=== PATIENT | female | born 1980 | race Caucasian/White ===

== ENCOUNTER 2018-08-07 14:18 | Inpatient (IN) ==
[2018-08-07] MEDS ORDERED: Naloxone 0.4 MG/ML INJ IVP PRN (17:17)
[2018-08-07] MEDS ORDERED: *HR* OxyCODONE Immed Rel 5 MG TABLET PO PRN (17:17)
[2018-08-07] MEDS ORDERED: *HR* HYDROcodone/Acet 5/325 mg TABLET PO PRN (17:17)
[2018-08-07] MEDS ORDERED: Vancomycin (wt based) 1,000 MG VIAL IVPB SCH (18:00)
[2018-08-07 18:34] LABS: Bilirubin,Direct 0.8 mg/dL (0.0-0.2); Bilirubin,Indirect 3.3 mg/dL (0.0-1.2); Bilirubin,Total 4.1 mg/dL (0.3-1.0)
[2018-08-07] MEDS: Piperacillin/Tazobactam 3.375 GM in 0.9 % Sodium Chloride Mini Bag 100 ML IVPB SCH (18:49)
[2018-08-07] MEDS: 0.9 % Sodium Chloride 1,000 ML IVC SCH ×4 (18:49→21:41)
--- NOTE | 2018-08-07 19:10 | Internal Med History&Physical ---
Date of Encounter: 08/07/18 Time of Encounter: 17:00 Internal Medicine - H&P: HPI Chief complaint: Leg pain Admitted From: Hospital to Hospital Transfer Plans for Post Hospital Care: Home History of present illness: Ms. Del Castillo is a 38 year old female with no past medical history presented with R leg pain and fever. She was evaluated in [place] ED and transferred here. She was given IV fluids and IV Clindamycin. At the present time she is complaining of R leg pain. Ms Del Castillo has hx of chronic swelling of her legs. She says over the last couple of days she has noticed increased swelling especially in her R leg. She has felt warm and chilled. Some nausea as well. Tylenol has helped but pain in R leg has increased. No diarrhea. No CP or SOB. No cough. No groin pain. No urinary symptoms. Past Med Surg Social Fam HX - Past Medical History Medical history: no medical history Additional medical history: cellulitis, polycystic ovary syndrome Psychiatric history: no psych history - Past Surgical History Surgical History: no surgical history - Social History Smoking Status: Never smoker Smokeless Tobacco Status: No Alcohol use: none Drug use: none - Family History Father Living Status: Still Living Hx Family Cardiac Disorders: Yes (a-fib) Internal Medicine - H&P: Meds No Known Home Drugs 08/07/18 [History] Allergy/AdvReac Type Severity Reaction Status Date / Time No Known Allergies Allergy Verified 08/07/18 12:21 All Systems PM: A 10-system review of systems was performed and is negative for pertinent findings except as documented above in the HPI. - Constitutional Constitutional: chills, fever(s), malaise - EENT Eyes: no diplopia, no pain Ears: no decreased hearing Nose, mouth and throat: dry mouth, no mouth pain, no sinus pain - Cardiovascular Cardiovascular ROS IM: edema, no chest pain, no dyspnea, no dyspnea on exertion, no orthopnea, no paroxysmal nocturnal dyspnea - Respiratory Respiratory: no cough, no hemoptysis, no dyspnea on exertion, no wheezing, no snoring, no chest congestion - Gastrointestinal Gastrointestinal: nausea, no abdominal pain, no diarrhea, no vomiting - Genitourinary Genitourinary: no dysuria, no nocturia - Musculoskeletal Musculoskeletal ROS IM: no arthralgias, no muscle weakness, no stiffness - Integumentary Integumentary IM: erythema, other (warmth bilaterally - R greater than L) - Neurological Neurological ROS: no numbness, no tingling - Endocrine Endocrine IM: no cold intolerance, no excessive sweating - Hematologic/Lymphatic Hematologic/Lymphatic: no easy bleeding - Allergic/Immunologic Allergic/Immunologic: no throat swelling - Constitutional Vitals: Temp Pulse BP Pulse Ox 98.5 F 112 124/46 92 08/07/18 15:53 08/07/18 15:53 08/07/18 15:53 08/07/18 15:53 General appearance: Present: A&O X 3, answers questions appropriately Exam: See below - Head Head exam: Present: normocephalic - Eye Eye exam: Present: EOMI, conjuntiva pink - ENT ENT exam: Present: mucous membranes dry, normal exam - Neck Neck exam general surgery: Present: normal inspection. Absent: thyromegaly - Respiratory Respiratory exam: Present: CTAB. Absent: rales, rhonchi, wheezes - Cardiovascular Cardiovascular exam: Present: tachycardia. Absent: systolic murmur - GI/Abdominal GI/Abdominal exam: Present: normal bowel sounds, soft. Absent: tenderness - Extremities Exam Extremities exam: Present: pedal edema, tenderness, warm Additional comments: Bilateral lower extremity edema R greater than L. R leg very warm and red to knee. No groin adenopathy. No groin erythema noted. No abdominal erythema. - Neurological Exam Neurological exam: Present: alert, oriented X3, no focal deficits - Skin Skin exam: Present: erythema, warm Internal Med - H&P Results - Labs Labs: Liver Function 08/07/18 Range/Units 18:01 Total Bilirubin 4.1 H (0.3-1.0) mg/dL Direct Bilirubin 0.8 H (0.0-0.2) mg/dL - Impressions ITS Impressions Lower Extremity CT 08/07/18 17:11 IMPRESSION: 1. Diffuse subcutaneous edema with associated skin thickening which is slightly more pronounced when compared with the partially imaged contralateral left lower extremity. Correlate clinically to exclude cellulitis. Underlying venous stasis/lymph edema is suspected. No organized fluid collection or subcutaneous gas identified. 2. No acute osseous abnormality and no CT evidence for osteomyelitis. D/ / Jim Mendoza MD / Jim Mendoza MD Interpreting Provider: Jim Mendoza MD - Assessment and plan (1) Severe sepsis with acute organ dysfunction due to group A Streptococcus Current Visit: Yes Status: Suspected Assessment and plan: Pt with significant cellulitis of RLE. Blood cultures done in [place]. She was given Clindamycin in [place] Admit. IV Zosyn and Vanc ordered CT scan of RLE to r/o gas or fascitis Check duplex to r/o DVT (dimer elevated) Pt severely ill - WBC 37K. Lactate over 4. BP OK at this time. Heart rate elevated. ASO titer ordered. (2) Cellulitis of right lower extremity Current Visit: No Status: Acute Assessment and plan: Most likely due to strep. Abx ordered. Blood cx pending. See above. (3) Anemia Current Visit: No Status: Suspected Assessment and plan: Pt has microcytic anemia. Bilirubin elevated. Further labs ordered. Recheck tomorrow. 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 Recheck tomorrow. (5) Morbid obesity with BMI of 60.0-69.9, adult Current Visit: Yes Status: Chronic - Time Spent With Patient Total time spent is greater than 50% in coordination of care (as documented) at patient's floor/unit and/or counseling patient:
--- NOTE | 2018-08-07 19:34 | Sepsis Event Note ---
Sepsis Event Note - Evaluation Sepsis Screen: No Definite Risk Current Stage of Suspected Sepsis: severe sepsis Possible Source of Sepsis: skin/soft tissue - Focused Exam Date of Encounter: 08/07/18 Time of Encounter: 17:00 Vital Signs: Vital Signs Temp Pulse BP Pulse Ox 08/07/18 15:53 98.5 F 112 124/46 92 08/07/18 15:46 93 Respiratory Exam: Present: CTA bilaterally Cardiovascular Exam: Present: tachycardia Capillary Refill: < 2 seconds Peripheral Pulse Strength: 3+ normal Peripheral Pulse Location: Radial Skin Exam: normal turgor - Bedside Monitoring Bedside Ultrasound Performed: No Passive Leg raise/fluid bolus: not performed
--- NOTE | 2018-08-07 22:44 | Sepsis Event Note ---
Sepsis Reassessment Note - Evaluation Sepsis Screen: Severe Sepsis Risk Current Stage of Sepsis: sepsis Possible Source of Sepsis: skin/soft tissue - Focused Exam Date of Encounter: 08/07/18 Time of Encounter: 23:11 Vital Signs: Vital Signs Temp Pulse Resp BP Pulse Ox 08/07/18 21:46 98.7 F 115 18 122/67 93 08/07/18 15:53 98.5 F 112 124/46 92 08/07/18 15:46 93 Respiratory Exam: Present: CTA bilaterally, diminished air movement Cardiovascular Exam: Present: tachycardia, S1, S2. Absent: murmur Capillary Refill: < 2 seconds Peripheral Pulse Strength: 3+ normal Peripheral Pulse Location: Radial Skin Exam: normal turgor - Reassessment Comments Comments: Repeat lactic acid improved at 1.9. Patient remains tachycardic, but is afebrile.
[2018-08-07] MEDS: Ringers Solution, Lactated 1,000 ML IVC SCH (23:30)
[2018-08-08] MEDS ORDERED: Piperacillin/Tazobactam 3.375 GM in 0.9 % Sodium Chloride Mini Bag 100 ML IVPB SCH
[2018-08-08] MEDS: Piperacillin/Tazobactam 3.375 GM in 0.9 % Sodium Chloride Mini Bag 100 ML IVPB SCH ×3 (01:18→14:49)
[2018-08-08 03:32] LABS: Hematocrit 29.5 % (35.3-44.9); Hemoglobin 7.5 g/dL (11.5-15.4); Mean Corpuscular HGB Conc 25.4 g/dL (31.6-35.5); Mean Corpuscular Hemoglobin 17.2 pg (28.0-33.3); Mean Corpuscular Volume 67.5 fL (83.0-100.0); Platelet Count 282 K/mcL (140-400); Red Blood Count 4.37 M/mcL (3.82-4.97); Red Cell Distribution Width 22.1 % (11.5-14.5)
[2018-08-08 04:17] LABS: Lymphocytes # 2.1 K/mcL (0.6-4.6); Monocytes # 0.9 K/mcL (0.0-1.3); Neutrophils # 39.5 K/mcL (1.6-8.9)
[2018-08-08 04:18] LABS: Ovalocytes 1+ (Not Present); Platelet Estimate Normal (Normal); Stomatocytes 1+ (Not Present)
[2018-08-08 05:25] LABS: Alanine Aminotransferase 25 Units/L (7-52); Albumin 3.8 g/dL (3.5-5.7); Albumin/Globulin Ratio 1.2 (1.1-2.2); Alkaline Phosphatase 55 Units/L (34-104); Aspartate Amino Transferase 31 Units/L (13-39); BUN/Creatinine Ratio 14 (6-26); Bilirubin,Total 3.9 mg/dL (0.3-1.0); Blood Urea Nitrogen 26 mg/dL (6-20); Calcium 7.9 mg/dL (8.6-10.3); Carbon Dioxide 24 mEq/L (23-29); Chloride 102 mEq/L (98-107); Globulin 3.3 g/dL (2.4-3.5); Glucose 113 mg/dL (70-105); Iron < 10 mcg/dL (50-170); Magnesium 1.6 mg/dL (1.6-2.6); Osmolality,Calculated 280 (280-300); Phosphorous 5.1 mg/dL (2.7-4.5); Potassium 6.1 mEq/L (3.5-5.1); Sodium 132 mEq/L (136-145); Total Protein 7.1 g/dL (6.4-8.9); Transferrin 258 mg/dL (203-362); eGFR For Non-African Americans 32 (> 60)
[2018-08-08] MEDS: Ringers Solution, Lactated 1,000 ML IVC SCH (07:00)
[2018-08-08 08:01] LABS: Calcium 7.9 mg/dL (8.6-10.3); Potassium 5.2 mEq/L (3.5-5.1)
--- NOTE | 2018-08-08 08:39 | Internal Med Progress Note ---
<Darin Santos - Last Filed: 08/08/18 17:27> Hospitalist Progress Note - Encounter Date of Encounter: 08/08/18 - Exam Vitals: Temp Pulse Resp BP Pulse Ox 97.7 F 87 20 134/75 96 08/08/18 17:15 08/08/18 17:15 08/08/18 17:15 08/08/18 17:15 08/08/18 17:15 - Assessment and Plan (1) Severe sepsis with acute organ dysfunction due to group A Streptococcus Current Visit: Yes Status: Suspected (2) Cellulitis of right lower extremity Current Visit: No Status: Acute (3) Acute kidney injury (nontraumatic) Current Visit: No Status: Suspected (4) Anemia Current Visit: No Status: Suspected (5) Leukocytosis Current Visit: No Status: Acute (6) Morbid obesity with BMI of 60.0-69.9, adult Current Visit: Yes Status: Chronic (7) Hyperfibrinogenemia Current Visit: Yes Status: Acute (8) Iron deficiency anemia Current Visit: Yes Status: Suspected (9) Acute respiratory failure with hypoxemia Current Visit: Yes Status: Acute (10) CKD (chronic kidney disease) Current Visit: Yes Status: Acute (11) B12 deficiency Current Visit: Yes Status: Acute (12) Elevated brain natriuretic peptide (BNP) level Current Visit: Yes Status: Acute (13) Respiratory failure with hypercapnia Current Visit: Yes Status: Acute - Time Spent with Patient Total time spent is greater than 50% in coordination of care (as documented) at patient's floor/unit and/or counseling patient: Internal Medicine: Result - Labs CBC & Chem 7: 08/08/18 03:08 08/08/18 06:53 Labs: Short CBC 08/08/18 Range/Units 03:08 WBC 42.5 H* (4.3-11.1) K/mcL Hgb 7.5 L (11.5-15.4) g/dL Hct 29.5 L (35.3-44.9) % Plt Count 282 (140-400) K/mcL Neutrophils # 39.5 H (1.6-8.9) K/mcL BMP 08/08/18 08/08/18 03:08 06:53 Sodium 132 L 132 L Potassium 6.1 H D 5.2 H Chloride 102 100 Carbon Dioxide 24 25 BUN 26 H 29 H Creatinine 1.80 H 1.96 H Glucose 113 H 114 H Calcium 7.9 L 7.9 L Liver Function 08/07/18 08/08/18 Range/Units 18:01 03:08 Total Bilirubin 4.1 H 3.9 H (0.3-1.0) mg/dL Direct Bilirubin 0.8 H (0.0-0.2) mg/dL AST 31 (13-39) Units/L ALT 25 (7-52) Units/L Alkaline Phosphatase 55 (34-104) Units/L Albumin 3.8 (3.5-5.7) g/dL Urine 08/08/18 Range/Units 12:45 Urine Color [place] A (Yellow) Urine Clarity Turbid A (Clear) Urine pH 5.0 (5.0-8.0) pH Units Ur Specific [place] 1.024 (1.010-1.025) Urine Protein 100 H (Neg-Trace) mg/dL Urine Glucose (UA) Normal (Normal) mg/dL - ABG Interpretation ABG results: ABG ABG pH 7.27 pH Units (7.32-7.45) L 08/08/18 09:57 ABG pCO2 53 mmHg (35-45) H 08/08/18 09:57 ABG pO2 70 mmHg (85-104) L 08/08/18 09:57 ABG O2 Saturation 91 % (95-98) L 08/08/18 09:57 PT/INR, D-dimer PT 22.0 Seconds (9.4-12.1) H 08/08/18 03:08 - Impressions Impressions Lower Extremity CT 08/07/18 17:11 IMPRESSION: 1. Diffuse subcutaneous edema with associated skin thickening which is slightly more pronounced when compared with the partially imaged contralateral left lower extremity. Correlate clinically to exclude cellulitis. Underlying venous stasis/lymph edema is suspected. No organized fluid collection or subcutaneous gas identified. 2. No acute osseous abnormality and no CT evidence for osteomyelitis. D/ / Jim Mendoza MD / Jim Mendoza MD Interpreting Provider: Jim Mendoza MD Chest X-Ray 08/08/18 09:40 IMPRESSION: Cardiomegaly with pulmonary vascular congestion D/ / Shree Griffith MD / Shree Griffith MD Interpreting Provider: Shree Griffith MD Head CT 08/08/18 10:03 IMPRESSION: No acute intracranial abnormality. D/ / Shree Griffith MD / Shree Griffith MD Interpreting Provider: Shree Griffith MD Consult Discharge Plan - Plan Referrals: NONE,PCP [Primary Care Provider] - - Attending Attestation I examined this patient and my medical decision-making was reviewed with the Resident Physician on 08/08/18. I agree with the documented findings, disposition and treatment plan as described except to the extent set forth below. Ms Del Castillo is currently admitted for sepsis related to RLE cellulitis. She remains moderate to high risk due to potential for worsening clinical status. Ms Del Castillo is still very somnolent today. She has evidence of respiratory acidosis. Febrile again today. No CP or SOB. Renal function worse today. No abd pain. No diarrhea. Exam alert Somnolent but arousable and answers questions appropriately Mucus membranes dry Heart reg and slightly tachy but better today Lungs diminished but clear Abd soft and nontender RLE still very warm and swollen. Less tender today. WBC 42K I/P 1. Severe sepsis due to cellulitis - blood cx neg thus far. Still febrile. On Zosyn and Vanc. WBC markedly elevated. ? if early DIC though platelets normal. Appreciate heme input. Will ask ID to see tomorrow. Monitoring leg for any changes that could speak of abscess or other problem (CT negative yesterday). 2. Morbid obesity. Further diagnoses and plan as above <Deon Garces - Last Filed: 08/08/18 19:41> Hospitalist Progress Note - Encounter Date of Encounter: 08/08/18 Time of Encounter: 10:20 - Subjective Interval History: Seen patient at the bedside. Patient is a transfer from a [place] because of flow right leg pain secondary to cellulitis, on to be in sepsis. She is currently on day 1 vancomycin and Zosyn. She seems to be in moderate distress gasping for air currently on 2L oxygen. Has shortness of breath, and rapid breathing seemed to be confused not hypotensive at this moment. Stat chest x- ray has been ordered. Owing to her confused state stat head CT has also been ordered. Her ABGs showed respiratory acidosis with mild hypoxemia. With evidence of mild hypoxemia should be transitioned from a 2 L oxygen to BiPAP. - Exam Vitals: Temp Pulse Resp BP Pulse Ox 98.7 F 116 19 144/77 86 08/07/18 21:46 08/08/18 07:59 08/08/18 05:08 08/08/18 07:59 08/08/18 07:59 Exam: Gen: Somnolent , acute distress, on BiPAP Chest: Diminished breath sounds B/L, no rales, wheezing or ronchi Heart: S1S2+ RRR No murmurs Abd: Soft, NT, BS +, No organomegaly Ext: +1 edema, pulses are palpable, erythema on RLE due to cellulitis Neuro : Benign findings Skin: erythem aon RLE , swollen. - Assessment and Plan (1) Acute respiratory failure with hypoxemia Current Visit: Yes Status: Acute Assessment and Plan: -Likely multifactorial- patient was severly septic on admision with leukocy tosis of 37K, Lactic acid 4.0, HR : 112. Patient also had anemia (Hb < 7.5), with elevated BNP : 184 - X-ray was positive for pulmonary vascular congestion , patient's ABG showed evidence of acute respiratory acidosis (pH 7.27, pCO2: 53), mild hypoxemia (pO2: 70) - Patient currently on BiPAP, On Vancomycin and Zosyn for her cellulitis. . - Blood and sputum cultures pending. Echo pending , ASO titre pending. Continue to monitor (2) Severe sepsis with acute organ dysfunction due to group A Streptococcus Current Visit: Yes Status: Suspected Assessment and Plan: - likely due to her significant cellulitis and right lower extremity. She was given clindamycin and [place] ED. -Lactic acid 4 on admission currently trending down to 1.9. Paitent is status post 4 L of sodium chloride, a liter of lactated Ringer's. WBC at 37K currently 42.5 K. D-dimer elevated at [place] - Blood and sputum cultures are pending. UA pending. UA positive for nitrates - Currently on day 1 of vancomycin and Zosyn - ASO titre pending (3) Cellulitis of right lower extremity Current Visit: No Status: Acute Assessment and Plan: - Patient came with right lower extremity cellulitis- was given IV clindamycin and [facility] at [facility]. - Currently on IV vancomycin and Zosyn. Oxycodone for pain control. - Blood cultures pending . (4) Acute kidney injury (nontraumatic) Current Visit: No Status: Suspected Assessment and Plan: -Patient has no past medical history of any renal disease. However she came in with a GFR of 29 suggesting stage IV CKD. Patient also edematous but no evidence of periorbital edema. No evidence of hematuria dysuria. Not hypertensive on admission. UA showed proteinuria of 100. -Patient's urine specific gravity was 1.024 suggesting pre-renal cause , Cr 1.86 on admission currently 1.96, s/p 4L 0.9%NCL, 1L LR - FENa pending, renally dose medications. Nephrology on board, Renal Us pending to rule out hydropnephrosis (5) Anemia Current Visit: No Status: Suspected Assessment and Plan: - Likely a mixture of normocytic and microcytic anemia. Patient was admitted with the iron deficiency, MCV 667.5, RDW : 22.1, 1+ ovalocytes, 1+ stomatocytes, LDH : 209. She also had elevated indirect bilirubin of 3.3, K 6.1 on admission, repeat labs showed potassium - 5.2 likely due to sort of hemolysis (Intra/Vascular) - Haptoglobulin , reticulocyte labs pending, Peripheral smear , Direct Erny test pending - Ordered Venofer 300 mg IV, started on Vit B12 1000 mc IM injections daily for 5 days, Folate 1mg PO. - Transfuse 1 unit of PRBCs for Hgb < 7.0 (6) Hyperfibrinogenemia Current Visit: Yes Status: Acute Assessment and Plan: -She had no elevated circulating the fibrinogen > 450 mg/d. - Likely due to setting of acute inflammation secondary to cellulitis. (7) Iron deficiency anemia Current Visit: Yes Status: Suspected Assessment and Plan: - Patient was admitted with iron less than 10. Transferring 258. - No history of any aspirin or NSAID use. - currently on Venofer 300 mg IV, FOBT pending - Transfuse if hemoglobin less than 7. (8) CKD (chronic kidney disease) Current Visit: Yes Status: Acute Assessment and Plan: - Patient came as GFR of 29. -No known history of any diabetes or hypertension. -Renally dose medications.. Nephrology on board. Monitor kidney Fn (9) B12 deficiency Current Visit: Yes Status: Acute Assessment and Plan: - patient had a B12 283. - As per recommendations of hematology , starting on 1000 mc IM injections daily for 5 days. (Then transition to weekly for 4 doses, and then monthly) - (10) Leukocytosis Current Visit: No Status: Acute Assessment and Plan: - She can leukocytosis of 37K, currently 42.5 K, also has left shift - likely due to her right leg cellulitis. -Currently on broad spectrum antibiotics. Will deescalate once blood cultures results are out (11) Morbid obesity with BMI of 60.0-69.9, adult Current Visit: Yes Status: Chronic Assessment and Plan: - Patient has a BMI of 62.5. - Counselled on better dietary choices. (12) Elevated brain natriuretic peptide (BNP) level Current Visit: Yes Status: Acute Assessment and Plan: -[place] was admitted with the elevated BNP of 184. Suspected CHF -CXR was positive for a cardiomegaly along with pulmonary vascular congestion. - Echo pending to rule out valvular/ structural abnormality. - Time Spent with Patient Total time spent is greater than 50% in coordination of care (as documented) at patient's floor/unit and/or counseling patient: Internal Medicine: Result - Labs CBC & Chem 7: 08/08/18 17:57 08/08/18 06:53 Labs: Short CBC 08/08/18 Range/Units 03:08 WBC 42.5 H* (4.3-11.1) K/mcL Hgb 7.5 L (11.5-15.4) g/dL Hct 29.5 L (35.3-44.9) % Plt Count 282 (140-400) K/mcL Neutrophils # 39.5 H (1.6-8.9) K/mcL BMP 08/08/18 08/08/18 03:08 06:53 Sodium 132 L 132 L Potassium 6.1 H D 5.2 H Chloride 102 100 Carbon Dioxide 24 25 BUN 26 H 29 H Creatinine 1.80 H 1.96 H Glucose 113 H 114 H Calcium 7.9 L 7.9 L Liver Function 08/07/18 08/08/18 Range/Units 18:01 03:08 Total Bilirubin 4.1 H 3.9 H (0.3-1.0) mg/dL Direct Bilirubin 0.8 H (0.0-0.2) mg/dL AST 31 (13-39) Units/L ALT 25 (7-52) Units/L Alkaline Phosphatase 55 (34-104) Units/L Albumin 3.8 (3.5-5.7) g/dL - ABG Interpretation ABG results: PT/INR, D-dimer PT 22.0 Seconds (9.4-12.1) H 08/08/18 03:08 - Impressions Impressions Lower Extremity CT 08/07/18 17:11 IMPRESSION: 1. Diffuse subcutaneous edema with associated skin thickening which is slightly more pronounced when compared with the partially imaged contralateral left lower extremity. Correlate clinically to exclude cellulitis. Underlying venous stasis/lymph edema is suspected. No organized fluid collection or subcutaneous gas identified. 2. No acute osseous abnormality and no CT evidence for osteomyelitis. D/ / iJm Mendoza MD / Jim Mendoza MD Interpreting Provider: Jim Mendoza MD <Darin Santos - Last Filed: 08/08/18 17:27> (4) Anemia Qualifiers: Anemia type: iron deficiency Iron deficiency anemia type: chronic blood loss Qualified Code(s): D50.0 - Iron deficiency anemia secondary to blood loss (chronic) (5) Leukocytosis Qualifiers: Leukocytosis type: bandemia Qualified Code(s): D72.825 - Bandemia (8) Iron deficiency anemia Qualifiers: Iron deficiency anemia type: chronic blood loss Qualified Code(s): D50.0 - Iron deficiency anemia secondary to blood loss (chronic) (13) Respiratory failure with hypercapnia Qualifiers: Chronicity: acute Qualified Code(s): J96.02 - Acute respiratory failure with hypercapnia <Deon Garces - Last Filed: 08/08/18 19:41> (5) Anemia Qualifiers: Anemia type: iron deficiency Iron deficiency anemia type: chronic blood loss Qualified Code(s): D50.0 - Iron deficiency anemia secondary to blood loss (chronic) (7) Iron deficiency anemia Qualifiers: Iron deficiency anemia type: chronic blood loss Qualified Code(s): D50.0 - Iron deficiency anemia secondary to blood loss (chronic) (10) Leukocytosis Qualifiers: Leukocytosis type: bandemia Qualified Code(s): D72.825 - Bandemia
[2018-08-08 09:17] LABS: Immature Reticulocyte % 25.4 % (11.0-38.0); Retculocyte # 0.06 M/mcL (0.05-0.10); Reticulocyte % 1.5 % (1.6-2.8)
[2018-08-08 10:01] LABS: ABG Base Excess -3 mEq/L (-2 to 3); ABG HCO3 25 mEq/L (21-27); ABG Oxygen Saturation 91 % (95-98); ABG PCO2 53 mmHg (35-45); ABG PH 7.27 pH Units (7.32-7.45); ABG PO2 70 mmHg (85-104); ABG TCO2 26 mEq/L (20-26)
[2018-08-08 10:27] LABS: Thyroid Stimulating Hormone 1.034 mcIU/mL (0.340-5.600)
[2018-08-08] MEDS: Acetaminophen 325 MG TABLET PO PRN (11:01)
--- NOTE | 2018-08-08 12:53 | Oncology Inp Consult Note ---
Date of Encounter: 08/08/18 Time of Encounter: 13:00 - Data of Consult Requesting Physician: Darin Santos DO Primary Care Provider: PCP NONE - Consult Narrative Reason for consult: Leukocytosis, Anemia History of present illness: A: 1. Anemia w/ MCV of 67.5, RDW 22.1, 1+ ovalocytes, 1+ stomatocytes 2. Iron deficiency anemia, Vit B12 deficiency, and folic acid deficiency 3. Leukocytosis 4. Right lower extremity cellulitis 5. elevated PT/INR (22.0/2.0) 6. Renal Failure (BUN 29/Cr 1.96) 7. Respiratory acidosis P: -Iron < 10, transferrin 258. Will check ferritin. Patient will require IV Fe (Venofer 300 mg IV) -B12 283, start on Vit B12 1000 mc IM injections daily for 5 days. (Then transition to weekly for 4 doses, and then monthly) -Folate 4.3. Please started on folic acid 1 mg PO daily. -Hgb 7.5 w/ MCV 67.5, will check Hgb electrophoresis. -Patient appears to be iron deficient, check FOBT and consider GI consult. -LDH 209, haptoglobin pending. Fibrinogen 663. PT/INR 22.0/2.0. Please check RONN, aPTT, and peripheral blood smear. -BUN 29, Cr 1.96, eGFR 29. Consider checking FENa, Renal US, and nephrology c/s. -ABG shows respiratory acidosis, now on BIPAP -Transfuse 1 unit of PRBCs for Hgb < 7.0 HPI: The patient is a 38 yo WF with no significant past medical history p/w RLE cellulitis. She is currently on IVFs and Clindamycin. Per notes, she endorsed fevers, chills, and right lower leg pain on admission. The patient this am is very tired, groggy, and states her right lower leg is hurting. She was given pain medication the night before. Otherwise, she denies any chills, chest pain, N/V/D, or urinary issues at this time. We have been consulted for leukocytosis and anemia. ROS: 12 point ROS performed. Pertinent positives in HPI. PE: Gen: Morbidly obese female. Very groggy and tired HEENT: NC/AT, PERRLA, EOMI, MMM. CV: Tachycardic. Regular rhythm. No MRGs appreciated. Lungs: Decreased BS b/l, but no w/r/r. ABD: Soft, obese, NT, ND. +BS EXT: Right lower extremity appears red, tender, and swollen Neuro: Very groggy and tired this am. No focal deficits apparent. SKIN: RLE red, hot, tender, and warm. Patient endorses tenderness on palpation. Otherwise, no unusual lesions, rashes, or petechiae appreciated. Past Med Surg Social Fam HX - Past Medical History Medical history: no medical history Additional medical history: cellulitis, polycystic ovary syndrome Psychiatric history: no psych history - Past Surgical History Surgical History: no surgical history - Social History Smoking Status: Never smoker Smokeless Tobacco Status: No Alcohol use: none Drug use: none - Family History Father Living Status: Still Living Hx Family Cardiac Disorders: Yes (a-fib) Medications and Allergies No Known Home Drugs 08/07/18 [History] Allergy/AdvReac Type Severity Reaction Status Date / Time No Known Allergies Allergy Verified 08/07/18 12:21 Oncology - Exam - Constitutional Vitals: Temp Pulse Resp BP Pulse Ox 98.7 F 116 28 143/77 94 08/07/18 21:46 08/08/18 07:59 08/08/18 10:05 08/08/18 10:05 08/08/18 10:05 Oncology - Results Labs: 08/08/18 08/08/18 08/08/18 09:57 08:55 08:55 WBC RBC Hgb Hct MCV MCH MCHC RDW Plt Count MPV Reticulocyte # 0.06 Seg Neutrophils % Band Neutrophils % Lymphocytes % Monocytes % Neutrophils # Lymphocytes # Monocytes # Platelet Estimate Ovalocytes Stomatocytes Percent Retic 1.5 L Immature Retic Fraction 25.4 Retic Hgb Equivalent 16.4 L PT INR Fibrinogen Sample Site L Radial ABG pH 7.27 L ABG pCO2 53 H ABG pO2 70 L ABG HCO3 25 ABG Total CO2 26 ABG O2 Saturation 91 L ABG Base Excess -3 L Juan Test Positive O2 Delivery Device Cannula Inspired O2 2.0 Sodium Potassium Chloride Carbon Dioxide BUN Creatinine Est GFR ( Amer) Est GFR (Non-Af Amer) BUN/Creatinine Ratio Glucose Calculated Osmolality Lactic Acid Calcium Phosphorus Magnesium Iron % Saturation Transferrin Total Bilirubin Direct Bilirubin Indirect Bilirubin AST ALT Alkaline Phosphatase Lactate Dehydrogenase 209 Creatine Kinase B-Natriuretic Peptide Serum Total Protein Albumin Globulin Albumin/Globulin Ratio Vitamin B12 Folate TSH Free T4 Blood Type Antibody Screen Direct Antiglob Test RONN, Poly Interpret 08/08/18 08/08/18 08/08/18 08:54 08:54 06:53 WBC RBC Hgb Hct MCV MCH MCHC RDW Plt Count MPV Reticulocyte # Seg Neutrophils % Band Neutrophils % Lymphocytes % Monocytes % Neutrophils # Lymphocytes # Monocytes # Platelet Estimate Ovalocytes Stomatocytes Percent Retic Immature Retic Fraction Retic Hgb Equivalent PT INR Fibrinogen Sample Site ABG pH ABG pCO2 ABG pO2 ABG HCO3 ABG Total CO2 ABG O2 Saturation ABG Base Excess Juan Test O2 Delivery Device Inspired O2 Sodium 132 L Potassium 5.2 H Chloride 100 Carbon Dioxide 25 BUN 29 H Creatinine 1.96 H Est GFR ( Amer) 35 L Est GFR (Non-Af Amer) 29 L BUN/Creatinine Ratio 15 Glucose 114 H Calculated Osmolality 281 Lactic Acid Calcium 7.9 L Phosphorus Magnesium Iron % Saturation Transferrin Total Bilirubin Direct Bilirubin Indirect Bilirubin AST ALT Alkaline Phosphatase Lactate Dehydrogenase Creatine Kinase 197 B-Natriuretic Peptide Serum Total Protein Albumin Globulin Albumin/Globulin Ratio Vitamin B12 283 Folate 4.3 TSH 1.034 Free T4 0.88 Blood Type Antibody Screen Direct Antiglob Test RONN, Poly Interpret 08/08/18 08/08/18 08/08/18 03:08 03:08 03:08 WBC RBC Hgb Hct MCV MCH MCHC RDW Plt Count MPV Reticulocyte # Seg Neutrophils % Band Neutrophils % Lymphocytes % Monocytes % Neutrophils # Lymphocytes # Monocytes # Platelet Estimate Ovalocytes Stomatocytes Percent Retic Immature Retic Fraction Retic Hgb Equivalent PT INR Fibrinogen 663 H Sample Site ABG pH ABG pCO2 ABG pO2 ABG HCO3 ABG Total CO2 ABG O2 Saturation ABG Base Excess Juan Test O2 Delivery Device Inspired O2 Sodium 132 L Potassium 6.1 H D Chloride 102 Carbon Dioxide 24 BUN 26 H Creatinine 1.80 H Est GFR ( Amer) 39 L Est GFR (Non-Af Amer) 32 L BUN/Creatinine Ratio 14 Glucose 113 H Calculated Osmolality 280 Lactic Acid Calcium 7.9 L Phosphorus 5.1 H Magnesium 1.6 Iron < 10 L % Saturation TNP Transferrin 258 Total Bilirubin 3.9 H Direct Bilirubin Indirect Bilirubin AST 31 ALT 25 Alkaline Phosphatase 55 Lactate Dehydrogenase Creatine Kinase B-Natriuretic Peptide 184 H Serum Total Protein 7.1 Albumin 3.8 Globulin 3.3 Albumin/Globulin Ratio 1.2 Vitamin B12 Folate TSH Free T4 Blood Type Antibody Screen Direct Antiglob Test RONN, Poly Interpret 08/08/18 08/08/18 08/07/18 03:08 03:08 22:00 WBC 42.5 H* RBC 4.37 Hgb 7.5 L Hct 29.5 L MCV 67.5 L MCH 17.2 L MCHC 25.4 L RDW 22.1 H Plt Count 282 MPV TNP Reticulocyte # Seg Neutrophils % 88.0 Band Neutrophils % 5.0 H Lymphocytes % 5.0 Monocytes % 2.0 Neutrophils # 39.5 H Lymphocytes # 2.1 Monocytes # 0.9 Platelet Estimate Normal Ovalocytes 1+ A Stomatocytes 1+ A Percent Retic Immature Retic Fraction Retic Hgb Equivalent PT 22.0 H INR 2.0 Fibrinogen Sample Site ABG pH ABG pCO2 ABG pO2 ABG HCO3 ABG Total CO2 ABG O2 Saturation ABG Base Excess Juan Test O2 Delivery Device Inspired O2 Sodium Potassium Chloride Carbon Dioxide BUN Creatinine Est GFR ( Amer) Est GFR (Non-Af Amer) BUN/Creatinine Ratio Glucose Calculated Osmolality Lactic Acid 1.9 Calcium Phosphorus Magnesium Iron % Saturation Transferrin Total Bilirubin Direct Bilirubin Indirect Bilirubin AST ALT Alkaline Phosphatase Lactate Dehydrogenase Creatine Kinase B-Natriuretic Peptide Serum Total Protein Albumin Globulin Albumin/Globulin Ratio Vitamin B12 Folate TSH Free T4 Blood Type Antibody Screen Direct Antiglob Test RONN, Poly Interpret 08/07/18 08/07/18 08/07/18 18:01 18:01 18:01 WBC RBC Hgb Hct MCV MCH MCHC RDW Plt Count MPV Reticulocyte # Seg Neutrophils % Band Neutrophils % Lymphocytes % Monocytes % Neutrophils # Lymphocytes # Monocytes # Platelet Estimate Ovalocytes Stomatocytes Percent Retic Immature Retic Fraction Retic Hgb Equivalent PT INR Fibrinogen Sample Site ABG pH ABG pCO2 ABG pO2 ABG HCO3 ABG Total CO2 ABG O2 Saturation ABG Base Excess Juan Test O2 Delivery Device Inspired O2 Sodium Potassium Chloride Carbon Dioxide BUN Creatinine Est GFR ( Amer) Est GFR (Non-Af Amer) BUN/Creatinine Ratio Glucose Calculated Osmolality Lactic Acid 2.7 H Calcium Phosphorus Magnesium Iron % Saturation Transferrin Total Bilirubin 4.1 H Direct Bilirubin 0.8 H Indirect Bilirubin 3.3 H AST ALT Alkaline Phosphatase Lactate Dehydrogenase Creatine Kinase B-Natriuretic Peptide Serum Total Protein Albumin Globulin Albumin/Globulin Ratio Vitamin B12 Folate TSH Free T4 Blood Type A NEGATIVE Antibody Screen NEGATIVE Direct Antiglob Test 1+ A RONN, Poly Interpret 1+ Lower Extremity CT 08/07/18 17:11 IMPRESSION: 1. Diffuse subcutaneous edema with associated skin thickening which is slightly more pronounced when compared with the partially imaged contralateral left lower extremity. Correlate clinically to exclude cellulitis. Underlying venous stasis/lymph edema is suspected. No organized fluid collection or subcutaneous gas identified. 2. No acute osseous abnormality and no CT evidence for osteomyelitis. Consult Discharge Plan - Plan Referrals: NONE,PCP [Primary Care Provider] - Inpatient Charges Provider: Dr. James Terry Consult - Inpatient: [id number]
[2018-08-08 13:01] LABS: Bilirubin,Urine Small (Negative); Blood,Urine Negative (Negative); Clarity,Urine Turbid (Clear); Color,Urine Orange (Yellow); Glucose,Urine (UA) Normal (Normal); Ketones,Urine Trace mg/dL (Negative); Leukocyte Esterase,Urine Trace (Negative); Nitrite,Urine Positive (Negative); Protein,Urine 100 mg/dL (Neg-Trace); Specific Gravity,Urine 1.024 (1.010-1.025); Urobilinogen,Urine Normal (Normal)
[2018-08-08 13:04] LABS: Bacteria,Urine None Seen per hpf (None-Few); Squamous Epithelial Cell,Urine Many per lpf (None-Few); WBC,Urine 15-30 per hpf (0-3)
[2018-08-08 13:14] LABS: RBC,Urine 0-3 per hpf (0-3)
[2018-08-08] MEDS ORDERED: Cyanocobalamin (B-12) 1,000 MCG/ML VIAL IM ONE (13:49)
--- NOTE | 2018-08-08 13:58 | Nephrology Consult Note ---
Date of Encounter: 08/08/18 Time of Encounter: 12:00 Assessment and Plan (1) Acute kidney injury (nontraumatic) Current Visit: No Status: Suspected Elevated SCr in the setting of likely sepsis and on vanco/zosyn Agree with holding IVF given resp. distress, continue po fluids Will dose with one time iv lasix 40mg to improve UOP after 6liters in Avoid nephrotoxins if possible No acute indication for [employer] at this time but discussed the possibility if renal fxn worsens and /or worsening volume overload refractory to diuretics Await US of kindey, bladder sacn done with laureano also in place. Doubt obxn Will check urine studies, uric acid, ck resul'ts noted, CHERIE and complements. ASO titer already ordered by primary team (2) Acute respiratory failure with hypoxemia Current Visit: Yes Status: Acute See above (3) Morbid obesity with BMI of 60.0-69.9, adult Current Visit: Yes Status: Chronic (4) Iron deficiency anemia Current Visit: Yes Status: Suspected Per hematology, s/p iv iron infusion already Qualifiers: Iron deficiency anemia type: chronic blood loss Qualified Code(s): D50.0 - Iron deficiency anemia secondary to blood loss (chronic) (5) Severe sepsis with acute organ dysfunction due to group A Streptococcus Current Visit: Yes Status: Suspected per primary team (6) Cellulitis of right lower extremity Current Visit: No Status: Acute per primaty team History of Present Illness - Reason for Consult Consult date: 08/08/18 Acute Kidney Injury Requesting physician: Darin Santos - History of Present Illness 38 y o female with no known PMH except morbid obesity and chronic LE edema admitted from [place] with RLE pain and fever. She was noted with very elevated WBC at 37 now 42 along with elevated SCr at 1.85 worsening to 1.96, GFR 29 with baseline unknown. Renal consulted for help with HAZEL management. No NS AIDs use noted, just tylenol. No urinary sxs. Ptbseen and examined with and brother present at bedside, Pt was on biPAP and appeared lethargic but easily awakes up and answers questions appropriately. Past Med Surg Social Fam HX - Past Medical History Medical history: no medical history Additional medical history: cellulitis, polycystic ovary syndrome Psychiatric history: no psych history - Past Surgical History Surgical History: no surgical history - Social History Smoking Status: Never smoker Smokeless Tobacco Status: No Alcohol use: none Drug use: none - Family History Father Living Status: Still Living Hx Family Cardiac Disorders: Yes (a-fib) Medications and Allergies No Known Home Drugs 08/07/18 [History] Allergy/AdvReac Type Severity Reaction Status Date / Time No Known Allergies Allergy Verified 08/07/18 12:21 Review of Systems All Systems review (narrative): The rest of the systems are negative Constitutional: fatigue (admits) Cardiovascular: chest pain (denies), edema (admits) Respiratory: dyspnea (denies) Exam - Vital Signs Vital signs: Initial Vital Signs Pulse Ox 93 08/07/18 15:46 Vital Signs - Last 8 Hours Temp Pulse Resp BP Pulse Ox 08/08/18 13:23 100.8 F H 104 135/62 95 08/08/18 11:00 102.3 F H 08/08/18 10:05 28 143/77 94 08/08/18 09:11 93 08/08/18 07:59 116 144/77 86 Intake and Output 08/07/18 08/08/18 08/08/18 23:59 07:59 15:59 Intake Total 4600 / 4600 1100 / 1100 Output Total 0 / 0 550 / 550 Balance 4600 / 4600 550 / 550 Intake: IV Fluids 4600 / 4600 1100 / 1100 0.9 % Sodium Chloride 1,000 ML 4000 / 4000 @ 999 mls/hr IVC .Q1H1M [facility] Rx# :[id number] Lactated Ringers 1,000 ML @ 150 1000 / 1000 mls/hr IVC .Q6H40M ROHINI Rx#: [id number] Zosyn 3.375 GM In 0.9 % Sodium 100 / 100 100 / 100 Chloride (Mini-Bag +) 100 ML @ 25 mls/hr IVPB Q8HR [facility] Rx#: [id number] Vancocin 2,000 MG In 0.9 % 500 / 500 Sodium Chloride 500 ML @ 250 mls/hr IVPB Q12H [facility] Rx#: [id number] Output: Urine 0 / 0 550 / 550 Other: # Voids 1 Weight 191.95 kg - General Appearance General appearance: well-developed, well-nourished, obese, fatigue Exam: on biPAP EENT: ATNC, mucous membranes moist Neck: no JVD, supple Additional Comments: Decreased BS bases bilat Cardiology: edema (LE bilat), normal S2 Gastrointestinal: no tenderness, no guarding, obese Integumentary: warm and dry, chronic venous stasis ( RLE with erythema and warmth) Neurologic: no focal deficit Musculoskeletal: no deformities Psychiatric: mood/affect appropriate Results - Lab Results 08/08/18 17:57 08/08/18 06:53 Most recent lab results ABG pH 7.27 pH Units (7.32-7.45) L 08/08/18 09:57 ABG pCO2 53 mmHg (35-45) H 08/08/18 09:57 ABG pO2 70 mmHg (85-104) L 08/08/18 09:57 ABG HCO3 25 mEq/L (21-27) 08/08/18 09:57 ABG O2 Saturation 91 % (95-98) L 08/08/18 09:57 Calcium 7.9 mg/dL (8.6-10.3) L 08/08/18 06:53 Phosphorus 5.1 mg/dL (2.7-4.5) H 08/08/18 03:08 Magnesium 1.6 mg/dL (1.6-2.6) 08/08/18 03:08 Urine Sodium 23.4 mEq/L 08/08/18 12:45 Consult Discharge Plan - Plan Referrals: NONE,PCP [Primary Care Provider] -
[2018-08-08] MEDS: Folic Acid 1 MG TABLET PO SCH (14:49)
[2018-08-08] MEDS ORDERED: Furosemide 40 MG/4 ML VIAL IVP ONE (16:29)
[2018-08-08 18:10] LABS: Hematocrit 25.3 % (35.3-44.9); Hemoglobin 6.5 g/dL (11.5-15.4); Mean Corpuscular HGB Conc 25.7 g/dL (31.6-35.5); Mean Corpuscular Hemoglobin 17.2 pg (28.0-33.3); Mean Corpuscular Volume 66.8 fL (83.0-100.0); Mean Platelet Volume 10.7 fL (9.4-12.4); Platelet Count 230 K/mcL (140-400); Red Blood Count 3.79 M/mcL (3.82-4.97); Red Cell Distribution Width 22.1 % (11.5-14.5)
[2018-08-09 01:17] LABS: Basophils % 0.1 %; Lymphocytes % 2.3 %
[2018-08-09 01:19] LABS: Hematocrit 26.9 % (35.3-44.9); Hemoglobin 6.8 g/dL (11.5-15.4); Immature Granulocytes % 4.1 % (0-4); Lymphocytes # 0.6 K/mcL (0.6-4.6); Mean Corpuscular HGB Conc 25.3 g/dL (31.6-35.5); Mean Corpuscular Hemoglobin 16.8 pg (28.0-33.3); Mean Corpuscular Volume 66.4 fL (83.0-100.0); Monocytes # 1.2 K/mcL (0.0-1.3); Monocytes % 4.9 %; Neutrophils # 21.9 K/mcL (1.6-8.9); Platelet Count 224 K/mcL (140-400); Red Blood Count 4.05 M/mcL (3.82-4.97); Red Cell Distribution Width 21.8 % (11.5-14.5); Segmented Neutrophils % 88.6 %
[2018-08-09] MEDS: Acetaminophen 325 MG TABLET PO PRN ×2 (01:25→20:44)
[2018-08-09] MEDS: Piperacillin/Tazobactam 3.375 GM in 0.9 % Sodium Chloride Mini Bag 100 ML IVPB SCH ×2 (01:25→09:07)
[2018-08-09 01:35] LABS: Anisocytosis 2+ (Not Present); Hypochromasia Present (Not Present); Microcytosis Present (Not Present); Platelet Estimate Normal (Normal)
[2018-08-09] MEDS ORDERED: 0.9 % Sodium Chloride 250 ML ONE (03:43)
[2018-08-09 04:25] LABS: ABG Base Excess -2 mEq/L (-2 to 3); ABG HCO3 26 mEq/L (21-27); ABG Oxygen Saturation 69 % (95-98); ABG PCO2 64 mmHg (35-45); ABG PH 7.22 pH Units (7.32-7.45); ABG PO2 44 mmHg (85-104); ABG TCO2 28 mEq/L (20-26)
[2018-08-09 05:02] LABS: Basophils % 0.1 %
[2018-08-09 05:03] LABS: Hematocrit 26.3 % (35.3-44.9); Hemoglobin 6.7 g/dL (11.5-15.4); Immature Granulocytes % 4.4 % (0-4); Lymphocytes # 0.6 K/mcL (0.6-4.6); Lymphocytes % 2.4 %; Mean Corpuscular HGB Conc 25.5 g/dL (31.6-35.5); Mean Corpuscular Hemoglobin 17.1 pg (28.0-33.3); Mean Corpuscular Volume 67.1 fL (83.0-100.0); Monocytes # 0.9 K/mcL (0.0-1.3); Neutrophils # 20.3 K/mcL (1.6-8.9); Nucleated Red Blood Cells 0.1 /100 WBC (0); Platelet Count 192 K/mcL (140-400); Red Blood Count 3.92 M/mcL (3.82-4.97); Red Cell Distribution Width 22.5 % (11.5-14.5); Segmented Neutrophils % 89.1 %
[2018-08-09 05:04] LABS: INR 1.4; Prothrombin Time 15.8 Seconds (9.4-12.1)
[2018-08-09 05:17] LABS: Calcium 8.1 mg/dL (8.6-10.3); Potassium 5.1 mEq/L (3.5-5.1)
[2018-08-09 05:34] LABS: ABG Base Excess -2 mEq/L (-2 to 3); ABG HCO3 27 mEq/L (21-27); ABG Oxygen Saturation 100 % (95-98); ABG PCO2 72 mmHg (35-45); ABG PH 7.18 pH Units (7.32-7.45); ABG PO2 220 mmHg (85-104); ABG TCO2 29 mEq/L (20-26); Blood Gas PEEP 8 cm H2O
[2018-08-09] MEDS ORDERED: Furosemide 40 MG/4 ML VIAL IVP ONE ×2 (05:39→08:06)
[2018-08-09 05:50] LABS: Platelet Estimate Normal (Normal)
[2018-08-09 05:51] LABS: Anisocytosis 2+ (Not Present); Hypochromasia Present (Not Present); Microcytosis Present (Not Present)
[2018-08-09] MEDS ORDERED: *HR* Belladonna Alkaloids/Opium 30 MG RECTAL SUPPOSITORY RC PRN (08:41)
[2018-08-09] MEDS ORDERED: Acetaminophen IV 1,000 MG/100 ML INFUS..BTL IVPB ONE (08:46)
--- NOTE | 2018-08-09 08:50 | Internal Med Progress Note ---
<Maritza Garcesbh - Last Filed: 08/09/18 16:25> Hospitalist Progress Note - Encounter Date of Encounter: 08/09/18 Time of Encounter: 08:00 - Subjective Interval History: 08/09 Patient had a drop in her hemoglobinto 6.7, and is s/p 1 unit of packed red blood cell. Her repeat hemoglobin as of 9 AM is 7.4. Stool guaiac has been ordered. She continues is to be on broad-spectrum antibiotics for her right leg cellulitis and her white blood count has been improving (42.5 -> 22.8K) , added Cefepime by ID. Endorses mild abdominal pain which could be secondary to constipation and ordered some stool softeners. Patient endorses no numbness or tingling in extremities, the erythema around the cellulitis looks about the same. Continues to have a nonoliguric HAZEL and is s/p 9L of fluids in total. 08/08 Seen patient at the bedside. Patient is a transfer from [facility] because of flow right leg pain secondary to cellulitis, on to be in sepsis. She is currently on day 1 vancomycin and Zosyn. She seems to be in moderate distress gasping for air currently on 2L oxygen. Has shortness of breath, and rapid breathing seemed to be confused not hypotensive at this moment. Stat chest x- ray has been ordered. Owing to her confused state stat head CT has also been ordered. Her ABGs showed respiratory acidosis with mild hypoxemia. With evidence of mild hypoxemia should be transitioned from a 2 L oxygen to BiPAP. - Exam Vitals: Temp Pulse Resp BP Pulse Ox 97.4 F L 86 15 145/83 97 08/09/18 06:43 08/09/18 06:43 08/09/18 06:43 08/09/18 06:43 08/09/18 06:43 Exam: Gen: Somnolent , acute distress, on BiPAP Chest: Diminished breath sounds B/L, no rales, wheezing or ronchi Heart: S1S2+ RRR No murmurs Abd: Distended , NT, BS +, No organomegaly Ext: +1 edema, pulses are palpable, erythema on RLE due to cellulitis Neuro : Benign findings Skin: erythem aon RLE , swollen. - Assessment and Plan (1) Acute respiratory failure with hypoxemia Current Visit: Yes Status: Acute Assessment and Plan: -Likely multifactorial- patient was severly septic on admision with leukocytosis of 37K, Lactic acid 4.0, HR : 112. Patient also had anemia (Hb < 7.5), with elevated BNP : 184 - X-ray was positive for pulmonary vascular congestion , patient's most recent ABG showed evidence of acute respiratory acidosis with hypoxemia , worsened as of this morning at 5:29 AM with PCO2 of 72 , repeat ABG looks better and most recent PCO2 is 68, with pH 7.24 . - Patient currently on BiPAP, On Vancomycin, 2 grams IV Q12h cefepime, and Zosyn for her cellulitis. - Blood and sputum cultures have not grown anything thus far. Echo pending , ASO titre pending. Continue to monitor (2) Severe sepsis with acute organ dysfunction due to group A Streptococcus Current Visit: Yes Status: Suspected Assessment and Plan: - likely due to her significant cellulitis and right lower extremity. She was given IV clindamycin and [facility]. -Lactic acid 4 on admission currently trending down to 0.6 . Paitent is s tatus post 4 L of sodium chloride, a liter of lactated Ringer's. WBC at 37K currently 42.5 K. D-dimer elevated at [facility] - Insulin white blood count is trending down. Tachycardia has resolved. Afebrile - Blood and sputum cultures are pending. UA pending. UA positive for nitrates - Currently on day 1 of vancomycin , Zosynand IV Cefepime q12h. - ASO titre pending (3) Cellulitis of right lower extremity Current Visit: No Status: Acute Assessment and Plan: - Patient came with right lower extremity cellulitis- was given IV clindamycin and fluids at [facility]. - Currently on IV vancomycin ,Cefepime q12h, Zosyn. Oxycodone for pain control. DVT study was negative. - Blood cultures pending . (4) Acute kidney injury (nontraumatic) Current Visit: No Status: Acute Assessment and Plan: -Patient has no past medical history of any renal disease. However she came in with a GFR of 29 suggesting stage IV CKD. Patient also edematous but no evidence of periorbital edema. No evidence of hematuria dysuria. Not hypertensive on admission. UA showed proteinuria of 100. -Patient's urine specific gravity was 1.024 suggesting pre-renal cause , Cr 1.86 on admission currently 1.89, s/p 4L 0.9%NCL, 1L LR, OD catheter in place - complement, CHERIE, eosinophils, FENa pending, renally dose medications. Nephrology on board, Renal Diet (5) Anemia Current Visit: No Status: Acute Assessment and Plan: - Likely a mixture of normocytic and microcytic anemia, with evidence of hypochromasia, and low percent reticulocyte count. Patient was admitted with the iron deficiency, MCV 667.5, RDW : 22.1, 1+ ovalocytes, 1+ stomatocytes, LDH : 209, Ferritin 61. She also had elevated indirect bilirubin of 3.3, K 6.1 on admission, repeat labs showed potassium - 5.2 likely due to sort of hemolysis (Intra/Vascular) - had a drop in her hemoglobin to 6.7 requiringi unit pRBC ,repeat Hb 7.4 - Haptoglobulin , Peripheral smear , LAP score, celiac cascade, parietal cell IgG and Intrinsic factor AB pending. stool guiac test ordered - Ordered Venofer 300 mg IV, started on Vit B12 1000 mc IM injections daily for 5 days, Folate 1mg PO. - Transfuse 1 unit of PRBCs for Hgb < 7.0 (6) Hyperfibrinogenemia Current Visit: Yes Status: Acute Assessment and Plan: -She had elevated circulating the fibrinogen > 450 mg/d. - Likely due to setting of acute inflammation secondary to cellulitis. (7) Iron deficiency anemia Current Visit: Yes Status: Suspected Assessment and Plan: - Patient was admitted with iron less than 10. Transferring 258, Normal Ferritin - No history of any aspirin or NSAID use. - currently on Venofer 300 mg IV, FOBT pending - Transfuse if hemoglobin less than 7. (8) CKD (chronic kidney disease) Current Visit: Yes Status: Acute Assessment and Plan: - Patient came as GFR of 29. -No known history of any diabetes or hypertension. -Renally dose medications.. Nephrology on board. Monitor kidney Fn (9) B12 deficiency Current Visit: Yes Status: Acute Assessment and Plan: - patient had a B12 283. - As per recommendations of hematology , starting on 1000 mc IM injections daily for 5 days. (Then transition to weekly for 4 doses, and then monthly) - (10) Leukocytosis Current Visit: No Status: Acute Assessment and Plan: - She was admitted with leukocytosis of 37K, currently improving at 22.8 K, also has left shift - likely due to her right leg cellulitis. -Currently on Vanc/Zosyn and Cefepime. Will deescalate once blood cultures results are out, LAP (leukocyte alkaline phosphate test) pending (11) Morbid obesity with BMI of 60.0-69.9, adult Current Visit: Yes Status: Chronic Assessment and Plan: - Patient has a BMI of 62.5. - Counselled on better dietary choices. (12) Elevated brain natriuretic peptide (BNP) level Current Visit: Yes Status: Acute Assessment and Plan: -She was admitted with the elevated BNP of 184. Suspected CHF -CXR was positive for a cardiomegaly along with pulmonary vascular congestion. - Echo pending to rule out valvular/ structural abnormality. - Time Spent with Patient Total time spent is greater than 50% in coordination of care (as documented) at patient's floor/unit and/or counseling patient: Internal Medicine: Result - Labs CBC & Chem 7: 08/09/18 09:10 08/09/18 04:35 Labs: Short CBC 08/08/18 08/08/18 08/09/18 Range/Units 03:08 17:57 01:06 WBC 42.5 H* 31.1 H* 24.7 H (4.3-11.1) K/mcL Hgb 7.5 L 6.5 L 6.8 L (11.5-15.4) g/dL Hct 29.5 L 25.3 L 26.9 L (35.3-44.9) % Plt Count 282 230 224 (140-400) K/mcL Neutrophils # 39.5 H 21.9 H (1.6-8.9) K/mcL 08/09/18 Range/Units 04:35 WBC 22.8 H (4.3-11.1) K/mcL Hgb 6.7 L (11.5-15.4) g/dL Hct 26.3 L (35.3-44.9) % Plt Count 192 (140-400) K/mcL Neutrophils # 20.3 H (1.6-8.9) K/mcL BMP 08/08/18 08/09/18 06:53 04:35 Sodium 132 L 130 L Potassium 5.2 H 5.1 Chloride 100 100 Carbon Dioxide 25 24 BUN 29 H 40 H Creatinine 1.96 H 1.89 H Glucose 114 H 130 H Calcium 7.9 L 8.1 L Urine 08/08/18 Range/Units 12:45 Urine Color [place] A (Yellow) Urine Clarity [place] A (Clear) Urine pH 5.0 (5.0-8.0) pH Units Ur Specific [place] 1.024 (1.010-1.025) Urine Protein 100 H (Neg-Trace) mg/dL Urine Glucose (UA) Normal (Normal) mg/dL - ABG Interpretation ABG results: ABG ABG pH 7.18 pH Units (7.32-7.45) L* 08/09/18 05:29 ABG pCO2 72 mmHg (35-45) H* 08/09/18 05:29 ABG pO2 220 mmHg (85-104) H D 08/09/18 05:29 ABG O2 Saturation 100 % (95-98) H 08/09/18 05:29 PT/INR, D-dimer PT 15.8 Seconds (9.4-12.1) H 08/09/18 04:35 - Impressions Impressions Chest X-Ray 08/08/18 09:40 IMPRESSION: Cardiomegaly with pulmonary vascular congestion D/ / Shree Griffith MD / Shree Griffith MD Interpreting Provider: Shree Griffith MD Head CT 08/08/18 10:03 IMPRESSION: No acute intracranial abnormality. D/ / Shree Griffith MD / Shree Griffith MD Interpreting Provider: Shree Griffith MD Chest X-Ray 08/09/18 08:20 IMPRESSION: Stable chest. Probable early CHF with mild perihilar edema. D/ / Javi Simpson MD / Javi Simpson MD Interpreting Provider: Javi Simpson MD Consult Discharge Plan - Plan Referrals: NONE,PCP [Primary Care Provider] - <Darin Santos - Last Filed: 08/09/18 17:00> Hospitalist Progress Note - Encounter Date of Encounter: 08/09/18 - Exam Vitals: Temp Pulse Resp BP Pulse Ox 98.2 F 81 16 133/79 98 08/09/18 16:00 08/09/18 16:00 08/09/18 16:00 08/09/18 16:00 08/09/18 16:00 - Assessment and Plan (1) Cellulitis of right lower extremity Current Visit: No Status: Acute (2) Acute kidney injury (nontraumatic) Current Visit: No Status: Acute (3) Anemia Current Visit: No Status: Acute (4) Leukocytosis Current Visit: No Status: Acute (5) Severe sepsis with acute organ dysfunction due to group A Streptococcus Current Visit: Yes Status: Suspected (6) Morbid obesity with BMI of 60.0-69.9, adult Current Visit: Yes Status: Chronic (7) Hyperfibrinogenemia Current Visit: Yes Status: Acute (8) Iron deficiency anemia Current Visit: Yes Status: Suspected (9) Acute respiratory failure with hypoxemia Current Visit: Yes Status: Acute (10) CKD (chronic kidney disease) Current Visit: Yes Status: Acute (11) B12 deficiency Current Visit: Yes Status: Chronic (12) Elevated brain natriuretic peptide (BNP) level Current Visit: Yes Status: Acute (13) Respiratory failure with hypercapnia Current Visit: Yes Status: Acute (14) Folate deficiency Current Visit: Yes Status: Chronic - Time Spent with Patient Total time spent is greater than 50% in coordination of care (as documented) at patient's floor/unit and/or counseling patient: Internal Medicine: Result - Labs CBC & Chem 7: 08/09/18 09:10 08/09/18 04:35 Labs: Short CBC 08/08/18 08/09/18 08/09/18 Range/Units 17:57 01:06 04:35 WBC 31.1 H* 24.7 H 22.8 H (4.3-11.1) K/mcL Hgb 6.5 L 6.8 L 6.7 L (11.5-15.4) g/dL Hct 25.3 L 26.9 L 26.3 L (35.3-44.9) % Plt Count 230 224 192 (140-400) K/mcL Neutrophils # 21.9 H 20.3 H (1.6-8.9) K/mcL 08/09/18 Range/Units 09:10 WBC (4.3-11.1) K/mcL Hgb 7.4 L (11.5-15.4) g/dL Hct 28.3 L (35.3-44.9) % Plt Count (140-400) K/mcL Neutrophils # (1.6-8.9) K/mcL BMP 08/09/18 04:35 Sodium 130 L Potassium 5.1 Chloride 100 Carbon Dioxide 24 BUN 40 H Creatinine 1.89 H Glucose 130 H Calcium 8.1 L - ABG Interpretation ABG results: ABG ABG pH 7.24 pH Units (7.32-7.45) L 08/09/18 08:48 ABG pCO2 68 mmHg (35-45) H 08/09/18 08:48 ABG pO2 58 mmHg (85-104) L D 08/09/18 08:48 ABG O2 Saturation 84 % (95-98) L 08/09/18 08:48 PT/INR, D-dimer PT 15.8 Seconds (9.4-12.1) H 08/09/18 04:35 - Impressions Impressions Chest X-Ray 08/09/18 08:20 IMPRESSION: Stable chest. Probable early CHF with mild perihilar edema. D/ / Javi Simpson MD / Javi Simpson MD Interpreting Provider: Javi Simpson MD - Attending Attestation I examined this patient and my medical decision-making was reviewed with the Resident Physician on 08/09/18. I agree with the documented findings, disposition and treatment plan as described except to the extent set forth below. Ms Del Castillo is currently admitted for severe sepsis due to RLE cellulitis. She has developed acute hypercarbic resp failure from pulmonary edema. She remains moderate to high risk due to potential for worsening clinical status. Ms Del Castillo was more somnolent this AM and had worsening respiratory acidosis. BIPAP settings changed. She was better a few hours later. She is now off bipap. Her WBC has decreased. Cultures neg thus far. No further fever or chills. Appears to be more interactive at this time. Pain in her leg (pain meds held due to somnolence). Exam alert Answers my questions Mucus membranes dry Heart reg and not tachy Decreased breath sounds Abd soft and nontender RLE still swollen and red. Area of increased erythema on anterior surface. Edema present. I/P 1. Severe sepsis due to cellulitis - abx adjusted per ID. WBC decreasing. Appears to be very slowly improving. 2. Acute hypercarbic resp failure - due to pulmonary edema. Slow diuresis due to renal function 3. HAZEL - per renal service 4. Anemia - received blood this AM. Patient has been on menses as well. Further diagnoses and plan as above. <Deon Garces - Last Filed: 08/09/18 16:25> (5) Anemia Qualifiers: Anemia type: iron deficiency Iron deficiency anemia type: chronic blood loss Qualified Code(s): D50.0 - Iron deficiency anemia secondary to blood loss (chronic) (7) Iron deficiency anemia Qualifiers: Iron deficiency anemia type: chronic blood loss Qualified Code(s): D50.0 - Iron deficiency anemia secondary to blood loss (chronic) (10) Leukocytosis Qualifiers: Leukocytosis type: bandemia Qualified Code(s): D72.825 - Bandemia <Darin Santos - Last Filed: 08/09/18 17:00> (3) Anemia Qualifiers: Anemia type: iron deficiency Iron deficiency anemia type: chronic blood loss Qualified Code(s): D50.0 - Iron deficiency anemia secondary to blood loss (c hronic) (4) Leukocytosis Qualifiers: Leukocytosis type: bandemia Qualified Code(s): D72.825 - Bandemia (8) Iron deficiency anemia Qualifiers: Iron deficiency anemia type: chronic blood loss Qualified Code(s): D50.0 - Iron deficiency anemia secondary to blood loss (chronic) (13) Respiratory failure with hypercapnia Qualifiers: Chronicity: acute Qualified Code(s): J96.02 - Acute respiratory failure with hypercapnia
[2018-08-09 08:56] LABS: ABG Base Excess 0 mEq/L (-2 to 3); ABG HCO3 29 mEq/L (21-27); ABG Oxygen Saturation 84 % (95-98); ABG PCO2 68 mmHg (35-45); ABG PH 7.24 pH Units (7.32-7.45); ABG PO2 58 mmHg (85-104); ABG TCO2 31 mEq/L (20-26); Blood Gas Modality BiLevel; Blood Gas VT 500 cc
[2018-08-09] MEDS: Folic Acid 1 MG TABLET PO SCH (09:01)
[2018-08-09 09:28] LABS: Hematocrit 28.3 % (35.3-44.9); Hemoglobin 7.4 g/dL (11.5-15.4)
[2018-08-09 09:36] LABS: Protein/Creatinine Ratio,Urine 0.91 mg/mg (0.00-0.20)
--- NOTE | 2018-08-09 10:26 | Oncology Inp Progress Note ---
<Ksenia Doe - Last Filed: 08/09/18 15:54> Date of Encounter: 08/09/18 Time of Encounter: 10:26 (1) Anemia Current Visit: No Status: Acute Assessment and plan: Anemia w/ MCV of 67.5, RDW 22.1, 1+ ovalocytes, 1+ stomatocytes Pt does have iron, B12 and folate deficiencies. Ferritin 61, Vit B12 283, folate 4.3 Pt also has acute hgb drop to 6.7 requiring 1 unit PRBCs early this AM (repeat was 7.4) LDH 209, haptoglobin pending. Fibrinogen 663. PT/INR 22.0/2.0, aPTT 32.3, RONN 1+ A Respiratory acidosis improving Concern for malabsortion in the presence if iron, B12 and folate deficiencies. Will work up with celiac cascade, parietal cell IgG and Intrinsic factor AB Plan: -Continue Venofer -Continue Vit B12 1000 mc IM injections daily for 5 days. (Then transition to weekly for 4 doses, and then monthly) -Continue folic acid 1 mg PO daily. 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 Likely secondary to underlying infectious/inflammatory process. Plan: -Continue with treatment of cellulitis -LAP (leukocyte alkaline phosphate test) pending Qualifiers: Leukocytosis type: bandemia Qualified Code(s): D72.825 - Bandemia (3) B12 deficiency Current Visit: Yes Status: Acute Assessment and plan: per above (4) Folate deficiency Current Visit: Yes Status: Acute Assessment and plan: per above (5) Iron deficiency anemia Current Visit: Yes Status: Suspected Assessment and plan: per above Qualifiers: Iron deficiency anemia type: chronic blood loss Qualified Code(s): D50.0 - Iron deficiency anemia secondary to blood loss (chronic) (6) Cellulitis of right lower extremity Current Visit: No Status: Acute Assessment and plan: Afebrile, VSS Pt is on IV abx and appears to be improving continue per primary team (7) Acute kidney injury (nontraumatic) Current Visit: No Status: Acute Assessment and plan: Improving, SCr 1.89/GFR [address] with yellow urine Nephrology consulted (8) Morbid obesity with BMI of 60.0-69.9, adult Current Visit: Yes Status: Chronic Oncology: Subj Interval history: Ms. Del Castillo is a 38 y/o WF with no significant past medical history p/w RLE cellulitis. She reports this morning that her legs, hands and abdomen feel swollen. She states that her abdomen is tight and feels full. She reports that she is on her menses, not sure if it is heavier than normal but always has heavy menses. She has not had a BM since arrival on 08/07. The urine in her laureano is yellow, no blood. She denies BARROW, visual changes, dizziness, cp, sob. She does report a PMH of PCOS, notes she has not been to a doctor for years since her OB left. - Constitutional Vitals: Vital Signs Temp Pulse Resp BP Pulse Ox 08/09/18 06:43 97.4 F L 86 15 145/83 97 08/09/18 06:27 98.5 F 90 17 133/66 08/09/18 05:40 15 146/70 97 08/09/18 04:42 97.7 F 80 18 146/70 95 08/09/18 04:06 97.7 F 83 18 146/70 08/09/18 03:51 97.8 F 92 18 152/65 96 08/08/18 23:41 26 96 08/08/18 21:32 96 08/08/18 20:06 97 23 133/72 91 08/08/18 18:00 98.8 F 96 17 136/67 93 08/08/18 17:15 97.7 F 87 20 134/75 96 08/08/18 16:17 20 96 08/08/18 13:23 100.8 F H 104 135/62 95 08/08/18 11:00 102.3 F H Intake and Output 08/08/18 08/09/18 08/09/18 23:59 07:59 15:59 Intake Total 1100 / 1100 380 / 380 Output Total 650 / 650 0 / 0 1520 / 1520 Balance 450 / 450 380 / 380 -1520 / -1520 Intake: IV Fluids 300 / 300 100 / 100 Venofer 300 MG In 0.9 % Sodium 200 / 200 Chloride 100 ML @ 76.667 mls/hr IVPB DAILY [facility] Rx#:[id number] Zosyn 3.375 GM In 0.9 % Sodium 100 / 100 100 / 100 Chloride (Mini-Bag +) 100 ML @ 25 mls/hr IVPB Q8HR [facility] Rx#: [id number] Oral 800 / 800 0 / 0 Blood Product 280 / 280 Rbcs Leuko Poor As-3 2nd Unit 280 / 280 [id number] Output: Urine 0 / 0 Catheter 650 / 650 1520 / 1520 General appearance: cooperative, morbidly obese, no acute distress - Head Head exam: Present: atraumatic, normal inspection, normocephalic - Eye Eye exam: Present: EOMI, normal appearance, PERRL, conjuntiva pink, sclera anicteric - ENT ENT exam: Present: mucous membranes moist Additional comments: pale mucous membranes - Neck Neck exam: Present: normal inspection. Absent: lymphadenopathy, tenderness, thyromegaly - Respiratory Respiratory exam: Present: decreased breath sounds, CTAB. Absent: accessory muscle use, rales, respiratory distress, rhonchi, stridor, wheezes - Cardiovascular Cardiovascular exam: Present: RRR, +S1, +S2. Absent: clicks, diastolic murmur, gallop, rubs, systolic murmur - GI/Abdominal GI/Abdominal exam: Present: firm, guarding, hypoactive bowel sounds, tenderness (diffuse) - Extremities Exam Extremities exam: Present: pedal edema, tenderness - Neurological Exam Neurological exam: Present: alert, no focal deficits - Psychiatric Psychiatric exam: Present: normal affect, normal mood - Skin Skin exam: Present: dry, intact, normal color, warm. Absent: pallor, rash Oncology: Obj Data - Labs CBC & Chem 7: 08/09/18 09:10 08/09/18 04:35 Labs: Laboratory Results - last 24 hr 08/07/18 08/08/18 08/08/18 18:01 03:08 03:08 WBC 42.5 H* RBC 4.37 Hgb 7.5 L Hct 29.5 L MCV 67.5 L MCH 17.2 L MCHC 25.4 L RDW 22.1 H Plt Count 282 MPV TNP Immature Gran % Seg Neutrophils % 88.0 Band Neutrophils % 5.0 H Lymphocytes % 5.0 Monocytes % 2.0 Eosinophils % Basophils % Neutrophils # 39.5 H Lymphocytes # 2.1 Monocytes # 0.9 Eosinophils # Basophils # Nucleated RBCs/100 WBC Platelet Estimate Normal Hypochromasia Anisocytosis Microcytosis Ovalocytes 1+ A Stomatocytes 1+ A Smear Path Review See Below PT INR APTT Fibrinogen 663 H Sample Site ABG pH ABG pCO2 ABG pO2 ABG HCO3 ABG Total CO2 ABG O2 Saturation ABG Base Excess Juan Test O2 Delivery Device Blood Gas Modality Inspired O2 Tidal Volume PEEP Sodium Potassium Chloride Carbon Dioxide BUN Creatinine Est GFR ( Amer) Est GFR (Non-Af Amer) BUN/Creatinine Ratio Glucose Calculated Osmolality Lactic Acid Uric Acid Calcium Ferritin Creatine Kinase B-Natriuretic Peptide TSH Free T4 Urine Color Urine Clarity Urine pH Ur Specific [place] Urine Protein Urine Glucose (UA) Urine Ketones Urine Blood Urine Nitrite Urine Bilirubin Urine Urobilinogen Ur Leukocyte Esterase Urine Microscopic RBC Urine Microscopic WBC Ur Squamous Epith Cells Urine Bacteria Urine Creatinine Protein/Creatinin Ratio Urine Sodium Urine Total Protein Vancomycin Trough Blood Type A NEGATIVE Antibody Screen NEGATIVE Direct Antiglob Test 1+ A RONN, Poly Interpret 1+ Crossmatch See Detail 08/08/18 08/08/18 08/08/18 03:08 06:53 12:45 WBC RBC Hgb Hct MCV MCH MCHC RDW Plt Count MPV Immature Gran % Seg Neutrophils % Band Neutrophils % Lymphocytes % Monocytes % Eosinophils % Basophils % Neutrophils # Lymphocytes # Monocytes # Eosinophils # Basophils # Nucleated RBCs/100 WBC Platelet Estimate Hypochromasia Anisocytosis Microcytosis Ovalocytes Stomatocytes Smear Path Review PT INR APTT Fibrinogen Sample Site ABG pH ABG pCO2 ABG pO2 ABG HCO3 ABG Total CO2 ABG O2 Saturation ABG Base Excess Juan Test O2 Delivery Device Blood Gas Modality Inspired O2 Tidal Volume PEEP Sodium 132 L Potassium 5.2 H Chloride 100 Carbon Dioxide 25 BUN 29 H Creatinine 1.96 H Est GFR ( Amer) 35 L Est GFR (Non-Af Amer) 29 L BUN/Creatinine Ratio 15 Glucose 114 H Calculated Osmolality 281 Lactic Acid Uric Acid Calcium 7.9 L Ferritin 61 Creatine Kinase 197 B-Natriuretic Peptide 184 H TSH 1.034 Free T4 0.88 Urine Color Urine Clarity Urine pH Ur Specific [place] Urine Protein Urine Glucose (UA) Urine Ketones Urine Blood Urine Nitrite Urine Bilirubin Urine Urobilinogen Ur Leukocyte Esterase Urine Microscopic RBC Urine Microscopic WBC Ur Squamous Epith Cells Urine Bacteria Urine Creatinine Protein/Creatinin Ratio Urine Sodium 23.4 Urine Total Protein Vancomycin Trough Blood Type Antibody Screen Direct Antiglob Test RONN, Poly Interpret Crossmatch 08/08/18 08/08/18 08/08/18 12:45 13:07 17:57 WBC 31.1 H* RBC 3.79 L Hgb 6.5 L Hct 25.3 L MCV 66.8 L MCH 17.2 L MCHC 25.7 L RDW 22.1 H Plt Count 230 MPV 10.7 Immature Gran % Seg Neutrophils % Band Neutrophils % Lymphocytes % Monocytes % Eosinophils % Basophils % Neutrophils # Lymphocytes # Monocytes # Eosinophils # Basophils # Nucleated RBCs/100 WBC Platelet Estimate Hypochromasia Anisocytosis Microcytosis Ovalocytes Stomatocytes Smear Path Review PT INR APTT 32.3 Fibrinogen Sample Site ABG pH ABG pCO2 ABG pO2 ABG HCO3 ABG Total CO2 ABG O2 Saturation ABG Base Excess Juan Test O2 Delivery Device Blood Gas Modality Inspired O2 Tidal Volume PEEP Sodium Potassium Chloride Carbon Dioxide BUN Creatinine Est GFR ( Amer) Est GFR (Non-Af Amer) BUN/Creatinine Ratio Glucose Calculated Osmolality Lactic Acid Uric Acid Calcium Ferritin Creatine Kinase B-Natriuretic Peptide TSH Free T4 Urine Color [place] A Urine Clarity Turbid A Urine pH 5.0 Ur Specific [place] 1.024 Urine Protein 100 H Urine Glucose (UA) Normal Urine Ketones Trace H Urine Blood Negative Urine Nitrite Positive A Urine Bilirubin Small H Urine Urobilinogen Normal Ur Leukocyte Esterase Trace H Urine Microscopic RBC 0-3 Urine Microscopic WBC 15-30 H Ur Squamous Epith Cells Many H Urine Bacteria None Seen Urine Creatinine Protein/Creatinin Ratio Urine Sodium Urine Total Protein Vancomycin Trough Blood Type Antibody Screen Direct Antiglob Test RONN, Poly Interpret Crossmatch 08/09/18 08/09/18 08/09/18 01:06 04:13 04:35 WBC 24.7 H RBC 4.05 Hgb 6.8 L Hct 26.9 L MCV 66.4 L MCH 16.8 L MCHC 25.3 L RDW 21.8 H Plt Count 224 MPV TNP Immature Gran % 4.1 H Seg Neutrophils % 88.6 Band Neutrophils % Lymphocytes % 2.3 Monocytes % 4.9 Eosinophils % 0.0 Basophils % 0.1 Neutrophils # 21.9 H Lymphocytes # 0.6 Monocytes # 1.2 Eosinophils # 0.0 Basophils # 0.0 Nucleated RBCs/100 WBC Platelet Estimate Normal Hypochromasia Present A Anisocytosis 2+ A Microcytosis Present A Ovalocytes Stomatocytes Smear Path Review PT INR APTT Fibrinogen Sample Site L Radial ABG pH 7.22 L ABG pCO2 64 H ABG pO2 44 L* ABG HCO3 26 ABG Total CO2 28 H ABG O2 Saturation 69 L ABG Base Excess -2 Juan Test Positive O2 Delivery Device Cannula Blood Gas Modality Inspired O2 3.0 Tidal Volume PEEP Sodium Potassium Chloride Carbon Dioxide BUN Creatinine Est GFR ( Amer) Est GFR (Non-Af Amer) BUN/Creatinine Ratio Glucose Calculated Osmolality Lactic Acid Uric Acid Calcium Ferritin Creatine Kinase B-Natriuretic Peptide TSH Free T4 Urine Color Urine Clarity Urine pH Ur Specific [place] Urine Protein Urine Glucose (UA) Urine Ketones Urine Blood Urine Nitrite Urine Bilirubin Urine Urobilinogen Ur Leukocyte Esterase Urine Microscopic RBC Urine Microscopic WBC Ur Squamous Epith Cells Urine Bacteria Urine Creatinine Protein/Creatinin Ratio Urine Sodium Urine Total Protein Vancomycin Trough 34 H Blood Type Antibody Screen Direct Antiglob Test RONN, Poly Interpret Crossmatch 08/09/18 08/09/18 08/09/18 04:35 04:35 04:35 WBC RBC Hgb Hct MCV MCH MCHC RDW Plt Count MPV Immature Gran % Seg Neutrophils % Band Neutrophils % Lymphocytes % Monocytes % Eosinophils % Basophils % Neutrophils # Lymphocytes # Monocytes # Eosinophils # Basophils # Nucleated RBCs/100 WBC Platelet Estimate Hypochromasia Anisocytosis Microcytosis Ovalocytes Stomatocytes Smear Path Review PT 15.8 H INR 1.4 APTT Fibrinogen Sample Site ABG pH ABG pCO2 ABG pO2 ABG HCO3 ABG Total CO2 ABG O2 Saturation ABG Base Excess Juan Test O2 Delivery Device Blood Gas Modality Inspired O2 Tidal Volume PEEP Sodium 130 L Potassium 5.1 Chloride 100 Carbon Dioxide 24 BUN 40 H Creatinine 1.89 H Est GFR ( Amer) 36 L Est GFR (Non-Af Amer) 30 L BUN/Creatinine Ratio 21 Glucose 130 H Calculated Osmolality 282 Lactic Acid Uric Acid 7.2 Calcium 8.1 L Ferritin Creatine Kinase B-Natriuretic Peptide TSH Free T4 Urine Color Urine Clarity Urine pH Ur Specific [place] Urine Protein Urine Glucose (UA) Urine Ketones Urine Blood Urine Nitrite Urine Bilirubin Urine Urobilinogen Ur Leukocyte Esterase Urine Microscopic RBC Urine Microscopic WBC Ur Squamous Epith Cells Urine Bacteria Urine Creatinine Protein/Creatinin Ratio Urine Sodium Urine Total Protein Vancomycin Trough Blood Type Antibody Screen Direct Antiglob Test RONN, Poly Interpret Crossmatch 08/09/18 08/09/18 08/09/18 04:35 05:29 08:48 WBC 22.8 H RBC 3.92 Hgb 6.7 L Hct 26.3 L MCV 67.1 L MCH 17.1 L MCHC 25.5 L RDW 22.5 H Plt Count 192 MPV TNP Immature Gran % 4.4 H Seg Neutrophils % 89.1 Band Neutrophils % Lymphocytes % 2.4 Monocytes % 4.0 Eosinophils % 0.0 Basophils % 0.1 Neutrophils # 20.3 H Lymphocytes # 0.6 Monocytes # 0.9 Eosinophils # 0.0 Basophils # 0.0 Nucleated RBCs/100 WBC 0.1 H Platelet Estimate Normal Hypochromasia Present A Anisocytosis 2+ A Microcytosis Present A Ovalocytes Stomatocytes Smear Path Review PT INR APTT Fibrinogen Sample Site R Radial R Radial ABG pH 7.18 L* 7.24 L ABG pCO2 72 H* 68 H ABG pO2 220 H D 58 L D ABG HCO3 27 29 H ABG Total CO2 29 H 31 H ABG O2 Saturation 100 H 84 L ABG Base Excess -2 0 Juan Test N/A O2 Delivery Device BiPAP BiPAP Blood Gas Modality BiLevel Inspired O2 50.0 40.0 Tidal Volume 500 PEEP 8 Sodium Potassium Chloride Carbon Dioxide BUN Creatinine Est GFR ( Amer) Est GFR (Non-Af Amer) BUN/Creatinine Ratio Glucose Calculated Osmolality Lactic Acid Uric Acid Calcium Ferritin Creatine Kinase B-Natriuretic Peptide TSH Free T4 Urine Color Urine Clarity Urine pH Ur Specific [place] Urine Protein Urine Glucose (UA) Urine Ketones Urine Blood Urine Nitrite Urine Bilirubin Urine Urobilinogen Ur Leukocyte Esterase Urine Microscopic RBC Urine Microscopic WBC Ur Squamous Epith Cells Urine Bacteria Urine Creatinine Protein/Creatinin Ratio Urine Sodium Urine Total Protein Vancomycin Trough Blood Type Antibody Screen Direct Antiglob Test RONN, Poly Interpret Crossmatch 08/09/18 08/09/18 08/09/18 09:10 09:10 09:21 WBC RBC Hgb 7.4 L Hct 28.3 L MCV MCH MCHC RDW Plt Count MPV Immature Gran % Seg Neutrophils % Band Neutrophils % Lymphocytes % Monocytes % Eosinophils % Basophils % Neutrophils # Lymphocytes # Monocytes # Eosinophils # Basophils # Nucleated RBCs/100 WBC Platelet Estimate Hypochromasia Anisocytosis Microcytosis Ovalocytes Stomatocytes Smear Path Review PT INR APTT Fibrinogen Sample Site ABG pH ABG pCO2 ABG pO2 ABG HCO3 ABG Total CO2 ABG O2 Saturation ABG Base Excess Juan Test O2 Delivery Device Blood Gas Modality Inspired O2 Tidal Volume PEEP Sodium Potassium Chloride Carbon Dioxide BUN Creatinine Est GFR ( Amer) Est GFR (Non-Af Amer) BUN/Creatinine Ratio Glucose Calculated Osmolality Lactic Acid 0.6 Uric Acid Calcium Ferritin Creatine Kinase B-Natriuretic Peptide TSH Free T4 Urine Color Urine Clarity Urine pH Ur Specific [place] Urine Protein Urine Glucose (UA) Urine Ketones Urine Blood Urine Nitrite Urine Bilirubin Urine Urobilinogen Ur Leukocyte Esterase Urine Microscopic RBC Urine Microscopic WBC Ur Squamous Epith Cells Urine Bacteria Urine Creatinine 33 Protein/Creatinin Ratio 0.91 H Urine Sodium Urine Total Protein 30 H Vancomycin Trough Blood Type Antibody Screen Direct Antiglob Test RONN, Poly Interpret Crossmatch - Impressions Impressions Chest X-Ray 08/08/18 09:40 IMPRESSION: Cardiomegaly with pulmonary vascular congestion D/ / Shree Griffith MD / Shree Griffith MD Interpreting Provider: Shree Griffith MD Head CT 08/08/18 10:03 IMPRESSION: No acute intracranial abnormality. D/ / Shree Griffith MD / Shree Griffith MD Interpreting Provider: Shree Grfifith MD Chest X-Ray 08/09/18 08:20 IMPRESSION: Stable chest. Probable early CHF with mild perihilar edema. D/ / Javi Simpson MD / Javi Simpson MD Interpreting Provider: Javi Simpson MD - ABG Interpretation ABG results: ABG ABG pH 7.24 pH Units (7.32-7.45) L 08/09/18 08:48 ABG pCO2 68 mmHg (35-45) H 08/09/18 08:48 ABG pO2 58 mmHg (85-104) L D 08/09/18 08:48 ABG O2 Saturation 84 % (95-98) L 08/09/18 08:48 PT/INR, D-dimer PT 15.8 Seconds (9.4-12.1) H 08/09/18 04:35 Consult Discharge Plan - Plan Referrals: NONE,PCP [Primary Care Provider] - <Arron Terry - Last Filed: 08/09/18 17:25> Date of Encounter: 08/09/18 - Constitutional Vitals: Vital Signs Temp Pulse Resp BP Pulse Ox 08/09/18 16:00 98.2 F 81 16 133/79 98 08/09/18 11:16 97.9 F 92 16 117/76 94 08/09/18 06:43 97.4 F L 86 15 145/83 97 08/09/18 06:27 98.5 F 90 17 133/66 08/09/18 05:40 15 146/70 97 08/09/18 04:42 97.7 F 80 18 146/70 95 08/09/18 04:06 97.7 F 83 18 146/70 08/09/18 03:51 97.8 F 92 18 152/65 96 08/08/18 23:41 26 96 08/08/18 21:32 96 08/08/18 20:06 97 23 133/72 91 08/08/18 18:00 98.8 F 96 17 136/67 93 Intake and Output 08/09/18 08/09/18 08/10/18 08:59 16:59 00:59 Intake Total 380 / 380 300 / 300 Output Total 0 / 0 3620 / 3620 Balance 380 / 380 -3320 / -3320 Intake: IV Fluids 100 / 100 300 / 300 Ofirmev 1,000 mg/100 ml 1,000 100 / 100 mg In 100 ml @ 400 mls/hr IVPB ONCE ONE Rx#:[id number] Venofer 300 MG In 0.9 % Sodium 100 / 100 Chloride 100 ML @ 76.667 mls/hr IVPB DAILY [facility]END[facility] Rx#:[id number] Zosyn 3.375 GM In 0.9 % Sodium 100 / 100 100 / 100 Chloride (Mini-Bag +) 100 ML @ 25 mls/hr IVPB Q8HR PENDING SALE TO [facility] Rx#: [id number] Oral 0 / 0 0 / 0 Blood Product 280 / 280 Rbcs Leuko Poor As-3 2nd Unit 280 / 280 [id number] Output: Urine 0 / 0 Catheter 3620 / 3620 Oncology: Obj Data - Labs CBC & Chem 7: 08/09/18 09:10 08/09/18 04:35 Labs: Laboratory Results - last 24 hr 08/07/18 08/08/18 08/09/18 18:01 17:57 01:06 WBC 31.1 H* 24.7 H RBC 3.79 L 4.05 Hgb 6.5 L 6.8 L Hct 25.3 L 26.9 L MCV 66.8 L 66.4 L MCH 17.2 L 16.8 L MCHC 25.7 L 25.3 L RDW 22.1 H 21.8 H Plt Count 230 224 MPV 10.7 TNP Immature Gran % 4.1 H Seg Neutrophils % 88.6 Lymphocytes % 2.3 Monocytes % 4.9 Eosinophils % 0.0 Basophils % 0.1 Neutrophils # 21.9 H Lymphocytes # 0.6 Monocytes # 1.2 Eosinophils # 0.0 Basophils # 0.0 Nucleated RBCs/100 WBC Platelet Estimate Normal Hypochromasia Present A Anisocytosis 2+ A Microcytosis Present A PT INR Sample Site ABG pH ABG pCO2 ABG pO2 ABG HCO3 ABG Total CO2 ABG O2 Saturation ABG Base Excess Juan Test O2 Delivery Device Blood Gas Modality Inspired O2 Tidal Volume PEEP Sodium Potassium Chloride Carbon Dioxide BUN Creatinine Est GFR ( Amer) Est GFR (Non-Af Amer) BUN/Creatinine Ratio Glucose Calculated Osmolality Lactic Acid Uric Acid Calcium Ur Eosinophil Smear Urine Osmolality Urine Creatinine Protein/Creatinin Ratio Urine Total Protein Vancomycin Trough Blood Type A NEGATIVE Antibody Screen NEGATIVE Direct Antiglob Test 1+ A RONN, Poly Interpret 1+ Crossmatch See Detail 08/09/18 08/09/18 08/09/18 04:13 04:35 04:35 WBC RBC Hgb Hct MCV MCH MCHC RDW Plt Count MPV Immature Gran % Seg Neutrophils % Lymphocytes % Monocytes % Eosinophils % Basophils % Neutrophils # Lymphocytes # Monocytes # Eosinophils # Basophils # Nucleated RBCs/100 WBC Platelet Estimate Hypochromasia Anisocytosis Microcytosis PT 15.8 H INR 1.4 Sample Site L Radial ABG pH 7.22 L ABG pCO2 64 H ABG pO2 44 L* ABG HCO3 26 ABG Total CO2 28 H ABG O2 Saturation 69 L ABG Base Excess -2 Juan Test Positive O2 Delivery Device Cannula Blood Gas Modality Inspired O2 3.0 Tidal Volume PEEP Sodium Potassium Chloride Carbon Dioxide BUN Creatinine Est GFR ( Amer) Est GFR (Non-Af Amer) BUN/Creatinine Ratio Glucose Calculated Osmolality Lactic Acid Uric Acid Calcium Ur Eosinophil Smear Urine Osmolality Urine Creatinine Protein/Creatinin Ratio Urine Total Protein Vancomycin Trough 34 H Blood Type Antibody Screen Direct Antiglob Test RONN, Poly Interpret Crossmatch 08/09/18 08/09/18 08/09/18 04:35 04:35 04:35 WBC 22.8 H RBC 3.92 Hgb 6.7 L Hct 26.3 L MCV 67.1 L MCH 17.1 L MCHC 25.5 L RDW 22.5 H Plt Count 192 MPV TNP Immature Gran % 4.4 H Seg Neutrophils % 89.1 Lymphocytes % 2.4 Monocytes % 4.0 Eosinophils % 0.0 Basophils % 0.1 Neutrophils # 20.3 H Lymphocytes # 0.6 Monocytes # 0.9 Eosinophils # 0.0 Basophils # 0.0 Nucleated RBCs/100 WBC 0.1 H Platelet Estimate Normal Hypochromasia Present A Anisocytosis 2+ A Microcytosis Present A PT INR Sample Site ABG pH ABG pCO2 ABG pO2 ABG HCO3 ABG Total CO2 ABG O2 Saturation ABG Base Excess Juan Test O2 Delivery Device Blood Gas Modality Inspired O2 Tidal Volume PEEP Sodium 130 L Potassium 5.1 Chloride 100 Carbon Dioxide 24 BUN 40 H Creatinine 1.89 H Est GFR ( Amer) 36 L Est GFR (Non-Af Amer) 30 L BUN/Creatinine Ratio 21 Glucose 130 H Calculated Osmolality 282 Lactic Acid Uric Acid 7.2 Calcium 8.1 L Ur Eosinophil Smear Urine Osmolality Urine Creatinine Protein/Creatinin Ratio Urine Total Protein Vancomycin Trough Blood Type Antibody Screen Direct Antiglob Test RONN, Poly Interpret Crossmatch 08/09/18 08/09/18 08/09/18 05:29 08:48 09:10 WBC RBC Hgb Hct MCV MCH MCHC RDW Plt Count MPV Immature Gran % Seg Neutrophils % Lymphocytes % Monocytes % Eosinophils % Basophils % Neutrophils # Lymphocytes # Monocytes # Eosinophils # Basophils # Nucleated RBCs/100 WBC Platelet Estimate Hypochromasia Anisocytosis Microcytosis PT INR Sample Site R Radial R Radial ABG pH 7.18 L* 7.24 L ABG pCO2 72 H* 68 H ABG pO2 220 H D 58 L D ABG HCO3 27 29 H ABG Total CO2 29 H 31 H ABG O2 Saturation 100 H 84 L ABG Base Excess -2 0 Juan Test N/A O2 Delivery Device BiPAP BiPAP Blood Gas Modality BiLevel Inspired O2 50.0 40.0 Tidal Volume 500 PEEP 8 Sodium Potassium Chloride Carbon Dioxide BUN Creatinine Est GFR ( Amer) Est GFR (Non-Af Amer) BUN/Creatinine Ratio Glucose Calculated Osmolality Lactic Acid 0.6 Uric Acid Calcium Ur Eosinophil Smear Urine Osmolality Urine Creatinine Protein/Creatinin Ratio Urine Total Protein Vancomycin Trough Blood Type Antibody Screen Direct Antiglob Test RONN, Poly Interpret Crossmatch 08/09/18 08/09/18 08/09/18 09:10 09:21 09:21 WBC RBC Hgb 7.4 L Hct 28.3 L MCV MCH MCHC RDW Plt Count MPV Immature Gran % Seg Neutrophils % Lymphocytes % Monocytes % Eosinophils % Basophils % Neutrophils # Lymphocytes # Monocytes # Eosinophils # Basophils # Nucleated RBCs/100 WBC Platelet Estimate Hypochromasia Anisocytosis Microcytosis PT INR Sample Site ABG pH ABG pCO2 ABG pO2 ABG HCO3 ABG Total CO2 ABG O2 Saturation ABG Base Excess Juan Test O2 Delivery Device Blood Gas Modality Inspired O2 Tidal Volume PEEP Sodium Potassium Chloride Carbon Dioxide BUN Creatinine Est GFR ( Amer) Est GFR (Non-Af Amer) BUN/Creatinine Ratio Glucose Calculated Osmolality Lactic Acid Uric Acid Calcium Ur Eosinophil Smear Urine Osmolality 303 Urine Creatinine 33 Protein/Creatinin Ratio 0.91 H Urine Total Protein 30 H Vancomycin Trough Blood Type Antibody Screen Direct Antiglob Test RONN, Poly Interpret Crossmatch 08/09/18 09:35 WBC RBC Hgb Hct MCV MCH MCHC RDW Plt Count MPV Immature Gran % Seg Neutrophils % Lymphocytes % Monocytes % Eosinophils % Basophils % Neutrophils # Lymphocytes # Monocytes # Eosinophils # Basophils # Nucleated RBCs/100 WBC Platelet Estimate Hypochromasia Anisocytosis Microcytosis PT INR Sample Site ABG pH ABG pCO2 ABG pO2 ABG HCO3 ABG Total CO2 ABG O2 Saturation ABG Base Excess Juan Test O2 Delivery Device Blood Gas Modality Inspired O2 Tidal Volume PEEP Sodium Potassium Chloride Carbon Dioxide BUN Creatinine Est GFR ( Amer) Est GFR (Non-Af Amer) BUN/Creatinine Ratio Glucose Calculated Osmolality Lactic Acid Uric Acid Calcium Ur Eosinophil Smear 0 Urine Osmolality Urine Creatinine Protein/Creatinin Ratio Urine Total Protein Vancomycin Trough Blood Type Antibody Screen Direct Antiglob Test RONN, Poly Interpret Crossmatch - Impressions Impressions Chest X-Ray 08/09/18 08:20 IMPRESSION: Stable chest. Probable early CHF with mild perihilar edema. D/ / Javi Simpson MD / Javi Simpson MD Interpreting Provider: Javi Simpson MD - ABG Interpretation ABG results: ABG ABG pH 7.24 pH Units (7.32-7.45) L 08/09/18 08:48 ABG pCO2 68 mmHg (35-45) H 08/09/18 08:48 ABG pO2 58 mmHg (85-104) L D 08/09/18 08:48 ABG O2 Saturation 84 % (95-98) L 08/09/18 08:48 PT/INR, D-dimer PT 15.8 Seconds (9.4-12.1) H 08/09/18 04:35 Inpatient Charges Provider: Dr. James Terry Follow up - Inpatient: [id number] - Attending Attestation I examined this patient and my medical decision-making was reviewed with the Advanced Practice Nurse. I agree with the documented findings, disposition and treatment plan as described except to the extent set forth below. On Vit B12, folic acid, and iron supplementation Will f/u on labs RLE cellulitis improving and WBC trending down. Will check parietal cell and IF antibodies Transfuse 1 unit of PRBCs for Hgb < 7.0
--- NOTE | 2018-08-09 10:42 | Infectious Disease Consult ---
Date of Encounter: 08/09/18 Time of Encounter: 10:37 Assessment and Plan (1) Severe sepsis Status: Acute Assessment and plan: The patient had 3 sepsis criteria with lactic acidosis, acute kidney injury, and altered mental status. Likely secondary to cellulitis of the right lower extremity. White blood cell count is trending down. Fever curve is improved. Tachycardia has resolved. Blood cultures drawn 08/07/18 are no growth to date 2 sets. Repeat blood cultures drawn 08/08/18 are pending 2 sets. Recommendations: - Await repeat blood cultures. - Continue to trend WBC. - Continue Vancomycin IV for now. If renal function worsens, may consider s witching to Daptomycin. - Discontinue Zosyn. - Start cefepime 2 grams IV Q12H. - Start Lamisil topical to the bilateral feet BID x 1 week. - Duration of treatment depends on the clinical picture. - Monitor renal function and for drug toxicity and dose-adjust antibiotics. (2) Cellulitis of right lower extremity Status: Acute Assessment and plan: Location: Right lower extremity. Causative organisms: Unclear. Etiology: Unclear. Tinea pedis vs. other. CT of the right lower extreme he shows diffuse subcutaneous edema consistent w ith cellulitis versus lymphedema, but no gas, abscess, or osteomyelitis was noted. DVT study was negative. No previous treatment prior to admission to the hospital. (3) Acute respiratory failure with hypoxemia Status: Acute Assessment and plan: Etiology: Unclear. Chest x-ray shows probable early CHF with mild perihilar edema. ABG indicative of respiratory acidosis. Currently requiring BiPAP and unable to be weaned off. D-dimer is elevated. Consider PE in the differential. Management per the primary team. (4) Lactic acidosis Status: Resolved Assessment and plan: Likely secondary to right lower extremity cellulitis and sepsis. Resolved. (5) Acute kidney injury (nontraumatic) Status: Acute Assessment and plan: Etiology: Unclear. Likely secondary to sepsis plus vancomycin toxicity plus possible underlying CAD. Nephrology consult to assist with management. Continue to trend. Dose adjust antibiotics and avoid nephrotoxins as able. (6) Anemia Status: Acute Assessment and plan: Etiology: Unclear. No acute bleeding noted on exam. Heme/Onc consult to assist with management and workup. Qualifiers: Anemia type: iron deficiency Iron deficiency anemia type: chronic blood loss Qualified Code(s): D50.0 - Iron deficiency anemia secondary to blood loss (chronic) (7) Hyperbilirubinemia Status: Acute Assessment and plan: Etiology: Unclear. AST, ALP, and alkaline phosphatase all are normal. B secondary to sepsis. Continue to trend. (8) Tinea pedis Status: Acute Assessment and plan: Start lamisil as above. Qualifiers: Laterality: bilateral Qualified Code(s): B35.3 - Tinea pedis (9) Morbid obesity with BMI of 60.0-69.9, adult Status: Chronic Infectious Disease HPI - Data of Consult Patient: new to practice Consult date: 08/09/18 Requesting Physician: Darin Santos DO Primary Care Provider: PCP NONE - Consult Narrative Reason for consult: Sepsis, cellulitis History of present illness: Ms. Del Castillo is a 38 year old female with a past medical history of lower extremity cellulitis, PCO S and obesity. The patient was a mention the hospital 08/07/18 for a right lower extreme cellulitis, acute kidney injury, and lactic acidosis. We are consulted 08/09/18 treated buttock recommendations for sepsis and cellulitis. Briefly, the patient is a 38-year-old female with past medical history as stated above. The patient presented to ED to [facility] ER with complaints of redness, pain, and swelling to the right lower extremity with associated fever. Upon arrival, she had a low-grade temp of 100.1. She was tachycardic and had leukocytosis with bandemia. She was also noted to have lactic acidosis and acute kidney injury. Total bili was elevated at 4.1, but AST, AST, and alkaline phosphatase were all normal. Blood cultures were obtained 2 sets. She had a d-dimer that was elevated at 977. She had a CT of the lotion may show diffuse subcutaneous edema consistent with cellulitis versus lymphedema, but no gas, abscess, or osteomyelitis. She was given a dose of IV clindamycin and transferred here for further evaluation. Since admission, the patient has had a fever with a MAXIMUM TEMPERATURE of 102.8. Yesterday, she developed some respiratory distress and became somewhat lethargic. ABG showed findings consistent with respiratory acidosis and she was placed on BiPAP. She had a venous Doppler study that was limited due to patient motion, but was essentially negative. She has continued to have tachycardia. MAXIMUM TEMPERATURE 100.8 last 24 hours. Her white blood cell count has been trending down as 22,000 with neutrophilic predominance today. Nephrology is consulted to assist with her acute kidney injury. She is noted to be markedly anemic with hemoglobin of 6.7. Humalog has been consulted to assist with management of that. She did undergo CT of the head that was negative. Chest x- ray this morning showed probable early CHF with mild perihilar edema. Her Vanco trough was elevated at 34 this morning. Currently, she is on Vanco and Zosyn. We have been asked to evaluate and make further recommendations. During my exam today, the patient endorses a history as stated above. She reports onset of symptoms the day that she presented for treatment. She reports that her right lower extremity is red and painful and swollen and hot to touch. She reported fever at home. She reports associated headache and neck pain and generally feeling ill. She denies any chest pain or cough, but does report chronic shortness of breath is at baseline. She denies any vomiting or diarrhea, but does report some nausea and poor appetite. She denies abdominal pain or urinary complaints. She denies any oral thrush or new skin lesions. She denies any traumatic injuries or open sores to the right lower extremity. She does report some itching to the feet and it does appear that she does have some tinea pedis. The patient lives at home with her and daughter. She works at a local [employer]. She denies any tobacco, alcohol, or illicit drug use. She denies any recent travel outside the [facility]. She does have a dog at home, but denies any bites or scratches. She denies any chronic infectious diseases. CC: Darin Santos, DO Past Med Surg Social Fam HX - Past Medical History Attestation: Yes The following information was validated with the patient. Additional medical history: cellulitis, polycystic ovary syndrome Psychiatric history: no psych history - Past Surgical History Surgical History: no surgical history - Social History Smoking Status: Never smoker Smokeless Tobacco Status: No Alcohol use: none Drug use: none Occupational status: employed Current living situation: Home, With Family Activity Level: Independent ambulation Recent Out of Country Travel Within the Last 8 Weeks: No Exposure or Possible Exposure to Illness During Travel: No - Family History Father Living Status: Still Living Hx Family Cardiac Disorders: Yes (a-fib) Infectious Disease-CN:Meds RX: No Known Home Drugs 08/07/18 [History] Allergy/AdvReac Type Severity Reaction Status Date / Time No Known Allergies Allergy Verified 08/07/18 12:21 All systems: reviewed and no additional remarkable complaints except as stated Exam - Constitutional Vitals: Temp Pulse Resp BP Pulse Ox 97.4 F L 86 15 145/83 97 08/09/18 06:43 08/09/18 06:43 08/09/18 06:43 08/09/18 06:43 08/09/18 06:43 General appearance: cooperative, morbidly obese, no acute distress - Head Head exam: Present: atraumatic, normal inspection, normocephalic - Eye Eye exam: Present: EOMI, normal appearance, PERRL Pupils: Present: normal accommodation - ENT ENT exam: Present: mucous membranes moist - Neck Neck exam: Present: normal inspection - Respiratory Respiratory exam: Present: CTAB. Absent: rales, respiratory distress, rhonchi, wheezes - Cardiovascular Cardiovascular exam: Present: RRR, +S1, +S2 - GI/Abdominal GI/Abdominal exam: Present: distended (obese), soft. Absent: tenderness Additional comments: Willard catheter noted to be draining clear yellow urine. - Extremities Exam Additional comments: Mild erythema and tenderness noted to the right lower extremity. Extremities no longer warm to touch. Varicose vein appreciated to the lateral aspect of the extremity. No open sores noted. Tinea pedis noted between the toes to the bilateral feet. - Back Exam Back exam: Present: normal inspection. Absent: paraspinal tenderness, vertebral tenderness - Neurological Exam Neurological exam: Present: alert, oriented X3, no focal deficits - Psychiatric Psychiatric exam: Present: normal affect, normal mood - Skin Skin exam: Present: dry, intact, normal color, warm Infectious Disease CN: Results - Labs CBC & Chem 7: 08/10/18 05:01 08/10/18 05:01 Cultures: Cultures 08/08/18 13:07 Blood Culture - Preliminary Peripheral Venipuncture Culture is incubating and being continuously monitored for growth. Final report to follow. 08/08/18 13:07 Blood Culture - Preliminary Peripheral Venipuncture Culture is incubating and being continuously monitored for growth. Final report to follow. Serology: Serology 11/12/18 11/11/18 11/11/18 Range/Units 09:21 12:45 12:45 Urine Color [place] A (Yellow) Urine Clarity Turbid A (Clear) Urine pH 5.0 (5.0-8.0) pH Units Ur Specific [place] 1.024 (1.010-1.025) Urine Protein 100 H (Neg-Trace) mg/dL Urine Glucose (UA) Normal (Normal) mg/dL Urine Ketones Trace H (Negative) mg/dL Urine Blood Negative (Negative) Urine Nitrite Positive A (Negative) Urine Bilirubin Small H (Negative) Urine Urobilinogen Normal (Normal) mg/dL Ur Leukocyte Esterase Trace H (Negative) Urine Microscopic RBC 0-3 (0-3) per hpf Urine Microscopic WBC 15-30 H (0-3) per hpf Ur Squamous Epith Cells Many H (None-Few) per lpf Urine Bacteria None Seen (None-Few) per hpf Urine Creatinine 33 mg/dL Protein/Creatinin Ratio 0.91 H (0.00-0.20) mg/mg Urine Sodium 23.4 mEq/L Urine Total Protein 30 H (1-14) mg/dL Consult Discharge Plan - Plan Referrals: NONE,PCP [Primary Care Provider] - - Attending Attestation I examined this patient and my medical decision-making was reviewed with the Resident Physician. I agree with the documented findings, disposition and treatment plan as described except to the extent set forth below. This is an addendum to original report dictated by Oneyda De Leon CNP. Please refer to Idalia christy for full detail. Patient is a 38-year-old woman with past medical history mentioned below presented to [facility] with altered mental status, acute kidney injury lactic acidosis severe sepsis like picture and likely source cellulitis of the right lower extremity. Patient has been on vancomycin and Zosyn and we were asked to evaluate the patient and make further recommendation. Currently patient is sitting beside the bed. Appears to not be as mobile. I asked her to move so I can listen to her and she required the help of both of her parents. She is morbidly obese with a BMI of 63 but she tells me that she has a full-time job. Patient also complaining about her Wilalrd catheter and she wants it out. I asked her if she is able to get up and use of but he bathroom on her own and she initially said yes but then I feel that she was hesitant. CT of the right lower extremity showed diffuse extensive edema consistent with cellulitis versus lymphedema but no signs of necrotizing fasciitis, osteomyelitis or abscess. Because of the acute kidney injury and all the other issues going on and probably the patient has infection with anaerobic bacteria we will switch the antibiotics to vancomycin and cefepime and dose adjust based on her creatinine clearance. Also patient appears to be swollen everywhere and I wonder if myxedema is an issue or if there is a thyroid condition specially with her BMI. I will defer that to the primary team. Duration of treatment depends on the clinical picture but hopefully we can switch her to some oral antibiotics once she is clinically stable. Patient continues to require CPAP at night but she does have sleep apnea.
--- NOTE | 2018-08-09 11:41 | Nephrology Progress Note ---
Addendum entered and electronically signed by Brigida Marshall DO 08/09/18 13:28: Acute kidney injury -prerenal etiology likely secondary to sepsis. -Creatinine 1.89 (1.85 yesterday) -GFR 30 -I&O: 3700/1200 -Willard catheter in place Plan: -will continue to give the patient Lasix 40 PO b.i.d. as she is volume overloaded with lower extremity edema -Patient is taking vancomycin and Zosyn. Vancomycin trough 34. Recommending hold a dose of vancomycin. -Renal ultrasound pending -pending complement, CHERIE, eosinophils -Continue renal protective strategy such as renal dose medications and avoid nephrotoxic agents -continue to monitor I&O -continue to monitor serum creatinine -renal diet ordered Anemia -etiology is most likely iron deficiency anemia and also concerning for GIB -hemoglobin 6.7, MCV microcytic -iron <10, transferrin to 58, ferritin 61 -vitamin B12 283, folate 4.3 Plan: -stool guiac test ordered -patient transfused one unit packed red blood cells -hem/onc consulted Hyponatremia -most likely hyperkalemic hyponatremia in setting of volume overload with birgit ateral lower extremity edema -same osmolality to 82 Plan: -pending urine protein/creatinine, sodium, osmolality Original Note: Date of Encounter: 08/09/18 Time of Encounter: 08:45 - Assessment and Plan (1) Acute kidney injury (nontraumatic) Current Visit: No Status: Acute -Continue Lasix 40 mg b.i.d. -continue renal diet (2) Severe sepsis with acute organ dysfunction due to group A Streptococcus Current Visit: Yes Status: Suspected (3) Iron deficiency anemia Current Visit: Yes Status: Suspected Qualifiers: Iron deficiency anemia type: chronic blood loss Qualified Code(s): D50.0 - Iron deficiency anemia secondary to blood loss (chronic) (4) Cellulitis of right lower extremity Current Visit: No Status: Acute (5) Acute respiratory failure with hypoxemia Current Visit: Yes Status: Acute (6) Morbid obesity with BMI of 60.0-69.9, adult Current Visit: Yes Status: Chronic Subjective Principal diagnosis: Acute respiratory failure with hypoxemia Interval history: Patient seen and examined at bedside. Her was present. She is alert and oriented times 3. She reports that the urinary catheter is uncomfortable. She denies fever, chills, chest pain, shortness of breath. She does report that she feels more swollen and edematous in her stomach and legs bilaterally. Objective - Vital Signs Vital signs: Vital Signs Temp Pulse Resp BP Pulse Ox 08/09/18 11:16 97.9 F 92 16 117/76 94 08/09/18 06:43 97.4 F L 86 15 145/83 97 08/09/18 06:27 98.5 F 90 17 133/66 08/09/18 05:40 15 146/70 97 08/09/18 04:42 97.7 F 80 18 146/70 95 08/09/18 04:06 97.7 F 83 18 146/70 08/09/18 03:51 97.8 F 92 18 152/65 96 08/08/18 23:41 26 96 08/08/18 21:32 96 08/08/18 20:06 97 23 133/72 91 08/08/18 18:00 98.8 F 96 17 136/67 93 08/08/18 17:15 97.7 F 87 20 134/75 96 08/08/18 16:17 20 96 08/08/18 13:23 100.8 F H 104 135/62 95 Intake and Output 08/08/18 08/09/18 08/09/18 23:59 07:59 15:59 Intake Total 1100 / 1100 380 / 380 100 / 100 Output Total 650 / 650 0 / 0 2620 / 2620 Balance 450 / 450 380 / 380 -2520 / -2520 Intake: IV Fluids 300 / 300 100 / 100 100 / 100 Ofirmev 1,000 mg/100 ml 1,000 100 / 100 mg In 100 ml @ 400 mls/hr IVPB ONCE ONE Rx#:[id number] Venofer 300 MG In 0.9 % Sodium 200 / 200 Chloride 100 ML @ 76.667 mls/hr IVPB DAILY [facility]I Rx#:[id number] Zosyn 3.375 GM In 0.9 % Sodium 100 / 100 100 / 100 Chloride (Mini-Bag +) 100 ML @ 25 mls/hr IVPB Q8HR [facility] Rx#: [id number] Oral 800 / 800 0 / 0 0 / 0 Blood Product 280 / 280 Rbcs Leuko Poor As-3 2nd Unit 280 / 280 [id number] Output: Urine 0 / 0 Catheter 650 / 650 2620 / 2620 - General Appearance Exam: Gen.: Vitals noted. No acute distress. AAOx3 HEENT: oropharynx clear, Normocephalic, atraumatic Neck: Supple. No adenopathy. Cardiac: RRR, no murmur, +S1/S2, +2 edema lower extremities bilaterally Pulmonary: CTA bilaterally, no wheezes, rales or rhonchi, equal chest expansion Abdomen: soft, nontender, Bowel sounds noted, no guarding MSK: ROM intact, no joint swelling noted Neuro: A&Ox3, moves all extremities, no focal deficits Psych: Appropriate mood and behavior - Lab 08/09/18 09:10 08/09/18 04:35 Most recent lab results ABG pH 7.24 pH Units (7.32-7.45) L 08/09/18 08:48 ABG pCO2 68 mmHg (35-45) H 08/09/18 08:48 ABG pO2 58 mmHg (85-104) L D 08/09/18 08:48 ABG HCO3 29 mEq/L (21-27) H 08/09/18 08:48 ABG O2 Saturation 84 % (95-98) L 08/09/18 08:48 Calcium 8.1 mg/dL (8.6-10.3) L 08/09/18 04:35 Phosphorus 5.1 mg/dL (2.7-4.5) H 08/08/18 03:08 Magnesium 1.6 mg/dL (1.6-2.6) 08/08/18 03:08 Urine Creatinine 33 mg/dL 08/09/18 09:21 Urine Sodium 23.4 mEq/L 08/08/18 12:45 Urine Total Protein 30 mg/dL (1-14) H 08/09/18 09:21 Consult Discharge Plan - Plan Referrals: NONE,PCP [Primary Care Provider] -
[2018-08-09] MEDS: Furosemide 40 MG TABLET PO SCH ×2 (13:21→16:50)
[2018-08-09] MEDS: Clotrimazole 1% CRM 15 GM TUBE TP SCH ×2 (13:24→20:46)
[2018-08-09] MEDS: Cefepime HCl 2,000 MG in 0.9 % Sodium Chloride Mini Bag 100 ML IVPB SCH (16:49)
[2018-08-09 21:05] LABS: Hematocrit 27.3 % (35.3-44.9)
[2018-08-09 21:07] LABS: Hemoglobin 7.3 g/dL (11.5-15.4)
[2018-08-10 05:15] LABS: Basophils % 0.1 %; Eosinophils % 0.1 %; Mean Corpuscular Hemoglobin 17.6 pg (28.0-33.3); Nucleated Red Blood Cells 0.2 /100 WBC (0)
[2018-08-10 05:17] LABS: Hematocrit 28.2 % (35.3-44.9); Hemoglobin 7.5 g/dL (11.5-15.4); Immature Granulocytes % 0.7 % (0-4); Mean Corpuscular HGB Conc 26.6 g/dL (31.6-35.5); Mean Corpuscular Volume 66.4 fL (83.0-100.0); Monocytes # 0.6 K/mcL (0.0-1.3); Monocytes % 3.5 %; Neutrophils # 15.1 K/mcL (1.6-8.9); Platelet Count 209 K/mcL (140-400); Red Blood Count 4.25 M/mcL (3.82-4.97); Red Cell Distribution Width 23.2 % (11.5-14.5); Segmented Neutrophils % 89.6 %
[2018-08-10 05:32] LABS: Anisocytosis 3+ (Not Present); Macrocytosis Present (Not Present); Microcytosis Present (Not Present)
[2018-08-10 05:33] LABS: Hypochromasia Present (Not Present); Large Platelets Present (Not Present); Platelet Estimate Normal (Normal)
[2018-08-10 05:34] LABS: BUN/Creatinine Ratio 30 (6-26); Blood Urea Nitrogen 32 mg/dL (6-20); Calcium 8.8 mg/dL (8.6-10.3); Carbon Dioxide 27 mEq/L (23-29); Chloride 101 mEq/L (98-107); Glucose 134 mg/dL (70-105); Osmolality,Calculated 287 (280-300); Potassium 4.1 mEq/L (3.5-5.1); Sodium 134 mEq/L (136-145); eGFR For Non-African Americans 57 (> 60)
[2018-08-10] MEDS: Cefepime HCl 2,000 MG in 0.9 % Sodium Chloride Mini Bag 100 ML IVPB SCH ×2 (05:49→17:27)
--- NOTE | 2018-08-10 07:27 | Internal Med Progress Note ---
<Anika Tong - Last Filed: 08/10/18 13:54> Hospitalist Progress Note - Encounter Date of Encounter: 08/10/18 - Exam Vitals: Temp Pulse Resp BP Pulse Ox 97.5 F L 93 16 155/96 90 08/10/18 04:43 08/10/18 12:36 08/10/18 04:43 08/10/18 12:36 08/10/18 12:36 - Assessment and Plan (1) Cellulitis of right lower extremity Current Visit: No Status: Acute (2) Acute kidney injury (nontraumatic) Current Visit: No Status: Acute (3) Anemia Current Visit: No Status: Acute (4) Leukocytosis Current Visit: No Status: Acute (5) Severe sepsis with acute organ dysfunction due to group A Streptococcus Current Visit: Yes Status: Suspected (6) Morbid obesity with BMI of 60.0-69.9, adult Current Visit: Yes Status: Chronic (7) Hyperfibrinogenemia Current Visit: Yes Status: Acute (8) Iron deficiency anemia Current Visit: Yes Status: Suspected (9) Acute respiratory failure with hypoxemia Current Visit: Yes Status: Acute (10) CKD (chronic kidney disease) Current Visit: Yes Status: Acute (11) B12 deficiency Current Visit: Yes Status: Chronic (12) Folate deficiency Current Visit: Yes Status: Chronic (13) Elevated brain natriuretic peptide (BNP) level Current Visit: Yes Status: Acute (14) Respiratory failure with hypercapnia Current Visit: Yes Status: Acute - Time Spent with Patient Total time spent is greater than 50% in coordination of care (as documented) at patient's floor/unit and/or counseling patient: Internal Medicine: Result - Labs CBC & Chem 7: 08/10/18 05:01 08/10/18 05:01 Labs: Short CBC 08/09/18 08/10/18 Range/Units 20:55 05:01 WBC 16.9 H (4.3-11.1) K/mcL Hgb 7.3 L 7.5 L (11.5-15.4) g/dL Hct 27.3 L 28.2 L (35.3-44.9) % Plt Count 209 (140-400) K/mcL Neutrophils # 15.1 H (1.6-8.9) K/mcL BMP 08/10/18 05:01 Sodium 134 L Potassium 4.1 Chloride 101 Carbon Dioxide 27 BUN 32 H Creatinine 1.08 Glucose 134 H Calcium 8.8 - ABG Interpretation ABG results: ABG ABG pH 7.24 pH Units (7.32-7.45) L 08/09/18 08:48 ABG pCO2 68 mmHg (35-45) H 08/09/18 08:48 ABG pO2 58 mmHg (85-104) L D 08/09/18 08:48 ABG O2 Saturation 84 % (95-98) L 08/09/18 08:48 PT/INR, D-dimer PT 15.8 Seconds (9.4-12.1) H 08/09/18 04:35 Consult Discharge Plan - Plan Referrals: NONE,PCP [Primary Care Provider] - - Attending Attestation I examined this patient and my medical decision-making was reviewed with the Resident Physician Dr Garces. I agree with the documented findings, disposition and treatment plan as described except to the extent set forth below/addldetails below Ms Del Castillo is currently admitted for severe sepsis due to RLE cellulitis. She has developed acute hypercarbic resp failure from pulmonary edema. She was found to have anemia. awake,alert in chair. rle pain improved and warmth improved but edema and erythema persists. denies fevers, chills, nausea, emesis. making urine and wanting laureano cath out. no dysuria, hematuria, supra pubic pain or fullness prior to laureano insertion or now. sob stable. gen- alert, awake,appears stated age, morbidly obese eyes- pupils equal round , no conjunctival pallor cv- reg rate and rhythm, normal s1,s2, no murmurs appreciated, dependent le e grace, non pitting lungs- ctabl, no wheezing, rhonchi or crackles, normal resp effort on o2 nc abd- soft, non tender, non distended, + bs skin- rle erythmea encompassing [place], + warmth, no wound neuro- AAOx3 Severe sepsis due to cellulitis RLE - Appears to be very slowly improving. no dvts on le us blcxs ngtd, ucx no growth, CXR without consolidation -cont iv abx, id following Acute hypercarbic and hypoxic resp failure most likely due to pulmonary edema - CXR with pulm vasc congestion, no identifiable infectious cause at this time, no dvts in bl le, bipap and wean o2 as able, diuresis as per nephro given kidney function -bipap study prior to dc, needs outpt pfts and sleep study as well, suspect rashaun -echo pending HAZEL suspected to be prerenal 2/2 sepsis- nephro following, diuresis as per nephro -renal us pending Mixed acute anemia with iron, folate and B12 deficiency and work up to rule out hemolytic anemia -heme/onc following, IV venofer, IM B12,folate, cont to monito r hgb, many labs remain pending at this time, concern for malabsorption Further diagnoses and plan as documented by resident dispo- will be to home with spouse on dc <Deon Garces - Last Filed: 08/10/18 16:31> Hospitalist Progress Note - Encounter Date of Encounter: 08/10/18 Time of Encounter: 09:30 - Subjective Interval History: 08/10 Gen: Day 3 of hospital say. No acute events overnight. Patient continues to be on BiPAP satting at 94%, her physical exam shows no evidence of any decreased breath sounds or wheezing. : Patient is nonoliguric with urine output in the last 10 hours is 1400mL, no indications for a Laureano at this time because patient is making urine. I suspect if the Laureano remains for a longer time it might be a nidus for infection. Her kidney function seems to be improving. She was admitted with a creatinine of 1.89, s/p 9 L of IV fluids, most recent creatinine is 1.08. Patient continues to be on 40 IV Lasix twice a day. Hypervolemic hyponatremia seems to be resolving (Na 134). Heme/Ocn: WBC trending down from 42.5 K on admission to 16.9 today, Hb 6.5-> 7.5 (s/p 1 unit p RBC) , evidence of microcytosis and macrocytosis, GI: She was complaining of constipation yesterday, likely due to Venfoer 250 ml/hr, no oxycodone given yesterday, one bowel movement this morning. She is complaining of acute belly distention but endorses no pain, no postprandial discomfort no nausea or vomiting. Tells me that she has a history of acid reflux and takes ranitidine when necessary. However, we are holding off on her ranitidine because of newly diagnosed anemia Infectious: RLE cellulitis looks less erythematous than yesterday. Is on day 2 of cefepime, day 2 off vancomycin (Vanc trough 12), 3 of Zosyn 08/09 Patient had a drop in her hemoglobinto 6.7, and is s/p 1 unit of packed red blood cell. Her repeat hemoglobin as of 9 AM is 7.4. Stool guaiac has been ordered. She continues is to be on broad-spectrum antibiotics for her right leg cellulitis and her white blood count has been improving (42.5 -> 22.8K) , added Cefepime by ID. Endorses mild abdominal pain which could be secondary to constipation and ordered some stool softeners. Patient endorses no numbness or tingling in extremities, the erythema around the cellulitis looks about the same. Continues to have a nonoliguric HAZEL and is s/p 9L of fluids in total. 08/08 Seen patient at the bedside. Patient is a transfer from [facility] because of flow right leg pain secondary to cellulitis, on to be in sepsis. She is currently on day 1 vancomycin and Zosyn. She seems to be in moderate distress gasping for air currently on 2L oxygen. Has shortness of breath, and rapid breathing seemed to be confused not hypotensive at this moment. Stat chest x- ray has been ordered. Owing to her confused state stat head CT has also been ordered. Her ABGs showed respiratory acidosis with mild hypoxemia. With evidence of mild hypoxemia should be transitioned from a 2 L oxygen to BiPAP. - Exam Vitals: Temp Pulse Resp BP Pulse Ox 97.5 F L 94 16 155/83 91 08/10/18 04:43 08/10/18 04:43 08/10/18 04:43 08/10/18 04:43 08/10/18 04:43 Exam: Gen: A&O *3, no acute distress Chest: , no rales, wheezing or ronchi Heart: S1S2+ RRR No murmurs Abd: Distended , NT, BS +, No organomegaly Ext: +1 edema, pulses are palpable, erythema on RLE due to cellulitis Neuro : Benign findings Skin: RLE erythema less than yesterday , swollen. - Assessment and Plan (1) Severe sepsis with acute organ dysfunction due to group A Streptococcus Current Visit: Yes Status: Suspected Assessment and Plan: - Still meeting the SIRS criteira due to elevated WBC (16.9), and tachcardia (93) . Patient was admitted with sepsis likely due to her significant cellulitis and right lower extremity. She was given IV clindamycin and [place] ED. -Lactic acid 4 on admission currently trending down to 0.6 . Paitent is status post 9L IVF. WBC at 37K currently 16.9K. D-dimer elevated at [place] - Currently white blood count is trending down (16.9) . Afebrile. ASO Ab : 412 - Blood and sputum cultures are pending. UA pending. UA positive for nitrates - Currently on day 4 of vancomycin , and IV Cefepime q12h. (2) Acute respiratory failure with hypoxemia Current Visit: Yes Status: Acute Assessment and Plan: -Likely multifactorial- patient was severly septic on admision with leukocytosis of 37K, Lactic acid 4.0, HR : 112. Patient also had anemia (Hb < 7.5), with elevated BNP : 184 - X-ray was positive for pulmonary vascular congestion , patient's most recent ABG showed evidence of acute respiratory acidosis with hypoxemia , worsened as of this morning at 5:29 AM with PCO2 of 72 , repeat ABG looks better and most recent PCO2 is 68, with pH 7.24 . - Patient currently on BiPAP, On Vancomycin, 2 grams and IV Q12h cefepime for her cellulitis. - Blood and sputum cultures have not grown anything thus far. Echo pending , ASO titre pending. Continue to monitor (3) Respiratory failure with hypercapnia Current Visit: Yes Status: Acute Assessment and Plan: - plan as above (4) Cellulitis of right lower extremity Current Visit: No Status: Acute Assessment and Plan: - Patient came with right lower extremity cellulitis- was given IV clindamycin and fluids at [facility]. - Currently on IV vancomycin ,Cefepime q12h. Oxycodone for pain control. Negative for DVT - Blood cultures pending . (5) Acute kidney injury (nontraumatic) Current Visit: No Status: Resolved Assessment and Plan: -Patient has no past medical history of any renal disease. However she came in with a GFR of 29 suggesting stage IV CKD. Patient also edematous but no evidence of periorbital edema. No evidence of hematuria dysuria. Not hypertensive on admission. UA showed proteinuria of 100. Good urine output today (360/2600) . -Patient's urine specific gravity was 1.024 suggesting pre-renal cause , Cr 1.86 on admission currently 1.08, s/p 9L IVF - complement, CHERIE, eosinophils, FENa pending, renally dose medications. Nephrology on board, Renal Diet (6) Anemia Current Visit: No Status: Acute Assessment and Plan: - Likely a mix of normocytic and microcytic anemia, with evidence of hypochromasia, and low percent reticulocyte count. Patient was admitted with the iron deficiency, MCV 66.4, RDW : 22.1, 1+ ovalocytes, 1+ stomatocytes, LDH : 209, Ferritin 61. She also had elevated indirect bilirubin of 3.3, K 6.1 on admission, repeat labs showed potassium - 5.2 likely due to sort of hemolysis (Intra/Vascular) .PT/INR 22.0/2.0, aPTT 32.3, RONN 1+ A -Peripheral smear revealing hypochromic microcytic anemia with ovalocytes identified. - had a drop in her hemoglobin to 6.7 requiringi unit pRBC ,repeat Hb 7.4 - Haptoglobulin , Peripheral smear , LAP score, celiac cascade, parietal cell IgG and Intrinsic factor AB pending. stool guiac test negative - Ordered Venofer 300 mg IV, started on Vit B12 1000 mc IM injections daily for 5 days, Folate 1mg PO. - Transfuse 1 unit of PRBCs for Hgb < 7.0 (7) Leukocytosis Current Visit: No Status: Acute Assessment and Plan: - She was admitted with leukocytosis of 37K, currently improving at 16.9 K - likely due to her right leg cellulitis. -Currently on Vanc/Zosyn and Cefepime. Will deescalate once blood cultures results are out, LAP (leukocyte alkaline phosphate test) pending (8) Morbid obesity with BMI of 60.0-69.9, adult Current Visit: Yes Status: Chronic Assessment and Plan: - Patient has a BMI of 62.5. - Counselled on better dietary choices. (9) Hyperfibrinogenemia Current Visit: Yes Status: Acute Assessment and Plan: -She had elevated circulating the fibrinogen > 450 mg/d. - Likely due to setting of acute inflammation secondary to cellulitis. (10) Iron deficiency anemia Current Visit: Yes Status: Suspected Assessment and Plan: - Patient was admitted with iron less than 10. Transferring 258, Normal Ferritin - No history of any aspirin or NSAID use. - currently on Venofer 300 mg IV, FOBT pending - Transfuse if hemoglobin less than 7. (11) CKD (chronic kidney disease) Current Visit: Yes Status: Acute Assessment and Plan: - Patient came as GFR of 29.Currentky > 60, I&O: 360/2600 -No known history of any diabetes or hypertension. -Renally dose medications.. Nephrology on board. Monitor kidney Fn (12) B12 deficiency Current Visit: Yes Status: Chronic Assessment and Plan: - patient had a B12 283. - As per recommendations of hematology , starting on 1000 mc IM injections daily for 5 days. (Then transition to weekly for 4 doses, and then monthly) - (13) Folate deficiency Current Visit: Yes Status: Chronic Assessment and Plan: - folic acid supplements for her folate deficiency (14) Elevated brain natriuretic peptide (BNP) level Current Visit: Yes Status: Acute Assessment and Plan: -She was admitted with the elevated BNP of 184. Suspected CHF -CXR was positive for a cardiomegaly along with pulmonary vascular congestion. - Echo pending to rule out valvular/ structural abnormality. (15) RASHAUN (obstructive sleep apnea) Current Visit: Yes Status: Acute Assessment and Plan: - Suspected obstructive sleep apnea. Likely due to her high BMI of 62.7. -BiPAP Qualification pending. Consider sleep study as an outpatient. DVT Prophylaxis: SCDs only on the left leg - Time Spent with Patient Total time spent is greater than 50% in coordination of care (as documented) at patient's floor/unit and/or counseling patient: Internal Medicine: Result - Labs CBC & Chem 7: 08/10/18 05:01 08/10/18 05:01 Labs: Short CBC 08/09/18 08/09/18 08/10/18 Range/Units 09:10 20:55 05:01 WBC 16.9 H (4.3-11.1) K/mcL Hgb 7.4 L 7.3 L 7.5 L (11.5-15.4) g/dL Hct 28.3 L 27.3 L 28.2 L (35.3-44.9) % Plt Count 209 (140-400) K/mcL Neutrophils # 15.1 H (1.6-8.9) K/mcL BMP 08/10/18 05:01 Sodium 134 L Potassium 4.1 Chloride 101 Carbon Dioxide 27 BUN 32 H Creatinine 1.08 Glucose 134 H Calcium 8.8 - ABG Interpretation ABG results: ABG ABG pH 7.24 pH Units (7.32-7.45) L 08/09/18 08:48 ABG pCO2 68 mmHg (35-45) H 08/09/18 08:48 ABG pO2 58 mmHg (85-104) L D 08/09/18 08:48 ABG O2 Saturation 84 % (95-98) L 08/09/18 08:48 PT/INR, D-dimer PT 15.8 Seconds (9.4-12.1) H 08/09/18 04:35 - Impressions Impressions Chest X-Ray 08/09/18 08:20 IMPRESSION: Stable chest. Probable early CHF with mild perihilar edema. D/ / Javi Simpson MD / Javi Simpson MD Interpreting Provider: Javi Simpson MD <Anika Tong - Last Filed: 08/10/18 13:54> (3) Anemia Qualifiers: Anemia type: iron deficiency Iron deficiency anemia type: chronic blood loss Qualified Code(s): D50.0 - Iron deficiency anemia secondary to blood loss (chronic) (4) Leukocytosis Qualifiers: Leukocytosis type: bandemia Qualified Code(s): D72.825 - Bandemia (8) Iron deficiency anemia Qualifiers: Iron deficiency anemia type: chronic blood loss Qualified Code(s): D50.0 - Iron deficiency anemia secondary to blood loss (chronic) (14) Respiratory failure with hypercapnia Qualifiers: Chronicity: acute Qualified Code(s): J96.02 - Acute respiratory failure with hypercapnia <Maritza Garcesbh - Last Filed: 08/10/18 16:31> (3) Respiratory failure with hypercapnia Qualifiers: Chronicity: acute Qualified Code(s): J96.02 - Acute respiratory failure with hypercapnia (6) Anemia Qualifiers: Anemia type: iron deficiency Iron deficiency anemia type: chronic blood loss Qualified Code(s): D50.0 - Iron deficiency anemia secondary to blood loss (chronic) (7) Leukocytosis Qualifiers: Leukocytosis type: bandemia Qualified Code(s): D72.825 - Bandemia (10) Iron deficiency anemia Qualifiers: Iron deficiency anemia type: chronic blood loss Qualified Code(s): D50.0 - Iron deficiency anemia secondary to blood loss (chronic)
[2018-08-10] MEDS: Folic Acid 1 MG TABLET PO SCH (08:22)
[2018-08-10] MEDS: Furosemide 40 MG TABLET PO SCH ×2 (08:22→17:27)
--- NOTE | 2018-08-10 09:36 | Nephrology Progress Note ---
Date of Encounter: 08/10/18 Time of Encounter: 09:33 - Assessment and Plan (1) Acute kidney injury (nontraumatic) Current Visit: No Status: Acute Acute kidney injury -prerenal etiology likely secondary to sepsis. Mild proteinuria that is likely secondary to HAZEL and not nephrotic syndrome. History of preeclampsia with proteinuria and obesity. -Creatinine 1.08 improved (1.85 yesterday) -GFR 57 -I&O: 795/4170 -urinalysis with positive nitrite and leukocyte esterase, WBC, mild proteinuria. Asymptomatic. -Urine total protein 30 Plan: -patient has had good urine output and improved creatinine. will continue to give the patient Lasix 40 PO b.i.d. as she is volume overloaded with lower extremity edema. -pending Renal ultrasound, complement, CHERIE, eosinophils to evaluate for GN given proteinuria -Patient is taking vancomycin. Trough 12, acceptable. -Continue renal protective strategy such as renal dose medications and avoid nephrotoxic agents -continue to monitor I&O -continue to monitor serum creatinine -renal diet ordered (2) Anemia Current Visit: No Status: Acute Anemia -etiology is undetermined but differential includes iron deficiency anemia, malabsorption -hemoglobin 7.5, MCV microcytic -iron <10, transferrin to 58, ferritin 61 -vitamin B12 283, folate 4.3 -stool occult negative for blood -transfused one unit packed red blood cells Plan: -hem/onc consulted concern for malabsorption -continue Venofer -continue to monitor H&H, transfuse as needed per primary team Qualifiers: Anemia type: iron deficiency Iron deficiency anemia type: chronic blood loss Qualified Code(s): D50.0 - Iron deficiency anemia secondary to blood loss (chronic) (3) Hyponatremia Current Visit: Yes Status: Acute Hyponatremia -most likely hypervolemic hyponatremia in setting of volume overload with an asarca -serum osmolality 282 -urine osmolality 303, urine creatinine 33, protein/creatinine ratio 0.91, urine sodium 23.4, urine total protein 30 Plan: -improving. Continue current management with diuretics (4) Cellulitis of right lower extremity Current Visit: No Status: Acute Per primary team (5) Acute respiratory failure with hypoxemia Current Visit: Yes Status: Acute Resolved. Per primary team (6) Morbid obesity with BMI of 60.0-69.9, adult Current Visit: Yes Status: Chronic Subjective Principal diagnosis: Acute respiratory failure with hypoxemia Interval history: Patient seen and examined at bedside. Her was present. She is alert and oriented times 3. She denies fever, chills, chest pain, shortness of breath. She reports that she feels much more comfortable not by her [place] catheter has been removed this morning. She believes that she does have minimally decreased fluid around the stomach and legs bilaterally. Objective - Vital Signs Vital signs: Vital Signs Temp Pulse Resp BP Pulse Ox 08/10/18 09:20 99 08/10/18 08:11 87 143/82 82 08/10/18 04:43 97.5 F L 94 16 155/83 91 08/09/18 21:39 23 95 08/09/18 19:56 98.4 F 101 16 150/84 95 08/09/18 16:00 98.2 F 81 16 133/79 98 08/09/18 11:16 97.9 F 92 16 117/76 94 Intake and Output 08/09/18 08/10/18 08/10/18 23:59 07:59 15:59 Intake Total 100 / 100 0 / 0 240 / 240 Output Total 1550 / 1550 900 / 900 500 / 500 Balance -1450 / -1450 -900 / -900 -260 / -260 Intake: IV Fluids 100 / 100 Maxipime 2,000 MG In 0.9 % 100 / 100 Sodium Chloride (Mini-Bag +) 100 ML @ 200 mls/hr IVPB Q12HR [facility] Rx#:[id number] Oral 0 / 0 0 / 0 240 / 240 Output: Urine 100 / 100 300 / 300 Catheter 1450 / 1450 900 / 900 200 / 200 Other: Meal Breakfast Percent of Meal Consumed 100% Stool Size Small Small Stool Consistency loose Stool Color Brown # Bowel Movements 1 1 # Bowel Movement Diapers 1 Weight 192.5 kg Patient Weight 08/10/18 23:59 Weight 192.5 kg - General Appearance Exam: Gen.: Vitals noted. No acute distress. AAOx3 HEENT: oropharynx clear, Normocephalic, atraumatic Neck: Supple. No adenopathy. Cardiac: RRR, no murmur, +S1/S2, +2 edema lower extremities bilaterally, anasarca Pulmonary: CTA bilaterally, no wheezes, rales or rhonchi, equal chest expansion Abdomen: soft, nontender, Bowel sounds noted, no guarding MSK: ROM intact, no joint swelling noted, erythema bilateral lower extremities Neuro: A&Ox3, moves all extremities, no focal deficits Psych: Appropriate mood and behavior - Lab 08/10/18 05:01 08/10/18 05:01 Most recent lab results ABG pH 7.24 pH Units (7.32-7.45) L 08/09/18 08:48 ABG pCO2 68 mmHg (35-45) H 08/09/18 08:48 ABG pO2 58 mmHg (85-104) L D 08/09/18 08:48 ABG HCO3 29 mEq/L (21-27) H 08/09/18 08:48 ABG O2 Saturation 84 % (95-98) L 08/09/18 08:48 Calcium 8.8 mg/dL (8.6-10.3) 08/10/18 05:01 Phosphorus 5.1 mg/dL (2.7-4.5) H 08/08/18 03:08 Magnesium 1.6 mg/dL (1.6-2.6) 08/08/18 03:08 Urine Creatinine 33 mg/dL 08/09/18 09:21 Urine Sodium 23.4 mEq/L 08/08/18 12:45 Urine Total Protein 30 mg/dL (1-14) H 08/09/18 09:21 Consult Discharge Plan - Plan Referrals: NONE,PCP [Primary Care Provider] -
--- NOTE | 2018-08-10 11:36 | Oncology Inp Progress Note ---
Addendum entered and electronically signed by Arron Terry MD 08/10/18 17:51: Please add [id number] for coding and billing. Original Note: <Gokul Sanchez - Last Filed: 08/10/18 13:24> Date of Encounter: 08/10/18 Time of Encounter: 11:33 (1) Anemia Current Visit: No Status: Acute Assessment and plan: Anemia w/ MCV of 66.4, RDW 23.2, 1+ ovalocytes, 1+ stomatocytes Pt does have iron, B12 and folate deficiencies. Ferritin 61, Vit B12 283, folate 4.3 Pt also has acute hgb drop to 6.7 requiring 1 unit PRBCson 08/09/18, hemoglobin remains stable since transfusion LDH 209, haptoglobin pending. Fibrinogen 663. PT/INR 22.0/2.0, aPTT 32.3, RONN 1+ A Concern for malabsortion in the presence if iron, B12 and folate deficiencies. Will work up with celiac cascade, parietal cell IgG and Intrinsic factor AB Peripheral smear revealing hypochromic microcytic anemia with ovalocytes identified. Plan: -Continue Venofer -Continue Vit B12 1000 mc IM injections daily for 5 days. (Then transition to weekly for 4 doses, and then monthly) -Continue folic acid 1 mg PO daily. -Pending labs: Hgb electrophoresis, FOBT, haptoglobin, celiac cascade, parietal cell IgG and Intrinsic factor AB -Transfuse 1 unit of PRBCs for Hgb < 7.0 Qualifiers: Anemia type: iron deficiency Iron deficiency anemia type: chronic blood loss Qualified Code(s): D50.0 - Iron deficiency anemia secondary to blood loss (chronic) (2) Leukocytosis Current Visit: No Status: Acute Assessment and plan: Continues to improve with WBC of 16.9 today. Likely secondary to underlying infectious/inflammatory process. Plan: -Continue with treatment of cellulitis -LAP (leukocyte alkaline phosphate test) pending Qualifiers: Leukocytosis type: bandemia Qualified Code(s): D72.825 - Bandemia (3) B12 deficiency Current Visit: Yes Status: Chronic Assessment and plan: Treatment as above (4) Folate deficiency Current Visit: Yes Status: Chronic Assessment and plan: Treatment as above (5) Cellulitis of right lower extremity Current Visit: No Status: Acute Assessment and plan: Vital signs remain stable, afebrile. Erythema appears to be improving Plan: Continue treatment with antibiotics per primary team (6) Acute kidney injury (nontraumatic) Current Visit: No Status: Acute Assessment and plan: Improving creatinine, 1.08 today Willard removed today Nephrology following (7) Iron deficiency anemia Current Visit: Yes Status: Suspected Assessment and plan: Treatment as above Qualifiers: Iron deficiency anemia type: chronic blood loss Qualified Code(s): D50.0 - Iron deficiency anemia secondary to blood loss (chronic) (8) Morbid obesity with BMI of 60.0-69.9, adult Current Visit: Yes Status: Chronic Oncology: Subj Interval history: Patient was seen and evaluated at the bedside with family present. She reports that pain in her right lower extremity is persistent but is improved since initiation of antibiotics. She still endorses swelling of her extremities. Reports poor sleep last night and is very tired this morning. No difficulty with ambulation. Denies ongoing fever, chills, nausea, vomiting. Does endorse constipation. - Constitutional Vitals: Vital Signs Temp Pulse Resp BP Pulse Ox 08/10/18 09:20 99 08/10/18 08:11 87 143/82 82 08/10/18 04:43 97.5 F L 94 16 155/83 91 08/09/18 21:39 23 95 08/09/18 19:56 98.4 F 101 16 150/84 95 08/09/18 16:00 98.2 F 81 16 133/79 98 Intake and Output 08/09/18 08/10/18 08/10/18 23:59 07:59 15:59 Intake Total 100 / 100 0 / 0 240 / 240 Output Total 1550 / 1550 900 / 900 500 / 500 Balance -1450 / -1450 -900 / -900 -260 / -260 Intake: IV Fluids 100 / 100 Maxipime 2,000 MG In 0.9 % 100 / 100 Sodium Chloride (Mini-Bag +) 100 ML @ 200 mls/hr IVPB Q12HR [facility] Rx#:[id number] Oral 0 / 0 0 / 0 240 / 240 Output: Urine 100 / 100 300 / 300 Catheter 1450 / 1450 900 / 900 200 / 200 Other: Meal Breakfast Percent of Meal Consumed 100% Stool Size Small Small Stool Consistency loose Stool Color Brown # Bowel Movements 1 1 # Bowel Movement Diapers 1 Weight 192.5 kg Patient Weight 08/10/18 23:59 Weight 192.5 kg Oncology: Obj Data - Labs CBC & Chem 7: 08/10/18 05:01 08/10/18 05:01 Labs: Laboratory Results - last 24 hr 08/09/18 08/09/18 08/09/18 09:35 18:03 20:55 WBC RBC Hgb 7.3 L Hct 27.3 L MCV MCH MCHC RDW Plt Count MPV Immature Gran % Seg Neutrophils % Lymphocytes % Monocytes % Eosinophils % Basophils % Neutrophils # Lymphocytes # Monocytes # Eosinophils # Basophils # Nucleated RBCs/100 WBC Platelet Estimate Large Platelets Hypochromasia Anisocytosis Microcytosis Macrocytosis Sodium Potassium Chloride Carbon Dioxide BUN Creatinine Est GFR ( Amer) Est GFR (Non-Af Amer) BUN/Creatinine Ratio Glucose Calculated Osmolality Calcium Ur Eosinophil Smear 0 Stool Occult Blood Negative Vancomycin Trough 08/10/18 08/10/18 08/10/18 05:01 05:01 05:01 WBC 16.9 H RBC 4.25 Hgb 7.5 L Hct 28.2 L MCV 66.4 L MCH 17.6 L MCHC 26.6 L RDW 23.2 H Plt Count 209 MPV TNP Immature Gran % 0.7 Seg Neutrophils % 89.6 Lymphocytes % 6.0 Monocytes % 3.5 Eosinophils % 0.1 Basophils % 0.1 Neutrophils # 15.1 H Lymphocytes # 1.0 Monocytes # 0.6 Eosinophils # 0.0 Basophils # 0.0 Nucleated RBCs/100 WBC 0.2 H Platelet Estimate Normal Large Platelets Present A Hypochromasia Present A Anisocytosis 3+ A Microcytosis Present A Macrocytosis Present A Sodium 134 L Potassium 4.1 Chloride 101 Carbon Dioxide 27 BUN 32 H Creatinine 1.08 Est GFR ( Amer) > 60 Est GFR (Non-Af Amer) 57 L BUN/Creatinine Ratio 30 H Glucose 134 H Calculated Osmolality 287 Calcium 8.8 Ur Eosinophil Smear Stool Occult Blood Vancomycin Trough 12 H - ABG Interpretation ABG results: ABG ABG pH 7.24 pH Units (7.32-7.45) L 08/09/18 08:48 ABG pCO2 68 mmHg (35-45) H 08/09/18 08:48 ABG pO2 58 mmHg (85-104) L D 08/09/18 08:48 ABG O2 Saturation 84 % (95-98) L 08/09/18 08:48 PT/INR, D-dimer PT 15.8 Seconds (9.4-12.1) H 08/09/18 04:35 Consult Discharge Plan - Plan Referrals: NONE,PCP [Primary Care Provider] - <Arron Terry - Last Filed: 08/10/18 17:51> Date of Encounter: 08/10/18 - Constitutional Vitals: Vital Signs Temp Pulse Resp BP Pulse Ox 08/10/18 16:56 94 08/10/18 12:36 93 155/96 90 08/10/18 09:20 99 08/10/18 08:11 87 143/82 82 08/10/18 04:43 97.5 F L 94 16 155/83 91 08/09/18 21:39 23 95 08/09/18 19:56 98.4 F 101 16 150/84 95 Intake and Output 08/10/18 08/10/18 08/11/18 08:59 16:59 00:59 Intake Total 340 / 340 120 / 120 Output Total 1350 / 1350 1250 / 1250 Balance -1010 / -1010 -1130 / -1130 Intake: IV Fluids 100 / 100 Maxipime 2,000 MG In 0.9 % 100 / 100 Sodium Chloride (Mini-Bag +) 100 ML @ 200 mls/hr IVPB Q12HR [facility] Rx#:[id number] Oral 240 / 240 120 / 120 Output: Urine 300 / 300 1200 / 1200 Catheter 1050 / 1050 50 / 50 Other: Meal Breakfast Lunch Percent of Meal Consumed 100% 60% Stool Size Large Stool Consistency soft Stool Characteristics Normal for Patient Stool Color Brown # Bowel Movements 1 Weight 192.5 kg Patient Weight 08/11/18 00:59 Weight 192.5 kg Oncology: Obj Data - Labs CBC & Chem 7: 08/10/18 05:01 08/10/18 05:01 Labs: Laboratory Results - last 24 hr 08/07/18 08/08/18 08/09/18 18:01 09:22 18:03 WBC RBC Hgb Hct MCV MCH MCHC RDW Plt Count MPV Immature Gran % Seg Neutrophils % Lymphocytes % Monocytes % Eosinophils % Basophils % Neutrophils # Lymphocytes # Monocytes # Eosinophils # Basophils # Nucleated RBCs/100 WBC Platelet Estimate Large Platelets Hypochromasia Anisocytosis Microcytosis Macrocytosis Sodium Potassium Chloride Carbon Dioxide BUN Creatinine Est GFR ( Amer) Est GFR (Non-Af Amer) BUN/Creatinine Ratio Glucose Calculated Osmolality Calcium Stool Occult Blood Negative Vancomycin Trough Anti-Streptolysin O Ab 412 H Miscellaneous Test SEE BELOW 08/09/18 08/10/18 08/10/18 20:55 05:01 05:01 WBC 16.9 H RBC 4.25 Hgb 7.3 L 7.5 L Hct 27.3 L 28.2 L MCV 66.4 L MCH 17.6 L MCHC 26.6 L RDW 23.2 H Plt Count 209 MPV TNP Immature Gran % 0.7 Seg Neutrophils % 89.6 Lymphocytes % 6.0 Monocytes % 3.5 Eosinophils % 0.1 Basophils % 0.1 Neutrophils # 15.1 H Lymphocytes # 1.0 Monocytes # 0.6 Eosinophils # 0.0 Basophils # 0.0 Nucleated RBCs/100 WBC 0.2 H Platelet Estimate Normal Large Platelets Present A Hypochromasia Present A Anisocytosis 3+ A Microcytosis Present A Macrocytosis Present A Sodium Potassium Chloride Carbon Dioxide BUN Creatinine Est GFR ( Amer) Est GFR (Non-Af Amer) BUN/Creatinine Ratio Glucose Calculated Osmolality Calcium Stool Occult Blood Vancomycin Trough 12 H Anti-Streptolysin O Ab Miscellaneous Test 08/10/18 05:01 WBC RBC Hgb Hct MCV MCH MCHC RDW Plt Count MPV Immature Gran % Seg Neutrophils % Lymphocytes % Monocytes % Eosinophils % Basophils % Neutrophils # Lymphocytes # Monocytes # Eosinophils # Basophils # Nucleated RBCs/100 WBC Platelet Estimate Large Platelets Hypochromasia Anisocytosis Microcytosis Macrocytosis Sodium 134 L Potassium 4.1 Chloride 101 Carbon Dioxide 27 BUN 32 H Creatinine 1.08 Est GFR ( Amer) > 60 Est GFR (Non-Af Amer) 57 L BUN/Creatinine Ratio 30 H Glucose 134 H Calculated Osmolality 287 Calcium 8.8 Stool Occult Blood Vancomycin Trough Anti-Streptolysin O Ab Miscellaneous Test - Impressions Impressions Retroperitoneum Ultrasound 08/10/18 16:00 IMPRESSION: Imaging limited by body habitus shows no gross hydronephrosis. D/ / Salomon Jerez MD / Salomon Jerez MD Interpreting Provider: Salomon Jerez MD - ABG Interpretation ABG results: ABG ABG pH 7.24 pH Units (7.32-7.45) L 08/09/18 08:48 ABG pCO2 68 mmHg (35-45) H 08/09/18 08:48 ABG pO2 58 mmHg (85-104) L D 08/09/18 08:48 ABG O2 Saturation 84 % (95-98) L 08/09/18 08:48 PT/INR, D-dimer PT 15.8 Seconds (9.4-12.1) H 08/09/18 04:35 - Attending Attestation I examined this patient and my medical decision-making was reviewed with the A dvanced Practice Nurse. I agree with the documented findings, disposition and treatment plan as described except to the extent set forth below. -Patient completed IV Fe. -She is on Folic acid 1 mg PO daily and vitamin B12 1000 mcg IM for 5 days. -We will follow up on Anti-parietal cell and IF antibodies. Will follow from a distance, please call with any questions.
--- NOTE | 2018-08-10 16:01 | Infectious Disease Progress No ---
Date of Encounter: 08/10/18 Time of Encounter: 15:59 - Assessment and Plan (1) Severe sepsis Current Visit: Yes Status: Acute The patient had 3 sepsis criteria with lactic acidosis, acute kidney injury, and altered mental status. Likely secondary to cellulitis of the right lower extremity. White blood cell count is trending down. Fever curve is improved. Tachycardia has resolved. Blood cultures drawn 08/07/18 are no growth to date 2 sets. Repeat blood cultures drawn 08/08/18 are NGTD 2 sets. Recommendations: - Await repeat blood cultures. - Continue to trend WBC. - Continue Vancomycin IV. - Continue cefepime 2 grams IV Q12H. - Continue Lamisil topical to the bilateral feet BID x 1 week. - Duration of treatment depends on the clinical picture. - Monitor renal function and for drug toxicity and dose-adjust antibiotics. (2) Cellulitis of right lower extremity Current Visit: No Status: Acute Location: Right lower extremity. Causative organisms: Unclear. Etiology: Unclear. Tinea pedis vs. other. CT of the right lower extreme he shows diffuse subcutaneous edema consistent with cellulitis versus lymphedema, but no gas, abscess, or osteomyelitis was noted. DVT study was negative. No previous treatment prior to admission to the hospital. Improved. (3) Acute respiratory failure with hypoxemia Current Visit: Yes Status: Acute Etiology: Unclear. Chest x-ray shows probable early CHF with mild perihilar edema. ABG indicative of respiratory acidosis. D-dimer is elevated. Consider PE in the differential. Management per the primary team. (4) Lactic acidosis Current Visit: No Status: Resolved Likely secondary to right lower extremity cellulitis and sepsis. Resolved. (5) Acute kidney injury (nontraumatic) Current Visit: No Status: Resolved Etiology: Unclear. Likely secondary to sepsis plus vancomycin toxicity plus possible underlying CAD. Nephrology consult to assist with management. Resolved. Continue to trend. Dose adjust antibiotics and avoid nephrotoxins as able. (6) Anemia Current Visit: No Status: Acute Etiology: Unclear. No acute bleeding noted on exam. Heme/Onc consult to assist with management and workup. Qualifiers: Anemia type: iron deficiency Iron deficiency anemia type: chronic blood loss Qualified Code(s): D50.0 - Iron deficiency anemia secondary to blood loss (chronic) (7) Hyperbilirubinemia Current Visit: Yes Status: Acute Etiology: Unclear. AST, ALP, and alkaline phosphatase all are normal. Secondary to sepsis? Continue to trend. (8) Tinea pedis Current Visit: Yes Status: Acute Lamisil as above. Qualifiers: Laterality: bilateral Qualified Code(s): B35.3 - Tinea pedis (9) Morbid obesity with BMI of 60.0-69.9, adult Current Visit: Yes Status: Chronic - Subjective Interval history: Patient seen and examined. No acute events noted overnight. Patient complaining of a headache, but overall feels better. Denies fevers, chills, or rigors. Denies chest pain, shortness of breath, or cough. Denies nausea, vomiting, or diarrhea. Reports last BM was this morning. Denies any urinary complaints as having Willard catheter removed. States her right lower extremity is still swollen and tender, but is less red and less painful today. She states she does feel swollen all over. She denies any oral thrush or new skin lesions. Infect Dis PN-Objective Data - Labs CBC & Chem 7: 08/10/18 05:01 08/10/18 05:01 Labs: Laboratory Results - last 24 hr 08/07/18 08/08/18 08/09/18 18:01 09:22 18:03 WBC RBC Hgb Hct MCV MCH MCHC RDW Plt Count MPV Immature Gran % Seg Neutrophils % Lymphocytes % Monocytes % Eosinophils % Basophils % Neutrophils # Lymphocytes # Monocytes # Eosinophils # Basophils # Nucleated RBCs/100 WBC Platelet Estimate Large Platelets Hypochromasia Anisocytosis Microcytosis Macrocytosis Sodium Potassium Chloride Carbon Dioxide BUN Creatinine Est GFR ( Amer) Est GFR (Non-Af Amer) BUN/Creatinine Ratio Glucose Calculated Osmolality Calcium Stool Occult Blood Negative Vancomycin Trough Anti-Streptolysin O Ab 412 H Miscellaneous Test SEE BELOW 08/09/18 08/10/18 08/10/18 20:55 05:01 05:01 WBC 16.9 H RBC 4.25 Hgb 7.3 L 7.5 L Hct 27.3 L 28.2 L MCV 66.4 L MCH 17.6 L MCHC 26.6 L RDW 23.2 H Plt Count 209 MPV TNP Immature Gran % 0.7 Seg Neutrophils % 89.6 Lymphocytes % 6.0 Monocytes % 3.5 Eosinophils % 0.1 Basophils % 0.1 Neutrophils # 15.1 H Lymphocytes # 1.0 Monocytes # 0.6 Eosinophils # 0.0 Basophils # 0.0 Nucleated RBCs/100 WBC 0.2 H Platelet Estimate Normal Large Platelets Present A Hypochromasia Present A Anisocytosis 3+ A Microcytosis Present A Macrocytosis Present A Sodium Potassium Chloride Carbon Dioxide BUN Creatinine Est GFR ( Amer) Est GFR (Non-Af Amer) BUN/Creatinine Ratio Glucose Calculated Osmolality Calcium Stool Occult Blood Vancomycin Trough 12 H Anti-Streptolysin O Ab Miscellaneous Test 08/10/18 05:01 WBC RBC Hgb Hct MCV MCH MCHC RDW Plt Count MPV Immature Gran % Seg Neutrophils % Lymphocytes % Monocytes % Eosinophils % Basophils % Neutrophils # Lymphocytes # Monocytes # Eosinophils # Basophils # Nucleated RBCs/100 WBC Platelet Estimate Large Platelets Hypochromasia Anisocytosis Microcytosis Macrocytosis Sodium 134 L Potassium 4.1 Chloride 101 Carbon Dioxide 27 BUN 32 H Creatinine 1.08 Est GFR ( Amer) > 60 Est GFR (Non-Af Amer) 57 L BUN/Creatinine Ratio 30 H Glucose 134 H Calculated Osmolality 287 Calcium 8.8 Stool Occult Blood Vancomycin Trough Anti-Streptolysin O Ab Miscellaneous Test Cultures: Cultures 08/08/18 12:45 Urine Culture - Final Urine,Catheterized No growth. 08/08/18 13:07 Blood Culture - Preliminary Peripheral Venipuncture Culture is incubating and being continuously monitored for growth. Final report to follow. 08/08/18 13:07 Blood Culture - Preliminary Peripheral Venipuncture Culture is incubating and being continuously monitored for growth. Final report to follow. Serology 08/09/18 08/09/18 08/09/18 Range/Units 18:03 09:35 09:21 Urine Color (Yellow) Urine Clarity (Clear) Urine pH (5.0-8.0) pH Units Ur Specific [place] (1.010-1.025) Urine Protein (Neg-Trace) mg/dL Urine Glucose (UA) (Normal) mg/dL Urine Ketones (Negative) mg/dL Urine Blood (Negative) Urine Nitrite (Negative) Urine Bilirubin (Negative) Urine Urobilinogen (Normal) mg/dL Ur Leukocyte Esterase (Negative) Urine Microscopic RBC (0-3) per hpf Urine Microscopic WBC (0-3) per hpf Ur Eosinophil Smear 0 (None Seen) % Ur Squamous Epith Cells (None-Few) per lpf Urine Bacteria (None-Few) per hpf Urine Osmolality 303 (300-1090) mOsm/kg Urine Creatinine mg/dL Protein/Creatinin Ratio (0.00-0.20) mg/mg Urine Sodium mEq/L Urine Total Protein (1-14) mg/dL Stool Occult Blood Negative (Negative) Anti-Streptolysin O Ab (0-330) IU/mL 08/09/18 08/08/18 08/08/18 Range/Units 09:21 12:45 12:45 Urine Color [place] A (Yellow) Urine Clarity Turbid A (Clear) Urine pH 5.0 (5.0-8.0) pH Units Ur Specific [place] 1.024 (1.010-1.025) Urine Protein 100 H (Neg-Trace) mg/dL Urine Glucose (UA) Normal (Normal) mg/dL Urine Ketones Trace H (Negative) mg/dL Urine Blood Negative (Negative) Urine Nitrite Positive A (Negative) Urine Bilirubin Small H (Negative) Urine Urobilinogen Normal (Normal) mg/dL Ur Leukocyte Esterase Trace H (Negative) Urine Microscopic RBC 0-3 (0-3) per hpf Urine Microscopic WBC 15-30 H (0-3) per hpf Ur Eosinophil Smear (None Seen) % Ur Squamous Epith Cells Many H (None-Few) per lpf Urine Bacteria None Seen (None-Few) per hpf Urine Osmolality (300-1090) mOsm/kg Urine Creatinine 33 mg/dL Protein/Creatinin Ratio 0.91 H (0.00-0.20) mg/mg Urine Sodium 23.4 mEq/L Urine Total Protein 30 H (1-14) mg/dL Stool Occult Blood (Negative) Anti-Streptolysin O Ab (0-330) IU/mL 08/07/18 Range/Units 18:01 Urine Color (Yellow) Urine Clarity (Clear) Urine pH (5.0-8.0) pH Units Ur Specific [place] (1.010-1.025) Urine Protein (Neg-Trace) mg/dL Urine Glucose (UA) (Normal) mg/dL Urine Ketones (Negative) mg/dL Urine Blood (Negative) Urine Nitrite (Negative) Urine Bilirubin (Negative) Urine Urobilinogen (Normal) mg/dL Ur Leukocyte Esterase (Negative) Urine Microscopic RBC (0-3) per hpf Urine Microscopic WBC (0-3) per hpf Ur Eosinophil Smear (None Seen) % Ur Squamous Epith Cells (None-Few) per lpf Urine Bacteria (None-Few) per hpf Urine Osmolality (300-1090) mOsm/kg Urine Creatinine mg/dL Protein/Creatinin Ratio (0.00-0.20) mg/mg Urine Sodium mEq/L Urine Total Protein (1-14) mg/dL Stool Occult Blood (Negative) Anti-Streptolysin O Ab 412 H (0-330) IU/mL Exam - Constitutional Vitals: Temp Pulse Resp BP Pulse Ox 97.5 F L 93 16 155/96 90 08/10/18 04:43 08/10/18 12:36 08/10/18 04:43 08/10/18 12:36 08/10/18 12:36 General appearance: cooperative, morbidly obese, no acute distress - Head Head exam: Present: atraumatic, normal inspection, normocephalic - Eye Eye exam: Present: EOMI, normal appearance, PERRL Pupils: Present: normal accommodation - ENT ENT exam: Present: mucous membranes moist - Neck Neck exam: Present: normal inspection - Respiratory Respiratory exam: Present: CTAB. Absent: rales, respiratory distress, rhonchi, wheezes - Cardiovascular Cardiovascular exam: Present: RRR, +S1, +S2 - GI/Abdominal GI/Abdominal exam: Present: distended (obese), normal bowel sounds, soft. Absent: tenderness - Extremities Exam Extremities exam: Absent: normal inspection Additional comments: Erythema and warmth and swelling to the RLE continues to improve. - Neurological Exam Neurological exam: Present: alert, oriented X3, no focal deficits - Psychiatric Psychiatric exam: Present: normal affect, normal mood - Skin Skin exam: Present: dry, intact, normal color, warm Consult Discharge Plan - Plan Referrals: NONE,PCP [Primary Care Provider] - - Attending Attestation I examined this patient and my medical decision-making was reviewed with the Resident Physician. I agree with the documented findings, disposition and treatment plan as described except to the extent set forth below.
[2018-08-10] MEDS: Clotrimazole 1% CRM 15 GM TUBE TP SCH ×2 (16:02→20:24)
[2018-08-10] MEDS: Acetaminophen 325 MG TABLET PO PRN (16:03)
[2018-08-10] MEDS: Cyanocobalamin (B-12) 1,000 MCG/ML VIAL IM SCH (17:27)
[2018-08-10] MEDS ORDERED: Perflutren Lipid Microsphere 1.3 ML in 0.9 % Sodium Chloride 8.7 ML IVP ONE (19:42)
[2018-08-10 20:24] LABS: Hemoglobin 7.6 g/dL (11.5-15.4)
[2018-08-10] MEDS ORDERED: traMADol 50 MG TABLET PO ONE (20:29)
[2018-08-10 21:25] LABS: Sickle Cell Solubility NOT PERFORMED
[2018-08-11] MEDS: Cefepime HCl 2,000 MG in 0.9 % Sodium Chloride Mini Bag 100 ML IVPB SCH ×2 (05:13→18:25)
[2018-08-11 05:14] LABS: Eosinophils % 0.4 %; Lymphocytes % 12.1 %
[2018-08-11 05:16] LABS: Basophils % 0.2 %; Eosinophils # 0.1 K/mcL (0.0-0.6); Hematocrit 30.1 % (35.3-44.9); Lymphocytes # 1.9 K/mcL (0.6-4.6); Mean Corpuscular HGB Conc 26.6 g/dL (31.6-35.5); Mean Corpuscular Hemoglobin 17.5 pg (28.0-33.3); Mean Corpuscular Volume 65.9 fL (83.0-100.0); Monocytes # 1.1 K/mcL (0.0-1.3); Monocytes % 7.1 %; Neutrophils # 12.5 K/mcL (1.6-8.9); Nucleated Red Blood Cells 0.3 /100 WBC (0); Platelet Count 233 K/mcL (140-400); Red Blood Count 4.57 M/mcL (3.82-4.97); Red Cell Distribution Width 23.8 % (11.5-14.5); Segmented Neutrophils % 78.2 %
[2018-08-11 05:31] LABS: BUN/Creatinine Ratio 25 (6-26); Blood Urea Nitrogen 20 mg/dL (6-20); Calcium 9.1 mg/dL (8.6-10.3); Carbon Dioxide 30 mEq/L (23-29); Chloride 101 mEq/L (98-107); Glucose 87 mg/dL (70-105); Osmolality,Calculated 286 (280-300); Potassium 3.8 mEq/L (3.5-5.1); Sodium 137 mEq/L (136-145); eGFR For Non-African Americans > 60 (> 60)
[2018-08-11 05:37] LABS: Anisocytosis 1+ (Not Present); Hypochromasia Present (Not Present); Microcytosis Present (Not Present)
[2018-08-11 05:38] LABS: Platelet Estimate Normal (Normal); Polychromasia 1+ (Not Present)
--- NOTE | 2018-08-11 06:36 | Event Note ---
Date of Encounter: 08/11/18 Time of Encounter: 06:35 Nephrology Chart Review and Update This pt had an HAZEL, which has resolved. She is clearly tolerating diuresis, which is now no longer a complex process given the improvement of her SCr. So, I will sign-off at this time. She does have mild proteinuria, so I'd recommend outpt Nephrology follow up in about 3-6 weeks. Thank you for having consulted the [facility] group. Please feel free to call or page me with any questions.
--- NOTE | 2018-08-11 08:22 | Internal Med Progress Note ---
<Anika Tong - Last Filed: 08/11/18 16:39> Hospitalist Progress Note - Encounter Date of Encounter: 08/11/18 - Exam Vitals: Temp Pulse Resp BP Pulse Ox 97.8 F 90 20 172/90 93 08/11/18 11:32 08/11/18 11:32 08/11/18 11:32 08/11/18 11:32 08/11/18 11:32 - Assessment and Plan (1) Cellulitis of right lower extremity Current Visit: No Status: Acute (2) Acute kidney injury (nontraumatic) Current Visit: No Status: Resolved (3) Anemia Current Visit: No Status: Acute (4) Leukocytosis Current Visit: No Status: Acute (5) Severe sepsis with acute organ dysfunction due to group A Streptococcus Current Visit: Yes Status: Suspected (6) Morbid obesity with BMI of 60.0-69.9, adult Current Visit: Yes Status: Chronic (7) Hyperfibrinogenemia Current Visit: Yes Status: Acute (8) Iron deficiency anemia Current Visit: Yes Status: Suspected (9) Acute respiratory failure with hypoxemia Current Visit: Yes Status: Acute (10) B12 deficiency Current Visit: Yes Status: Chronic (11) Folate deficiency Current Visit: Yes Status: Chronic (12) Elevated brain natriuretic peptide (BNP) level Current Visit: Yes Status: Acute (13) Respiratory failure with hypercapnia Current Visit: Yes Status: Acute (14) Elevated CK Current Visit: Yes Status: Acute - Time Spent with Patient Total time spent is greater than 50% in coordination of care (as documented) at patient's floor/unit and/or counseling patient: Internal Medicine: Result - Labs CBC & Chem 7: 08/11/18 04:21 08/11/18 04:21 Labs: Short CBC 08/10/18 08/11/18 Range/Units 20:10 04:21 WBC 16.0 H (4.3-11.1) K/mcL Hgb 7.6 L 8.0 L (11.5-15.4) g/dL Hct 28.0 L 30.1 L (35.3-44.9) % Plt Count 233 (140-400) K/mcL Neutrophils # 12.5 H (1.6-8.9) K/mcL BMP 08/11/18 04:21 Sodium 137 Potassium 3.8 Chloride 101 Carbon Dioxide 30 H BUN 20 Creatinine 0.81 Glucose 87 Calcium 9.1 - ABG Interpretation ABG results: ABG ABG pH 7.24 pH Units (7.32-7.45) L 08/09/18 08:48 ABG pCO2 68 mmHg (35-45) H 08/09/18 08:48 ABG pO2 58 mmHg (85-104) L D 08/09/18 08:48 ABG O2 Saturation 84 % (95-98) L 08/09/18 08:48 PT/INR, D-dimer PT 15.8 Seconds (9.4-12.1) H 08/09/18 04:35 - Impressions Impressions Echocardiogram 08/10/18 11:30 Impressions: LVEF 65-70%. Normal LV chamber size, wall thickness and function. Mildly dilated right ventricle with normal function. Mildly dilated right atrium. No significant valvular dysfunction. Mild to moderate pulmonary hypertension. Left Ventricular Wall Motion: Rest Echo Findings All wall segments showed normal motion. Findings: Study Quality * Technically sub-optimal due to body habitus. ECG Findings * Normal sinus rhythm. Left Ventricle * LVEF 65-70%. * Normal LV chamber size, wall thickness and function. * Normal left ventricular diastolic function. * Definity echo contrast was used. Right Ventricle * Mildly dilated right ventricle with normal function. Left Atrium * Normal left atrial size. Right Atrium * Mildly dilated right atrium. Interatrial Septum * Interatrial septum not well evaluated. Aortic Valve * Aortic valve not well visualized. * No aortic stenosis. * No aortic regurgitation. Mitral Valve * Normal mitral valve structure and function. * No mitral stenosis. * Trace mitral regurgitation. Tricuspid Valve * Normal tricuspid valve structure and function. * No tricuspid stenosis. * Trace tricuspid regurgitation. * Estimated RVSP is RV-RA gradient 34 mmHg. * Likely mild to moderate pulmonary hypertension. Pulmonic Valve * Pulmonic valve is not well visualized. * No pulmonic stenosis. * Trace pulmonic regurgitation. Aorta * Normally sized aortic root. Pericardium * The pericardium appears normal. IVC * The IVC is not well evaluated. Retroperitoneum Ultrasound 08/10/18 16:00 IMPRESSION: Imaging limited by body habitus shows no gross hydronephrosis. D/ / Salomon Jerez MD / Salomon Jerez MD Interpreting Provider: Salomon Jerez MD Lower Extremity CT 08/11/18 11:43 IMPRESSION: 1. Circumferential superficial soft tissue edema in the right leg. No fluid collection or abscess on the noncontrast CT. 2. No intramuscular fluid. No acute osseus abnormality. D/ / 08/11/2018 13:07:41 Fernando Quiroga MD / lesvia Interpreting Provider: Fernando Quiroga MD Consult Discharge Plan - Plan Referrals: Nena Cody ALARM SIGNALER [Advanced Practice Nurse] - 08/30/18 10:00 am - Attending Attestation I examined this patient and my medical decision-making was reviewed with the Resident Physician Dr Garces. I agree with the documented findings, disposition and treatment plan as described except to the extent set forth below/addl details below Ms Del Castillo is currently admitted for severe sepsis due to RLE cellulitis. She has developed acute hypercarbic resp failure from pulmonary edema. She was found to have anemia. awake,alert in chair. rle pain significantly worse today and leg feels warmer. no changes in rom leg. denies fevers, chills, nausea or emesis. she is on ra satting low 90s % and denies sob, wheezing. gen- alert, awake,appears stated age, morbidly obese, uncomfortable appearing eyes- pupils equal round , no conjunctival pallor cv- reg rate and rhythm, normal s1,s2, no murmurs appreciated, dependent le edema, non pitting lungs- ctabl, no wheezing, rhonchi or crackles, normal resp effort on o2 nc abd- soft, non tender, non distended, + bs skin- rle erythmea encompassing castellon, + warmth, no wound neuro- AAOx3 Severe sepsis due to cellulitis RLE Sepsis resolved Cellulitis initally began to slowly improved, now worsened on exam and worsened pain today 08/11 -no dvts on le us, gas or fluid collections on initial 08/08 cT leg -repeat both today, CT leg without gas or abscess, LE doppler repeat pending, neuro vasc checks overnight tongiht to closely monitor for changes blcxs ngtd -cont iv abx, id following, added IV clinda today Acute hypercarbic and hypoxic resp failure most likely due to pulmonary edema - CXR with pulm vasc congestion, no identifiable infectious cause, no dvts in bl le on admission -required bipap and weaned to o2 nc which she is now refusing to wear at most times with cont o2 desats with any exertion but stable sats at rest - diuresis as per nephro given kidney function throughout admit- now oral BID with good urine output -ID note is noting elevated dimer, dimer in 900s on 08/07 I believe at outside facility. I imagine given her HAZEL CTA was not preformed by previous providers. Oxygenation status overall improved, no tachycardia +intermittent tachypnea , LE dopplerneg for dvt, repeat as above today, she has had no chest pain, given that her renal function has returned to normal and nephro has now signed off as of today, will obtain CTA chest today -echo 08/11 mild to mod pulm htn, normal ef -needs outpt pfts and sleep study as well, suspect rashaun, and will need o2 home eval prior to dc HAZEL suspected to be prerenal 2/2 sepsis, resolved- nephro followed, diuresis as per nephro no PO -renal us without hydronephrosis -cont to monitor closely with CTA chest to be done today Mixed acute anemia with iron, folate and B12 deficiency and work up to rule out hemolytic anemia -heme/onc following, IV venofer, IM B12,folate, cont to monitor hgb, many labs remain pending at this time, concern for malabsorption Further diagnoses and plan as documented by resident dispo- will be to home with spouse on dc <Deon Garces - Last Filed: 08/11/18 19:53> Hospitalist Progress Note - Encounter Date of Encounter: 08/11/18 Time of Encounter: 09:00 - Subjective Interval History: 08/11 Gen: in moderate leg pain non-positional. Patient is in room air 93%. Neurovascularly intact. No evidence of the fluid collection or abscess on the noncontrasted CT. Given tramadol 50 mg for pain control when necessary : HAZEL has seems to have resolved Cr: 0.81 today, she does not have a Willard anymore. Is/Os: 560/3350 . Is tolerating diuresis Heme/Onc: WBC trending down from 42.5 K on admission to 16.0 today, Hb 6.5-> 7.6 -> 8.0 (s/p 1 unit p RBC) , evidence of microcytosis and macrocytosis, LAP scor e 208. GI: Patient is not complaining of any belly distention, looks nontender on exam. Not complaining of any indigestion today. Continues to have moderate toe bowel movement. Infectious: RLE cellulitis looks more erythematous and tender than yesterday. CT lower extremity was negative for any evidence of sepsis or fluid accommodation. Is on day 3 of cefepime, day 4 of vancomycin (Vanc trough 12) 08/10 Gen: Day 3 of hospital say. No acute events overnight. Patient continues to be on BiPAP satting at 94%, her physical exam shows no evidence of any decreased breath sounds or wheezing. : Patient is nonoliguric with urine output in the last 10 hours is 1400mL, no indications for a Willard at this time because patient is making urine. I suspect if the Willard remains for a longer time it might be a nidus for infection. Her kidney function seems to be improving. She was admitted with a creatinine of 1.89, s/p 9 L of IV fluids, most recent creatinine is 1.08. Patient continues to be on 40 IV Lasix twice a day. Hypervolemic hyponatremia seems to be resolving (Na 134). Heme/Ocn: WBC trending down from 42.5 K on admission to 16.9 today, Hb 6.5-> 7.5 (s/p 1 unit p RBC) , evidence of microcytosis and macrocytosis, GI: She was complaining of constipation yesterday, likely due to Venfoer 250 ml/hr, no oxycodone given yesterday, one bowel movement this morning. She is complaining of acute belly distention but endorses no pain, no postprandial discomfort no nausea or vomiting. Tells me that she has a history of acid reflux and takes ranitidine when necessary. However, we are holding off on her ranitidine because of newly diagnosed anemia Infectious: RLE cellulitis looks less erythematous than yesterday. Is on day 2 of cefepime, day 2 off vancomycin (Vanc trough 12), 3 of Zosyn 08/09 Patient had a drop in her hemoglobinto 6.7, and is s/p 1 unit of packed red blood cell. Her repeat hemoglobin as of 9 AM is 7.4. Stool guaiac has been ordered. She continues is to be on broad-spectrum antibiotics for her right leg cellulitis and her white blood count has been improving (42.5 -> 22.8K) , added Cefepime by ID. Endorses mild abdominal pain which could be secondary to constipation and ordered some stool softeners. Patient endorses no numbness or tingling in extremities, the erythema around the cellulitis looks about the same. Continues to have a nonoliguric HAZEL and is s/p 9L of fluids in total. 08/08 Seen patient at the bedside. Patient is a transfer from a [place] because of flow right leg pain secondary to cellulitis, on to be in sepsis. She is currently on day 1 vancomycin and Zosyn. She seems to be in moderate distress gasping for air currently on 2L oxygen. Has shortness of breath, and rapid breathing seemed to be confused not hypotensive at this moment. Stat chest x- ray has been ordered. Owing to her confused state stat head CT has also been ordered. Her ABGs showed respiratory acidosis with mild hypoxemia. With evidence of mild hypoxemia should be transitioned from a 2 L oxygen to BiPAP. - Exam Vitals: Temp Pulse Resp BP Pulse Ox 97.7 F 78 21 159/78 98 08/11/18 07:45 08/11/18 07:45 08/11/18 07:45 08/11/18 07:45 08/11/18 07:45 Exam: Gen: A&O *3, moderate acute distress Chest: , no rales, wheezing or ronchi Heart: S1S2+ RRR No murmurs Abd: Distended , NT, BS +, No organomegaly Ext: +1 edema, erythema on RLE due to cellulitis in pain Neuro : Benign findings Skin: RLE erythema less than yesterday , swollen. - Assessment and Plan (1) Severe sepsis with acute organ dysfunction due to group A Streptococcus Current Visit: Yes Status: Suspected Assessment and Plan: - Still meeting the SIRS criteira due to elevated WBC (16.0), and tachcardia (90) . Patient was admitted with sepsis likely due to her significant cellulitis and right lower extremity. She was given IV clindamycin and [place] ED. -Lactic acid 4 on admission currently trending down to 0.6 . Alextent is status post 9L IVF. WBC at 37K currently 16K. D-dimer elevated at [place] - Currently white blood count is trending down (16.9) . Afebrile. ASO Ab : 412 - Blood and sputum cultures are pending. - Currently on day 4 of vancomycin , and IV Cefepime q12h. (2) Cellulitis of right lower extremity Current Visit: No Status: Acute Assessment and Plan: - Patient came with right lower extremity cellulitis- was given IV clindamycin and fluids at [facility]. - Currently on IV vancomycin ,Cefepime q12h. Tramadol 50 mg for pain control PRN. -Physical exam patient was in acute pain this morning. The cellulitis looked more erythematous, Repeat lower extremity CT was negative for any abscess or fluid accumulation, no evidence of any compartment syndrome. CK : 483 but that could be most likely due to infectious/inflammation - Blood cultures pending . (3) Elevated CK Current Visit: Yes Status: Acute Assessment and Plan: CK high likely due to the cellulites infection .Patient denies any history of any falls. No evidence of hypothyroidism, No evidence of any hyperglycemia . Patient is afebrile and leukocytosis seems to be trending down s(16K). - Patient's CT of the lower extremity was negative for any evidence of abscess or fluid collection. - Patient's a chest CT was negative for any evidence of any pulmonary embolism (4) Acute respiratory failure with hypoxemia Current Visit: Yes Status: Acute Assessment and Plan: -Likely multifactorial- patient was severely septic on admission with leukocytosis of 37K, Lactic acid 4.0, HR : 112. Patient also had anemia (Hb < 7.5), with elevated BNP : 184 , no evidence of L ventricular, or valvular dysfunction on Echo, - Patient currently on BiPAP at night but no dependence of oxygen in the morning, On day 4 of Vancomycin, and IV Q12h cefepime for her cellulitis. - Blood and sputum cultures have not grown anything thus far. Continue to monitor (5) Respiratory failure with hypercapnia Current Visit: Yes Status: Acute Assessment and Plan: - plan as above (6) Acute kidney injury (nontraumatic) Current Visit: No Status: Resolved Assessment and Plan: 08/11 - HAZEL has resolved , Cr :0.81, GFR > 60 , likely a prerenal cause. -Patient has no past medical history of any renal disease. However she came in with a GFR of 29 suggesting stage IV CKD. Patient also edematous but no evidence of periorbital edema. No evidence of hematuria dysuria. Not hypertensive on admission. UA showed proteinuria of 100. Good urine output today (360/2600) . -Patient's urine specific gravity was 1.024 suggesting pre-renal cause , Cr 1.86 on admission currently 0.81 , s/p 9.8 L IVF - complement, CHERIE, eosinophils, renally dose medications. (7) Anemia Current Visit: No Status: Acute Assessment and Plan: - Likely a mix of normocytic and microcytic anemia, with evidence of hypochromasia, and low percent reticulocyte count. Patient was admitted with the iron deficiency, MCV 66.4, RDW : 22.1, 1+ ovalocytes, 1+ stomatocytes, LDH : 209, Ferritin 61. She also had elevated indirect bilirubin of 3.3, K 6.1 on admission, repeat labs showed potassium - 5.2 likely due to sort of hemolysis (Intra/Vascular) .PT/INR 22.0/2.0, aPTT 32.3, RONN 1+ A -Peripheral smear revealing hypochromic microcytic anemia with ovalocytes ident ified. - had a drop in her hemoglobin to 6.7 requiringi unit pRBC ,repeat Hb 8.0 - Haptoglobulin , Peripheral smear , LAP score, celiac cascade, parietal cell IgG and Intrinsic factor AB pending. stool guiac test negative - Ordered Venofer 300 mg IV, started on Vit B12 1000 mc IM injections daily for 5 days, Folate 1mg PO. - Transfuse 1 unit of PRBCs for Hgb < 7.0 (8) Leukocytosis Current Visit: No Status: Acute Assessment and Plan: - She was admitted with leukocytosis of 37K, currently improving at 16.0 K - likely due to her right leg cellulitis. -Currently on Vancand Cefepime. Will deescalate once blood cultures results are out, LAP (leukocyte alkaline phosphate test)elevated at 483 (9) Morbid obesity with BMI of 60.0-69.9, adult Current Visit: Yes Status: Chronic Assessment and Plan: - Patient has a BMI of 62.5. - Counselled on better dietary choices. (10) Hyperfibrinogenemia Current Visit: Yes Status: Acute Assessment and Plan: -She had elevated circulating the fibrinogen > 450 mg/d. - Likely due to setting of acute inflammation secondary to cellulitis. (11) Iron deficiency anemia Current Visit: Yes Status: Suspected Assessment and Plan: - Patient was admitted with iron less than 10. Transferring 258, Normal Ferritin - No history of any aspirin or NSAID use. - currently on Venofer 300 mg IV, FOBT pending - Transfuse if hemoglobin less than 7. (12) B12 deficiency Current Visit: Yes Status: Chronic Assessment and Plan: - patient had a B12 283. - As per recommendations of hematology , starting on 1000 mc IM injections daily for 5 days. (Then transition to weekly for 4 doses, and then monthly) - (13) Folate deficiency Current Visit: Yes Status: Chronic Assessment and Plan: - folic acid supplements for her folate deficiency (14) Elevated brain natriuretic peptide (BNP) level Current Visit: Yes Status: Acute Assessment and Plan: -She was admitted with the elevated BNP of 184. -Echocardiogram was negative for any left ventricular dysfunction or any valvular abnormalities. LVEFv: 65-70%, was some evidence of [id number] pulmonary hypertension, which can be explained by her baseline RASHAUN. DVT Prophylaxis: on EPCD of the left leg - Time Spent with Patient Total time spent is greater than 50% in coordination of care (as documented) at patient's floor/unit and/or counseling patient: Internal Medicine: Result - Labs CBC & Chem 7: 08/11/18 04:21 08/11/18 04:21 Labs: Short CBC 08/10/18 08/11/18 Range/Units 20:10 04:21 WBC 16.0 H (4.3-11.1) K/mcL Hgb 7.6 L 8.0 L (11.5-15.4) g/dL Hct 28.0 L 30.1 L (35.3-44.9) % Plt Count 233 (140-400) K/mcL Neutrophils # 12.5 H (1.6-8.9) K/mcL BMP 08/11/18 04:21 Sodium 137 Potassium 3.8 Chloride 101 Carbon Dioxide 30 H BUN 20 Creatinine 0.81 Glucose 87 Calcium 9.1 - ABG Interpretation ABG results: ABG ABG pH 7.24 pH Units (7.32-7.45) L 08/09/18 08:48 ABG pCO2 68 mmHg (35-45) H 08/09/18 08:48 ABG pO2 58 mmHg (85-104) L D 08/09/18 08:48 ABG O2 Saturation 84 % (95-98) L 08/09/18 08:48 PT/INR, D-dimer PT 15.8 Seconds (9.4-12.1) H 08/09/18 04:35 - Impressions Impressions Retroperitoneum Ultrasound 08/10/18 16:00 IMPRESSION: Imaging limited by body habitus shows no gross hydronephrosis. D/ / Salomon Jerez MD / Salomon Jerez MD Interpreting Provider: Salomon Jerez MD <Anika Togn - Last Filed: 08/11/18 16:39> (3) Anemia Qualifiers: Anemia type: iron deficiency Iron deficiency anemia type: chronic blood loss Qualified Code(s): D50.0 - Iron deficiency anemia secondary to blood loss (chronic) (4) Leukocytosis Qualifiers: Leukocytosis type: bandemia Qualified Code(s): D72.825 - Bandemia (8) Iron deficiency anemia Qualifiers: Iron deficiency anemia type: chronic blood loss Qualified Code(s): D50.0 - Iron deficiency anemia secondary to blood loss (chronic) (13) Respiratory failure with hypercapnia Qualifiers: Chronicity: acute Qualified Code(s): J96.02 - Acute respiratory failure with hypercapnia <Deon Garces - Last Filed: 08/11/18 19:53> (5) Respiratory failure with hypercapnia Qualifiers: Chronicity: acute Qualified Code(s): J96.02 - Acute respiratory failure with hypercapnia (7) Anemia Qualifiers: Anemia type: iron deficiency Iron deficiency anemia type: chronic blood loss Qualified Code(s): D50.0 - Iron deficiency anemia secondary to blood loss (chronic) (8) Leukocytosis Qualifiers: Leukocytosis type: bandemia Qualified Code(s): D72.825 - Bandemia (11) Iron deficiency anemia Qualifiers: Iron deficiency anemia type: chronic blood loss Qualified Code(s): D50.0 - Iron deficiency anemia secondary to blood loss (chronic)
--- NOTE | 2018-08-11 08:27 | Oncology Inp Progress Note ---
Date of Encounter: 08/11/18 Time of Encounter: 10:15 (1) Anemia Current Visit: No Status: Acute Assessment and plan: Anemia w/ MCV of 67.5, RDW 22.1, 1+ ovalocytes, 1+ stomatocytes Pt does have iron, B12 and folate deficiencies. Ferritin 61, Vit B12 283, folate 4.3 Pt also has acute hgb drop to 6.7 requiring 1 unit PRBCs 08/09 (repeat was 7.4 and has been trending up, 8 today) LDH 209, haptoglobin pending. Fibrinogen 663. PT/INR 22.0/2.0, aPTT 32.3, RONN 1+ A Respiratory acidosis improving Concern for malabsortion in the presence if iron, B12 and folate deficiencies. Will work up with celiac cascade, parietal cell IgG and Intrinsic factor AB Plan: -Continue Venofer -Continue Vit B12 1000 mc IM injections daily for 5 days. (Then transition to weekly for 4 doses, and then monthly) -Continue folic acid 1 mg PO daily. -Pending labs: Hgb electrophoresis, FOBT, haptoglobin, peripheral blood smear, celiac cascade, parietal cell IgG and Intrinsic factor AB -Transfuse 1 unit of PRBCs for Hgb < 7.0 Qualifiers: Anemia type: iron deficiency Iron deficiency anemia type: chronic blood loss Qualified Code(s): D50.0 - Iron deficiency anemia secondary to blood loss (chronic) (2) Leukocytosis Current Visit: No Status: Acute Assessment and plan: WBC improving, now 16. Likely secondary to underlying infectious/inflammatory process. LAP 208, which is high and is more indicative of a leukemoid reaction Plan: -Continue with treatment of cellulitis Qualifiers: Leukocytosis type: bandemia Qualified Code(s): D72.825 - Bandemia (3) B12 deficiency Current Visit: Yes Status: Chronic Assessment and plan: per above (4) Folate deficiency Current Visit: Yes Status: Chronic Assessment and plan: per above (5) Iron deficiency anemia Current Visit: Yes Status: Suspected Assessment and plan: per above Qualifiers: Iron deficiency anemia type: chronic blood loss Qualified Code(s): D50.0 - Iron deficiency anemia secondary to blood loss (chronic) (6) Cellulitis of right lower extremity Current Visit: No Status: Acute Assessment and plan: Afebrile, VSS Pt is on IV abx and appears to be improving continue per primary team (7) Morbid obesity with BMI of 60.0-69.9, adult Current Visit: Yes Status: Chronic Oncology: Subj Interval history: Pt seen and examined. She is in more pain this morning. Her right LE has increased warmth and erythema, she states that it is too painful to walk on. She still complains of swelling in her abdomen and extremities. - Constitutional Vitals: Vital Signs Temp Pulse Resp BP Pulse Ox 08/11/18 07:45 97.7 F 78 21 159/78 98 08/11/18 00:06 88 08/10/18 22:30 97.2 F L 93 22 170/99 88 08/10/18 16:56 94 08/10/18 12:36 93 155/96 90 08/10/18 09:20 99 Intake and Output 08/10/18 08/11/18 08/11/18 23:59 07:59 15:59 Intake Total 100 / 100 Output Total 750 / 750 1350 / 1350 Balance -650 / -650 -1350 / -1350 Intake: IV Fluids 100 / 100 Maxipime 2,000 MG In 0.9 % 100 / 100 Sodium Chloride (Mini-Bag +) 100 ML @ 200 mls/hr IVPB Q12HR ROHINI Rx#:[id number] Output: Urine 750 / 750 1350 / 1350 Other: Stool Size Moderate Stool Consistency formed # Bowel Movements 1 General appearance: cooperative, mild distress, morbidly obese - Head Head exam: Present: atraumatic, normal inspection, normocephalic - Eye Eye exam: Present: EOMI, normal appearance, conjuntiva pink - Neck Neck exam: Present: normal inspection. Absent: lymphadenopathy, tenderness - Respiratory Respiratory exam: Present: decreased breath sounds, CTAB. Absent: rales, respiratory distress, rhonchi, wheezes - Cardiovascular Cardiovascular exam: Present: RRR, +S1, +S2. Absent: diastolic murmur, systolic murmur - GI/Abdominal GI/Abdominal exam: Present: firm, normal bowel sounds. Absent: rigid, tenderness - Extremities Exam Extremities exam: Present: calf tenderness, pedal edema, tenderness Additional comments: right LE erythema, warmth, swelling and tenderness. Erythema is circumferential with vesicles. - Neurological Exam Neurological exam: Present: alert. Absent: speech deficit - Psychiatric Psychiatric exam: Present: anxious - Skin Skin exam: Present: erythema (right LE), vesicles (right LE). Absent: cyanosis Oncology: Obj Data - Labs CBC & Chem 7: 08/11/18 04:21 08/11/18 04:21 Labs: Laboratory Results - last 24 hr 08/07/18 08/08/18 08/10/18 18:01 09:22 20:10 WBC RBC Hgb 7.6 L Hct 28.0 L MCV MCH MCHC RDW Plt Count MPV Immature Gran % Seg Neutrophils % Lymphocytes % Monocytes % Eosinophils % Basophils % Neutrophils # Lymphocytes # Monocytes # Eosinophils # Basophils # Nucleated RBCs/100 WBC Platelet Estimate Polychromasia Hypochromasia Anisocytosis Microcytosis Sodium Potassium Chloride Carbon Dioxide BUN Creatinine Est GFR ( Amer) Est GFR (Non-Af Amer) BUN/Creatinine Ratio Glucose Calculated Osmolality Calcium Anti-Streptolysin O Ab 412 H Miscellaneous Test SEE BELOW 08/11/18 08/11/18 04:21 04:21 WBC 16.0 H RBC 4.57 Hgb 8.0 L Hct 30.1 L MCV 65.9 L MCH 17.5 L MCHC 26.6 L RDW 23.8 H Plt Count 233 MPV TNP Immature Gran % 2.0 Seg Neutrophils % 78.2 Lymphocytes % 12.1 Monocytes % 7.1 Eosinophils % 0.4 Basophils % 0.2 Neutrophils # 12.5 H Lymphocytes # 1.9 Monocytes # 1.1 Eosinophils # 0.1 Basophils # 0.0 Nucleated RBCs/100 WBC 0.3 H Platelet Estimate Normal Polychromasia 1+ A Hypochromasia Present A Anisocytosis 1+ A Microcytosis Present A Sodium 137 Potassium 3.8 Chloride 101 Carbon Dioxide 30 H BUN 20 Creatinine 0.81 Est GFR ( Amer) > 60 Est GFR (Non-Af Amer) > 60 BUN/Creatinine Ratio 25 Glucose 87 Calculated Osmolality 286 Calcium 9.1 Anti-Streptolysin O Ab Miscellaneous Test - Impressions Impressions Retroperitoneum Ultrasound 08/10/18 16:00 IMPRESSION: Imaging limited by body habitus shows no gross hydronephrosis. D/ / Slaomon Jerez MD / Salomon Jerez MD Interpreting Provider: Salomon Jerez MD - ABG Interpretation ABG results: ABG ABG pH 7.24 pH Units (7.32-7.45) L 08/09/18 08:48 ABG pCO2 68 mmHg (35-45) H 08/09/18 08:48 ABG pO2 58 mmHg (85-104) L D 08/09/18 08:48 ABG O2 Saturation 84 % (95-98) L 08/09/18 08:48 PT/INR, D-dimer PT 15.8 Seconds (9.4-12.1) H 08/09/18 04:35 Consult Discharge Plan - Plan Referrals: Nena Cody 911 OPERATOR [Advanced Practice Nurse] - 08/30/18 10:00 am
[2018-08-11] MEDS: Cyanocobalamin (B-12) 1,000 MCG/ML VIAL IM SCH (09:02)
[2018-08-11] MEDS: Furosemide 40 MG TABLET PO SCH ×2 (09:02→16:39)
[2018-08-11] MEDS: Folic Acid 1 MG TABLET PO SCH (09:05)
[2018-08-11] MEDS: Clotrimazole 1% CRM 15 GM TUBE TP SCH ×2 (09:07→20:47)
[2018-08-11] MEDS: traMADol 50 MG TABLET PO PRN ×3 (10:31→23:09)
--- NOTE | 2018-08-11 15:17 | Infectious Disease Progress No ---
Date of Encounter: 08/11/18 Time of Encounter: 12:30 - Assessment and Plan (1) Severe sepsis Current Visit: Yes Status: Acute The patient had 3 sepsis criteria with lactic acidosis, acute kidney injury, and altered mental status. Likely secondary to cellulitis of the right lower extremity. White blood cell count is trending down. Fever curve is improved. Tachycardia has resolved. Blood cultures drawn 08/07/18 are no growth to date 2 sets. Repeat blood cultures drawn 08/08/18 are NGTD 2 sets. Recommendations: - Await repeat blood cultures. - Await CT of the RLE to evaluate for acute process causing her worsening RLE pain/redness/swelling. - Venous doppler study pending completion. - Continue to trend WBC. - Continue Vancomycin IV. - Continue cefepime 2 grams IV Q12H. - Start clindamycin 600mg IV Q8H. - Continue Lamisil topical to the bilateral feet BID x 1 week. - Duration of treatment depends on the clinical picture. - Monitor renal function and for drug toxicity and dose-adjust antibiotics. (2) Cellulitis of right lower extremity Current Visit: No Status: Acute Location: Right lower extremity. Causative organisms: Unclear. Etiology: Unclear. Tinea pedis vs. other. CT of the right lower extreme he shows diffuse subcutaneous edema consistent with cellulitis versus lymphedema, but no gas, abscess, or osteomyelitis was noted. DVT study was negative. Acute worsening noted overnight. CK [address] of the RLE and venous doppler study pending. No previous treatment prior to admission to the hospital. Improved. (3) Acute respiratory failure with hypoxemia Current Visit: Yes Status: Acute Etiology: Unclear. Chest x-ray shows probable early CHF with mild perihilar edema. ABG indicative of respiratory acidosis. D-dimer is elevated. Consider PE in the differential. Management per the primary team. (4) Lactic acidosis Current Visit: No Status: Resolved Likely secondary to right lower extremity cellulitis and sepsis. Resolved. (5) Acute kidney injury (nontraumatic) Current Visit: No Status: Resolved Etiology: Unclear. Likely secondary to sepsis plus vancomycin toxicity plus possible underlying CAD. Nephrology consult to assist with management. Resolved. Continue to trend. Dose adjust antibiotics and avoid nephrotoxins as able. (6) Anemia Current Visit: No Status: Acute Etiology: Unclear. No acute bleeding noted on exam. Heme/Onc consult to assist with management and workup. Qualifiers: Anemia type: iron deficiency Iron deficiency anemia type: chronic blood loss Qualified Code(s): D50.0 - Iron deficiency anemia secondary to blood loss (chronic) (7) Hyperbilirubinemia Current Visit: Yes Status: Acute Etiology: Unclear. AST, ALP, and alkaline phosphatase all are normal. Secondary to sepsis? Continue to trend. (8) Tinea pedis Current Visit: Yes Status: Acute Lamisil as above. Qualifiers: Laterality: bilateral Qualified Code(s): B35.3 - Tinea pedis (9) Morbid obesity with BMI of 60.0-69.9, adult Current Visit: Yes Status: Chronic - Subjective Interval history: Patient seen and examined. No acute events noted overnight. Patient reports worsening of the RLE pain, redness and swelling overnight. Denies fevers, chills, or rigors. Denies chest pain, shortness of breath, or cough. Denies nausea, vomiting, or diarrhea. Reports last BM was this morning. Denies any urinary complaints. She states she does feel swollen all over. She denies any oral thrush or new skin lesions. Infect Dis PN-Objective Data - Labs CBC & Chem 7: 08/11/18 04:21 08/11/18 04:21 Labs: Laboratory Results - last 24 hr 08/10/18 08/11/18 08/11/18 20:10 04:21 04:21 WBC 16.0 H RBC 4.57 Hgb 7.6 L 8.0 L Hct 28.0 L 30.1 L MCV 65.9 L MCH 17.5 L MCHC 26.6 L RDW 23.8 H Plt Count 233 MPV TNP Immature Gran % 2.0 Seg Neutrophils % 78.2 Lymphocytes % 12.1 Monocytes % 7.1 Eosinophils % 0.4 Basophils % 0.2 Neutrophils # 12.5 H Lymphocytes # 1.9 Monocytes # 1.1 Eosinophils # 0.1 Basophils # 0.0 Nucleated RBCs/100 WBC 0.3 H Platelet Estimate Normal Polychromasia 1+ A Hypochromasia Present A Anisocytosis 1+ A Microcytosis Present A Sodium 137 Potassium 3.8 Chloride 101 Carbon Dioxide 30 H BUN 20 Creatinine 0.81 Est GFR ( Amer) > 60 Est GFR (Non-Af Amer) > 60 BUN/Creatinine Ratio 25 Glucose 87 Calculated Osmolality 286 Calcium 9.1 Creatine Kinase 08/11/18 11:03 WBC RBC Hgb Hct MCV MCH MCHC RDW Plt Count MPV Immature Gran % Seg Neutrophils % Lymphocytes % Monocytes % Eosinophils % Basophils % Neutrophils # Lymphocytes # Monocytes # Eosinophils # Basophils # Nucleated RBCs/100 WBC Platelet Estimate Polychromasia Hypochromasia Anisocytosis Microcytosis Sodium Potassium Chloride Carbon Dioxide BUN Creatinine Est GFR ( Amer) Est GFR (Non-Af Amer) BUN/Creatinine Ratio Glucose Calculated Osmolality Calcium Creatine Kinase 483 H Cultures: Cultures 08/08/18 12:45 Urine Culture - Final Urine,Catheterized No growth. 08/08/18 13:07 Blood Culture - Preliminary Peripheral Venipuncture Culture is incubating and being continuously monit ored for growth. Final report to follow. 08/08/18 13:07 Blood Culture - Preliminary Peripheral Venipuncture Culture is incubating and being continuously monitored for growth. Final report to follow. Serology 08/09/18 08/09/18 08/09/18 Range/Units 18:03 09:35 09:21 Urine Color (Yellow) Urine Clarity (Clear) Urine pH (5.0-8.0) pH Units Ur Specific [place] (1.010-1.025) Urine Protein (Neg-Trace) mg/dL Urine Glucose (UA) (Normal) mg/dL Urine Ketones (Negative) mg/dL Urine Blood (Negative) Urine Nitrite (Negative) Urine Bilirubin (Negative) Urine Urobilinogen (Normal) mg/dL Ur Leukocyte Esterase (Negative) Urine Microscopic RBC (0-3) per hpf Urine Microscopic WBC (0-3) per hpf Ur Eosinophil Smear 0 (None Seen) % Ur Squamous Epith Cells (None-Few) per lpf Urine Bacteria (None-Few) per hpf Urine Osmolality 303 (300-1090) mOsm/kg Urine Creatinine mg/dL Protein/Creatinin Ratio (0.00-0.20) mg/mg Urine Sodium mEq/L Urine Total Protein (1-14) mg/dL Stool Occult Blood Negative (Negative) Anti-Streptolysin O Ab (0-330) IU/mL 08/09/18 08/08/18 08/08/18 Range/Units 09:21 12:45 12:45 Urine Color [place] A (Yellow) Urine Clarity Turbid A (Clear) Urine pH 5.0 (5.0-8.0) pH Units Ur Specific [place] 1.024 (1.010-1.025) Urine Protein 100 H (Neg-Trace) mg/dL Urine Glucose (UA) Normal (Normal) mg/dL Urine Ketones Trace H (Negative) mg/dL Urine Blood Negative (Negative) Urine Nitrite Positive A (Negative) Urine Bilirubin Small H (Negative) Urine Urobilinogen Normal (Normal) mg/dL Ur Leukocyte Esterase Trace H (Negative) Urine Microscopic RBC 0-3 (0-3) per hpf Urine Microscopic WBC 15-30 H (0-3) per hpf Ur Eosinophil Smear (None Seen) % Ur Squamous Epith Cells Many H (None-Few) per lpf Urine Bacteria None Seen (None-Few) per hpf Urine Osmolality (300-1090) mOsm/kg Urine Creatinine 33 mg/dL Protein/Creatinin Ratio 0.91 H (0.00-0.20) mg/mg Urine Sodium 23.4 mEq/L Urine Total Protein 30 H (1-14) mg/dL Stool Occult Blood (Negative) Anti-Streptolysin O Ab (0-330) IU/mL 08/07/18 Range/Units 18:01 Urine Color (Yellow) Urine Clarity (Clear) Urine pH (5.0-8.0) pH Units Ur Specific [place] (1.010-1.025) Urine Protein (Neg-Trace) mg/dL Urine Glucose (UA) (Normal) mg/dL Urine Ketones (Negative) mg/dL Urine Blood (Negative) Urine Nitrite (Negative) Urine Bilirubin (Negative) Urine Urobilinogen (Normal) mg/dL Ur Leukocyte Esterase (Negative) Urine Microscopic RBC (0-3) per hpf Urine Microscopic WBC (0-3) per hpf Ur Eosinophil Smear (None Seen) % Ur Squamous Epith Cells (None-Few) per lpf Urine Bacteria (None-Few) per hpf Urine Osmolality (300-1090) mOsm/kg Urine Creatinine mg/dL Protein/Creatinin Ratio (0.00-0.20) mg/mg Urine Sodium mEq/L Urine Total Protein (1-14) mg/dL Stool Occult Blood (Negative) Anti-Streptolysin O Ab 412 H (0-330) IU/mL - Impressions Impressions Echocardiogram 08/10/18 11:30 Impressions: LVEF 65-70%. Normal LV chamber size, wall thickness and function. Mildly dilated right ventricle with normal function. Mildly dilated right atrium. No significant valvular dysfunction. Mild to moderate pulmonary hypertension. Left Ventricular Wall Motion: Rest Echo Findings All wall segments showed normal motion. Findings: Study Quality * Technically sub-optimal due to body habitus. ECG Findings * Normal sinus rhythm. Left Ventricle * LVEF 65-70%. * Normal LV chamber size, wall thickness and function. * Normal left ventricular diastolic function. * Definity echo contrast was used. Right Ventricle * Mildly dilated right ventricle with normal function. Left Atrium * Normal left atrial size. Right Atrium * Mildly dilated right atrium. Interatrial Septum * Interatrial septum not well evaluated. Aortic Valve * Aortic valve not well visualized. * No aortic stenosis. * No aortic regurgitation. Mitral Valve * Normal mitral valve structure and function. * No mitral stenosis. * Trace mitral regurgitation. Tricuspid Valve * Normal tricuspid valve structure and function. * No tricuspid stenosis. * Trace tricuspid regurgitation. * Estimated RVSP is RV-RA gradient 34 mmHg. * Likely mild to moderate pulmonary hypertension. Pulmonic Valve * Pulmonic valve is not well visualized. * No pulmonic stenosis. * Trace pulmonic regurgitation. Aorta * Normally sized aortic root. Pericardium * The pericardium appears normal. IVC * The IVC is not well evaluated. Retroperitoneum Ultrasound 08/10/18 16:00 IMPRESSION: Imaging limited by body habitus shows no gross hydronephrosis. D/ / Salomon Jerez MD / Salomon Jerez MD Interpreting Provider: Salomon Jerez MD Lower Extremity CT 08/11/18 11:43 IMPRESSION: 1. Circumferential superficial soft tissue edema in the right leg. No fluid collection or abscess on the noncontrast CT. 2. No intramuscular fluid. No acute osseus abnormality. D/ / 08/11/2018 13:07:41 Fernando Quiroga MD / [email or web address] Interpreting Provider: Fernando Quiroga MD Exam - Constitutional Vitals: Temp Pulse Resp BP Pulse Ox 97.8 F 90 20 172/90 93 08/11/18 11:32 08/11/18 11:32 08/11/18 11:32 08/11/18 11:32 08/11/18 11:32 General appearance: cooperative, morbidly obese, no acute distress - Head Head exam: Present: atraumatic, normal inspection, normocephalic - Eye Eye exam: Present: EOMI, normal appearance, PERRL Pupils: Present: normal accommodation - ENT ENT exam: Present: mucous membranes moist - Neck Neck exam: Present: normal inspection - Respiratory Respiratory exam: Present: CTAB. Absent: rales, respiratory distress, rhonchi, wheezes - Cardiovascular Cardiovascular exam: Present: RRR, +S1, +S2 - GI/Abdominal GI/Abdominal exam: Present: distended (obese), normal bowel sounds, soft. Absent: tenderness - Extremities Exam Extremities exam: Absent: normal inspection (Erythema to the RLE acutely worse since yesterday's exam and extends to the right knee. No open lesions noted. Extremity is warm to touch and tender on palpation.) - Neurological Exam Neurological exam: Present: alert, oriented X3, no focal deficits - Psychiatric Psychiatric exam: Present: normal affect, normal mood - Skin Skin exam: Present: dry, intact, normal color, warm Consult Discharge Plan - Plan Referrals: Nena Cody [employer] [Advanced Practice Nurse] - 08/30/18 10:00 am - Attending Attestation I examined this patient and my medical decision-making was reviewed with the Resident Physician. I agree with the documented findings, disposition and [place] tment plan as described except to the extent set forth below.
[2018-08-11 15:26] LABS: Hemoglobin Capillary Electroph NOT PERFORMED
[2018-08-11 15:45] LABS: ANA IgG by ELISA NONE DETECTED (None Detected); Complement Component 3 150 mg/dL (88-201); Complement Component 4 26 mg/dL (10-40)
[2018-08-11] MEDS ORDERED: Isovue-370 500 ML INFUS..BTL IV ONE (16:28)
[2018-08-11] MEDS: Clindamycin 600 MG/50 ML 600 MG/50 ML IV.SOLN IVPB SCH ×2 (16:39→23:09)
[2018-08-11] MEDS: Acetaminophen 325 MG TABLET PO PRN (20:25)
[2018-08-12] MEDS ORDERED: Clindamycin 600 MG/50 ML 600 MG/50 ML IV.SOLN IVPB SCH
[2018-08-12] MEDS: traMADol 50 MG TABLET PO PRN ×3 (05:38→20:48)
[2018-08-12] MEDS: Cefepime HCl 2,000 MG in 0.9 % Sodium Chloride Mini Bag 100 ML IVPB SCH ×2 (05:39→18:13)
[2018-08-12 07:38] LABS: Eosinophils % 0.5 %
[2018-08-12 07:40] LABS: Basophils % 0.2 %; Eosinophils # 0.1 K/mcL (0.0-0.6); Hematocrit 29.8 % (35.3-44.9); Hemoglobin 7.8 g/dL (11.5-15.4); Immature Granulocytes % 4.5 % (0-4); Lymphocytes # 1.8 K/mcL (0.6-4.6); Mean Corpuscular HGB Conc 26.2 g/dL (31.6-35.5); Mean Corpuscular Hemoglobin 17.7 pg (28.0-33.3); Mean Corpuscular Volume 67.7 fL (83.0-100.0); Monocytes # 1.9 K/mcL (0.0-1.3); Monocytes % 9.3 %; Neutrophils # 15.4 K/mcL (1.6-8.9); Nucleated Red Blood Cells 0.3 /100 WBC (0); Platelet Count 237 K/mcL (140-400); Red Cell Distribution Width 23.9 % (11.5-14.5); Segmented Neutrophils % 76.5 %
[2018-08-12 07:52] LABS: INR 1.4; Prothrombin Time 15.2 Seconds (9.4-12.1)
[2018-08-12 07:58] LABS: BUN/Creatinine Ratio 17 (6-26); Blood Urea Nitrogen 11 mg/dL (6-20); Calcium 8.9 mg/dL (8.6-10.3); Carbon Dioxide 31 mEq/L (23-29); Chloride 98 mEq/L (98-107); Glucose 108 mg/dL (70-105); Osmolality,Calculated 280 (280-300); Potassium 3.7 mEq/L (3.5-5.1); Sodium 135 mEq/L (136-145); eGFR For Non-African Americans > 60 (> 60)
[2018-08-12 08:05] LABS: Anisocytosis 1+ (Not Present); Stomatocytes 1+ (Not Present)
--- NOTE | 2018-08-12 08:33 | Internal Med Progress Note ---
<Anika Tong - Last Filed: 08/12/18 15:42> Hospitalist Progress Note - Encounter Date of Encounter: 08/12/18 - Exam Vitals: Temp Pulse Resp BP Pulse Ox 98.1 F 86 16 171/75 93 08/12/18 11:09 08/12/18 11:09 08/12/18 11:09 08/12/18 11:09 08/12/18 11:09 - Assessment and Plan (1) Cellulitis of right lower extremity Current Visit: No Status: Acute (2) Acute kidney injury (nontraumatic) Current Visit: No Status: Resolved (3) Anemia Current Visit: No Status: Acute (4) Leukocytosis Current Visit: No Status: Acute (5) Severe sepsis with acute organ dysfunction due to group A Streptococcus Current Visit: Yes Status: Suspected (6) Morbid obesity with BMI of 60.0-69.9, adult Current Visit: Yes Status: Chronic (7) Hyperfibrinogenemia Current Visit: Yes Status: Acute (8) Iron deficiency anemia Current Visit: Yes Status: Suspected (9) Acute respiratory failure with hypoxemia Current Visit: Yes Status: Acute (10) B12 deficiency Current Visit: Yes Status: Chronic (11) Folate deficiency Current Visit: Yes Status: Chronic (12) Elevated brain natriuretic peptide (BNP) level Current Visit: Yes Status: Acute (13) Respiratory failure with hypercapnia Current Visit: Yes Status: Acute (14) Elevated CK Current Visit: Yes Status: Acute (15) HTN (hypertension) Current Visit: Yes Status: Acute - Time Spent with Patient Total time spent is greater than 50% in coordination of care (as documented) at patient's floor/unit and/or counseling patient: Internal Medicine: Result - Labs CBC & Chem 7: 08/12/18 07:19 08/12/18 07:19 Labs: Short CBC 08/12/18 Range/Units 07:19 WBC 20.1 H (4.3-11.1) K/mcL Hgb 7.8 L (11.5-15.4) g/dL Hct 29.8 L (35.3-44.9) % Plt Count 237 (140-400) K/mcL Neutrophils # 15.4 H (1.6-8.9) K/mcL BMP 08/12/18 07:19 Sodium 135 L Potassium 3.7 Chloride 98 Carbon Dioxide 31 H BUN 11 Creatinine 0.65 Glucose 108 H Calcium 8.9 Liver Function 08/12/18 Range/Units 13:07 Total Bilirubin 1.6 H (0.3-1.0) mg/dL Direct Bilirubin 0.4 H (0.0-0.2) mg/dL AST 37 (13-39) Units/L ALT 75 H (7-52) Units/L Alkaline Phosphatase 118 H (34-104) Units/L Albumin 3.5 (3.5-5.7) g/dL - ABG Interpretation ABG results: ABG ABG pH 7.24 pH Units (7.32-7.45) L 08/09/18 08:48 ABG pCO2 68 mmHg (35-45) H 08/09/18 08:48 ABG pO2 58 mmHg (85-104) L D 08/09/18 08:48 ABG O2 Saturation 84 % (95-98) L 08/09/18 08:48 PT/INR, D-dimer PT 15.2 Seconds (9.4-12.1) H 08/12/18 07:19 - Impressions Impressions Chest CTA 08/11/18 16:28 IMPRESSION: No evidence of pulmonary embolism or acute pulmonary abnormality. Respiratory motion artifact limits evaluation to the proximal segmental level. Mild cardiomegaly. Hepatic steatosis. Splenomegaly. Benign-appearing nodule in the subpleural left lower lobe, possibly a solitary fibrous tumor of the pleura or healing granuloma or less likely a pulmonary hamartoma. Comparison imaging is helpful if available. Consider follow-up CT in 3-6 months. D/ / 08/11/2018 18:25:28 Severo Blank / lesvia Interpreting Provider: Severo Blank Consult Discharge Plan - Plan Referrals: Nena Cody PORTAINER OPERATOR [Advanced Practice Nurse] - 08/30/18 10:00 am - Attending Attestation I examined this patient and my medical decision-making was reviewed with the Resident Physician Dr Garces. I agree with the documented findings, disposition and treatment plan as described except to the extent set forth below/addl details below Ms Del Castillo is currently admitted for severe sepsis due to RLE cellulitis. She has developed acute hypercarbic resp failure from pulmonary edema of unclear etiology. She was found to have anemia. Her course has been long and complicated including concern for rheumatologic disease, hematologoic disease process, refractory cellulitis to iv abx, HAZEL which has since resolved. .sleeping and drowsy post pain med in chair. awakes to name. cont rle pain and swelling, denies fevers, chills, n/v. she is on ra and satting 91-92% and denies sob, wheezing, cough. no lightheadedness, dizziness, presyncope or cp/palpitations. she noted color change in her urine last night which she thinkgs is menses with irregular periods with pcos. gen- somnolent,appears stated age, morbidly obese, comofrtable appearing eyes- pupils equal round , no conjunctival pallor cv- reg rate and rhythm, normal s1,s2, no murmurs appreciated, dependent le edema, non pitting lungs- ctabl, no wheezing, rhonchi or crackles, normal resp effort on ra abd- soft, non tender, non distended, + bs skin- rle erythmea to knee, line marked + warmth, no wound neuro- AAOx3 Severe sepsis due to cellulitis RLE Sepsis resolved Cellulitis initally began to slowly improved, now worsened on exam since 08/11 -no dvts on le us, gas or fluid collections on initial 08/08 cT leg or repeats 08/11 -cont iv abx, id following, will get derm consult for concern this may not be bacterial infection Acute hypercarbic and hypoxic resp failure most likely due to pulmonary edema - CXR with pulm vasc congestion, no identifiable infectious cause, no dvts in bl le on admission, no pe on cta -cont oral diuresis -echo 08/11 mild to mod pulm htn, normal ef -needs outpt pfts and sleep study as well, suspect rashaun, and will need o2 home eval prior to dc -cont to monitor and wean o2 HAZEL suspected to be prerenal 2/2 sepsis, resolved- nephro followed, diuresis as per nephro PO -renal us without hydronephrosis Mixed acute anemia with iron, folate and B12 deficiency and work up to rule out hemolytic anemia -heme/onc following and will ask for them to see her again given hgb downtrending, elevated t bili (down from admit) predominantly indirect, INR higher than normal value, cT with splenomegaly -IV venofer, IM B12,folate -cont to monitor hgb, many labs remain pending at this time, concern for malabsorption -fu onc recs HTN with continually elevated bps this admission despite pain control - will begin BB (was on bb previously with pre eclampsia ), will require outpt fu Incidental nodule on CTA- Benign-appearing nodule in the subpleural left lower lobe, possibly a solitary fibrous tumor of the pleura or healing granuloma or less likely a pulmonary hamartoma. follow-up CT in 3-6 months. Incidental hepatic Steatosis on CTA- will require lifestyle modifications and pcp follow up upon dc Further diagnoses and plan as documented by resident dispo- will be to home with spouse on dc <Deon Garces - Last Filed: 08/12/18 16:20> Hospitalist Progress Note - Encounter Date of Encounter: 08/12/18 Time of Encounter: 09:20 - Subjective Interval History: 08/12 Gen: Patient continues to be in moderate R leg pain secondary to her cellulitis , non positional in nature. No evidence of abscess of lower extremity noncontrast CT. Patient continues to be on a tramadol 50 mg for pain control PRN . : HAZEL has seems to have resolved Cr: 0.65 today, she does not have a Willard anymore. Is/Os: 830/2350 . Is tolerating diuresis Heme/Onc: WBC today : 20.1 K , 42.5 K on admission, Hb 6.5-> 7.6 -> 8.0 -> 7.8 , evidence of microcytosis and macrocytosis, LAP score 208. INR 2 on admission, currently 1.4 GI: Patient endorses that her belly looks mildly distended, on exam I did not appreciate any guarding or rebound tenderness. She continues to be on 100 mg Ducoset , hasn't had a bowel movement yet , it could be partially because she is on Tramadol. Infectious: RLE cellulitis looks about the same as ayesterday ( erythematous and tender). CT lower extremity performed last night was negative for any evidence of sepsis or fluid accommodation. Is on day 3 of cefepime, day 4 of vancomycin (Vanc trough 12), added Clindamiycin , ordered repeat blood cultures on her. 08/11 Gen: in moderate leg pain non-positional. Patient is in room air 93%. Neurovascularly intact. No evidence of the fluid collection or abscess on the noncontrasted CT. Given tramadol 50 mg for pain control when necessary : HAZEL has seems to have resolved Cr: 0.81 today, she does not have a Willard anymore. Is/Os: 560/3350 . Is tolerating diuresis Heme/Onc: WBC trending down from 42.5 K on admission to 16.0 today, Hb 6.5-> 7.6 -> 8.0 (s/p 1 unit p RBC) , evidence of microcytosis and macrocytosis, LAP score 208. GI: Patient is not complaining of any belly distention, looks nontender on exam. Not complaining of any indigestion today. Continues to have moderate toe bowel movement. Infectious: RLE cellulitis looks more erythematous and tender than yesterday. CT lower extremity was negative for any evidence of sepsis or fluid accommodation. Is on day 3 of cefepime, day 4 of vancomycin (Vanc trough 12). Will consult Dermatology to get their opinion. 08/10 Gen: Day 3 of hospital say. No acute events overnight. Patient continues to be on BiPAP satting at 94%, her physical exam shows no evidence of any decreased breath sounds or wheezing. : Patient is nonoliguric with urine output in the last 10 hours is 1400mL, no indications for a Willard at this time because patient is making urine. I suspect if the Willard remains for a longer time it might be a nidus for infection. Her kidney function seems to be improving. She was admitted with a creatinine of 1.89, s/p 9 L of IV fluids, most recent creatinine is 1.08. Patient continues to be on 40 IV Lasix twice a day. Hypervolemic hyponatremia seems to be resolving (Na 134). Heme/Ocn: WBC trending down from 42.5 K on admission to 16.9 today, Hb 6.5-> 7.5 (s/p 1 unit p RBC) , evidence of microcytosis and macrocytosis, GI: She was complaining of constipation yesterday, likely due to Venfoer 250 ml/hr, no oxycodone given yesterday, one bowel movement this morning. She is complaining of acute belly distention but endorses no pain, no postprandial discomfort no nausea or vomiting. Tells me that she has a history of acid reflux and takes ranitidine when necessary. However, we are holding off on her ranitidine because of newly diagnosed anemia Infectious: RLE cellulitis looks less erythematous than yesterday. Is on day 2 of cefepime, day 2 off vancomycin (Vanc trough 12), 3 of Zosyn 08/09 Patient had a drop in her hemoglobinto 6.7, and is s/p 1 unit of packed red blood cell. Her repeat hemoglobin as of 9 AM is 7.4. Stool guaiac has been ordered. She continues is to be on broad-spectrum antibiotics for her right leg cellulitis and her white blood count has been improving (42.5 -> 22.8K) , added Cefepime by ID. Endorses mild abdominal pain which could be secondary to constipation and ordered some stool softeners. Patient endorses no numbness or tingling in extremities, the erythema around the cellulitis looks about the same. Continues to have a nonoliguric HAZEL and is s/p 9L of fluids in total. 08/08 Seen patient at the bedside. Patient is a transfer from [facility] because of flow right leg pain secondary to cellulitis, on to be in sepsis. She is currently on day 1 vancomycin and Zosyn. She seems to be in moderate distress gasping for air currently on 2L oxygen. Has shortness of breath, and rapid breathing seemed to be confused not hypotensive at this moment. Stat chest x- ray has been ordered. Owing to her confused state stat head CT has also been ordered. Her ABGs showed respiratory acidosis with mild hypoxemia. With evidence of mild hypoxemia should be transitioned from a 2 L oxygen to BiPAP. - Exam Vitals: Temp Pulse Resp BP Pulse Ox 97.5 F L 81 18 163/80 98 08/12/18 07:12 08/12/18 07:12 08/12/18 03:59 08/12/18 07:12 08/12/18 07:12 Exam: Gen: A&O *3, moderate acute distress Chest: , no rales, wheezing or ronchi Heart: S1S2+ RRR No murmurs Abd: Distended , NT, BS +, No organomegaly Ext: +1 edema, erythema on RLE due to cellulitis in pain Neuro : Benign findings Skin: RLE erythema less than yesterday , swollen, tender to touch. - Assessment and Plan (1) HTN (hypertension) Current Visit: Yes Status: Acute Assessment and Plan: - Has been running systolics of 160-170 during the course of the hospital stay. There is no past medical history of any hypertension but given her BMI and suspected obstructive sleep apnea, I will not be surprised if she is baseline hypertensive. Elevated HTN can also be explained to certain extent because of pain secondary to cellulitis. -Currently on labetalol 100 mg daily. (2) Cellulitis of right lower extremity Current Visit: No Status: Acute Assessment and Plan: - Patient came with right lower extremity cellulitis- was given IV clindamycin and fluids at [facility]. - Currently on IV vancomycin ,Cefepime q12h. Tramadol 50 mg for pain control PRN. -Physical exam patient was in acute pain this morning. The cellulitis looked more erythematous, Repeat lower extremity CT was negative for any abscess or fluid accumulation, no evidence of any compartment syndrome. CK : 483 but that could be most likely due to infectious/inflammation - Blood cultures pending . (3) Severe sepsis with acute organ dysfunction due to group A Streptococcus Current Visit: Yes Status: Suspected Assessment and Plan: -1/4 SIRs criteria met with elevated WBC (16.0), HT: 86, Temp: 98.1 , RR: 16 . Patient was admitted with sepsis likely due to her significant cellulitis and right lower extremity. She was given IV clindamycin and [facility]. -Lactic acid 4 on admission currently trending down to 0.6 . Paitent is status post 11L IVF. WBC at 37K currently 20K. - Currently white blood count is trending down (20.1) . Afebrile. ASO Ab : 412 - Blood and sputum cultures are pending. - Currently on day 5 of vancomycin , Also on IV Cefepime q12h and Clindamycin (4) Anemia Current Visit: No Status: Acute Assessment and Plan: - Likely a mix of normocytic and microcytic anemia, with evidence of hypochromasia, and low percent reticulocyte count. Patient was admitted with the iron deficiency, MCV 66.4, RDW : 22.1, 1+ ovalocytes, 1+ stomatocytes, LDH : 209, Ferritin 61. She also had elevated indirect bilirubin of 3.3, K 6.1 on admission, repeat labs showed potassium - 5.2 likely due to sort of hemolysis (Intra/Vascular) .PT/INR 22.0/2.0, aPTT 32.3, RONN 1+ A -Peripheral smear revealing hypochromic microcytic anemia with ovalocytes ident ified. - had a drop in her hemoglobin to 6.7 cira 08/08/ requiring unit pRBC ,repeat Hb 7.8 - Haptoglobulin , Peripheral smear , LAP score, celiac cascade, parietal cell IgG and Intrinsic factor AB pending. stool guiac test negative - Ordered Venofer 300 mg IV, started on Vit B12 1000 mc IM injections daily for 5 days, Folate 1mg PO. - Transfuse 1 unit of PRBCs for Hgb < 7.0 (5) Leukocytosis Current Visit: No Status: Acute Assessment and Plan: - She was admitted with leukocytosis of 37K, currently improving at 120.1 K - likely due to her right leg cellulitis. -Currently on Vancand , Cefepime added clindamycin by ID. Will deescalate once blood cultures results are out, LAP (leukocyte alkaline phosphate test)elevated at 483 (6) Morbid obesity with BMI of 60.0-69.9, adult Current Visit: Yes Status: Chronic Assessment and Plan: - Patient has a BMI of 62.5. - Counselled on better dietary choices. (7) Iron deficiency anemia Current Visit: Yes Status: Suspected Assessment and Plan: - Patient was admitted with iron less than 10. Transferring 258, Normal Ferritin - No history of any aspirin or NSAID use. - currently on Venofer 300 mg IV, FOBT pending - Transfuse if hemoglobin less than 7. (8) Hyperfibrinogenemia Current Visit: Yes Status: Acute Assessment and Plan: -She had elevated circulating the fibrinogen > 450 mg/d. - Likely due to setting of acute inflammation secondary to cellulitis. (9) Acute respiratory failure with hypoxemia Current Visit: Yes Status: Acute Assessment and Plan: 08/12 Appears to have resolved, currently on room air at 93%. 08/11 - Likely multifactorial- patient was severely septic on admission with leukocytosis of 37K, Lactic acid 4.0, HR : 112. Patient also had anemia (Hb < 7.5), with elevated BNP : 184 , no evidence of L ventricular, or valvular dysfunction on Echo, - Patient currently on BiPAP at night but no dependence of oxygen in the morning, On day 4 of Vancomycin, and IV Q12h cefepime for her cellulitis. - Blood and sputum cultures have not grown anything thus far. Continue to monitor (10) Respiratory failure with hypercapnia Current Visit: Yes Status: Acute Assessment and Plan: - plan as above (11) B12 deficiency Current Visit: Yes Status: Chronic Assessment and Plan: - patient had a B12 283. - As per recommendations of hematology , starting on 1000 mc IM injections daily for 5 days. (Then transition to weekly for 4 doses, and then monthly) - (12) Folate deficiency Current Visit: Yes Status: Chronic Assessment and Plan: - folic acid supplements for her folate deficiency (13) Elevated brain natriuretic peptide (BNP) level Current Visit: Yes Status: Acute Assessment and Plan: -She was admitted with the elevated BNP of 184. -Echocardiogram was negative for any left ventricular dysfunction or any valvular abnormalities. LVEFv: 65-70%, was some evidence of [id number] pulmonary hypertension, which can be explained by her baseline RASHAUN. (14) Elevated CK Current Visit: Yes Status: Acute Assessment and Plan: CK high likely due to the cellulites infection .Patient denies any history of any falls. No evidence of hypothyroidism, No evidence of any hyperglycemia . Patient is afebrile and leukocytosis seems to be trending down s(16K). - Patient's CT of the lower extremity was negative for any evidence of abscess or fluid collection. - Patient's a chest CT was negative for any evidence of pulmonary embolism (15) Acute kidney injury (nontraumatic) Current Visit: No Status: Resolved Assessment and Plan: 08/12 - HAZEL resolved. Creatinine is 0.65.Is/Os: 560/3350 . GFR > 60 -Patient's complement, CHERIE, RF tests are negative. 08/11 - HAZEL has resolved , Cr :0.81, GFR > 60 , likely a prerenal cause. -Patient has no past medical history of any renal disease. However she came in with a GFR of 29 suggesting stage IV CKD. Patient also edematous but no evidence of periorbital edema. No evidence of hematuria dysuria. Not hypertensive on admission. UA showed proteinuria of 100. Good urine output today (360/2600) . -Patient's urine specific gravity was 1.024 suggesting pre-renal cause , Cr 1.86 on admission currently 0.81 , s/p 9.8 L IVF - complement, CHERIE, eosinophils, renally dose medications. DVT Prophylaxis: on EPCD of the left leg - Time Spent with Patient Total time spent is greater than 50% in coordination of care (as documented) at patient's floor/unit and/or counseling patient: Internal Medicine: Result - Labs CBC & Chem 7: 08/12/18 07:19 08/12/18 07:19 Labs: Short CBC 08/12/18 Range/Units 07:19 WBC 20.1 H (4.3-11.1) K/mcL Hgb 7.8 L (11.5-15.4) g/dL Hct 29.8 L (35.3-44.9) % Plt Count 237 (140-400) K/mcL Neutrophils # 15.4 H (1.6-8.9) K/mcL BMP 08/12/18 07:19 Sodium 135 L Potassium 3.7 Chloride 98 Carbon Dioxide 31 H BUN 11 Creatinine 0.65 Glucose 108 H Calcium 8.9 - ABG Interpretation ABG results: ABG ABG pH 7.24 pH Units (7.32-7.45) L 08/09/18 08:48 ABG pCO2 68 mmHg (35-45) H 08/09/18 08:48 ABG pO2 58 mmHg (85-104) L D 08/09/18 08:48 ABG O2 Saturation 84 % (95-98) L 08/09/18 08:48 PT/INR, D-dimer PT 15.2 Seconds (9.4-12.1) H 08/12/18 07:19 - Impressions Impressions Echocardiogram 08/10/18 11:30 Impressions: LVEF 65-70%. Normal LV chamber size, wall thickness and function. Mildly dilated right ventricle with normal function. Mildly dilated right atrium. No significant valvular dysfunction. Mild to moderate pulmonary hypertension. Left Ventricular Wall Motion: Rest Echo Findings All wall segments showed normal motion. Findings: Study Quality * Technically sub-optimal due to body habitus. ECG Findings * Normal sinus rhythm. Left Ventricle * LVEF 65-70%. * Normal LV chamber size, wall thickness and function. * Normal left ventricular diastolic function. * Definity echo contrast was used. Right Ventricle * Mildly dilated right ventricle with normal function. Left Atrium * Normal left atrial size. Right Atrium * Mildly dilated right atrium. Interatrial Septum * Interatrial septum not well evaluated. Aortic Valve * Aortic valve not well visualized. * No aortic stenosis. * No aortic regurgitation. Mitral Valve * Normal mitral valve structure and function. * No mitral stenosis. * Trace mitral regurgitation. Tricuspid Valve * Normal tricuspid valve structure and function. * No tricuspid stenosis. * Trace tricuspid regurgitation. * Estimated RVSP is RV-RA gradient 34 mmHg. * Likely mild to moderate pulmonary hypertension. Pulmonic Valve * Pulmonic valve is not well visualized. * No pulmonic stenosis. * Trace pulmonic regurgitation. Aorta * Normally sized aortic root. Pericardium * The pericardium appears normal. IVC * The IVC is not well evaluated. Lower Extremity CT 08/11/18 11:43 IMPRESSION: 1. Circumferential superficial soft tissue edema in the right leg. No fluid collection or abscess on the noncontrast CT. 2. No intramuscular fluid. No acute osseus abnormality. D/ / 08/11/2018 13:07:41 Fernando Quiroga MD / lesvia Interpreting Provider: Fernando Quiroga MD Chest CTA 08/11/18 16:28 IMPRESSION: No evidence of pulmonary embolism or acute pulmonary abnormality. Respiratory motion artifact limits evaluation to the proximal segmental level. Mild cardiomegaly. Hepatic steatosis. Splenomegaly. Benign-appearing nodule in the subpleural left lower lobe, possibly a solitary fibrous tumor of the pleura or healing granuloma or less likely a pulmonary hamartoma. Comparison imaging is helpful if available. Consider follow-up CT in 3-6 months. D/ / 08/11/2018 18:25:28 Severo Blank / lesvia Interpreting Provider: Severo Blank <Anika Tong M - Last Filed: 08/12/18 15:42> (3) Anemia Qualifiers: Anemia type: iron deficiency Iron deficiency anemia type: chronic blood loss Qualified Code(s): D50.0 - Iron deficiency anemia secondary to blood loss (chronic) (4) Leukocytosis Qualifiers: Leukocytosis type: bandemia Qualified Code(s): D72.825 - Bandemia (8) Iron deficiency anemia Qualifiers: Iron deficiency anemia type: chronic blood loss Qualified Code(s): D50.0 - Iron deficiency anemia secondary to blood loss (chronic) (13) Respiratory failure with hypercapnia Qualifiers: Chronicity: acute Qualified Code(s): J96.02 - Acute respiratory failure with hypercapnia <Deon Garces - Last Filed: 08/12/18 16:20> (4) Anemia Qualifiers: Anemia type: iron deficiency Iron deficiency anemia type: chronic blood loss Qualified Code(s): D50.0 - Iron deficiency anemia secondary to blood loss ( chronic) (5) Leukocytosis Qualifiers: Leukocytosis type: bandemia Qualified Code(s): D72.825 - Bandemia (7) Iron deficiency anemia Qualifiers: Iron deficiency anemia type: chronic blood loss Qualified Code(s): D50.0 - Iron deficiency anemia secondary to blood loss (chronic) (10) Respiratory failure with hypercapnia Qualifiers: Chronicity: acute Qualified Code(s): J96.02 - Acute respiratory failure with hypercapnia
[2018-08-12] MEDS: Cyanocobalamin (B-12) 1,000 MCG/ML VIAL IM SCH (10:21)
[2018-08-12] MEDS: Clindamycin 600 MG/50 ML 600 MG/50 ML IV.SOLN IVPB SCH ×2 (10:21→16:23)
[2018-08-12] MEDS: Folic Acid 1 MG TABLET PO SCH (10:21)
[2018-08-12] MEDS: Furosemide 40 MG TABLET PO SCH ×2 (10:21→16:22)
[2018-08-12] MEDS: Clotrimazole 1% CRM 15 GM TUBE TP SCH ×2 (10:23→23:01)
--- NOTE | 2018-08-12 11:36 | Infectious Disease Progress No ---
Date of Encounter: 08/12/18 Time of Encounter: 11:34 - Assessment and Plan (1) Severe sepsis Current Visit: Yes Status: Acute The patient had 3 sepsis criteria with lactic acidosis, acute kidney injury, and altered mental status. Likely secondary to cellulitis of the right lower extremity. White blood cell count worse today. Fever curve is improved. Tachycardia has resolved. Blood cultures drawn 08/07/18 are no growth to date 2 sets. Repeat blood cultures drawn 08/08/18 are NGTD 2 sets. Recommendations: - Await repeat blood cultures. - Continue to trend WBC. - Consider dermatology consult to evaluate for possible biopsy. - Consider rheumatology consult given leg pain and elevated inflammatory markers. - Continue Vancomycin IV. - Continue cefepime 2 grams IV Q12H. - Continue clindamycin 600mg IV Q8H. - Continue Lamisil topical to the bilateral feet BID x 1 week. - Duration of treatment depends on the clinical picture. - Monitor renal function and for drug toxicity and dose-adjust antibiotics. - Consider GI to evaluate for hyperbilirubinemia. (2) Cellulitis of right lower extremity Current Visit: No Status: Acute Location: Right lower extremity. Causative organisms: Unclear. Etiology: Unclear. Tinea pedis vs. other. CT of the right lower extreme he shows diffuse subcutaneous edema consistent with cellulitis versus lymphedema, but no gas, abscess, or osteomyelitis was noted. DVT study was negative. Acute worsening noted overnight. Repeat CK level was 453. Repeat CT of the RLE negative for abscess/osteo/etc. (3) Acute respiratory failure with hypoxemia Current Visit: Yes Status: Acute Etiology: Unclear. Chest x-ray shows probable early CHF with mild perihilar edema. ABG indicative of respiratory acidosis. D-dimer is elevated. CT chest negative for PE. Management per the primary team. (4) Lactic acidosis Current Visit: No Status: Resolved Likely secondary to right lower extremity cellulitis and sepsis. Resolved. (5) Acute kidney injury (nontraumatic) Current Visit: No Status: Resolved Etiology: Unclear. Likely secondary to sepsis plus vancomycin toxicity plus possible underlying CAD. Nephrology consult to assist with management. Resolved. Continue to trend. Dose adjust antibiotics and avoid nephrotoxins as able. (6) Anemia Current Visit: No Status: Acute Etiology: Unclear. No acute bleeding noted on exam. Heme/Onc consult to assist with management and workup. Qualifiers: Anemia type: iron deficiency Iron deficiency anemia type: chronic blood loss Qualified Code(s): D50.0 - Iron deficiency anemia secondary to blood loss (chronic) (7) Hyperbilirubinemia Current Visit: Yes Status: Acute Etiology: Unclear. AST, ALP, and alkaline phosphatase all are normal. Secondary to sepsis? Continue to trend. Repeat LFTs. GI consult. (8) Tinea pedis Current Visit: Yes Status: Acute Lamisil as above. Qualifiers: Laterality: bilateral Qualified Code(s): B35.3 - Tinea pedis (9) Morbid obesity with BMI of 60.0-69.9, adult Current Visit: Yes Status: Chronic - Subjective Interval history: Patient seen and examined sitting up in the bedside chair. No acute events noted overnight. Patient reports worsening of the RLE pain, redness and swelling overnight. Denies fevers, chills, or rigors. Denies chest pain, shortness of breath, or cough. Denies nausea, vomiting, or diarrhea. Reports last BM was yesterday. Denies any urinary complaints. She states she does feel swollen all over. She denies any oral thrush or new skin lesions. Infect Dis PN-Objective Data - Labs CBC & Chem 7: 08/12/18 07:19 08/12/18 07:19 Labs: Laboratory Results - last 24 hr 08/08/18 08/08/18 08/09/18 08:55 14:31 04:35 WBC RBC Hgb Hct MCV MCH MCHC RDW Plt Count MPV Immature Gran % Seg Neutrophils % Lymphocytes % Monocytes % Eosinophils % Basophils % Neutrophils # Lymphocytes # Monocytes # Eosinophils # Basophils # Nucleated RBCs/100 WBC Anisocytosis Stomatocytes ESR Sickle Cell Solubility NOT PERFORMED Hemoglobin A 97.7 Hemoglobin A2 2.1 Hemoglobin C 0.0 Hemoglobin E 0.0 Hemoglobin F () 0.2 Hemoglobin S 0.0 Hemoglobin Evaluation SEE NOTE Haptoglobin 186 PT INR Cap Hgb Electrophores NOT PERFORMED Hemoglobin Other 0.0 Sodium Potassium Chloride Carbon Dioxide BUN Creatinine Est GFR ( Amer) Est GFR (Non-Af Amer) BUN/Creatinine Ratio Glucose Calculated Osmolality Calcium C-Reactive Protein CHERIE Screen Complement C3 150 Complement C4 26 08/09/18 08/11/18 08/11/18 04:35 16:38 16:38 WBC RBC Hgb Hct MCV MCH MCHC RDW Plt Count MPV Immature Gran % Seg Neutrophils % Lymphocytes % Monocytes % Eosinophils % Basophils % Neutrophils # Lymphocytes # Monocytes # Eosinophils # Basophils # Nucleated RBCs/100 WBC Anisocytosis Stomatocytes ESR >= 130 H Sickle Cell Solubility Hemoglobin A Hemoglobin A2 Hemoglobin C Hemoglobin E Hemoglobin F () Hemoglobin S Hemoglobin Evaluation Haptoglobin PT INR Cap Hgb Electrophores Hemoglobin Other Sodium Potassium Chloride Carbon Dioxide BUN Creatinine Est GFR ( Amer) Est GFR (Non-Af Amer) BUN/Creatinine Ratio Glucose Calculated Osmolality Calcium C-Reactive Protein 111 H CHERIE Screen NONE DETECTED Complement C3 Complement C4 08/12/18 08/12/18 08/12/18 07:19 07:19 07:19 WBC 20.1 H RBC 4.40 Hgb 7.8 L Hct 29.8 L MCV 67.7 L MCH 17.7 L MCHC 26.2 L RDW 23.9 H Plt Count 237 MPV TNP Immature Gran % 4.5 H Seg Neutrophils % 76.5 Lymphocytes % 9.0 Monocytes % 9.3 Eosinophils % 0.5 Basophils % 0.2 Neutrophils # 15.4 H Lymphocytes # 1.8 Monocytes # 1.9 H Eosinophils # 0.1 Basophils # 0.0 Nucleated RBCs/100 WBC 0.3 H Anisocytosis 1+ A Stomatocytes 1+ A ESR Sickle Cell Solubility Hemoglobin A Hemoglobin A2 Hemoglobin C Hemoglobin E Hemoglobin F () Hemoglobin S Hemoglobin Evaluation Haptoglobin PT 15.2 H INR 1.4 Cap Hgb Electrophores Hemoglobin Other Sodium 135 L Potassium 3.7 Chloride 98 Carbon Dioxide 31 H BUN 11 Creatinine 0.65 Est GFR ( Amer) > 60 Est GFR (Non-Af Amer) > 60 BUN/Creatinine Ratio 17 Glucose 108 H Calculated Osmolality 280 Calcium 8.9 C-Reactive Protein CHERIE Screen Complement C3 Complement C4 Cultures: Cultures 08/12/18 09:54 Blood Culture - Preliminary Peripheral Venipuncture Culture is incubating and being continuously monitored for growth. Final report to follow. 08/12/18 10:36 Blood Culture - Preliminary Peripheral Venipuncture Culture is incubating and being continuously monitored for growth. Final report to follow. 08/08/18 12:45 Urine Culture - Final Urine,Catheterized No growth. 08/08/18 13:07 Blood Culture - Preliminary Peripheral Venipuncture Culture is incubating and being continuously monitored for growth. Final report to follow. 08/08/18 13:07 Blood Culture - Preliminary Peripheral Venipuncture Culture is incubating and being continuously monitored for growth. Final report to follow. Serology 08/09/18 08/09/18 08/09/18 Range/Units 18:03 09:35 09:21 Urine Color (Yellow) Urine Clarity (Clear) Urine pH (5.0-8.0) pH Units Ur Specific [place] (1.010-1.025) Urine Protein (Neg-Trace) mg/dL Urine Glucose (UA) (Normal) mg/dL Urine Ketones (Negative) mg/dL Urine Blood (Negative) Urine Nitrite (Negative) Urine Bilirubin (Negative) Urine Urobilinogen (Normal) mg/dL Ur Leukocyte Esterase (Negative) Urine Microscopic RBC (0-3) per hpf Urine Microscopic WBC (0-3) per hpf Ur Eosinophil Smear 0 (None Seen) % Ur Squamous Epith Cells (None-Few) per lpf Urine Bacteria (None-Few) per hpf Urine Osmolality 303 (300-1090) mOsm/kg Urine Creatinine mg/dL Protein/Creatinin Ratio (0.00-0.20) mg/mg Urine Sodium mEq/L Urine Total Protein (1-14) mg/dL Stool Occult Blood Negative (Negative) Anti-Streptolysin O Ab (0-330) IU/mL 08/09/18 08/08/18 08/08/18 Range/Units 09:21 12:45 12:45 Urine Color [place] A (Yellow) Urine Clarity Turbid A (Clear) Urine pH 5.0 (5.0-8.0) pH Units Ur Specific [place] 1.024 (1.010-1.025) Urine Protein 100 H (Neg-Trace) mg/dL Urine Glucose (UA) Normal (Normal) mg/dL Urine Ketones Trace H (Negative) mg/dL Urine Blood Negative (Negative) Urine Nitrite Positive A (Negative) Urine Bilirubin Small H (Negative) Urine Urobilinogen Normal (Normal) mg/dL Ur Leukocyte Esterase Trace H (Negative) Urine Microscopic RBC 0-3 (0-3) per hpf Urine Microscopic WBC 15-30 H (0-3) per hpf Ur Eosinophil Smear (None Seen) % Ur Squamous Epith Cells Many H (None-Few) per lpf Urine Bacteria None Seen (None-Few) per hpf Urine Osmolality (300-1090) mOsm/kg Urine Creatinine 33 mg/dL Protein/Creatinin Ratio 0.91 H (0.00-0.20) mg/mg Urine Sodium 23.4 mEq/L Urine Total Protein 30 H (1-14) mg/dL Stool Occult Blood (Negative) Anti-Streptolysin O Ab (0-330) IU/mL 08/07/18 Range/Units 18:01 Urine Color (Yellow) Urine Clarity (Clear) Urine pH (5.0-8.0) pH Units Ur Specific [place] (1.010-1.025) Urine Protein (Neg-Trace) mg/dL Urine Glucose (UA) (Normal) mg/dL Urine Ketones (Negative) mg/dL Urine Blood (Negative) Urine Nitrite (Negative) Urine Bilirubin (Negative) Urine Urobilinogen (Normal) mg/dL Ur Leukocyte Esterase (Negative) Urine Microscopic RBC (0-3) per hpf Urine Microscopic WBC (0-3) per hpf Ur Eosinophil Smear (None Seen) % Ur Squamous Epith Cells (None-Few) per lpf Urine Bacteria (None-Few) per hpf Urine Osmolality (300-1090) mOsm/kg Urine Creatinine mg/dL Protein/Creatinin Ratio (0.00-0.20) mg/mg Urine Sodium mEq/L Urine Total Protein (1-14) mg/dL Stool Occult Blood (Negative) Anti-Streptolysin O Ab 412 H (0-330) IU/mL - Impressions Impressions Lower Extremity CT 08/11/18 11:43 IMPRESSION: 1. Circumferential superficial soft tissue edema in the right leg. No fluid collection or abscess on the noncontrast CT. 2. No intramuscular fluid. No acute osseus abnormality. D/ / 08/11/2018 13:07:41 Fernando Quiroga MD / lesvia Interpreting Provider: Fernando Quiroga MD Chest CTA 08/11/18 16:28 IMPRESSION: No evidence of pulmonary embolism or acute pulmonary abnormality. Respiratory motion artifact limits evaluation to the proximal segmental level. Mild cardiomegaly. Hepatic steatosis. Splenomegaly. Benign-appearing nodule in the subpleural left lower lobe, possibly a solitary fibrous tumor of the pleura or healing granuloma or less likely a pulmonary hamartoma. Comparison imaging is helpful if available. Consider follow-up CT in 3-6 months. D/ / 08/11/2018 18:25:28 Severo Blank / lesvia Interpreting Provider: Severo Blank Exam - Constitutional Vitals: Temp Pulse Resp BP Pulse Ox 98.1 F 86 16 171/75 93 08/12/18 11:09 08/12/18 11:09 08/12/18 11:09 08/12/18 11:09 08/12/18 11:09 General appearance: cooperative, morbidly obese, no acute distress - Head Head exam: Present: atraumatic, normal inspection, normocephalic - Eye Eye exam: Present: EOMI, normal appearance, PERRL Pupils: Present: normal accommodation - ENT ENT exam: Present: mucous membranes moist - Neck Neck exam: Present: normal inspection - Respiratory Respiratory exam: Present: CTAB. Absent: rales, respiratory distress, rhonchi, wheezes - Cardiovascular Cardiovascular exam: Present: RRR, +S1, +S2 - GI/Abdominal GI/Abdominal exam: Present: distended (obese), normal bowel sounds, soft. A bsent: tenderness - Extremities Exam Extremities exam: Present: pedal edema (1+ BLE), tenderness (RLE). Absent: normal inspection (RLE markedly erythematous, warm to touch, and tender. Skin markings noted.) - Neurological Exam Neurological exam: Present: alert, oriented X3, no focal deficits - Psychiatric Psychiatric exam: Present: normal affect, normal mood - Skin Skin exam: Present: dry, intact, normal color, warm Consult Discharge Plan - Plan Referrals: Nena Cody HVAC R INSTRUCTOR [Advanced Practice Nurse] - 08/30/18 10:00 am - Attending Attestation I examined this patient and my medical decision-making was reviewed with the Resident Physician. I agree with the documented findings, disposition and treatment plan as described except to the extent set forth below.
[2018-08-12 13:39] LABS: Albumin 3.5 g/dL (3.5-5.7); Albumin/Globulin Ratio 0.9 (1.1-2.2); Bilirubin,Direct 0.4 mg/dL (0.0-0.2); Bilirubin,Indirect 1.2 mg/dL (0.0-1.2); Bilirubin,Total 1.6 mg/dL (0.3-1.0); Globulin 4.1 g/dL (2.4-3.5); Total Protein 7.6 g/dL (6.4-8.9)
[2018-08-12 15:17] LABS: Tissue Transglutaminase IgA 1 U/mL (0-3)
[2018-08-12 15:22] LABS: Immunoglobulin A (CELIAC) 287 mg/dL (68-408)
[2018-08-12] MEDS: MOM Conc 10 ML UD.LIQ PO SCH (16:22)
--- NOTE | 2018-08-12 16:57 | Oncology Inp Progress Note ---
<Gokul Sanchez - Last Filed: 08/12/18 16:54> Date of Encounter: 08/12/18 Time of Encounter: 16:54 (1) Anemia Current Visit: No Status: Acute Assessment and plan: Anemia w/ MCV of 66.4, RDW 23.2, 1+ ovalocytes, 1+ stomatocytes Pt does have iron, B12 and folate deficiencies. Ferritin 61, Vit B12 283, folate 4.3 Pt also has acute hgb drop to 6.7 requiring 1 unit PRBCson 08/09/18, hemoglobin remains stable since transfusion LDH 209, haptoglobin pending. Fibrinogen 663. PT/INR 22.0/2.0, aPTT 32.3, RONN 1+ A Concern for malabsortion in the presence if iron, B12 and folate deficiencies. Will work up with celiac cascade, parietal cell IgG and Intrinsic factor AB Peripheral smear revealing hypochromic microcytic anemia with ovalocytes identified. Plan: -Continue Venofer -Continue Vit B12 1000 mc IM injections daily for 5 days. (Then transition to weekly for 4 doses, and then monthly) -Continue folic acid 1 mg PO daily. -Pending labs: Hgb electrophoresis, FOBT, haptoglobin, celiac cascade, parietal cell IgG and Intrinsic factor AB -Transfuse 1 unit of PRBCs for Hgb < 7.0 Qualifiers: Anemia type: iron deficiency Iron deficiency anemia type: chronic blood l oss Qualified Code(s): D50.0 - Iron deficiency anemia secondary to blood loss (chronic) (2) Leukocytosis Current Visit: No Status: Acute Assessment and plan: Continues to improve with WBC of 16.9 today. Likely secondary to underlying infectious/inflammatory process. Plan: -Continue with treatment of cellulitis -LAP (leukocyte alkaline phosphate test) pending Qualifiers: Leukocytosis type: bandemia Qualified Code(s): D72.825 - Bandemia (3) B12 deficiency Current Visit: Yes Status: Chronic Assessment and plan: Treatment as above (4) Folate deficiency Current Visit: Yes Status: Chronic Assessment and plan: Treatment as above (5) Cellulitis of right lower extremity Current Visit: No Status: Acute Assessment and plan: Vital signs remain stable, afebrile. Erythema appears to be improving Plan: Continue treatment with antibiotics per primary team (6) Iron deficiency anemia Current Visit: Yes Status: Suspected Assessment and plan: Treatment as above Qualifiers: Iron deficiency anemia type: chronic blood loss Qualified Code(s): D50.0 - Iron deficiency anemia secondary to blood loss (chronic) (7) Morbid obesity with BMI of 60.0-69.9, adult Current Visit: Yes Status: Chronic Oncology: Subj Interval history: Asked to re-evaluate patient this evening. New imaging was obtained yesterday to rule out PE. This revealed splenomegaly - Constitutional Vitals: Vital Signs Temp Pulse Resp BP Pulse Ox 08/12/18 11:09 98.1 F 86 16 171/75 93 08/12/18 07:12 97.5 F L 81 163/80 98 08/12/18 03:59 84 18 176/81 93 Intake and Output 08/12/18 08/12/18 08/12/18 07:59 15:59 23:59 Intake Total 50 / 50 530 / 530 Output Total 1300 / 1300 750 / 750 Balance -1250 / -1250 -220 / -220 Intake: IV Fluids 50 / 50 50 / 50 Cleocin Premix 600 MG/50 ML 600 50 / 50 50 / 50 mg In 50 ml @ 50 mls/hr IVPB Q8HR [facility] Rx#:[id number] Oral 480 / 480 Output: Urine 1300 / 1300 750 / 750 Other: Meal Lunch Percent of Meal Consumed 50% # Voids 1 Weight 193.1 kg Patient Weight 08/12/18 23:59 Weight 193.1 kg Oncology: Obj Data - Labs CBC & Chem 7: 08/12/18 07:19 08/12/18 07:19 Labs: Laboratory Results - last 24 hr 08/10/18 08/10/18 08/11/18 05:01 05:01 16:38 WBC RBC Hgb Hct MCV MCH MCHC RDW Plt Count MPV Immature Gran % Seg Neutrophils % Lymphocytes % Monocytes % Eosinophils % Basophils % Neutrophils # Lymphocytes # Monocytes # Eosinophils # Basophils # Nucleated RBCs/100 WBC Anisocytosis Stomatocytes ESR >= 130 H PT INR Sodium Potassium Chloride Carbon Dioxide BUN Creatinine Est GFR ( Amer) Est GFR (Non-Af Amer) BUN/Creatinine Ratio Glucose Calculated Osmolality Calcium Total Bilirubin Direct Bilirubin Indirect Bilirubin AST ALT Alkaline Phosphatase C-Reactive Protein Serum Total Protein Albumin Globulin Albumin/Globulin Ratio IgA 287 Rheumatoid Factor Tiss Transglutamin IgA 1 Intrins Factor Block Ab NEGATIVE 08/11/18 08/12/18 08/12/18 16:38 07:19 07:19 WBC 20.1 H RBC 4.40 Hgb 7.8 L Hct 29.8 L MCV 67.7 L MCH 17.7 L MCHC 26.2 L RDW 23.9 H Plt Count 237 MPV TNP Immature Gran % 4.5 H Seg Neutrophils % 76.5 Lymphocytes % 9.0 Monocytes % 9.3 Eosinophils % 0.5 Basophils % 0.2 Neutrophils # 15.4 H Lymphocytes # 1.8 Monocytes # 1.9 H Eosinophils # 0.1 Basophils # 0.0 Nucleated RBCs/100 WBC 0.3 H Anisocytosis 1+ A Stomatocytes 1+ A ESR PT 15.2 H INR 1.4 Sodium Potassium Chloride Carbon Dioxide BUN Creatinine Est GFR ( Amer) Est GFR (Non-Af Amer) BUN/Creatinine Ratio Glucose Calculated Osmolality Calcium Total Bilirubin Direct Bilirubin Indirect Bilirubin AST ALT Alkaline Phosphatase C-Reactive Protein 111 H Serum Total Protein Albumin Globulin Albumin/Globulin Ratio IgA Rheumatoid Factor Tiss Transglutamin IgA Intrins Factor Block Ab 08/12/18 08/12/18 08/12/18 07:19 13:07 13:07 WBC RBC Hgb Hct MCV MCH MCHC RDW Plt Count MPV Immature Gran % Seg Neutrophils % Lymphocytes % Monocytes % Eosinophils % Basophils % Neutrophils # Lymphocytes # Monocytes # Eosinophils # Basophils # Nucleated RBCs/100 WBC Anisocytosis Stomatocytes ESR PT INR Sodium 135 L Potassium 3.7 Chloride 98 Carbon Dioxide 31 H BUN 11 Creatinine 0.65 Est GFR ( Amer) > 60 Est GFR (Non-Af Amer) > 60 BUN/Creatinine Ratio 17 Glucose 108 H Calculated Osmolality 280 Calcium 8.9 Total Bilirubin 1.6 H Direct Bilirubin 0.4 H Indirect Bilirubin 1.2 AST 37 ALT 75 H Alkaline Phosphatase 118 H C-Reactive Protein Serum Total Protein 7.6 Albumin 3.5 Globulin 4.1 H Albumin/Globulin Ratio 0.9 L IgA Rheumatoid Factor 13 Tiss Transglutamin IgA Intrins Factor Block Ab - Impressions Impressions Chest CTA 08/11/18 16:28 IMPRESSION: No evidence of pulmonary embolism or acute pulmonary abnormality. Respiratory motion artifact limits evaluation to the proximal segmental level. Mild cardiomegaly. Hepatic steatosis. Splenomegaly. Benign-appearing nodule in the subpleural left lower lobe, possibly a solitary fibrous tumor of the pleura or healing granuloma or less likely a pulmonary hamartoma. Comparison imaging is helpful if available. Consider follow-up CT in 3-6 months. D/ / 08/11/2018 18:25:28 Severo Blank / lesvia Interpreting Provider: Severo Blank - ABG Interpretation ABG results: ABG ABG pH 7.24 pH Units (7.32-7.45) L 08/09/18 08:48 ABG pCO2 68 mmHg (35-45) H 08/09/18 08:48 ABG pO2 58 mmHg (85-104) L D 08/09/18 08:48 ABG O2 Saturation 84 % (95-98) L 08/09/18 08:48 PT/INR, D-dimer PT 15.2 Seconds (9.4-12.1) H 08/12/18 07:19 Consult Discharge Plan - Plan Referrals: Nena Cody SENIOR UI DESIGNER [Advanced Practice Nurse] - 08/30/18 10:00 am <Arron Terry - Last Filed: 08/12/18 17:21> Date of Encounter: 08/12/18 - Constitutional Vitals: Vital Signs Temp Pulse Resp BP Pulse Ox 08/12/18 11:09 98.1 F 86 16 171/75 93 08/12/18 07:12 97.5 F L 81 163/80 98 08/12/18 03:59 84 18 176/81 93 Intake and Output 08/12/18 08/12/18 08/13/18 08:59 16:59 00:59 Intake Total 530 / 530 Output Total 1300 / 1300 750 / 750 Balance -1300 / -1300 -220 / -220 Intake: IV Fluids 50 / 50 Cleocin Premix 600 MG/50 ML 600 50 / 50 mg In 50 ml @ 50 mls/hr IVPB Q8HR [facility] Rx#:[id number] Oral 480 / 480 Output: Urine 1300 / 1300 750 / 750 Other: Meal Lunch Percent of Meal Consumed 50% # Voids 1 Weight 193.1 kg Patient Weight 08/13/18 00:59 Weight 193.1 kg Oncology: Obj Data - Labs CBC & Chem 7: 08/12/18 07:19 08/12/18 07:19 Labs: Laboratory Results - last 24 hr 08/10/18 08/10/18 08/12/18 05:01 05:01 07:19 WBC RBC Hgb Hct MCV MCH MCHC RDW Plt Count MPV Immature Gran % Seg Neutrophils % Lymphocytes % Monocytes % Eosinophils % Basophils % Neutrophils # Lymphocytes # Monocytes # Eosinophils # Basophils # Nucleated RBCs/100 WBC Anisocytosis Stomatocytes PT 15.2 H INR 1.4 Sodium Potassium Chloride Carbon Dioxide BUN Creatinine Est GFR ( Amer) Est GFR (Non-Af Amer) BUN/Creatinine Ratio Glucose Calculated Osmolality Calcium Total Bilirubin Direct Bilirubin Indirect Bilirubin AST ALT Alkaline Phosphatase Serum Total Protein Albumin Globulin Albumin/Globulin Ratio IgA 287 Rheumatoid Factor Tiss Transglutamin IgA 1 Intrins Factor Block Ab NEGATIVE 08/12/18 08/12/18 08/12/18 07:19 07:19 13:07 WBC 20.1 H RBC 4.40 Hgb 7.8 L Hct 29.8 L MCV 67.7 L MCH 17.7 L MCHC 26.2 L RDW 23.9 H Plt Count 237 MPV TNP Immature Gran % 4.5 H Seg Neutrophils % 76.5 Lymphocytes % 9.0 Monocytes % 9.3 Eosinophils % 0.5 Basophils % 0.2 Neutrophils # 15.4 H Lymphocytes # 1.8 Monocytes # 1.9 H Eosinophils # 0.1 Basophils # 0.0 Nucleated RBCs/100 WBC 0.3 H Anisocytosis 1+ A Stomatocytes 1+ A PT INR Sodium 135 L Potassium 3.7 Chloride 98 Carbon Dioxide 31 H BUN 11 Creatinine 0.65 Est GFR ( Amer) > 60 Est GFR (Non-Af Amer) > 60 BUN/Creatinine Ratio 17 Glucose 108 H Calculated Osmolality 280 Calcium 8.9 Total Bilirubin 1.6 H Direct Bilirubin 0.4 H Indirect Bilirubin 1.2 AST 37 ALT 75 H Alkaline Phosphatase 118 H Serum Total Protein 7.6 Albumin 3.5 Globulin 4.1 H Albumin/Globulin Ratio 0.9 L IgA Rheumatoid Factor Tiss Transglutamin IgA Intrins Factor Block Ab 08/12/18 13:07 WBC RBC Hgb Hct MCV MCH MCHC RDW Plt Count MPV Immature Gran % Seg Neutrophils % Lymphocytes % Monocytes % Eosinophils % Basophils % Neutrophils # Lymphocytes # Monocytes # Eosinophils # Basophils # Nucleated RBCs/100 WBC Anisocytosis Stomatocytes PT INR Sodium Potassium Chloride Carbon Dioxide BUN Creatinine Est GFR ( Amer) Est GFR (Non-Af Amer) BUN/Creatinine Ratio Glucose Calculated Osmolality Calcium Total Bilirubin Direct Bilirubin Indirect Bilirubin AST ALT Alkaline Phosphatase Serum Total Protein Albumin Globulin Albumin/Globulin Ratio IgA Rheumatoid Factor 13 Tiss Transglutamin IgA Intrins Factor Block Ab - Impressions Impressions Chest CTA 08/11/18 16:28 IMPRESSION: No evidence of pulmonary embolism or acute pulmonary abnormality. Respiratory motion artifact limits evaluation to the proximal segmental level. Mild cardiomegaly. Hepatic steatosis. Splenomegaly. Benign-appearing nodule in the subpleural left lower lobe, possibly a solitary fibrous tumor of the pleura or healing granuloma or less likely a pulmonary hamartoma. Comparison imaging is helpful if available. Consider follow-up CT in 3-6 months. D/ / 08/11/2018 18:25:28 Severo Blank / lesvia Interpreting Provider: Severo Blank - ABG Interpretation ABG results: ABG ABG pH 7.24 pH Units (7.32-7.45) L 08/09/18 08:48 ABG pCO2 68 mmHg (35-45) H 08/09/18 08:48 ABG pO2 58 mmHg (85-104) L D 08/09/18 08:48 ABG O2 Saturation 84 % (95-98) L 08/09/18 08:48 PT/INR, D-dimer PT 15.2 Seconds (9.4-12.1) H 08/12/18 07:19 Inpatient Charges Provider: Dr. James Terry Follow up - Inpatient: [id number] - Attending Attestation I examined this patient and my medical decision-making was reviewed with the Advanced Practice Nurse. I agree with the documented findings, disposition and treatment plan as described except to the extent set forth below. 1. RLE Cellulitis 2. Leukocytosis 3. Subpleural left lower lobe nodule (1.9 x 1.2 x 1.5 cm) 4. Splenomegaly 5. Anemia 6. Elevated PT 7. DVT ppx Plan: -Will obtain CT A/P for surveillance. Will check JAK2 and P[facility] flow cytometry in light of splenomegaly and anemia. -Received IV Venofer. On folic acid 1 mg PO daily, receiving Vit B12 SQ injections for 5 days. Will check SPEP, IGs, serum free light chains, and YOLI. -Will check factor VII level -Please start Heparin SQ for DVT ppx -For RLE Cellulitis and leukocytosis, currently on IV Antibiotics and ID c/s. Cultures NGTD. -LDH and haptoglobin normal so patient is not hemolyzing. Will continue to follow along with you.
[2018-08-12] MEDS ORDERED: Isovue-370 500 ML INFUS..BTL IV ONE (17:13)
[2018-08-12] MEDS: *HR* Heparin 5,000 UNIT/ML VIAL SQ SCH (20:45)
[2018-08-13] MEDS: Clindamycin 600 MG/50 ML 600 MG/50 ML IV.SOLN IVPB SCH ×2 (00:21→07:58)
[2018-08-13 05:11] LABS: Basophils % 0.3 %; Lymphocytes % 13.9 %; Mean Corpuscular HGB Conc 26.3 g/dL (31.6-35.5)
[2018-08-13 05:12] LABS: Basophils # 0.1 K/mcL (0.0-0.2); Eosinophils # 0.2 K/mcL (0.0-0.6); Eosinophils % 0.9 %; Hematocrit 28.5 % (35.3-44.9); Hemoglobin 7.5 g/dL (11.5-15.4); Immature Granulocytes % 6.9 % (0-4); Lymphocytes # 2.5 K/mcL (0.6-4.6); Mean Corpuscular Hemoglobin 17.9 pg (28.0-33.3); Mean Corpuscular Volume 68.2 fL (83.0-100.0); Monocytes # 1.3 K/mcL (0.0-1.3); Monocytes % 7.5 %; Neutrophils # 12.4 K/mcL (1.6-8.9); Nucleated Red Blood Cells 0.5 /100 WBC (0); Platelet Count 263 K/mcL (140-400); Red Blood Count 4.18 M/mcL (3.82-4.97); Red Cell Distribution Width 24.8 % (11.5-14.5); Segmented Neutrophils % 70.5 %
[2018-08-13 05:13] LABS: BUN/Creatinine Ratio 13 (6-26); Blood Urea Nitrogen 9 mg/dL (6-20); Calcium 8.8 mg/dL (8.6-10.3); Carbon Dioxide 32 mEq/L (23-29); Chloride 96 mEq/L (98-107); Glucose 95 mg/dL (70-105); Osmolality,Calculated 278 (280-300); Potassium 3.5 mEq/L (3.5-5.1); Sodium 135 mEq/L (136-145); eGFR For Non-African Americans > 60 (> 60)
[2018-08-13] MEDS: Cefepime HCl 2,000 MG in 0.9 % Sodium Chloride Mini Bag 100 ML IVPB SCH ×2 (05:39→17:15)
[2018-08-13] MEDS: *HR* Heparin 5,000 UNIT/ML VIAL SQ SCH ×3 (05:40→20:57)
[2018-08-13 05:48] LABS: Platelet Estimate Normal (Normal)
[2018-08-13 05:49] LABS: Anisocytosis 2+ (Not Present); Hypochromasia Present (Not Present); Microcytosis Present (Not Present)
[2018-08-13] MEDS: traMADol 50 MG TABLET PO PRN ×3 (06:06→22:06)
[2018-08-13] MEDS: Furosemide 40 MG TABLET PO SCH ×2 (07:57→17:12)
[2018-08-13] MEDS: Cyanocobalamin (B-12) 1,000 MCG/ML VIAL IM SCH (07:57)
[2018-08-13] MEDS: Folic Acid 1 MG TABLET PO SCH (07:57)
[2018-08-13] MEDS: MOM Conc 10 ML UD.LIQ PO SCH (07:57)
[2018-08-13] MEDS: Clotrimazole 1% CRM 15 GM TUBE TP SCH ×2 (07:58→20:57)
--- NOTE | 2018-08-13 09:01 | Internal Med Progress Note ---
<Anika Tong - Last Filed: 08/13/18 16:38> Hospitalist Progress Note - Encounter Date of Encounter: 08/13/18 - Exam Vitals: Temp Pulse Resp BP Pulse Ox 98.2 F 76 18 161/66 98 08/13/18 10:40 08/13/18 10:40 08/13/18 10:40 08/13/18 10:40 08/13/18 10:40 - Assessment and Plan (1) Cellulitis of right lower extremity Current Visit: Yes Status: Acute (2) Acute kidney injury (nontraumatic) Current Visit: No Status: Resolved (3) Anemia Current Visit: No Status: Acute (4) Leukocytosis Current Visit: Yes Status: Acute (5) Severe sepsis with acute organ dysfunction due to group A Streptococcus Current Visit: Yes Status: Suspected (6) Morbid obesity with BMI of 60.0-69.9, adult Current Visit: Yes Status: Chronic (7) Hyperfibrinogenemia Current Visit: Yes Status: Acute (8) Iron deficiency anemia Current Visit: Yes Status: Suspected (9) Acute respiratory failure with hypoxemia Current Visit: Yes Status: Acute (10) B12 deficiency Current Visit: Yes Status: Chronic (11) Folate deficiency Current Visit: Yes Status: Chronic (12) Elevated brain natriuretic peptide (BNP) level Current Visit: Yes Status: Acute (13) Respiratory failure with hypercapnia Current Visit: Yes Status: Acute (14) Elevated CK Current Visit: Yes Status: Acute (15) HTN (hypertension) Current Visit: Yes Status: Acute - Time Spent with Patient Total time spent is greater than 50% in coordination of care (as documented) at patient's floor/unit and/or counseling patient: Internal Medicine: Result - Labs CBC & Chem 7: 08/13/18 04:21 08/13/18 04:21 Labs: Short CBC 08/13/18 Range/Units 04:21 WBC 17.6 H (4.3-11.1) K/mcL Hgb 7.5 L (11.5-15.4) g/dL Hct 28.5 L (35.3-44.9) % Plt Count 263 (140-400) K/mcL Neutrophils # 12.4 H (1.6-8.9) K/mcL BMP 08/13/18 04:21 Sodium 135 L Potassium 3.5 Chloride 96 L Carbon Dioxide 32 H BUN 9 Creatinine 0.71 Glucose 95 Calcium 8.8 - ABG Interpretation ABG results: ABG ABG pH 7.24 pH Units (7.32-7.45) L 08/09/18 08:48 ABG pCO2 68 mmHg (35-45) H 08/09/18 08:48 ABG pO2 58 mmHg (85-104) L D 08/09/18 08:48 ABG O2 Saturation 84 % (95-98) L 08/09/18 08:48 PT/INR, D-dimer PT 15.2 Seconds (9.4-12.1) H 08/12/18 07:19 - Impressions Impressions Lower Extremity CT 08/11/18 11:43 IMPRESSION: 1. Circumferential superficial soft tissue edema in the right leg. No fluid collection or abscess on the noncontrast CT. 2. No intramuscular fluid. No acute osseus abnormality. D/ / 08/11/2018 13:07:41 Fernando Quiroga MD / lesvia Interpreting Provider: Fernando Quiroga MD Abdomen/Pelvis CT 08/12/18 17:13 IMPRESSION: Moderate hepatosplenomegaly-of uncertain etiology. Few nonspecific mildly prominent retroperitoneal lymph nodes. No acute intra-abdominal or pelvic finding. Recently described subpleural nodule posterior aspect mid to lower left lung base not included on today's imaging field of view. D/ / Dixon Ortiz MD / Dixon Ortiz MD Interpreting Provider: Dixon Ortiz MD Consult Discharge Plan - Plan Referrals: Nena Cody SPLICER MACHINE OPERATOR [Advanced Practice Nurse] - 08/30/18 10:00 am - Attending Attestation I examined this patient and my medical decision-making was reviewed with the Resident Physician Dr Garces. I agree with the documented findings, disposition and treatment plan as described except to the extent set forth below/addl details below Ms Del Castillo is currently admitted for severe sepsis due to RLE cellulitis. She has developed acute hypercarbic resp failure from pulmonary edema of unclear etiology. She was found to have anemia. Her course has been long and complicated including concern for rheumatologic disease, hematologoic disease process, refractory cellulitis to iv abx, HAZEL which has since resolved. awake,in chair, pain mildly improed today, cont without fevers, chills, n/v. she has had no sob, wheezing, coughing. feels comfortable on ra. urinating without difficulty. denying any changes to her urine today, no bleeding in urine or with any bm. no melena. gen- awake, alert, appears stated age, comofrtable appearing eyes- pupils equal round , no conjunctival pallor or scleral icterus cv- reg rate and rhythm, normal s1,s2, no murmurs appreciated, dependent le ed [place], non pitting lungs- ctabl, no wheezing, rhonchi or crackles, normal resp effort on ra abd- soft, non tender, non distended, + bs skin- rle erythema to knee, line marked and remains within, has minimally receeded from line but overall no change + warmth, no wound neuro- AAOx3 Severe sepsis due to cellulitis RLE Sepsis resolved Cellulitis has been persistent without significant change despite abx treatment, inclduing broadening of treatment -no dvts on le us, gas or fluid collections on initial 08/08 cT leg or repeats 08/11 -id has been following closely and i personally discussed with dr Thomas today: this is beginning to now seem to not be bacterial in nature and given her other systemic findings there is a possibly this could be related to a rheum etiology, perhaps vasculitis localized to this leg, fungal infection, or with ct a/p findings perhaps obstructive in nature -we have discussed among all teams today and are currently awaiting oncology recs with new results today -we had requested derm consult, however they are unable to see her today and Dr Thomas agrees rheum may be more appropriate -Rheum consulted and not in today or thorughout weekned, therefore earliest to be seen is thursday -given she is hemodynamically stable,a febrile, with improved leukocytosis today, there is no emergent need for transfer--will await oncology recs tonight and if not concerned for lymphoproliferative etiology with LAD on ct a/p then will discuss further with pt and perhaps facilitate transfer if she is agreeable Acute hypercarbic and hypoxic resp failure most likely due to pulmonary edema - resolved CXR with pulm vasc congestion, no identifiable infectious cause, no dvts in bl le on admission, no pe on cta -cont oral diuresis -echo 08/11 mild to mod pulm htn, normal ef -needs outpt pfts and sleep study as well, suspect rashaun, and will need o2 home eval prior to dc -cont to monitor HAZEL suspected to be prerenal 2/2 sepsis, resolved- nephro followed, diuresis as per nephro PO -renal us without hydronephrosis Mixed acute anemia with iron, folate and B12 deficiency and work up to ruled out hemolytic anemia -heme/onc following , hgb slowly downtrending, addl testing ordered and pending, cT with splenomegaly -IV venofer, IM B12,folate -cont to monitor hgb, many labs remain pending at this time, concern for malabsorption -fu onc recs tonight HTN with continually elevated bps cont BB, cont pain control, adjust uther as needed, will require outpt fu Incidental nodule on CTA- Benign-appearing nodule in the subpleural left lower lobe, possibly a solitary fibrous tumor of the pleura or healing granuloma or less likely a pulmonary hamartoma. follow-up CT in 3-6 months. Incidental hepatic Steatosis on CTA with INR that was elevated this admit but downtrended and indrect hyerpbilirubinemia which also ahs decreased this admiss ion- -ct a/p 08/12 read finalized and shows hepatomegaly as well -there has been no emergent need for gi consult this admit, but it is becoming apparent with further work up she would benefit from one, there is no coverage for gi over the weekend - ?LAD, lymphoproliferative disorder , fu onc note razia, she is likely going to need to be transferred for various reasons noted above and now coming to light today inguinal LAD on cT a/p- ordered by oncology , initially our team received a call from [employer] noting significant right sidded inguial lad that may be obstructing flow, later read was not nearly as significant, reviewed by various team, awaiting dr Sales input to see if she thinks reactive vs need for bx Further diagnoses and plan as documented by resident dispo- awaiting oncology input today, will discuss with pt tomorrow and may need transfer to [facility] for second opinion <Garces,Deon - Last Filed: 08/13/18 18:05> Hospitalist Progress Note - Encounter Date of Encounter: 08/13/18 Time of Encounter: 08:00 - Subjective Interval History: 08/13 Gen: Patient continues to be in moderate R leg pain secondary to her cellulitis , non positional in nature. No evidence of abscess of lower extremity noncontrast CT. Patient continues to be on a tramadol 50 mg for pain control PRN . : HAZEL has seems to have resolved Cr: 0.71 today, she does not have a Willard anymore. Is/Os: 1650/1050 . Is tolerating diuresis (lasix 40 mg) Heme/Onc: WBC today : 17.6 K , 42.5 K on admission, Hb 6.5-> 7.6 -> 8.0 -> 7.8 - > 7.5, no evidence of any acute blood loss. evidence of microcytosis and macrocytosis, LAP score 208. INR 2 on admission, currently 1.4. Evidence of mildly prominent retroperitoneal lymph nodes, with hepatosplenomegaly on abdominal CT. GI: Patient did not complain of any belly pain CT abdomen showed a few scattered diverticuli within distal colon otherwise are clear was pretty unremarkable. She continues to be on 100 mg Ducoset , milk of magnesia as well as to facilitate bowel movement Infectious: RLE looks about the same as ayesterday ( erythematous and tender). CT lower extremity performed last night was negative for any evidence of sepsis or fluid accommodation. Is on day 4 of cefepime, day 5 of vancomycin (Vanc trough 12), added Clindamycin , cultures with no growth thus far. 08/12 Gen: Patient continues to be in moderate R leg pain secondary to her cellulitis , non positional in nature. No evidence of abscess of lower extremity noncontrast CT. Patient continues to be on a tramadol 50 mg for pain control PRN . : HAZEL has seems to have resolved Cr: 0.65 today, she does not have a Willard anymore. Is/Os: 830/2350 . Is tolerating diuresis Heme/Onc: WBC today : 20.1 K , 42.5 K on admission, Hb 6.5-> 7.6 -> 8.0 -> 7.8 , evidence of microcytosis and macrocytosis, LAP score 208. INR 2 on admission, currently 1.4 GI: Patient endorses that her belly looks mildly distended, on exam I did not appreciate any guarding or rebound tenderness. She continues to be on 100 mg Ducoset , hasn't had a bowel movement yet , it could be partially because she is on Tramadol. Infectious: RLE cellulitis looks about the same as ayesterday ( erythematous and tender). CT lower extremity performed last night was negative for any evidence of sepsis or fluid accommodation. Is on day 3 of cefepime, day 4 of vancomycin (Vanc trough 12), added Clindamiycin , ordered repeat blood cultures on her. 08/11 Gen: in moderate leg pain non-positional. Patient is in room air 93%. Neurovascularly intact. No evidence of the fluid collection or abscess on the noncontrasted CT. Given tramadol 50 mg for pain control when necessary : HAZEL has seems to have resolved Cr: 0.81 today, she does not have a Willard anymore. Is/Os: 560/3350 . Is tolerating diuresis Heme/Onc: WBC trending down from 42.5 K on admission to 16.0 today, Hb 6.5-> 7.6 -> 8.0 (s/p 1 unit p RBC) , evidence of microcytosis and macrocytosis, LAP score 208. GI: Patient is not complaining of any belly distention, looks nontender on exam. Not complaining of any indigestion today. Continues to have moderate toe bowel movement. Infectious: RLE cellulitis looks more erythematous and tender than yesterday. CT lower extremity was negative for any evidence of sepsis or fluid accommodation. Is on day 3 of cefepime, day 4 of vancomycin (Vanc trough 12). Will consult Dermatology to get their opinion. 08/10 Gen: Day 3 of hospital say. No acute events overnight. Patient continues to be on BiPAP satting at 94%, her physical exam shows no evidence of any decreased breath sounds or wheezing. : Patient is nonoliguric with urine output in the last 10 hours is 1400mL, no indications for a Willard at this time because patient is making urine. I suspect if the Willard remains for a longer time it might be a nidus for infection. Her kidney function seems to be improving. She was admitted with a creatinine of 1.89, s/p 9 L of IV fluids, most recent creatinine is 1.08. Patient continues to be on 40 IV Lasix twice a day. Hypervolemic hyponatremia seems to be resolving (Na 134). Heme/Ocn: WBC trending down from 42.5 K on admission to 16.9 today, Hb 6.5-> 7.5 (s/p 1 unit p RBC) , evidence of microcytosis and macrocytosis, GI: She was complaining of constipation yesterday, likely due to Venfoer 250 ml/hr, no oxycodone given yesterday, one bowel movement this morning. She is complaining of acute belly distention but endorses no pain, no postprandial discomfort no nausea or vomiting. Tells me that she has a history of acid reflux and takes ranitidine when necessary. However, we are holding off on her ranitidine because of newly diagnosed anemia Infectious: RLE cellulitis looks less erythematous than yesterday. Is on day 2 of cefepime, day 2 off vancomycin (Vanc trough 12), 3 of Zosyn 08/09 Patient had a drop in her hemoglobinto 6.7, and is s/p 1 unit of packed red blood cell. Her repeat hemoglobin as of 9 AM is 7.4. Stool guaiac has been ordered. She continues is to be on broad-spectrum antibiotics for her right leg cellulitis and her white blood count has been improving (42.5 -> 22.8K) , added Cefepime by ID. Endorses mild abdominal pain which could be secondary to constipation and ordered some stool softeners. Patient endorses no numbness or tingling in extremities, the erythema around the cellulitis looks about the same. Continues to have a nonoliguric HAZEL and is s/p 9L of fluids in total. 08/08 Seen patient at the bedside. Patient is a transfer from a [place] because of flow right leg pain secondary to cellulitis, on to be in sepsis. She is currently on day 1 vancomycin and Zosyn. She seems to be in moderate distress gasping for air currently on 2L oxygen. Has shortness of breath, and rapid breathing seemed to be confused not hypotensive at this moment. Stat chest x- ray has been ordered. Owing to her confused state stat head CT has also been ordered. Her ABGs showed respiratory acidosis with mild hypoxemia. With evidence of mild hypoxemia should be transitioned from a 2 L oxygen to BiPAP. - Exam Vitals: Temp Pulse Resp BP Pulse Ox 98.1 F 85 19 149/56 98 08/13/18 07:08 08/13/18 07:08 08/13/18 07:08 08/13/18 07:08 08/13/18 07:08 Exam: Gen: A&O *3, moderate acute distress Chest: , no rales, wheezing or ronchi Heart: S1S2+ RRR No murmurs Abd: Distended , NT, BS +, No organomegaly Ext: +1 edema, erythema on RLE due to cellulitis in pain Neuro : Benign findings Skin: RLE erythema less than yesterday , swollen, tender to touch. - Assessment and Plan (1) Cellulitis of right lower extremity Current Visit: Yes Status: Acute Assessment and Plan: - Patient came with right lower extremity cellulitis- was given IV clindamycin and fluids at [facility]. Am not entirely sure of this pathology secondary to a bacterial infection because patient seems to be showing no signs of improvement despite being on board spectrum antibiotics. However her white blood count is trending down. - Currently on IV vancomycin ,Cefepime q12h. Tramadol 50 mg for pain control PRN. -Physical exam patient was in acute pain this morning. The cellulitis looked more erythematous, Repeat lower extremity CT was negative for any abscess or fluid accumulation, no evidence of any compartment syndrome. CK : 483 but that could be most likely due to infectious/inflammation. ESR > 130, CRP: 111 - With her elevated inflammatory markers, and minimal response to antibiotics , we might seek opinion from rheumatology /dermatology to rule out etiologies like myositis/skin lesion, or perhpas transfer to a tertiary care center for further workup . (2) Anemia Current Visit: No Status: Acute Assessment and Plan: - Likely a mix of normocytic and microcytic anemia, with evidence of hypoc hromasia, and low percent reticulocyte count. Rule out hemolytic anemia because of normal haptoglobin. Patient was admitted with the iron deficiency, MCV 66.4, RDW : 22.1, 1+ ovalocytes, 1+ stomatocytes, LDH : 209, Ferritin 61. She also had elevated indirect bilirubin of 3.3 (most reent is 1.2), K 6.1 on admission, .PT/INR 22.0/2.0 currently INR trending down to 1.4. , aPTT 32.3, RONN 1+ A -Peripheral smear revealing hypochromic microcytic anemia with ovalocytes identified. - had a drop in her hemoglobin to 6.7 cira 08/08/ requiring unit pRBC ,repeat Hb 7.5 - Haptoglobulin , Peripheral smear , LAP score, celiac cascade, parietal cell IgG and Intrinsic factor AB pending. stool guiac test negative - Ordered Venofer 300 mg IV, 4 doses of B12 given, can now Transition to weekly doses of vit B12 for 4 doses and then monthly, Folate 1mg PO. -Pending labs for evaluation of splenomegaly and anemia: P[facility] flowcytometry, SPEP, immunoglobulins, immunoelectrophoresis, serum free light chains. -Pending Factor VII activity for prolonged PT/INR evaluation - Transfuse 1 unit of PRBCs for Hgb < 7.0 (3) Leukocytosis Current Visit: Yes Status: Acute Assessment and Plan: - She was admitted with leukocytosis of 37K, currently improving at 17.6 K - likely multifactorial l initially thought to be cellulitis, but further workup shows evidence of splenomegaly, and retroperitoneal lymph nodes r adiographically- -Currently on Vancand , Cefepime added clindamycin by ID. Will deescalate once blood cultures results are out, LAP (leukocyte alkaline phosphate test)elevated at 483 (4) Severe sepsis with acute organ dysfunction due to group A Streptococcus Current Visit: Yes Status: Suspected Assessment and Plan: -Currently resolved -Until yesterday patient met 1/4 SIRs criteria met with elevated WBC (16.0), HT: 86, Temp: 98.1 , RR: 16 . Patient was admitted with sepsis likely due to her significant cellulitis and right lower extremity. She was given IV clindamycin and [place] [facility]. -Lactic acid 4 on admission currently trending down to 0.6 . Paitent is status post 11L IVF. WBC at 37K currently 20K. - Currently white blood count is trending down (17.6) . Afebrile. ASO Ab : 412 - Blood and sputum cultures are pending. - Currently on day 6 of vancomycin , Also on IV Cefepime q12h and Clindamycin (5) Morbid obesity with BMI of 60.0-69.9, adult Current Visit: Yes Status: Chronic Assessment and Plan: - Patient has a BMI of 62.5. - Counselled on better dietary choices. (6) Hyperfibrinogenemia Current Visit: Yes Status: Acute Assessment and Plan: -She had elevated circulating the fibrinogen > 450 mg/d. - Likely due to setting of acute inflammation secondary to cellulitis. (7) Iron deficiency anemia Current Visit: Yes Status: Suspected Assessment and Plan: - Patient was admitted with iron less than 10. Transferring 258, Normal Ferritin - No history of any aspirin or NSAID use. - currently on Venofer 300 mg IV, FOBT pending - Transfuse if hemoglobin less than 7. (8) Acute respiratory failure with hypoxemia Current Visit: Yes Status: Acute Assessment and Plan: 08/13 He is to have resolved, currently on room air satting at 95% 08/12 Appears to have resolved, currently on room air at 93%. 08/11 - Likely multifactorial- patient was severely septic on admission with leukocytosis of 37K, Lactic acid 4.0, HR : 112. Patient also had anemia (Hb < 7.5), with elevated BNP : 184 , no evidence of L ventricular, or valvular dysfunction on Echo, - Patient currently on BiPAP at night but no dependence of oxygen in the morning, On day 4 of Vancomycin, and IV Q12h cefepime for her cellulitis. - Blood and sputum cultures have not grown anything thus far. Continue to monitor (9) B12 deficiency Current Visit: Yes Status: Chronic Assessment and Plan: - patient had a B12 283. - As per recommendations of hematology , starting on 1000 mc IM injections daily for 5 days. (Then transition to weekly for 4 doses, and then monthly) - (10) Folate deficiency Current Visit: Yes Status: Chronic Assessment and Plan: - folic acid supplements for her folate deficiency (11) Elevated brain natriuretic peptide (BNP) level Current Visit: Yes Status: Acute Assessment and Plan: -She was admitted with the elevated BNP of 184. -Echocardiogram was negative for any left ventricular dysfunction or any valvular abnormalities. LVEFv: 65-70%, was some evidence of [id number] pulmonary hypertension, which is likely due to her baseline RASHAUN. (12) Respiratory failure with hypercapnia Current Visit: Yes Status: Acute Assessment and Plan: - plan as above (13) Elevated CK Current Visit: Yes Status: Acute Assessment and Plan: CK high likely due to the cellulites infection .Patient denies any history of any falls. No evidence of hypothyroidism, No evidence of any hyperglycemia . Patient is afebrile and leukocytosis seems to be trending down s(16K). - Patient's CT of the lower extremity was negative for any evidence of abscess or fluid collection. - Patient's a chest CT was negative for any evidence of pulmonary embolism (14) HTN (hypertension) Current Visit: Yes Status: Acute Assessment and Plan: - Has been running systolics of 160-170 during the course of the hospital stay. There is no past medical history of any hypertension but given her BMI and suspected obstructive sleep apnea, I will not be surprised if she is baseline hypertensive. Elevated HTN can also be explained to certain extent because of pain secondary to cellulitis. -Currently on labetalol 100 mg daily. DVT Prophylaxis: on EPCD of the left leg - Time Spent with Patient Total time spent is greater than 50% in coordination of care (as documented) at patient's floor/unit and/or counseling patient: Internal Medicine: Result - Labs CBC & Chem 7: 08/13/18 04:21 08/13/18 04:21 Labs: Short CBC 08/13/18 Range/Units 04:21 WBC 17.6 H (4.3-11.1) K/mcL Hgb 7.5 L (11.5-15.4) g/dL Hct 28.5 L (35.3-44.9) % Plt Count 263 (140-400) K/mcL Neutrophils # 12.4 H (1.6-8.9) K/mcL BMP 08/13/18 04:21 Sodium 135 L Potassium 3.5 Chloride 96 L Carbon Dioxide 32 H BUN 9 Creatinine 0.71 Glucose 95 Calcium 8.8 Liver Function 08/12/18 Range/Units 13:07 Total Bilirubin 1.6 H (0.3-1.0) mg/dL Direct Bilirubin 0.4 H (0.0-0.2) mg/dL AST 37 (13-39) Units/L ALT 75 H (7-52) Units/L Alkaline Phosphatase 118 H (34-104) Units/L Albumin 3.5 (3.5-5.7) g/dL - ABG Interpretation ABG results: ABG ABG pH 7.24 pH Units (7.32-7.45) L 08/09/18 08:48 ABG pCO2 68 mmHg (35-45) H 08/09/18 08:48 ABG pO2 58 mmHg (85-104) L D 08/09/18 08:48 ABG O2 Saturation 84 % (95-98) L 08/09/18 08:48 PT/INR, D-dimer PT 15.2 Seconds (9.4-12.1) H 08/12/18 07:19 - Impressions Impressions Lower Extremity CT 08/11/18 11:43 IMPRESSION: 1. Circumferential superficial soft tissue edema in the right leg. No fluid collection or abscess on the noncontrast CT. 2. No intramuscular fluid. No acute osseus abnormality. D/ / 08/11/2018 13:07:41 Fernando Quiroga MD / lesvia Interpreting Provider: Fernando Quiroga MD <Anika Tong - Last Filed: 08/13/18 16:38> (3) Anemia Qualifiers: Anemia type: iron deficiency Iron deficiency anemia type: chronic blood loss Qualified Code(s): D50.0 - Iron deficiency anemia secondary to blood loss (chronic) (4) Leukocytosis Qualifiers: Leukocytosis type: bandemia Qualified Code(s): D72.825 - Bandemia (8) Iron deficiency anemia Qualifiers: Iron deficiency anemia type: chronic blood loss Qualified Code(s): D50.0 - Iron deficiency anemia secondary to blood loss (chronic) (13) Respiratory failure with hypercapnia Qualifiers: Chronicity: acute Qualified Code(s): J96.02 - Acute respiratory failure with hypercapnia <Deon Garces - Last Filed: 08/13/18 18:05> (2) Anemia Qualifiers: Anemia type: iron deficiency Iron deficiency anemia type: chronic blood loss Qualified Code(s): D50.0 - Iron deficiency anemia secondary to blood loss (chronic) (3) Leukocytosis Qualifiers: Leukocytosis type: bandemia Qualified Code(s): D72.825 - Bandemia (7) Iron deficiency anemia Qualifiers: Iron deficiency anemia type: chronic blood loss Qualified Code(s): D50.0 - Iron deficiency anemia secondary to blood loss (chronic) (12) Respiratory failure with hypercapnia Qualifiers: Chronicity: acute Qualified Code(s): J96.02 - Acute respiratory failure with hypercapnia
--- NOTE | 2018-08-13 10:29 | Oncology Inp Progress Note ---
<Gokul Sanchez - Last Filed: 08/13/18 16:48> Date of Encounter: 08/13/18 Time of Encounter: 10:25 (1) Anemia Current Visit: No Status: Acute Assessment and plan: Anemia w/ MCV of 66.4, RDW 23.2, 1+ ovalocytes, 1+ stomatocytes Pt does have iron, B12 and folate deficiencies. Ferritin 61, Vit B12 283, folate 4.3 Pt also has acute hgb drop to 6.7 requiring 1 unit PRBCson 08/09/18, hemoglobin remains stable since transfusion LDH 209, haptoglobin 186. Fibrinogen 663. INR 1.4, aPTT 32.3, RONN 1+ A Concern for malabsortion in the presence if iron, B12 and folate deficiencies. Work up has not yet revealed potential cause for malabsorption Peripheral smear revealing hypochromic microcytic anemia with ovalocytes identified. Imaging has revealed enlarged spleen as well as subpleural nodule Plan: -Have replaced stores of Iron, B12, and folate. -4 doses of B12 given, can now Transition to weekly doses of vit B12 for 4 doses and then monthly -Continue folic acid 1 mg PO daily -Transfuse 1 unit of PRBCs for Hgb < 7.0 -CT abd/pelvis complete, report is pending. Will discuss with patient consideration of biopsy vs follow up imaging of subpleural nodule. -Pending labs for evaluation of splenomegaly and anemia: PNH flowcytometry, SPEP, immunoglobulins, immunoelectrophoresis, serum free light chains. -Pending Factor VII activity for prolonged PT/INR evaluation (2) Leukocytosis Current Visit: Yes Status: Acute Assessment and plan: Small increase in WBC yesterday to 16>20, now at 17.6. Likely secondary to underlying infectious/inflammatory process. Plan: -ID following for abx recommendations, Continue with treatment of cellulitis and expect that leukocytosis will resolve -LAP complete and suggestive of leukomoid reaction (3) B12 deficiency Current Visit: Yes Status: Chronic Assessment and plan: Treatment as above (4) Folate deficiency Current Visit: Yes Status: Chronic Assessment and plan: Treatment as above (5) Cellulitis of right lower extremity Current Visit: Yes Status: Acute Assessment and plan: Vital signs remain stable, afebrile. Erythema initially improved but now has returned. No proximal extension is noted. CT scan on 08/11 does not reveal fluid collection or abscess Plan: Continue treatment per ID and primary team recommendations (6) Iron deficiency anemia Current Visit: Yes Status: Suspected Assessment and plan: Treatment as above Oncology: Subj Interval history: Patient was seen and evaluated at the bedside. She reports no real change in her RLE pain. Pain or swelling has not moved or changed. Denies fevers, chills, nausea, vomiting, or bowel changes. She has no new complaints. No chest pain or shortness of breath. No abdominal pain or worsening distention. - Constitutional Vitals: Vital Signs Temp Pulse Resp BP Pulse Ox 08/13/18 09:50 98.3 F 84 17 131/66 95 08/13/18 07:08 98.1 F 85 19 149/56 98 08/13/18 04:38 97.6 F 95 22 172/93 98 08/12/18 21:15 94 08/12/18 21:00 98.1 F 85 20 164/75 94 08/12/18 17:24 97.8 F 85 18 153/65 95 08/12/18 11:09 98.1 F 86 16 171/75 93 Intake and Output 08/12/18 08/13/18 08/13/18 23:59 07:59 15:59 Intake Total 150 / 150 1050 / 1050 Output Total 400 / 400 1050 / 1050 Balance -250 / -250 0 / 0 Intake: IV Fluids 150 / 150 50 / 50 Maxipime 2,000 MG In 0.9 % 100 / 100 Sodium Chloride (Mini-Bag +) 100 ML @ 200 mls/hr IVPB Q12HR [facility] Rx#:[id number] Cleocin Premix 600 MG/50 ML 600 50 / 50 50 / 50 mg In 50 ml @ 50 mls/hr IVPB Q8HR [facility] Rx#:[id number] Oral 0 / 0 1000 / 1000 Output: Urine 400 / 400 1050 / 1050 Other: Weight 199.3 kg Patient Weight 08/13/18 23:59 Weight 199.3 kg General appearance: morbidly obese, no acute distress - Head Head exam: Present: atraumatic, normocephalic - Eye Eye exam: Present: PERRL, conjuntiva pink - ENT ENT exam: Present: mucous membranes moist - Neck Neck exam: Absent: lymphadenopathy, tenderness - Respiratory Respiratory exam: Present: decreased breath sounds (Secondary to patient body habitus), CTAB - Cardiovascular Cardiovascular exam: Present: RRR, +S1, +S2. Absent: diastolic murmur, systolic murmur - GI/Abdominal GI/Abdominal exam: Present: normal bowel sounds, soft. Absent: distended, rigid - Extremities Exam Additional comments: Right lower extremity with erythema that is grossly unchanged from yesterdays examination. Skin marking is in place, erythema is within the margins marked. No visible streaking or proximal erythema or swelling. RLE is very tender to touch. - Back Exam Back exam: Absent: paraspinal tenderness, vertebral tenderness - Neurological Exam Neurological exam: Present: alert, CN II-XII intact, oriented X3, no focal deficits - Psychiatric Additional comments: mood and affect are appropriate for situation - Skin Skin exam: Present: erythema (RLE within skin marking margins) Oncology: Obj Data - Labs CBC & Chem 7: 08/13/18 04:21 08/13/18 04:21 Labs: Laboratory Results - last 24 hr 08/10/18 08/10/18 08/12/18 05:01 05:01 13:07 WBC RBC Hgb Hct MCV MCH MCHC RDW Plt Count MPV Immature Gran % Seg Neutrophils % Lymphocytes % Monocytes % Eosinophils % Basophils % Neutrophils # Lymphocytes # Monocytes # Eosinophils # Basophils # Nucleated RBCs/100 WBC Platelet Estimate Hypochromasia Anisocytosis Microcytosis Sodium Potassium Chloride Carbon Dioxide BUN Creatinine Est GFR ( Amer) Est GFR (Non-Af Amer) BUN/Creatinine Ratio Glucose Calculated Osmolality Calcium Total Bilirubin 1.6 H Direct Bilirubin 0.4 H Indirect Bilirubin 1.2 AST 37 ALT 75 H Alkaline Phosphatase 118 H Serum Total Protein 7.6 Albumin 3.5 Globulin 4.1 H Albumin/Globulin Ratio 0.9 L Vancomycin Trough IgA 287 Rheumatoid Factor Tiss Transglutamin IgA 1 Intrins Factor Block Ab NEGATIVE 08/12/18 08/12/18 08/13/18 13:07 19:46 04:21 WBC 17.6 H RBC 4.18 Hgb 7.5 L Hct 28.5 L MCV 68.2 L MCH 17.9 L MCHC 26.3 L RDW 24.8 H Plt Count 263 MPV TNP Immature Gran % 6.9 H Seg Neutrophils % 70.5 Lymphocytes % 13.9 Monocytes % 7.5 Eosinophils % 0.9 Basophils % 0.3 Neutrophils # 12.4 H Lymphocytes # 2.5 Monocytes # 1.3 Eosinophils # 0.2 Basophils # 0.1 Nucleated RBCs/100 WBC 0.5 H Platelet Estimate Normal Hypochromasia Present A Anisocytosis 2+ A Microcytosis Present A Sodium Potassium Chloride Carbon Dioxide BUN Creatinine Est GFR ( Amer) Est GFR (Non-Af Amer) BUN/Creatinine Ratio Glucose Calculated Osmolality Calcium Total Bilirubin Direct Bilirubin Indirect Bilirubin AST ALT Alkaline Phosphatase Serum Total Protein Albumin Globulin Albumin/Globulin Ratio Vancomycin Trough 13 H IgA Rheumatoid Factor 13 Tiss Transglutamin IgA Intrins Factor Block Ab 08/13/18 04:21 WBC RBC Hgb Hct MCV MCH MCHC RDW Plt Count MPV Immature Gran % Seg Neutrophils % Lymphocytes % Monocytes % Eosinophils % Basophils % Neutrophils # Lymphocytes # Monocytes # Eosinophils # Basophils # Nucleated RBCs/100 WBC Platelet Estimate Hypochromasia Anisocytosis Microcytosis Sodium 135 L Potassium 3.5 Chloride 96 L Carbon Dioxide 32 H BUN 9 Creatinine 0.71 Est GFR ( Amer) > 60 Est GFR (Non-Af Amer) > 60 BUN/Creatinine Ratio 13 Glucose 95 Calculated Osmolality 278 L Calcium 8.8 Total Bilirubin Direct Bilirubin Indirect Bilirubin AST ALT Alkaline Phosphatase Serum Total Protein Albumin Globulin Albumin/Globulin Ratio Vancomycin Trough IgA Rheumatoid Factor Tiss Transglutamin IgA Intrins Factor Block Ab - Impressions Impressions Lower Extremity CT 08/11/18 11:43 IMPRESSION: 1. Circumferential superficial soft tissue edema in the right leg. No fluid collection or abscess on the noncontrast CT. 2. No intramuscular fluid. No acute osseus abnormality. D/ / 08/11/2018 13:07:41 Fernando Quiroga MD / bcarter Interpreting Provider: Fernando Quiroga MD - ABG Interpretation ABG results: ABG ABG pH 7.24 pH Units (7.32-7.45) L 08/09/18 08:48 ABG pCO2 68 mmHg (35-45) H 08/09/18 08:48 ABG pO2 58 mmHg (85-104) L D 08/09/18 08:48 ABG O2 Saturation 84 % (95-98) L 08/09/18 08:48 PT/INR, D-dimer PT 15.2 Seconds (9.4-12.1) H 08/12/18 07:19 Consult Discharge Plan - Plan Referrals: Nena Cody, SIGNAL OPERATOR [Advanced Practice Nurse] - 08/30/18 10:00 am <Danika Espinosa - Last Filed: 08/13/18 17:08> Date of Encounter: 08/13/18 Oncology: Subj Interval history: Patient has nutritional deficiency, iron and B12 replacement, peripheral smear showing band neutrophils, toxic granulations suggestive of reactive process and hypochromia. Few reactive cells secondary to infection. Borderline lymphadenop athy and hepatosplenomegaly for her body habitus with anemia (deficiency state) leukocytosis (improving), do not suggest primary hematological process. On abx for cellulitis. Lymphedema. I examined this patient and my medical decision-making was reviewed with Dr. Gokul Sanchez, resident physician. I agree with the documented findings, disposition and treatment plan as described. - Constitutional Vitals: Vital Signs Temp Pulse Resp BP Pulse Ox 08/13/18 16:43 98.3 F 91 16 171/74 95 08/13/18 10:40 98.2 F 76 18 161/66 98 08/13/18 07:08 98.1 F 85 19 149/56 98 08/13/18 04:38 97.6 F 95 22 172/93 98 08/12/18 21:15 94 08/12/18 21:00 98.1 F 85 20 164/75 94 08/12/18 17:24 97.8 F 85 18 153/65 95 Intake and Output 08/13/18 08/13/18 08/13/18 07:59 15:59 23:59 Intake Total 1050 / 1050 Output Total 1050 / 1050 Balance 0 / 0 Intake: IV Fluids 50 / 50 Cleocin Premix 600 MG/50 ML 600 50 / 50 mg In 50 ml @ 50 mls/hr IVPB Q8HR [facility] Rx#:[id number] Oral 1000 / 1000 Output: Urine 1050 / 1050 Other: Weight 199.3 kg Patient Weight 08/13/18 23:59 Weight 199.3 kg Oncology: Obj Data - Labs CBC & Chem 7: 08/13/18 04:21 08/13/18 04:21 Labs: Laboratory Results - last 24 hr 08/10/18 08/12/18 08/13/18 05:01 19:46 04:21 WBC 17.6 H RBC 4.18 Hgb 7.5 L Hct 28.5 L MCV 68.2 L MCH 17.9 L MCHC 26.3 L RDW 24.8 H Plt Count 263 MPV TNP Immature Gran % 6.9 H Seg Neutrophils % 70.5 Lymphocytes % 13.9 Monocytes % 7.5 Eosinophils % 0.9 Basophils % 0.3 Neutrophils # 12.4 H Lymphocytes # 2.5 Monocytes # 1.3 Eosinophils # 0.2 Basophils # 0.1 Nucleated RBCs/100 WBC 0.5 H Platelet Estimate Normal Hypochromasia Present A Anisocytosis 2+ A Microcytosis Present A Sodium Potassium Chloride Carbon Dioxide BUN Creatinine Est GFR ( Amer) Est GFR (Non-Af Amer) BUN/Creatinine Ratio Glucose Calculated Osmolality Calcium Vancomycin Trough 13 H Parietal Cell IgG Ab 2.2 08/13/18 04:21 WBC RBC Hgb Hct MCV MCH MCHC RDW Plt Count MPV Immature Gran % Seg Neutrophils % Lymphocytes % Monocytes % Eosinophils % Basophils % Neutrophils # Lymphocytes # Monocytes # Eosinophils # Basophils # Nucleated RBCs/100 WBC Platelet Estimate Hypochromasia Anisocytosis Microcytosis Sodium 135 L Potassium 3.5 Chloride 96 L Carbon Dioxide 32 H BUN 9 Creatinine 0.71 Est GFR ( Amer) > 60 Est GFR (Non-Af Amer) > 60 BUN/Creatinine Ratio 13 Glucose 95 Calculated Osmolality 278 L Calcium 8.8 Vancomycin Trough Parietal Cell IgG Ab - Impressions Impressions Lower Extremity CT 08/11/18 11:43 IMPRESSION: 1. Circumferential superficial soft tissue edema in the right leg. No fluid collection or abscess on the noncontrast CT. 2. No intramuscular fluid. No acute osseus abnormality. D/ / 08/11/2018 13:07:41 Fernando Quiroga MD / bcarter Interpreting Provider: Fernando Quiroga MD Abdomen/Pelvis CT 08/12/18 17:13 IMPRESSION: Moderate hepatosplenomegaly-of uncertain etiology. Few nonspecific mildly prominent retroperitoneal lymph nodes. No acute intra-abdominal or pelvic finding. Recently described subpleural nodule posterior aspect mid to lower left lung base not included on today's imaging field of view. D/ / Dixon Ortiz MD / Dixon Ortiz MD Interpreting Provider: Dixon Ortiz MD - ABG Interpretation ABG results: ABG ABG pH 7.24 pH Units (7.32-7.45) L 08/09/18 08:48 ABG pCO2 68 mmHg (35-45) H 08/09/18 08:48 ABG pO2 58 mmHg (85-104) L D 08/09/18 08:48 ABG O2 Saturation 84 % (95-98) L 08/09/18 08:48 PT/INR, D-dimer PT 15.2 Seconds (9.4-12.1) H 08/12/18 07:19 Inpatient Charges Provider: Dr. Mago Espinosa Follow up - Inpatient: [id number]
[2018-08-13 15:47] LABS: Parietal Cell IgG 2.2 Units (0.0-24.9)
[2018-08-13] MEDS: Acetaminophen 325 MG TABLET PO PRN (17:12)
--- NOTE | 2018-08-13 21:21 | Infectious Disease Progress No ---
Date of Encounter: 08/13/18 Time of Encounter: 21:16 - Assessment and Plan (1) Severe sepsis Current Visit: Yes Status: Acute The patient had 3 sepsis criteria with lactic acidosis, acute kidney injury, and altered mental status. Likely secondary to cellulitis of the right lower extremity. White blood cell count worse today. Fever curve is improved. Tachycardia has resolved. Blood cultures drawn 08/07/18 are no growth to date 2 sets. Repeat blood cultures drawn 08/08/18 are NGTD 2 sets. Recommendations: - Await repeat blood cultures. - Continue to trend WBC. - Consider dermatology consult to evaluate for possible biopsy. - Consider rheumatology consult given leg pain and elevated inflammatory markers. - Continue Vancomycin IV. - Continue cefepime 2 grams IV Q12H. - d/c clindamycin 600mg IV Q8H. - Continue Lamisil topical to the bilateral feet BID x 1 week. - Duration of treatment depends on the clinical picture. - Monitor renal function and for drug toxicity and dose-adjust antibiotics. - Consider GI to evaluate for hyperbilirubinemia. I had a long discussion with the primary team including dr. App[place]. abnormal findings on CT abdomen/pelvis. I went and reviewed the images with radiology. He went over the CT and revealed significant inguinal lymphh nodes some actually pressing on the lympatics. He feels that it might look like lymphoma? review of CT chest shows no hilar lymphadenopathy and no axillary lymphadenopathy. The reason the official report didnt mention all of that is because the radiologist that read the CT abdomen/pelvis is not familiar with the clinical picture and not aware of the CT lower extremity either. (2) Cellulitis of right lower extremity Current Visit: Yes Status: Acute Location: Right lower extremity. Causative organisms: Unclear. Etiology: Unclear. Tinea pedis vs. other. CT of the right lower extreme he shows diffuse subcutaneous edema consistent with cellulitis versus lymphedema, but no gas, abscess, or osteomyelitis was noted. DVT study was negative. Acute worsening noted overnight. Repeat CK level was 453. Repeat CT of the RLE negative for abscess/osteo/etc. (3) Acute respiratory failure with hypoxemia Current Visit: Yes Status: Acute Etiology: Unclear. Chest x-ray shows probable early CHF with mild perihilar edema. ABG indicative of respiratory acidosis. D-dimer is elevated. CT chest negative for PE. Management per the primary team. (4) Lactic acidosis Current Visit: No Status: Resolved Likely secondary to right lower extremity cellulitis and sepsis. Resolved. (5) Acute kidney injury (nontraumatic) Current Visit: No Status: Resolved Etiology: Unclear. Likely secondary to sepsis plus vancomycin toxicity plus possible underlying CAD. Nephrology consult to assist with management. Resolved. Continue to trend. Dose adjust antibiotics and avoid nephrotoxins as able. (6) Anemia Current Visit: No Status: Acute Etiology: Unclear. No acute bleeding noted on exam. Heme/Onc consult to assist with management and workup. Qualifiers: Anemia type: iron deficiency Iron deficiency anemia type: chronic blood loss Qualified Code(s): D50.0 - Iron deficiency anemia secondary to blood loss (chronic) (7) Hyperbilirubinemia Current Visit: Yes Status: Acute Etiology: Unclear. AST, ALP, and alkaline phosphatase all are normal. Secondary to sepsis? Continue to trend. Repeat LFTs. GI consult. (8) Tinea pedis Current Visit: Yes Status: Acute Lamisil as above. Qualifiers: Laterality: bilateral Qualified Code(s): B35.3 - Tinea pedis (9) Morbid obesity with BMI of 60.0-69.9, adult Current Visit: Yes Status: Chronic - Subjective Interval history: Patient seen and examined sitting up in the bedside chair. No acute events noted overnight. Patient reports worsening of the RLE pain, redness and swelling overnight. Denies fevers, chills, or rigors. Denies chest pain, shortness of breath, or cough. Denies nausea, vomiting, or diarrhea. Reports last BM was yesterday. Denies any urinary complaints. She states she does feel swollen all over. She denies any oral thrush or new skin lesions. Infect Dis PN-Objective Data - Labs CBC & Chem 7: 08/13/18 04:21 08/13/18 04:21 Labs: Laboratory Results - last 24 hr 08/10/18 08/13/18 08/13/18 05:01 04:21 04:21 WBC 17.6 H RBC 4.18 Hgb 7.5 L Hct 28.5 L MCV 68.2 L MCH 17.9 L MCHC 26.3 L RDW 24.8 H Plt Count 263 MPV TNP Immature Gran % 6.9 H Seg Neutrophils % 70.5 Lymphocytes % 13.9 Monocytes % 7.5 Eosinophils % 0.9 Basophils % 0.3 Neutrophils # 12.4 H Lymphocytes # 2.5 Monocytes # 1.3 Eosinophils # 0.2 Basophils # 0.1 Nucleated RBCs/100 WBC 0.5 H Platelet Estimate Normal Hypochromasia Present A Anisocytosis 2+ A Microcytosis Present A Sodium 135 L Potassium 3.5 Chloride 96 L Carbon Dioxide 32 H BUN 9 Creatinine 0.71 Est GFR ( Amer) > 60 Est GFR (Non-Af Amer) > 60 BUN/Creatinine Ratio 13 Glucose 95 Calculated Osmolality 278 L Calcium 8.8 Parietal Cell IgG Ab 2.2 Cultures: Cultures 08/08/18 13:07 Blood Culture - Final Peripheral Venipuncture No growth. Final report. 08/08/18 13:07 Blood Culture - Final Peripheral Venipuncture No growth. Final report. 08/12/18 09:54 Blood Culture - Preliminary Peripheral Venipuncture Culture is incubating and being continuously monitored for growth. Final report to follow. 08/12/18 10:36 Blood Culture - Preliminary Peripheral Venipuncture Culture is incubating and being continuously monitored for growth. Final report to follow. 08/08/18 12:45 Urine Culture - Final Urine,Catheterized No growth. Serology 08/09/18 08/09/18 08/09/18 Range/Units 18:03 09:35 09:21 Urine Color (Yellow) Urine Clarity (Clear) Urine pH (5.0-8.0) pH Units Ur Specific [place] (1.010-1.025) Urine Protein (Neg-Trace) mg/dL Urine Glucose (UA) (Normal) mg/dL Urine Ketones (Negative) mg/dL Urine Blood (Negative) Urine Nitrite (Negative) Urine Bilirubin (Negative) Urine Urobilinogen (Normal) mg/dL Ur Leukocyte Esterase (Negative) Urine Microscopic RBC (0-3) per hpf Urine Microscopic WBC (0-3) per hpf Ur Eosinophil Smear 0 (None Seen) % Ur Squamous Epith Cells (None-Few) per lpf Urine Bacteria (None-Few) per hpf Urine Osmolality 303 (300-1090) mOsm/kg Urine Creatinine mg/dL Protein/Creatinin Ratio (0.00-0.20) mg/mg Urine Sodium mEq/L Urine Total Protein (1-14) mg/dL Stool Occult Blood Negative (Negative) Anti-Streptolysin O Ab (0-330) IU/mL 11/12/18 11/11/18 11/11/18 Range/Units 09:21 12:45 12:45 Urine Color [place] A (Yellow) Urine Clarity Turbid A (Clear) Urine pH 5.0 (5.0-8.0) pH Units Ur Specific [place] 1.024 (1.010-1.025) Urine Protein 100 H (Neg-Trace) mg/dL Urine Glucose (UA) Normal (Normal) mg/dL Urine Ketones Trace H (Negative) mg/dL Urine Blood Negative (Negative) Urine Nitrite Positive A (Negative) Urine Bilirubin Small H (Negative) Urine Urobilinogen Normal (Normal) mg/dL Ur Leukocyte Esterase Trace H (Negative) Urine Microscopic RBC 0-3 (0-3) per hpf Urine Microscopic WBC 15-30 H (0-3) per hpf Ur Eosinophil Smear (None Seen) % Ur Squamous Epith Cells Many H (None-Few) per lpf Urine Bacteria None Seen (None-Few) per hpf Urine Osmolality (300-1090) mOsm/kg Urine Creatinine 33 mg/dL Protein/Creatinin Ratio 0.91 H (0.00-0.20) mg/mg Urine Sodium 23.4 mEq/L Urine Total Protein 30 H (1-14) mg/dL Stool Occult Blood (Negative) Anti-Streptolysin O Ab (0-330) IU/mL 08/07/18 Range/Units 18:01 Urine Color (Yellow) Urine Clarity (Clear) Urine pH (5.0-8.0) pH Units Ur Specific [place] (1.010-1.025) Urine Protein (Neg-Trace) mg/dL Urine Glucose (UA) (Normal) mg/dL Urine Ketones (Negative) mg/dL Urine Blood (Negative) Urine Nitrite (Negative) Urine Bilirubin (Negative) Urine Urobilinogen (Normal) mg/dL Ur Leukocyte Esterase (Negative) Urine Microscopic RBC (0-3) per hpf Urine Microscopic WBC (0-3) per hpf Ur Eosinophil Smear (None Seen) % Ur Squamous Epith Cells (None-Few) per lpf Urine Bacteria (None-Few) per hpf Urine Osmolality (300-1090) mOsm/kg Urine Creatinine mg/dL Protein/Creatinin Ratio (0.00-0.20) mg/mg Urine Sodium mEq/L Urine Total Protein (1-14) mg/dL Stool Occult Blood (Negative) Anti-Streptolysin O Ab 412 H (0-330) IU/mL - Impressions Impressions Lower Extremity CT 08/11/18 11:43 IMPRESSION: 1. Circumferential superficial soft tissue edema in the right leg. No fluid collection or abscess on the noncontrast CT. 2. No intramuscular fluid. No acute osseus abnormality. D/ / 08/11/2018 13:07:41 Fernando Quiroga MD / preetrtsterling Interpreting Provider: Fernando Quiroga MD Abdomen/Pelvis CT 08/12/18 17:13 IMPRESSION: Moderate hepatosplenomegaly-of uncertain etiology. Few nonspecific mildly prominent retroperitoneal lymph nodes. No acute intra-abdominal or pelvic finding. Recently described subpleural nodule posterior aspect mid to lower left lung base not included on today's imaging field of view. D/ / Dixon Ortiz MD / Dixon Ortiz MD Interpreting Provider: Dixon Ortiz MD Exam - Constitutional Vitals: Temp Pulse Resp BP Pulse Ox 99 F 92 19 165/77 97 08/13/18 20:37 08/13/18 20:37 08/13/18 20:37 08/13/18 20:37 08/13/18 21:10 General appearance: cooperative, mild distress, no febrile - Eye Eye exam: Present: PERRL, sclera anicteric - Neck Neck exam: Present: full ROM. Absent: lymphadenopathy - Respiratory Respiratory exam: Present: CTAB. Absent: wheezes - Cardiovascular Cardiovascular exam: Present: RRR, +S1, +S2 - GI/Abdominal GI/Abdominal exam: Present: normal bowel sounds, soft. Absent: tenderness - Extremities Exam Additional comments: erythema slightly bettter. edema no change. still very tender. - Neurological Exam Neurological exam: Present: alert, oriented X3 Consult Discharge Plan - Plan Referrals: Nena Cody AREA SALES MANAGER [Advanced Practice Nurse] - 08/30/18 10:00 am
[2018-08-14] MEDS: Acetaminophen 325 MG TABLET PO PRN ×3 (03:17→16:17)
[2018-08-14] MEDS: Cefepime HCl 2,000 MG in 0.9 % Sodium Chloride Mini Bag 100 ML IVPB SCH ×2 (05:27→18:48)
[2018-08-14] MEDS: *HR* Heparin 5,000 UNIT/ML VIAL SQ SCH ×3 (05:28→21:15)
[2018-08-14 05:36] LABS: Eosinophils % 1.9 %; Nucleated Red Blood Cells 0.2 /100 WBC (0)
[2018-08-14 05:37] LABS: Basophils # 0.1 K/mcL (0.0-0.2); Basophils % 0.3 %; Eosinophils # 0.4 K/mcL (0.0-0.6); Hematocrit 27.7 % (35.3-44.9); Hemoglobin 7.4 g/dL (11.5-15.4); Immature Granulocytes % 8.4 % (0-4); Lymphocytes # 2.2 K/mcL (0.6-4.6); Lymphocytes % 11.6 %; Mean Corpuscular HGB Conc 26.7 g/dL (31.6-35.5); Mean Corpuscular Hemoglobin 18.1 pg (28.0-33.3); Mean Corpuscular Volume 67.9 fL (83.0-100.0); Monocytes # 1.3 K/mcL (0.0-1.3); Monocytes % 6.6 %; Neutrophils # 13.7 K/mcL (1.6-8.9); Platelet Count 289 K/mcL (140-400); Red Blood Count 4.08 M/mcL (3.82-4.97); Red Cell Distribution Width 25.5 % (11.5-14.5); Segmented Neutrophils % 71.2 %
[2018-08-14 05:48] LABS: BUN/Creatinine Ratio 11 (6-26); Blood Urea Nitrogen 9 mg/dL (6-20); Calcium 8.8 mg/dL (8.6-10.3); Carbon Dioxide 29 mEq/L (23-29); Chloride 97 mEq/L (98-107); Glucose 113 mg/dL (70-105); Osmolality,Calculated 277 (280-300); Potassium 3.5 mEq/L (3.5-5.1); Sodium 134 mEq/L (136-145); eGFR For Non-African Americans > 60 (> 60)
[2018-08-14 06:20] LABS: Hypochromasia Present (Not Present)
[2018-08-14 06:21] LABS: Anisocytosis 3+ (Not Present); Large Platelets Present (Not Present); Platelet Estimate Normal (Normal)
[2018-08-14] MEDS: Folic Acid 1 MG TABLET PO SCH (08:06)
[2018-08-14] MEDS: Furosemide 40 MG TABLET PO SCH ×2 (08:07→16:17)
[2018-08-14] MEDS: MOM Conc 10 ML UD.LIQ PO SCH (08:07)
[2018-08-14] MEDS: Clotrimazole 1% CRM 15 GM TUBE TP SCH ×2 (08:07→19:58)
[2018-08-14 12:42] LABS: Hepatitis A Antibody IgM Nonreactive (Nonreactive); Hepatitis B Core IgM Nonreactive (Nonreactive); Hepatitis B Surface Antigen Nonreactive (Nonreactive); Hepatitis C Virus Antibody Nonreactive (Nonreactive)
[2018-08-14] MEDS: traMADol 50 MG TABLET PO PRN ×2 (14:13→21:14)
--- NOTE | 2018-08-14 15:19 | Internal Med Progress Note ---
Hospitalist Progress Note - Encounter Date of Encounter: 08/14/18 Time of Encounter: 09:30 - Subjective Interval History: awake in bed. denies fevers or chills, le pain is tolerable, worse with movement. denies any sob, cough, wheezing, no abd pain, hematuria, nausea or emesis. lengthy discuss with pt regarding the recommendation for transfer for availa bility of derm, rheum and second opinions from other specialities, at the recommendation of myself and Dr Thomas. Explained complicated nature of her illness given refractory to treatment and her admissionrevelaing pulm, renal, disease as well as imaing revealing LAD, HSM. Explained there is no heather ilability of derm or rheum despite us trying yesterday to consult and that gi is also not here on the weekend. Agree she is stable at this time, however, she is not improving and there are no treatment changes aanyone has to recommend today. She verbalized good understanding but does not want to transfer. She notes family/social hardship and to be in [facility] would make things "impossible", she understand risk of not having access to assistance this weekend and prolonged course with many complications and cannot be certain she would not become unstable this weekend. She still declines transfer and would like to stay here with multiple teams consulted on Thursday. She will speak with family and let us know if she changes her mind. - Exam Vitals: Temp Pulse Resp BP Pulse Ox 98.2 F 86 18 161/79 94 08/14/18 07:24 08/14/18 07:24 08/14/18 07:24 08/14/18 07:24 08/14/18 07:24 Exam: gen- awake, alert, appears stated age, comfortable appearing eyes- pupils equal round , no conjunctival pallor or scleral icterus cv- reg rate and rhythm, normal s1,s2, no murmurs appreciated, dependent le edema, non pitting lungs- ctabl, no wheezing, rhonchi or crackles, normal resp effort on ra abd- soft, non tender, non distended, + bs skin- rle bright erythema to knee, line marked and rnow slightly receded form line, no change + warmth, no wound, no drainage neuro- AAOx3 given her body habitus no lymph node palpation can be obtained in the neck, axilla or groin - Assessment and Plan (1) Severe sepsis with acute organ dysfunction due to group A Streptococcus Current Visit: Yes Status: Suspected Assessment and Plan: Severe sepsis due to cellulitis RLE Sepsis resolved Cellulitis has been persistent without significant change despite abx treatment, inclduing broadening of treatment -no dvts on le us, gas or fluid collections on initial 08/08 cT leg or repeats 08/11 -id has been following closely and i personally discussed with dr Thomas 08/12: this is beginning to now seem to not be bacterial in nature and given her other systemic findings there is a possibly this could be related to a rheum etiology, perhaps vasculitis localized to this leg, fungal infection, or with ct a/p findings perhaps obstructive in nature -we have discussed among all teams today and are currently awaiting oncology recs with new results today -we had requested derm consult, however they are unable to see her today and Dr Thomas agrees rheum may be more appropriate -Rheum consulted and not in today or throughout weekend, therefore earliest to be seen is thursday -lengthy discussion 08/14 and she is NOT agreeable to transfer due to family/social barriers and wants to stay here and await thursday evals by rheum, derm and gi -cont current iv abx, clinda dc by ID to avoid c diff given no improvement with it (2) Cellulitis of right lower extremity Current Visit: Yes Status: Acute Assessment and Plan: see above (3) Acute kidney injury (nontraumatic) Current Visit: No Status: Resolved Assessment and Plan: HAZEL suspected to be prerenal 2/2 sepsis, resolved- nephro followed, diuresis as per nephro PO -renal us without hydronephrosis (4) Anemia Current Visit: No Status: Acute Assessment and Plan: Mixed acute anemia with iron, folate and B12 deficiency and work up to ruled out hemolytic anemia -heme/onc following , hgb cont to slowly downtrend -addl testing ordered by heme and pending -cT with splenomegaly -IV venofer, IM B12,folate as per heme -cont to monitor hgb, transfuse for hgb <7 (5) Morbid obesity with BMI of 60.0-69.9, adult Current Visit: Yes Status: Chronic Assessment and Plan: - Patient has a BMI of 62.5. - Counselled on better dietary choices. (6) Iron deficiency anemia Current Visit: Yes Status: Suspected Assessment and Plan: - Patient was admitted with iron less than 10. Transferring 258, Normal Ferritin - treatment as above fobt neg (7) Acute respiratory failure with hypoxemia Current Visit: Yes Status: Acute Assessment and Plan: Acute hypercarbic and hypoxic resp failure most likely due to pulmonary edema - resolved CXR with pulm vasc congestion, no identifiable infectious cause, no dvts in bl le on admission, no pe on cta -cont oral diuresis -echo 08/11 mild to mod pulm htn, normal ef -needs outpt pfts and sleep study as well, suspect gretchen, and will need o2 home eval prior to dc -cont to monitor (8) Folate deficiency Current Visit: Yes Status: Chronic (9) HTN (hypertension) Current Visit: Yes Status: Acute Assessment and Plan: HTN with continually elevated bps cont BB, cont pain control, adjust futher as needed, will require outpt fu (10) Lung nodule Current Visit: Yes Status: Acute Assessment and Plan: Incidental nodule on CTA- Benign-appearing nodule in the subpleural left lower lobe, possibly a solitary fibrous tumor of the pleura or healing granuloma or less likely a pulmonary hamartoma. follow-up CT in 3-6 months. (11) Hepatosplenomegaly Current Visit: Yes Status: Acute Assessment and Plan: Incidental hepatic Steatosis on CTA with INR that was elevated this admit but downtrended and indirect hyerpbilirubinemia which also ahs decreased this admi ssion- -ct a/p 08/12 read finalized and shows hepatomegaly as well -there has been no emergent need for gi consult this admit, but it is becoming apparent with further work up she would benefit from one, there is no coverage for gi over the weekend, consult thursday - ?LAD, lymphoproliferative disorder , onc believes is reactive and not related (12) Retroperitoneal lymphadenopathy Current Visit: Yes Status: Acute Assessment and Plan: LAD on cT a/p- ordered by oncology , initially our team received a call from rads noting significant right sided inguinal lad that may be obstructing flow, later read was not nearly as significant, reviewed by various team, dr Sales believes more likely reactive and no need to bx DVT Prophylaxis: hep sq - Time Spent with Patient Total time spent is greater than 50% in coordination of care (as documented) at patient's floor/unit and/or counseling patient: Greater than 35 minutes Internal Medicine: Result - Labs CBC & Chem 7: 08/14/18 04:53 08/14/18 04:53 Labs: Short CBC 08/14/18 Range/Units 04:53 WBC 19.2 H (4.3-11.1) K/mcL Hgb 7.4 L (11.5-15.4) g/dL Hct 27.7 L (35.3-44.9) % Plt Count 289 (140-400) K/mcL Neutrophils # 13.7 H (1.6-8.9) K/mcL BMP 08/14/18 04:53 Sodium 134 L Potassium 3.5 Chloride 97 L Carbon Dioxide 29 BUN 9 Creatinine 0.79 Glucose 113 H Calcium 8.8 - ABG Interpretation ABG results: ABG ABG pH 7.24 pH Units (7.32-7.45) L 08/09/18 08:48 ABG pCO2 68 mmHg (35-45) H 08/09/18 08:48 ABG pO2 58 mmHg (85-104) L D 08/09/18 08:48 ABG O2 Saturation 84 % (95-98) L 08/09/18 08:48 PT/INR, D-dimer PT 15.2 Seconds (9.4-12.1) H 08/12/18 07:19 Consult Discharge Plan - Plan Referrals: Nena Cody BUTCHERETTE [Advanced Practice Nurse] - 08/30/18 10:00 am (4) Anemia Qualifiers: Anemia type: iron deficiency Iron deficiency anemia type: chronic blood loss Qualified Code(s): D50.0 - Iron deficiency anemia secondary to blood loss (chronic) (6) Iron deficiency anemia Qualifiers: Iron deficiency anemia type: chronic blood loss Qualified Code(s): D50.0 - Iron deficiency anemia secondary to blood loss (chronic)
[2018-08-15] MEDS: Cefepime HCl 2,000 MG in 0.9 % Sodium Chloride Mini Bag 100 ML IVPB SCH ×2 (05:02→16:52)
[2018-08-15] MEDS: *HR* Heparin 5,000 UNIT/ML VIAL SQ SCH (05:02)
[2018-08-15] MEDS: traMADol 50 MG TABLET PO PRN ×3 (05:11→21:05)
[2018-08-15 06:56] LABS: Hemoglobin 6.8 g/dL (11.5-15.4)
[2018-08-15 06:57] LABS: Basophils # 0.1 K/mcL (0.0-0.2); Basophils % 0.3 %; Eosinophils # 0.5 K/mcL (0.0-0.6); Eosinophils % 2.5 %; Hematocrit 25.4 % (35.3-44.9); Immature Granulocytes % 7.1 % (0-4); Lymphocytes # 2.1 K/mcL (0.6-4.6); Lymphocytes % 10.3 %; Mean Corpuscular HGB Conc 26.8 g/dL (31.6-35.5); Mean Corpuscular Hemoglobin 18.3 pg (28.0-33.3); Mean Corpuscular Volume 68.3 fL (83.0-100.0); Monocytes # 1.1 K/mcL (0.0-1.3); Monocytes % 5.5 %; Nucleated Red Blood Cells 0.3 /100 WBC (0); Platelet Count 287 K/mcL (140-400); Red Blood Count 3.72 M/mcL (3.82-4.97); Red Cell Distribution Width 26.2 % (11.5-14.5); Segmented Neutrophils % 74.3 %
[2018-08-15 07:02] LABS: INR 1.4; Prothrombin Time 15.4 Seconds (9.4-12.1)
[2018-08-15 07:14] LABS: Neutrophils # 14.9 K/mcL (1.6-8.9)
[2018-08-15 07:17] LABS: Alanine Aminotransferase 44 Units/L (7-52); Albumin 2.9 g/dL (3.5-5.7); Albumin/Globulin Ratio 0.6 (1.1-2.2); Alkaline Phosphatase 112 Units/L (34-104); Aspartate Amino Transferase 17 Units/L (13-39); BUN/Creatinine Ratio 13 (6-26); Bilirubin,Total 1.1 mg/dL (0.3-1.0); Blood Urea Nitrogen 11 mg/dL (6-20); Calcium 8.6 mg/dL (8.6-10.3); Carbon Dioxide 28 mEq/L (23-29); Chloride 98 mEq/L (98-107); Globulin 4.5 g/dL (2.4-3.5); Glucose 115 mg/dL (70-105); Osmolality,Calculated 280 (280-300); Potassium 3.5 mEq/L (3.5-5.1); Sodium 135 mEq/L (136-145); Total Protein 7.4 g/dL (6.4-8.9); eGFR For Non-African Americans > 60 (> 60)
[2018-08-15 07:45] LABS: Anisocytosis 1+ (Not Present)
[2018-08-15 07:46] LABS: Hypochromasia Present (Not Present); Stomatocytes 1+ (Not Present)
[2018-08-15] MEDS: Acetaminophen 325 MG TABLET PO PRN ×2 (08:37→16:51)
[2018-08-15] MEDS: MOM Conc 10 ML UD.LIQ PO SCH (08:37)
[2018-08-15] MEDS: Furosemide 40 MG TABLET PO SCH ×2 (08:39→16:52)
[2018-08-15] MEDS: Folic Acid 1 MG TABLET PO SCH (08:39)
--- NOTE | 2018-08-15 13:07 | Internal Med Progress Note ---
Hospitalist Progress Note - Encounter Date of Encounter: 08/15/18 Time of Encounter: 08:45 - Subjective Interval History: awake in bed. denies fevers or chills, + rle pain today but believes it is related to sitting in chair all day without elevating it. cont to have no sob, wheezing or cough. hgb is 6.8 today, she is tired but has no sob, lightheadedne ss, dizziness, cp. She has felt generally fatigued, no more so today. Denies again any hematuria, melena or hematochezia, no menses currently. she has decided to decline transfer to another facility and wants additional consults placed thursday as we had discussed. RN at bedside, and rle no appears to be somewhat seeping on the castellon, rn to collect wound culture. ideally she would receive 1 unit prbc today which she is agreeable to, however, IV access was lost last night, with incredible amount of attempts and with with US, with peripheral IV needing to be placed by anesthesia. It is a 22 gauge and per protocol blood cannot be run through it as per staff. Very unfortunately PICC team not available and given her stability would not place cvc for blood transfusion at this time without any active bleeding. Risk vs benefit as discussed is to cont IV abx and not lose access while awaiting picc in am - Exam Vitals: Temp Pulse Resp BP Pulse Ox 98.1 F 77 18 144/61 96 08/15/18 11:45 08/15/18 11:45 08/15/18 11:45 08/15/18 11:45 08/15/18 11:45 Exam: gen- awake, alert, appears stated age, comfortable appearing eyes- pupils equal round , no conjunctival pallor cv- reg rate and rhythm, normal s1,s2, no murmurs appreciated, dependent le edema, non pitting lungs- ctabl, no wheezing, rhonchi or crackles, normal resp effort on ra abd- soft, non tender, non distended, + bs, cannot appreciate HSM given body habitus skin- rle bright erythema to knee, line marked and slightly receded form line, no change + warmth, no wound, but now very scant drainage from mid castellon neuro- AAOx3 given her body habitus no lymph node palpation can be obtained in the neck, axilla or groin - Assessment and Plan (1) Severe sepsis with acute organ dysfunction due to group A Streptococcus Current Visit: Yes Status: Suspected Assessment and Plan: Severe sepsis due to cellulitis RLE Sepsis resolved Cellulitis has been persistent without significant change despite abx treatment, inclduing broadening of treatment -no dvts on le us, gas or fluid collections on initial 08/08 cT leg or repeats 08/11 -id has been following closely and i personally discussed with dr Thomas 08/12: this is beginning to now seem to not be bacterial in nature and given her other systemic findings there is a possibly this could be related to a rheum etiology, perhaps vasculitis localized to this leg, fungal infection, or with ct a/p findings perhaps obstructive in nature -we have discussed among all teams today and are currently awaiting oncology recs with new results today -we had requested derm consult, however they are unable to see her today and Dr Thomas agrees rheum may be more appropriate -Rheum consulted and not in today or throughout weekend, therefore earliest to be seen is thursday -lengthy discussion 08/14 and she is NOT agreeable to transfer due to family/social barriers and wants to stay here and await thursday evals by rheum, derm and gi -cont current iv abx, clinda dc by ID to avoid c diff given no improvement with it -send wound cx today ass castellon appears to have very scant drainage (2) Cellulitis of right lower extremity Current Visit: Yes Status: Inactive Assessment and Plan: see above (3) Acute kidney injury (nontraumatic) Current Visit: No Status: Inactive Assessment and Plan: HAZEL suspected to be prerenal 2/2 sepsis, resolved- nephro followed, diuresis as per nephro PO -renal us without hydronephrosis (4) Anemia Current Visit: No Status: Inactive Assessment and Plan: Mixed acute anemia with iron, folate and B12 deficiency and work up to ruled out hemolytic anemia -heme/onc following , hgb cont to slowly downtrend -addl testing ordered by heme and pending -cT with splenomegaly -IV venofer, IM B12,folate as per heme -hgb to 6.8 this morning, without VS changes or clinical change, 1 unit prbc ordered but does not have appropraite access to run blood. We are grateful to have peripheral iv placed by amber yesterday evening when she lost access so that she may remin of iv abx. given her stability, risk vs benefit, would not place emergent cvc for prbc today. If clinical picutre, VS change or she develops active bleeding, then she would be a cvc candidate. Will hold on transfuion. picc in am and then will give unit if hgb remains < 7 (5) Morbid obesity with BMI of 60.0-69.9, adult Current Visit: Yes Status: Chronic Assessment and Plan: - Patient has a BMI of 62.5. - Counselled on better dietary choices. (6) Iron deficiency anemia Current Visit: Yes Status: Suspected Assessment and Plan: - Patient was admitted with iron less than 10. Transferring 258, Normal Ferritin - treatment as above fobt neg (7) Acute respiratory failure with hypoxemia Current Visit: Yes Status: Resolved Assessment and Plan: Acute hypercarbic and hypoxic resp failure most likely due to pulmonary edema - resolved CXR with pulm vasc congestion, no identifiable infectious cause, no dvts in bl le on admission, no pe on cta -cont oral diuresis -echo 08/11 mild to mod pulm htn, normal ef -needs outpt pfts and sleep study as well, suspect gretchen, and will need o2 home eval prior to dc (8) Folate deficiency Current Visit: Yes Status: Chronic Assessment and Plan: - folic acid supplements for her folate deficiency (9) HTN (hypertension) Current Visit: Yes Status: Acute Assessment and Plan: HTN improved with labetalol dose adjustment, cont current dose, aware this is not first line htn treatment but given her current comorbidities BB was found to be least offensive and she is tolerating it well will require outpt fu (10) Lung nodule Current Visit: Yes Status: Acute Assessment and Plan: Incidental nodule on CTA- Benign-appearing nodule in the subpleural left lower lobe, possibly a solitary fibrous tumor of the pleura or healing granuloma or less likely a pulmonary hamartoma. follow-up CT in 3-6 months. (11) Hepatosplenomegaly Current Visit: Yes Status: Acute Assessment and Plan: Incidental hepatic Steatosis on CTA with INR that was elevated this admit but downtrended and indirect hyerpbilirubinemia which also ahs decreased this admission- -ct a/p 08/12 read finalized and shows hepatomegaly as well -there has been no emergent need for gi consult this admit, but it is becoming apparent with further work up she would benefit from one, there is no coverage for gi over the weekend, consult thursday - ?LAD, lymphoproliferative disorder , onc believes is reactive and not related (12) Retroperitoneal lymphadenopathy Current Visit: Yes Status: Acute Assessment and Plan: LAD on cT a/p- ordered by oncology , initially our team received a call from rads noting significant right sided inguinal lad that may be obstructing flow, later read was not nearly as significant, reviewed by various team, dr Sales believes more likely reactive and no need to bx DVT Prophylaxis: hep sq given hgb, hold further doses today, scd to left leg/foot - Time Spent with Patient Total time spent is greater than 50% in coordination of care (as documented) at patient's floor/unit and/or counseling patient: 25 - 35 minutes Plan of Care Discussed with: patient Internal Medicine: Result - Labs CBC & Chem 7: 08/15/18 06:36 08/15/18 06:36 Labs: Short CBC 08/15/18 Range/Units 06:36 WBC 20.1 H (4.3-11.1) K/mcL Hgb 6.8 L (11.5-15.4) g/dL Hct 25.4 L (35.3-44.9) % Plt Count 287 (140-400) K/mcL Neutrophils # 14.9 H (1.6-8.9) K/mcL BMP 08/15/18 06:36 Sodium 135 L Potassium 3.5 Chloride 98 Carbon Dioxide 28 BUN 11 Creatinine 0.86 Glucose 115 H Calcium 8.6 Liver Function 08/15/18 Range/Units 06:36 Total Bilirubin 1.1 H (0.3-1.0) mg/dL AST 17 (13-39) Units/L ALT 44 (7-52) Units/L Alkaline Phosphatase 112 H (34-104) Units/L Albumin 2.9 L (3.5-5.7) g/dL - ABG Interpretation ABG results: ABG ABG pH 7.24 pH Units (7.32-7.45) L 08/09/18 08:48 ABG pCO2 68 mmHg (35-45) H 08/09/18 08:48 ABG pO2 58 mmHg (85-104) L D 08/09/18 08:48 ABG O2 Saturation 84 % (95-98) L 08/09/18 08:48 PT/INR, D-dimer PT 15.4 Seconds (9.4-12.1) H 08/15/18 06:36 Consult Discharge Plan - Plan Referrals: Nena Cody HEATER ENGINEER HELPER [Advanced Practice Nurse] - 08/30/18 10:00 am (4) Anemia Qualifiers: Anemia type: iron deficiency Iron deficiency anemia type: chronic blood loss Qualified Code(s): D50.0 - Iron deficiency anemia secondary to blood loss (chronic) (6) Iron deficiency anemia Qualifiers: Iron deficiency anemia type: chronic blood loss Qualified Code(s): D50.0 - Iron deficiency anemia secondary to blood loss (chronic) (9) HTN (hypertension) Qualifiers: Hypertension type: unspecified Qualified Code(s): I10 - Essential (primary) hypertension
--- NOTE | 2018-08-15 16:02 | Oncology Inp Progress Note ---
Date of Encounter: 08/15/18 Time of Encounter: 08:00 (1) Anemia Current Visit: Yes Status: Acute Assessment and plan: anemia-cr inflammation, ac infection related, steady, transfuse for slow decline. She is taking abx due to limited access. She has been supplemented IV iron, B12 Leucocytosis, improved since admission. reactive, demargination--PS showing band forms, vaculations, left shift, metamyelocytes. HSM,-morbidly obese body habitus adenopathy abdomen-boderline, likely reactive. Defer bx due to cellulitis/concurrent infective process. RAsh in rt lower ext with wamth, tenderness, erythema-wound cx from open area. Vancomycin, cefipime broad spectrum coverage. Qualifiers: Anemia type: other cause Other causes of anemia: chronic disease, other Qualified Code(s): D63.8 - Anemia in other chronic diseases classified elsewhere Oncology: Subj Interval history: Reports discomfort rt leg and swelling - Constitutional Vitals: Vital Signs Temp Pulse Resp BP Pulse Ox 08/15/18 11:45 98.1 F 77 18 144/61 96 08/15/18 07:23 98.0 F 84 17 145/62 99 08/15/18 04:00 98.3 F 83 15 135/58 95 08/15/18 00:02 97.9 F 88 18 154/72 95 08/14/18 19:57 98.3 F 91 18 155/72 95 08/14/18 19:52 95 08/14/18 16:15 98.1 F 91 18 158/75 93 Intake and Output 08/14/18 08/15/18 08/15/18 23:59 07:59 15:59 Intake Total 690 / 690 700 / 700 360 / 360 Output Total 1300 / 1300 Balance 690 / 690 -600 / -600 360 / 360 Intake: IV Fluids 350 / 350 100 / 100 Maxipime 2,000 MG In 0.9 % 100 / 100 100 / 100 Sodium Chloride (Mini-Bag +) 100 ML @ 200 mls/hr IVPB Q12HR ROHINI Rx#:[id number] Vancocin 1,500 MG In 0.9 % 250 / 250 Sodium Chloride 250 ML @ 166.67 mls/hr IVPB Q12H ROHINI Rx#: [id number] Oral 340 / 340 600 / 600 360 / 360 Output: Urine 1300 / 1300 Other: Meal Dinner Lunch Percent of Meal Consumed 85% 100% Stool Size Moderate Stool Consistency loose Stool Color Brown Green # Voids 0 0 # Bowel Movements 1 Weight 200.4 kg Patient Weight 08/15/18 23:59 Weight 200.4 kg General appearance: morbidly obese, no acute distress - Head Head exam: Present: atraumatic, normal inspection - Eye Eye exam: Present: sclera anicteric - Neck Neck exam: Present: full ROM - Cardiovascular Cardiovascular exam: Present: +S1, +S2 - Extremities Exam Additional comments: lymphedema, cellulitis, warmth redness rt leg - Neurological Exam Neurological exam: Present: alert, oriented X3, no focal deficits Oncology: Obj Data - Labs CBC & Chem 7: 08/15/18 06:36 08/15/18 06:36 Labs: Laboratory Results - last 24 hr 08/14/18 08/15/18 08/15/18 18:06 06:36 06:36 WBC 20.1 H RBC 3.72 L Hgb 6.8 L Hct 25.4 L MCV 68.3 L MCH 18.3 L MCHC 26.8 L RDW 26.2 H Plt Count 287 MPV TNP Immature Gran % 7.1 H Seg Neutrophils % 74.3 Lymphocytes % 10.3 Monocytes % 5.5 Eosinophils % 2.5 Basophils % 0.3 Neutrophils # 14.9 H Lymphocytes # 2.1 Monocytes # 1.1 Eosinophils # 0.5 Basophils # 0.1 Nucleated RBCs/100 WBC 0.3 H Hypochromasia Present A Anisocytosis 1+ A Stomatocytes 1+ A PT 15.4 H INR 1.4 Sodium Potassium Chloride Carbon Dioxide BUN Creatinine Est GFR ( Amer) Est GFR (Non-Af Amer) BUN/Creatinine Ratio Glucose Calculated Osmolality Calcium Magnesium Total Bilirubin AST ALT Alkaline Phosphatase Serum Total Protein Albumin Globulin Albumin/Globulin Ratio Vancomycin Trough 16 H 08/15/18 06:36 WBC RBC Hgb Hct MCV MCH MCHC RDW Plt Count MPV Immature Gran % Seg Neutrophils % Lymphocytes % Monocytes % Eosinophils % Basophils % Neutrophils # Lymphocytes # Monocytes # Eosinophils # Basophils # Nucleated RBCs/100 WBC Hypochromasia Anisocytosis Stomatocytes PT INR Sodium 135 L Potassium 3.5 Chloride 98 Carbon Dioxide 28 BUN 11 Creatinine 0.86 Est GFR ( Amer) > 60 Est GFR (Non-Af Amer) > 60 BUN/Creatinine Ratio 13 Glucose 115 H Calculated Osmolality 280 Calcium 8.6 Magnesium 2.0 Total Bilirubin 1.1 H AST 17 ALT 44 Alkaline Phosphatase 112 H Serum Total Protein 7.4 Albumin 2.9 L Globulin 4.5 H Albumin/Globulin Ratio 0.6 L Vancomycin Trough - ABG Interpretation ABG results: ABG ABG pH 7.24 pH Units (7.32-7.45) L 08/09/18 08:48 ABG pCO2 68 mmHg (35-45) H 08/09/18 08:48 ABG pO2 58 mmHg (85-104) L D 08/09/18 08:48 ABG O2 Saturation 84 % (95-98) L 08/09/18 08:48 PT/INR, D-dimer PT 15.4 Seconds (9.4-12.1) H 08/15/18 06:36 Consult Discharge Plan - Plan Referrals: Nena Cody AUTOMATIC GLUING MACHINE OPERATOR [Advanced Practice Nurse] - 08/30/18 10:00 am
[2018-08-15 16:51] LABS: PNH Monocytes Percent 0.002 % (0.000-0.019); PNH PMNs Percent 0.001 % (0.000-0.004)
[2018-08-15] MEDS: Clotrimazole 1% CRM 15 GM TUBE TP SCH ×2 (16:52→21:06)
[2018-08-16 02:09] LABS: Alpha 2 Globulin (PEP) 1.09 g/dL (0.48-1.05); Beta Globulin (PEP) 0.86 g/dL (0.48-1.10)
[2018-08-16] MEDS: traMADol 50 MG TABLET PO PRN ×3 (03:06→14:47)
[2018-08-16] MEDS: Cefepime HCl 2,000 MG in 0.9 % Sodium Chloride Mini Bag 100 ML IVPB SCH ×2 (05:37→20:02)
[2018-08-16 06:06] LABS: Basophils # 0.1 K/mcL (0.0-0.2); Basophils % 0.3 %; Eosinophils # 0.5 K/mcL (0.0-0.6); Eosinophils % 2.5 %; Hematocrit 25.7 % (35.3-44.9); Hemoglobin 6.7 g/dL (11.5-15.4); Immature Granulocytes % 4.5 % (0-4); Lymphocytes # 1.7 K/mcL (0.6-4.6); Lymphocytes % 8.5 %; Mean Corpuscular HGB Conc 26.1 g/dL (31.6-35.5); Mean Corpuscular Volume 68.9 fL (83.0-100.0); Mean Platelet Volume 10.5 fL (9.4-12.4); Monocytes # 1.1 K/mcL (0.0-1.3); Monocytes % 5.8 %; Neutrophils # 15.3 K/mcL (1.6-8.9); Nucleated Red Blood Cells 0.1 /100 WBC (0); Platelet Count 310 K/mcL (140-400); Red Blood Count 3.73 M/mcL (3.82-4.97); Red Cell Distribution Width 26.5 % (11.5-14.5); Segmented Neutrophils % 78.4 %
[2018-08-16 06:25] LABS: Alanine Aminotransferase 36 Units/L (7-52); Albumin 2.8 g/dL (3.5-5.7); Albumin/Globulin Ratio 0.6 (1.1-2.2); Alkaline Phosphatase 108 Units/L (34-104); Aspartate Amino Transferase 14 Units/L (13-39); BUN/Creatinine Ratio 14 (6-26); Bilirubin,Total 0.9 mg/dL (0.3-1.0); Blood Urea Nitrogen 13 mg/dL (6-20); Calcium 8.4 mg/dL (8.6-10.3); Carbon Dioxide 30 mEq/L (23-29); Chloride 99 mEq/L (98-107); Globulin 4.6 g/dL (2.4-3.5); Glucose 99 mg/dL (70-105); Osmolality,Calculated 280 (280-300); Potassium 3.9 mEq/L (3.5-5.1); Sodium 135 mEq/L (136-145); Total Protein 7.4 g/dL (6.4-8.9); eGFR For Non-African Americans > 60 (> 60)
[2018-08-16] MEDS: Acetaminophen 325 MG TABLET PO PRN (06:42)
[2018-08-16 07:08] LABS: Anisocytosis 1+ (Not Present); Hypochromasia Present (Not Present)
[2018-08-16 07:09] LABS: Platelet Estimate Normal (Normal); Polychromasia 1+ (Not Present)
[2018-08-16] MEDS: MOM Conc 10 ML UD.LIQ PO SCH (08:19)
[2018-08-16] MEDS: Folic Acid 1 MG TABLET PO SCH (08:19)
[2018-08-16] MEDS: Furosemide 40 MG TABLET PO SCH ×2 (08:21→20:02)
[2018-08-16] MEDS: Clotrimazole 1% CRM 15 GM TUBE TP SCH (08:22)
--- NOTE | 2018-08-16 09:29 | Internal Med Progress Note ---
<Fahad Young - Last Filed: 08/16/18 16:06> Hospitalist Progress Note - Encounter Date of Encounter: 08/16/18 Time of Encounter: 09:15 - Subjective Interval History: Patient seen and evaluated in chair next to bed. She is awaiting picc line prior to transfusion. She says her leg is continuing to weep, she is s/p wound culture yesterday. Today she denies fever, dizziness, shortness of breath. Denies bleed when urinating/defecating/has history of irregular menses but not currently having menses. - Exam Vitals: Temp Pulse Resp BP Pulse Ox 98.3 F 82 17 149/58 95 08/16/18 07:23 08/16/18 07:23 08/16/18 07:23 08/16/18 07:23 08/16/18 07:23 Exam: gen- awake, alert, appears stated age, comfortable appearing, central obesity eyes- pupils equal round , no conjunctival pallor cv- reg rate and rhythm, normal s1,s2, no murmurs appreciated, dependent le edema, non pitting lungs- ctabl, no wheezing, rhonchi or crackles, normal resp effort on ra abd- soft, non tender, non distended, + bs, cannot appreciate HSM given body habitus skin- 5x5cm area of erythema over RLE, bluish tattoo is noted (old) in vicinity no change + warmth, no wound, but now trace weeping from mid castellon palpable dorsalis pedis pulse given her body habitus no lymph node palpation can be obtained in the neck, axilla or groin - Assessment and Plan (1) Severe sepsis Current Visit: Yes Status: Acute Assessment and Plan: Current Visit: Yes Status: Suspected Assessment and Plan: Severe sepsis due to cellulitis RLE Sepsis resolved Cellulitis has been persistent without significant change despite abx treatment, including broadening of treatment -no dvts on le us, gas or fluid collections on initial 08/08 cT leg or repeats 08/11 -id has been following closely and i personally discussed with dr Thomas 08/12: this is beginning to now seem to not be bacterial in nature and given her other systemic findings there is a possibly this could be related to a rheum etiology, perhaps vasculitis localized to this leg, fungal infection, or with ct a/p findings perhaps obstructive in nature -we have discussed among all teams today and are currently awaiting further oncology recs -attending discussion with derm, consulted -Rheum consulted, appreciate recommendations -lengthy discussion 08/14 and she is NOT agreeable to transfer due to family/social barriers and wants to stay here and await thursday evals by rheum, bogdan and gi -cont current iv abx, clinda dc by ID to avoid c diff given no improvement with it -Wound culture sent yesterday specimen from scant drainage from the patient's castellon (2) Cellulitis of right lower extremity Current Visit: Yes Status: Inactive Assessment and Plan: Please see above (3) Acute kidney injury (nontraumatic) Current Visit: No Status: Inactive Assessment and Plan: HAZEL suspected to be prerenal 2/2 sepsis, resolved- nephro followed, diuresis as per nephro PO -renal us without hydronephrosis (4) Anemia Current Visit: No Status: Inactive Assessment and Plan: Mixed acute anemia with iron, folate and B12 deficiency and work up to ruled out hemolytic anemia -heme/onc following , hgb cont to slowly downtrend -addl testing ordered by heme and pending -cT with splenomegaly -IV venofer, IM B12,folate as per heme -hgb to 6.8 this morning, without VS changes or clinical change, 1 unit prbc ordered transfusion to be done after PICC placed. (5) Morbid obesity with BMI of 60.0-69.9, adult Current Visit: Yes Status: Chronic Assessment and Plan: - Patient has a BMI of 62.5. - Counselled on better dietary choices. (6) Iron deficiency anemia Current Visit: Yes Status: Suspected Assessment and Plan: - Patient was admitted with iron less than 10. Transferring 258, Normal Ferritin - treatment as above fobt neg (7) Acute respiratory failure with hypoxemia Current Visit: Yes Status: Resolved Assessment and Plan: Acute hypercarbic and hypoxic resp failure most likely due to pulmonary edema - resolved CXR with pulm vasc congestion, no identifiable infectious cause, no dvts in bl le on admission, no pe on cta -cont oral diuresis -echo 08/11 mild to mod pulm htn, normal ef -needs outpt pfts and sleep study as well, suspect gretchen, and will need o2 home eval prior to dc (8) Folate deficiency Current Visit: Yes Status: Chronic Assessment and Plan: - folic acid supplements for her folate deficiency (9) HTN (hypertension) Current Visit: Yes Status: Acute Assessment and Plan: HTN improved with labetalol dose adjustment, cont current dose, aware this is not first line htn treatment but given her current comorbidities BB was found to be least offensive and she is tolerating it well will require outpt fu (10) Lung nodule Current Visit: Yes Status: Acute Assessment and Plan: Incidental nodule on CTA- Benign-appearing nodule in the subpleural left lower lobe, possibly a solitary fibrous tumor of the pleura or healing granuloma or less likely a pulmonary hamartoma. follow-up CT in 3-6 months. 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 -GI consulted will see patient with liver ultrasound and liver workup (12) Retroperitoneal lymphadenopathy Current Visit: Yes Status: Acute Assessment and Plan: LAD on cT a/p- ordered by oncology , initially our team received a call from rads noting significant right sided inguinal lad that may be obstructing flow, later read was not nearly as significant, reviewed by various team, dr Sales believes more likely reactive and no need to bx DVT Prophylaxis: hep sq given hgb, hold further doses today, scd to left leg/foot - Time Spent with Patient Total time spent is greater than 50% in coordination of care (as documented) at patient's floor/unit and/or counseling patient: Internal Medicine: Result - Labs CBC & Chem 7: 08/16/18 05:35 08/16/18 05:35 Labs: Short CBC 08/16/18 Range/Units 05:35 WBC 19.5 H (4.3-11.1) K/mcL Hgb 6.7 L (11.5-15.4) g/dL Hct 25.7 L (35.3-44.9) % Plt Count 310 (140-400) K/mcL Neutrophils # 15.3 H (1.6-8.9) K/mcL BMP 08/16/18 05:35 Sodium 135 L Potassium 3.9 Chloride 99 Carbon Dioxide 30 H BUN 13 Creatinine 0.95 Glucose 99 Calcium 8.4 L Liver Function 08/16/18 Range/Units 05:35 Total Bilirubin 0.9 (0.3-1.0) mg/dL AST 14 (13-39) Units/L ALT 36 (7-52) Units/L Alkaline Phosphatase 108 H (34-104) Units/L Albumin 2.8 L (3.5-5.7) g/dL - ABG Interpretation ABG results: ABG ABG pH 7.24 pH Units (7.32-7.45) L 08/09/18 08:48 ABG pCO2 68 mmHg (35-45) H 08/09/18 08:48 ABG pO2 58 mmHg (85-104) L D 08/09/18 08:48 ABG O2 Saturation 84 % (95-98) L 08/09/18 08:48 PT/INR, D-dimer PT 15.4 Seconds (9.4-12.1) H 08/15/18 06:36 Consult Discharge Plan - Plan Referrals: Nena Cody STEEL HANGER [Advanced Practice Nurse] - 08/30/18 10:00 am <Anika Tong - Last Filed: 08/16/18 17:36> Hospitalist Progress Note - Encounter Date of Encounter: 08/16/18 - Exam Vitals: Temp Pulse Resp BP Pulse Ox 97.9 F 87 14 149/69 93 08/16/18 15:27 08/16/18 15:27 08/16/18 15:22 08/16/18 15:27 08/16/18 15:27 - Assessment and Plan (1) Severe sepsis with acute organ dysfunction due to group A Streptococcus Current Visit: Yes Status: Suspected (2) Cellulitis of right lower extremity Current Visit: Yes Status: Acute (3) Acute kidney injury (nontraumatic) Current Visit: No Status: Resolved (4) Anemia Current Visit: No Status: Acute (5) Morbid obesity with BMI of 60.0-69.9, adult Current Visit: Yes Status: Chronic (6) Iron deficiency anemia Current Visit: Yes Status: Suspected (7) Acute respiratory failure with hypoxemia Current Visit: Yes Status: Resolved (8) Folate deficiency Current Visit: Yes Status: Chronic (9) HTN (hypertension) Current Visit: Yes Status: Acute (10) Lung nodule Current Visit: Yes Status: Acute (11) Hepatosplenomegaly Current Visit: Yes Status: Acute (12) Retroperitoneal lymphadenopathy Current Visit: Yes Status: Acute - Time Spent with Patient Total time spent is greater than 50% in coordination of care (as documented) at patient's floor/unit and/or counseling patient: Internal Medicine: Result - Labs CBC & Chem 7: 08/16/18 15:40 08/16/18 05:35 Labs: Short CBC 08/16/18 08/16/18 Range/Units 05:35 15:40 WBC 19.5 H (4.3-11.1) K/mcL Hgb 6.7 L 7.4 L (11.5-15.4) g/dL Hct 25.7 L 27.4 L (35.3-44.9) % Plt Count 310 (140-400) K/mcL Neutrophils # 15.3 H (1.6-8.9) K/mcL BMP 08/16/18 05:35 Sodium 135 L Potassium 3.9 Chloride 99 Carbon Dioxide 30 H BUN 13 Creatinine 0.95 Glucose 99 Calcium 8.4 L Liver Function 08/16/18 Range/Units 05:35 Total Bilirubin 0.9 (0.3-1.0) mg/dL AST 14 (13-39) Units/L ALT 36 (7-52) Units/L Alkaline Phosphatase 108 H (34-104) Units/L Albumin 2.8 L (3.5-5.7) g/dL - ABG Interpretation ABG results: ABG ABG pH 7.24 pH Units (7.32-7.45) L 08/09/18 08:48 ABG pCO2 68 mmHg (35-45) H 08/09/18 08:48 ABG pO2 58 mmHg (85-104) L D 08/09/18 08:48 ABG O2 Saturation 84 % (95-98) L 08/09/18 08:48 PT/INR, D-dimer PT 15.4 Seconds (9.4-12.1) H 08/15/18 06:36 - Attending Attestation I examined this patient and my medical decision-making was reviewed with the Resident Physician Dr Young. I agree with the documented findings, disposition and treatment plan as described except to the extent set forth below/addl details below Ms Del Castillo is currently admitted for severe sepsis due to RLE cellulitis. She has developed acute hypercarbic resp failure from pulmonary edema of unclear etiology. She was found to have anemia. Her course has been long and complicated including concern for rheumatologic disease, hematologoic disease process, refractory cellulitis to iv abx, HAZEL which has since resolved. awake in bed, leg now seeping, + pain, no fevers or chills. no sob. no bleeding. gen- awake, alert, appears stated age, comofrtable appearing eyes- pupils equal round , no conjunctival pallor cv- reg rate and rhythm, normal s1,s2, no murmurs appreciated, dependent le edema, non pitting lungs- ctabl, no wheezing, rhonchi or crackles, normal resp effort on ra skin- rle erythema to knee, line marked and remains within, has minimally receeded from line but overall no change + warmth, castellon now with drainage white scant discharge neuro- AAOx3 Severe sepsis due to cellulitis RLE Sepsis resolved Cellulitis has been persistent without significant change despite abx treatment, inclduing broadening of treatment -new derm consult today, new rheum consult today -as d/w Dr Thomas this either is not bacterial, or LAD in groin is impairing flow -lengthy discussion 08/14 and she is NOT agreeable to transfer due to family/social barriers and wants to stay here and await thursday evals by rheum, derm and gi Acute hypercarbic and hypoxic resp failure most likely due to pulmonary edema - resolved -cont oral diuresis -needs outpt pfts and sleep study as well, suspect gretchen, and will need o2 home eval prior to dc, stable on ra at rest HAZEL suspected to be prerenal 2/2 sepsis, resolved- nephro followed, diuresis as per nephro PO Mixed acute anemia with iron, folate and B12 deficiency and work up to ruled out hemolytic anemia -heme/onc following , hgb slowly downtrending, addl testing ordered and pending, cT with splenomegaly -IV venofer, IM B12,folate concern for malabsorption - gi now following -1 unit prbc today after picc placement HTN improved with labetalol dose adjustment, cont current dose, aware this is not first line htn treatment but given her current comorbidities BB was found to be least offensive and she is tolerating it well will require outpt fu Incidental nodule on CTA- Benign-appearing nodule in the subpleural left lower lobe, possibly a solitary fibrous tumor of the pleura or healing granuloma or less likely a pulmonary hamartoma. follow-up CT in 3-6 months. Incidental hepatic Steatosis on CTA with INR that was elevated this admit but downtrended and indrect hyerpbilirubinemia which also ahs decreased this admission- -ct a/p 08/12 read finalized and shows hepatomegaly as well -gi now consulted inguinal LAD on cT a/p- ordered by oncology , initially our team received a call from rad noting significant right sided inguial lad that may be obstructing fl ow, later read was not nearly as significant, - i d/w Dr Thomas who sat [facility] radiology and reviewed all imaging, radiology voiced concern for possible lymphoma, I communicated this to Ivana Lazaro with Oncology today and she will d/w Dr Sales who will see pt, I will also pass this along to dr Santos taking over the service tomorrow vte ppx- scds left leg with hep sq currentlyheld for hgb 6.7 and 1 unit prbc today Further diagnoses and plan as documented by resident <Anika Tong - Last Filed: 08/16/18 17:36> (4) Anemia Qualifiers: Anemia type: iron deficiency Iron deficiency anemia type: chronic blood loss Qualified Code(s): D50.0 - Iron deficiency anemia secondary to blood loss (chronic) (6) Iron deficiency anemia Qualifiers: Iron deficiency anemia type: chronic blood loss Qualified Code(s): D50.0 - Iron deficiency anemia secondary to blood loss (chronic) (9) HTN (hypertension) Qualifiers: Hypertension type: unspecified Qualified Code(s): I10 - Essential (primary) hypertension
--- NOTE | 2018-08-16 10:45 | Infectious Disease Progress No ---
Date of Encounter: 08/16/18 Time of Encounter: 09:50 - Assessment and Plan (1) Severe sepsis Current Visit: Yes Status: Acute The patient had 3 sepsis criteria with lactic acidosis, acute kidney injury, and altered mental status. Likely secondary to cellulitis of the right lower extremity. White blood cell count remains elevated. Afebrile. Tachycardia has resolved. Blood cultures drawn 08/07/18 are no growth to date 2 sets. Repeat blood cultures drawn 08/08/18 are negative 2 sets. Recommendations: - Await blood cultures to finalize. - Continue to trend WBC. - Consider dermatology consult to evaluate for possible biopsy. - Consider rheumatology consult given leg pain and elevated inflammatory markers. - Continue Vancomycin IV. - Continue cefepime 2 grams IV Q12H. - Continue Lamisil topical to the bilateral feet BID x 1 week. - Duration of treatment depends on the clinical picture. - Monitor renal function and for drug toxicity and dose-adjust antibiotics. - Consider GI to evaluate for hyperbilirubinemia. (2) Leukocytosis Current Visit: Yes Status: Acute Etiology unclear. ESR and CRP elevated. Qualifiers: Leukocytosis type: unspecified Qualified Code(s): D72.829 - Elevated white blood cell count, unspecified (3) Cellulitis of right lower extremity Current Visit: Yes Status: Acute Location: Right lower extremity. Causative organisms: Unclear. Etiology: Unclear. Tinea pedis vs. other. CT of the right lower extreme he shows diffuse subcutaneous edema consistent with cellulitis versus lymphedema, but no gas, abscess, or osteomyelitis was noted. DVT study was negative. Repeat CT scan was negative for new findings. Remains erythematous, tender, and swollen. (4) Acute respiratory failure with hypoxemia Current Visit: Yes Status: Resolved Etiology: Unclear. Chest x-ray shows probable early CHF with mild perihilar edema. ABG indicative of respiratory acidosis. D-dimer is elevated. CT chest negative for PE. Management per the primary team. (5) Lactic acidosis Current Visit: No Status: Resolved Likely secondary to right lower extremity cellulitis and sepsis. Resolved. (6) Acute kidney injury (nontraumatic) Current Visit: No Status: Resolved Etiology: Unclear. Likely secondary to sepsis plus vancomycin toxicity plus possible underlying CKD. Nephrology consult to assist with management. Resolved. Continue to trend. Dose adjust antibiotics and avoid nephrotoxins as able. (7) Anemia Current Visit: No Status: Acute Etiology: Unclear. No acute bleeding noted on exam. Heme/Onc consult to assist with management and workup. Qualifiers: Anemia type: iron deficiency Iron deficiency anemia type: chronic blood loss Qualified Code(s): D50.0 - Iron deficiency anemia secondary to blood loss (chronic) (8) Hyperbilirubinemia Current Visit: Yes Status: Acute Etiology: Unclear. AST, ALP, and alkaline phosphatase all are normal. Secondary to sepsis? Continue to trend. Resolved. GI consult. (9) Tinea pedis Current Visit: Yes Status: Acute Lamisil as above. Qualifiers: Laterality: bilateral Qualified Code(s): B35.3 - Tinea pedis (10) Morbid obesity with BMI of 60.0-69.9, adult Current Visit: Yes Status: Chronic - Subjective Interval history: Patient seen and examined sitting up in bed. No acute events noted overnight. Patient reports persistent RLE pain, redness and swelling. Denies fevers, chills, or rigors. Denies chest pain, shortness of breath, or cough. Denies nausea, vomiting, or diarrhea. Reports last BM was this morning. Denies any urinary complaints. She states she does feel swollen all over. She denies any oral thrush or new skin lesions. Infect Dis PN-Objective Data - Labs CBC & Chem 7: 08/16/18 15:40 08/16/18 05:35 Labs: Laboratory Results - last 24 hr 08/16/18 08/16/18 08/16/18 05:35 05:35 09:05 WBC 19.5 H RBC 3.73 L Hgb 6.7 L Hct 25.7 L MCV 68.9 L MCH 18.0 L MCHC 26.1 L RDW 26.5 H Plt Count 310 MPV 10.5 Immature Gran % 4.5 H Seg Neutrophils % 78.4 Lymphocytes % 8.5 Monocytes % 5.8 Eosinophils % 2.5 Basophils % 0.3 Neutrophils # 15.3 H Lymphocytes # 1.7 Monocytes # 1.1 Eosinophils # 0.5 Basophils # 0.1 Nucleated RBCs/100 WBC 0.1 H Platelet Estimate Normal Polychromasia 1+ A Hypochromasia Present A Anisocytosis 1+ A Sodium 135 L Potassium 3.9 Chloride 99 Carbon Dioxide 30 H BUN 13 Creatinine 0.95 Est GFR ( Amer) > 60 Est GFR (Non-Af Amer) > 60 BUN/Creatinine Ratio 14 Glucose 99 Calculated Osmolality 280 Calcium 8.4 L Total Bilirubin 0.9 AST 14 ALT 36 Alkaline Phosphatase 108 H Serum Total Protein 7.4 Albumin 2.8 L Globulin 4.6 H Albumin/Globulin Ratio 0.6 L Blood Type A NEGATIVE Antibody Screen NEGATIVE Crossmatch See Detail Cultures: Cultures 08/08/18 13:07 Blood Culture - Final Peripheral Venipuncture No growth. Final report. 08/08/18 13:07 Blood Culture - Final Peripheral Venipuncture No growth. Final report. 08/12/18 09:54 Blood Culture - Preliminary Peripheral Venipuncture Culture is incubating and being continuously monitored for growth. Final report to follow. 08/12/18 10:36 Blood Culture - Preliminary Peripheral Venipuncture Culture is incubating and being continuously monitored for growth. Final report to follow. 08/08/18 12:45 Urine Culture - Final Urine,Catheterized No growth. Serology 08/14/18 08/09/18 08/09/18 Range/Units 04:53 18:03 09:35 Urine Color (Yellow) Urine Clarity (Clear) Urine pH (5.0-8.0) pH Units Ur Specific [place] (1.010-1.025) Urine Protein (Neg-Trace) mg/dL Urine Glucose (UA) (Normal) mg/dL Urine Ketones (Negative) mg/dL Urine Blood (Negative) Urine Nitrite (Negative) Urine Bilirubin (Negative) Urine Urobilinogen (Normal) mg/dL Ur Leukocyte Esterase (Negative) Urine Microscopic RBC (0-3) per hpf Urine Microscopic WBC (0-3) per hpf Ur Eosinophil Smear 0 (None Seen) % Ur Squamous Epith Cells (None-Few) per lpf Urine Bacteria (None-Few) per hpf Urine Osmolality (300-1090) mOsm/kg Urine Creatinine mg/dL Protein/Creatinin Ratio (0.00-0.20) mg/mg Urine Sodium mEq/L Urine Total Protein (1-14) mg/dL Stool Occult Blood Negative (Negative) Hepatitis A IgM Ab Nonreactive (Nonreactive) Hep Bs Antigen Nonreactive (Nonreactive) Hep B Core IgM Ab Nonreactive (Nonreactive) Hepatitis C Ab Screen Nonreactive (Nonreactive) Anti-Streptolysin O Ab (0-330) IU/mL 08/09/18 08/09/18 08/08/18 Range/Units 09:21 09:21 12:45 Urine Color [place] A (Yellow) Urine Clarity Turbid A (Clear) Urine pH 5.0 (5.0-8.0) pH Units Ur Specific [place] 1.024 (1.010-1.025) Urine Protein 100 H (Neg-Trace) mg/dL Urine Glucose (UA) Normal (Normal) mg/dL Urine Ketones Trace H (Negative) mg/dL Urine Blood Negative (Negative) Urine Nitrite Positive A (Negative) Urine Bilirubin Small H (Negative) Urine Urobilinogen Normal (Normal) mg/dL Ur Leukocyte Esterase Trace H (Negative) Urine Microscopic RBC 0-3 (0-3) per hpf Urine Microscopic WBC 15-30 H (0-3) per hpf Ur Eosinophil Smear (None Seen) % Ur Squamous Epith Cells Many H (None-Few) per lpf Urine Bacteria None Seen (None-Few) per hpf Urine Osmolality 303 (300-1090) mOsm/kg Urine Creatinine 33 mg/dL Protein/Creatinin Ratio 0.91 H (0.00-0.20) mg/mg Urine Sodium mEq/L Urine Total Protein 30 H (1-14) mg/dL Stool Occult Blood (Negative) Hepatitis A IgM Ab (Nonreactive) Hep Bs Antigen (Nonreactive) Hep B Core IgM Ab (Nonreactive) Hepatitis C Ab Screen (Nonreactive) Anti-Streptolysin O Ab (0-330) IU/mL 08/08/18 08/07/18 Range/Units 12:45 18:01 Urine Color (Yellow) Urine Clarity (Clear) Urine pH (5.0-8.0) pH Units Ur Specific [place] (1.010-1.025) Urine Protein (Neg-Trace) mg/dL Urine Glucose (UA) (Normal) mg/dL Urine Ketones (Negative) mg/dL Urine Blood (Negative) Urine Nitrite (Negative) Urine Bilirubin (Negative) Urine Urobilinogen (Normal) mg/dL Ur Leukocyte Esterase (Negative) Urine Microscopic RBC (0-3) per hpf Urine Microscopic WBC (0-3) per hpf Ur Eosinophil Smear (None Seen) % Ur Squamous Epith Cells (None-Few) per lpf Urine Bacteria (None-Few) per hpf Urine Osmolality (300-1090) mOsm/kg Urine Creatinine mg/dL Protein/Creatinin Ratio (0.00-0.20) mg/mg Urine Sodium 23.4 mEq/L Urine Total Protein (1-14) mg/dL Stool Occult Blood (Negative) Hepatitis A IgM Ab (Nonreactive) Hep Bs Antigen (Nonreactive) Hep B Core IgM Ab (Nonreactive) Hepatitis C Ab Screen (Nonreactive) Anti-Streptolysin O Ab 412 H (0-330) IU/mL Exam - Constitutional Vitals: Temp Pulse Resp BP Pulse Ox 98.3 F 82 17 149/58 95 08/16/18 07:23 08/16/18 07:23 08/16/18 07:23 08/16/18 07:23 08/16/18 07:23 General appearance: cooperative, morbidly obese, no acute distress - Head Head exam: Present: atraumatic, normal inspection, normocephalic - Eye Eye exam: Present: EOMI, normal appearance, PERRL Pupils: Present: normal accommodation - ENT ENT exam: Present: mucous membranes moist - Neck Neck exam: Present: normal inspection - Respiratory Respiratory exam: Present: CTAB. Absent: rales, respiratory distress, rhonchi, wheezes - Cardiovascular Cardiovascular exam: Present: RRR, +S1, +S2 - GI/Abdominal GI/Abdominal exam: Present: distended (obese), normal bowel sounds, soft. A bsent: tenderness - Extremities Exam Extremities exam: Absent: joint swelling, normal inspection (RLE remains erythematous. warm to touch, tender, and swollen. New fluid-filled blisters noted to the anterior ankle with serous drainage.) - Neurological Exam Neurological exam: Present: alert, oriented X3, no focal deficits - Psychiatric Psychiatric exam: Present: normal affect, normal mood - Skin Skin exam: Present: dry, intact, normal color, warm Consult Discharge Plan - Plan Referrals: Nena Cody ADULT DAYCARE COORDINATOR [Advanced Practice Nurse] - 08/30/18 10:00 am - Attending Attestation I examined this patient and my medical decision-making was reviewed with the Resident Physician. I agree with the documented findings, disposition and treat ment plan as described except to the extent set forth below. Patient seen and examined. I had a very long discussion with the patient and family at bedside. Time spent with the patient over 35 minutes. On further questioning patient did have a That time back in January. No history of cat scratch or bites. Patient was also in February in [place] and [facility]. She did walk barefoot on the beach but did not really go into the water. Denied swimming with any exotic animals. I actually spoke with Dr. Suarez and I spoke with Dr. Wright from hematology oncology and discussed the case with Dr. Wendie sung as well. I appreciate everybody's". We will continue to follow closely.
[2018-08-16] MEDS ORDERED: 0.9 % Sodium Chloride 250 ML ONE (10:49)
--- NOTE | 2018-08-16 12:09 | Gastroenterology Consult Note ---
Date of Encounter: 08/16/18 Time of Encounter: 10:15 - Time Spent With Patient Total time spent is greater than 50% in coordination of care (as documented) at patient's floor/unit and/or counseling patient: GI History of Present Illness - Data of Consult Patient: new to practice Requesting Physician: Anika Tong - Consult Narrative Reason for consult: Hepatosplenomegaly, hepatic steatosis History of present illness: Ms. Del Castillo is a 38 year old female with no significant past medical history presented with RLE cellulitis. GI has been consulted to evaluate hepatic steatosis and hepatosplenomegaly. Patient was anemic on admission with hemoglobin 7.5 and today Hgb 6.7 with MCV 68.9. Iron was low at <10 on 08/08 ferritin 61. Hematology/oncology has been consulted to evaluate. She reports that she always has heavy menses. CT A/P showed moderate hepatosplenomegaly and CTA chest showed hepatic steatosis. On admission TB 4.1, AST 31, ALT 25, alkaline phosphatase 55. Today TB 0.9, AST 14, ALT 36, alk phos 108. Procedures: None NSAIDs: None Anticoagulation: None A/P 1. Anemia: On admission Hgb 7.5. Today Hgb 6.7 with MCV 68.9. Iron <10 and ferritin 61 on 08/08. One unit PRBC ordered today. Heme/Onc following. Recommend EGD and colonoscopy on Thursday. 2. Hepatosplenomegaly: CT A/P showed moderate hepatosplenomegaly. Check liver US. 3. Hepatic steatosis: Check liver work up (AFP, alpha-1 antitrypsin, CHERIE, ANCA, ceruloplasmin, F- actin, ferritin, hepatitis profile, AMA, PT INR, liver ultrasound). LIFESTYLE MODIFICATION: DIETARY ADVISE: Gradual weight loss of 7-10%. Moderate caloric restriction of 500-700 Kcal/day Eliminate or significantly reduce saturated fatty acids and high fructose corn syrup from diet Consider omega-3 fatty acids supplements Consider regular coffee consumption, 2-3 cups/day if can be tolerated EXERCISE ADVISE: Moderate exercise on treadmill, elliptical or in a pool, 4-5/week for 30-45 minutes. Resistance training 3 times/week Control of the components of metabolic syndrome Past Med Surg Social Fam HX - Past Medical History Medical history: no medical history Additional medical history: cellulitis, polycystic ovary syndrome Psychiatric history: no psych history - Past Surgical History Surgical History: no surgical history - Social History Smoking Status: Never smoker Smokeless Tobacco Status: No Alcohol use: none Drug use: none - Family History Father Living Status: Still Living Hx Family Cardiac Disorders: Yes (a-fib) - Gastrointestinal Gastrointestinal: Present: as per HPI - Constitutional Constitutional: as per HPI - EENT Eyes: as per HPI Ears: Present: as per HPI Nose, mouth and throat: Present: as per HPI - Cardiovascular Cardiovascular ROS: Present: as per HPI - Respiratory Respiratory IM: Present: as per HPI - Genitourinary Genitourinary: Absent: change in color, Urinary frequency - Neurological ROS Neurological GI: Present: as per HPI - Hematologic/Lymphatic Hematologic/Lymphatic pediatric: Present: as per HPI - Musculoskeletal Musculoskeletal ROS GI: Present: as per HPI - Integumentary Integumentary GI: Present: as per HPI - Psychiatric ROS Psychiatric GI: Present: as per HPI - Endocrine Endocrine IM: Present: as per HPI - Constitutional Vitals: Temp Pulse Resp BP Pulse Ox 97.9 F 80 18 137/58 92 08/16/18 11:39 08/16/18 11:59 08/16/18 11:59 08/16/18 11:59 08/16/18 11:59 General appearance: Present: cooperative, A&O X 3, no acute distress, answers questions appropriately - Head Head exam: Present: atraumatic, normocephalic - Eye Eye exam: Present: normal appearance, sclera anicteric - ENT ENT exam: Present: mucous membranes dry - Neck Neck exam general surgery: Present: normal inspection, trachea midline - Respiratory Respiratory exam: Present: CTAB. Absent: rales, rhonchi - Cardiovascular Cardiovascular exam: Present: RRR, +S1, +S2 - GI/Abdominal GI/Abdominal exam: Present: soft, no peritoneal signs. Absent: distended, firm, guarding, tenderness Additional comments: Morbidly obese - Rectal Rectal exam: Present: deferred - Extremities Exam Extremities exam: Present: warm - Neurological Exam Neurological exam: Present: no focal deficits - Psychiatric Psychiatric exam: Present: normal affect, normal mood - Skin Skin exam: Present: dry, intact, normal color, warm Results - Labs CBC & Chem 7: 08/16/18 05:35 08/16/18 05:35 Labs: Last Result ESR >= 130 mm/hr (0-15) H 08/11/18 16:38 Calcium 8.4 mg/dL (8.6-10.3) L 08/16/18 05:35 Iron < 10 mcg/dL (50-170) L 08/08/18 03:08 % Saturation TNP 08/08/18 03:08 Transferrin 258 mg/dL (203-362) 08/08/18 03:08 Ferritin 61 ng/mL (10-120) 08/08/18 06:53 C-Reactive Protein 111 mg/L (Less than 10) H 08/11/18 16:38 Vitamin B12 283 pg/mL (250-1100) 08/08/18 08:54 Folate 4.3 ng/mL (3.0-16.0) 08/08/18 08:54 Stool Occult Blood Negative (Negative) 08/09/18 18:03 Entire Visit Hgb 6.7 g/dL (11.5-15.4) L 08/16/18 05:35 Hct 25.7 % (35.3-44.9) L 08/16/18 05:35 Haptoglobin 186 mg/dL (30-200) 08/08/18 08:55 PT 15.4 Seconds (9.4-12.1) H 08/15/18 06:36 Ferritin 61 ng/mL (10-120) 08/08/18 06:53 Total Bilirubin 0.9 mg/dL (0.3-1.0) 08/16/18 05:35 AST 14 Units/L (13-39) 08/16/18 05:35 ALT 36 Units/L (7-52) 08/16/18 05:35 Folate 4.3 ng/mL (3.0-16.0) 08/08/18 08:54 - ABG ABG results: ABG ABG pH 7.24 pH Units (7.32-7.45) L 08/09/18 08:48 ABG pCO2 68 mmHg (35-45) H 08/09/18 08:48 ABG pO2 58 mmHg (85-104) L D 08/09/18 08:48 ABG O2 Saturation 84 % (95-98) L 08/09/18 08:48 PT/INR, D-dimer PT 15.4 Seconds (9.4-12.1) H 08/15/18 06:36 Consult Discharge Plan - Plan Referrals: Nena Cody CNP [Advanced Practice Nurse] - 08/30/18 10:00 am
--- NOTE | 2018-08-16 12:15 | Rheumatology Consult Note ---
<PieterArthur S - Last Filed: 08/16/18 14:07> Date of Encounter: 08/16/18 Time of Encounter: 11:21 Rheumatology Assess and Plan (1) Rash Current Visit: Yes Status: Acute Erythema of right lower extremity May be 2/2 venous stasis vs lymphedema CT showed superficial soft-tissue edema, no fluid collection or abscess, no osseous abnormality ESR >130 Will order ANCA Dermatology also consulted (2) Cellulitis of right lower extremity Current Visit: Yes Status: Acute Patient presented with RLE erythema, pain, warmth, and fevers Positive anti-streptolysin O Ab On IV Vancomycin and Zosyn WBC 19.5, down from 42.5 on admission (3) Anemia Current Visit: Yes Status: Acute Hgb of 6.7, down from 7.5 on admission Microcytic anemia Appear to have iron deficiency Received 1 unit of PRBCs with another unit ordered Qualifiers: Anemia type: other cause Other causes of anemia: chronic disease, other Qualified Code(s): D63.8 - Anemia in other chronic diseases classified elsewhere (4) Leukocytosis Current Visit: Yes Status: Acute WBC 19.5, down from 42.5 on admission May be 2/2 right leg infection vs reactive Followed by oncology and infectious disease On IV Vancomycin and Cefepime Qualifiers: Leukocytosis type: unspecified Qualified Code(s): D72.829 - Elevated white blood cell count, unspecified Rheumatology HPI Consult date: 08/16/18 Consult reason: Suspected cellulitis of right leg - r/o vasculitis Chief complaint: Pain, redness, swelling of right leg History of present illness: Ms. Del Castillo is a 38 year old female with PMHx of PCOS who presented to [place] on 08/07 with complaints of right leg swelling, redness, pain, and fevers. Rheumatology was consulted for possible vasculitis. Patient's labs on admission were significant for WBC 42.5, Hgb 7.5, lactate 4.4. Initial lower extremity CT showed diffuse subcutaneous edema with associated skin thickening + underlying venous stasis/lymph edema + no organized fluid collection or subcutaneous gas + no osseous abnormality or osteomyelitis. Patient was started on IV antibiotics and treated for cellulitis with positive anti-streptolysin O Ab. Since patient's admission, she developed an HAZEL, CXR showed cardiomegaly with vascular congestion, she received 1 unit of PRBCs for anemia, a subpleural nodule was noted on chest CT. Nephrology, oncology, and ID have been following patient. Patient continued to have right leg erythema, edema, and pain despite antibiotic therapy. ESR was noted to be >130. Patient seen and examined today. She states her right leg has been red and swollen for over a year. She developed fevers, pain, and increased redness 10 days ago. Patient says her pain is mainly in her right ankle, and doesn't feel much better since starting the antibiotics. She denies SOB, CP, abdominal pain, nausea, vomiting, changes in bowel/bladder habits, numbness/tingling. She denies any personal history of autoimmune disorders. Surgical history includes a D&C following a miscarriage. Family history significant for atrial fibrillation in father. She is a former smoker of 15 years, but quit 2 1/2 years ago. She denies alcohol and drug use. Past Med Surg Social Fam HX - Past Medical History Medical history: no medical history Additional medical history: cellulitis, polycystic ovary syndrome Psychiatric history: no psych history - Past Surgical History Surgical History: no surgical history - Social History Smoking Status: Never smoker Smokeless Tobacco Status: No Alcohol use: none Drug use: none - Family History Father Living Status: Still Living Hx Family Cardiac Disorders: Yes (a-fib) Medications and Allergies RX: No Known Home Drugs 08/07/18 [History] Allergy/AdvReac Type Severity Reaction Status Date / Time No Known Allergies Allergy Verified 08/07/18 12:21 All Systems Review: The remainder of the systems were reviewed and are negative Rheumatology Exam Vital Signs, Last 4 Hours Temp Pulse Resp BP Pulse Ox 08/16/18 07:23 98.3 F 82 17 149/58 95 Exam: Constitutional: afebrile, heart rate 80, BP 137/58, O2 sat 92, morbidly obese, no acute distress Eyes: no scleral injection, PERRLA Cardiovascular: RRR, no murmurs, diminished due to body habitus, pedal pulses difficult to palpate due to body habitus Respiratory: clear to auscultation bilaterally, no wheezes noted, diminished due to body habitus, no accessory muscle use Abdomen: unable to palpate liver or spleen due to body habitus, non-tender Musculoskeletal: right lower extremity 3+ pitting edema to knee, ankle tender to palpation, warm to palpation, joints of hands bilaterally are non-tender without joint effusion Skin: right leg erythema 2/3 up leg with seeping areas in mid-leg, left leg is non-erythematous, tightening of right ankle joint Neurologic: sensation intact in lower extremities bilaterally, cranial nerves grossly intact with no focal deficits Psychiatric: normal mood, normal affect, A&O x3 Rheumatology Results 08/16/18 05:35 08/16/18 05:35 Immunology IgA 287 mg/dL (68-408) 08/10/18 05:01 Rheumatoid Factor 13 IU/mL (Less than 14) 08/12/18 13:07 CHERIE Screen NONE DETECTED (None Detected) 08/09/18 04:35 Tiss Transglutamin IgA 1 U/mL (0-3) 08/10/18 05:01 Parietal Cell IgG Ab 2.2 Units (0.0-24.9) 08/10/18 05:01 Intrins Factor Block Ab NEGATIVE (Negative) 08/10/18 05:01 Complement C3 150 mg/dL (88-201) 08/09/18 04:35 Complement C4 26 mg/dL (10-40) 08/09/18 04:35 All other labs normal. Consult Discharge Plan - Plan Referrals: Nena Cody CARDIAC SONOGRAPHER [Advanced Practice Nurse] - 08/30/18 10:00 am <Terry Daniel - Last Filed: 08/16/18 17:22> Date of Encounter: 08/16/18 Rheumatology HPI History of present illness: Ms. Del Castillo is a 38 year old female All Systems Review: The remainder of the systems were reviewed and are negative Rheumatology Exam Vital Signs, Last 4 Hours Temp Pulse Resp BP Pulse Ox 08/16/18 15:27 97.9 F 87 149/69 93 08/16/18 15:22 98.8 F 82 14 145/65 92 08/16/18 14:14 84 18 146/66 Rheumatology Results 08/16/18 15:40 08/16/18 05:35 Immunology IgG 1330 mg/dL (768-1632) 08/13/18 04:21 IgA 316 mg/dL (68-408) 08/13/18 04:21 IgM 94 mg/dL (35-263) 08/13/18 04:21 Rheumatoid Factor 13 IU/mL (Less than 14) 08/12/18 13:07 CHERIE Screen NONE DETECTED (None Detected) 08/09/18 04:35 Tiss Transglutamin IgA 1 U/mL (0-3) 08/10/18 05:01 Parietal Cell IgG Ab 2.2 Units (0.0-24.9) 08/10/18 05:01 Intrins Factor Block Ab NEGATIVE (Negative) 08/10/18 05:01 Complement C3 150 mg/dL (88-201) 08/09/18 04:35 Complement C4 26 mg/dL (10-40) 08/09/18 04:35 All other labs normal. - Attending Attestation I examined this patient and my medical decision making was [facility]. I agree with the documented findings, disposition and treatment as described with these exceptions. Claudia Ramsay is a 38-year-old female with PMH of PCOS, obesity, lymphedema who presents to [place] with sepsis and cellulitis. WBC elevated though trending down with treatment. Microcytic anemia now treated. Cellulitis - Has been treated with antibiotics, ID has followed. CT extremity with soft tissue edema. No joint effusions. CT Chest - Pulm Nodules. CT abdomen - hepatosplenomegaly TTE - elevated RVSP. Exam Right lower extremity - Erythematous, tender, appears to have some wrinking of skin. - Rash - She has been treated for cellulitis in the setting of lymphedema, obesity and has underlying stasis dermatitis. I do note that with antibiotics, some objective signs of improvement in lack of fevers, reducing WBC. Derm has been consulted and I wonder how much of this could be due to stasis dermatitis as well. - The question was raised of vasculitis workup; she has a pulmonary nodule though UA without any RBCs/Casts. I will add ANCA levels. CHERIE, RF negative. Hepatitis panels negative. Rash not consistent with cryoglobulinemia. I would hold off any immunosuppression at this time. Lower suspicion for autoimmune etiology. Leukocytosis - Decreased overall, unclear what her baseline is; hematology following. Microcytic anemia - On supplementation for vitamin deficiencies.
[2018-08-16 14:35] LABS: Kappa Qnt Free Light Chains 6.97 mg/dL (0.33-1.94); Lambda Qnt Free Light Chains 5.86 mg/dL (0.57-2.63)
[2018-08-16 15:30] LABS: Immunoglobulin A 316 mg/dL (68-408); Immunoglobulin G 1330 mg/dL (768-1632); Immunoglobulin M 94 mg/dL (35-263)
[2018-08-16 16:19] LABS: Hematocrit 27.4 % (35.3-44.9); Hemoglobin 7.4 g/dL (11.5-15.4)
--- NOTE | 2018-08-16 21:26 | Dermatology Consult Note ---
Date of Encounter: 08/16/18 Time of Encounter: 16:30 History of Present Illness Reason for Consult: rash on leg History of Present Illness: Pt is a morbidly obese female admitted for cellulitis and sepsis. Her hospital coarse has been complicated by findings of elevated wbc, esr and severe anemia. She also has hepatosplenomegaly and acute kidney injury. Many specialists are involved in her care. I was consulted to evaluate her right lower leg as she is not improving much despite antibiotics. 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 She described a few episodes of swelling and cellulitis in the past. This time, her right lower leg started to get red and painful this past Thursday and she has been admitted since then. She said it feels like it is going to explode. Review of Systems General/Constitutional: Patient denies fevers, chills, nor recent unintended weight loss, night sweats, no change in appetite or malaise. Hematologic: Patient denies new or enlarging lumps or bumps. Skin: Patient denies new or changing moles, or rash other than what is mentioned above. Past Med Surg Social Fam HX - Past Medical History Medical history: no medical history Additional medical history: cellulitis, polycystic ovary syndrome Psychiatric history: no psych history - Past Surgical History Surgical History: no surgical history - Social History Smoking Status: Never smoker Smokeless Tobacco Status: No Alcohol use: none Drug use: none - Family History Father Living Status: Still Living Hx Family Cardiac Disorders: Yes (a-fib) Medications and Allergies No Known Home Drugs 08/07/18 [History] Allergy/AdvReac Type Severity Reaction Status Date / Time No Known Allergies Allergy Verified 08/07/18 12:21 Examination Vital Signs: Temp Pulse Resp BP Pulse Ox 97.9 F 87 14 149/69 93 08/16/18 15:27 08/16/18 15:27 08/16/18 15:22 08/16/18 15:27 08/16/18 15:27 General Examination: The patient appears alert, oriented X3, in no acute distress, MORBIDLY OBESE IN BED, normal mood. A detailed skin examination of sites including: scalp, head, neck, face, conjunctive, lids, lips, PERFORMED. RIGHT LOWER LEG W/ CONFLUENT ERYTHEMATOUS INDURATED SOMEWHAT ILL DEFINED PATCHES OVERLYING 3+ PITTING EDEMA . FEET W/ INTERDIGITAL MACERATION AND VERRUCOUS PAPULES - Assessment and Plan (1) Cellulitis of right lower extremity Current Visit: Yes Status: Acute Clinical exam along w/ elevated wbc, sepsis, warmth and pain and acute hx all point toward cellulitis as a diagnosis. I feel she does have a component of acute lipodermatosclerosis as well which may be why she is not responding as quickly to antibiotics. If not contraindicated by other specialists, a course of steroid may be helpful at decreasing the intense inflammation of her right lower leg. I'm not a fan of taking a punch biopsy from her leg; I feel that this would not only take a week + to get results back and more importantly, taking a punch biopsy on the leg of a woman with this severe edema/ obesity is asking to create a chronic wound/ulcer and may do harm. My advice is to cont rec of ID and only consider steroids if ok by other specialists. I see no evidence of vasculitis or other dermatologic condition other than her obvious underlying stasis dermatitis. She obviously won't have great improvement in the lipodermatosclerosis of either leg w/o massive weight loss/intervention/compression (2) Maceration of skin Current Visit: Yes Status: Acute Pt w/ interdigital webspace maceration; I rec pt use iodine swabs to webspaces in future to prevent entry for bacterial organisms into skin to cause cellulitis. Totally agree w/ lamisil per ID rec as well for her chronic tinea pedis. (3) Warts of foot Current Visit: Yes Status: Acute can treat as outpatient Procedure: Dermatology Date of procedure: 08/16/18 Procedure: no procedure done Consult Discharge Plan - Plan Referrals: Nena Cody CNP [Advanced Practice Nurse] - 08/30/18 10:00 am
[2018-08-16] MEDS: Nystatin POWDER 30 GM BOTTLE TP SCH (22:43)
[2018-08-17] MEDS: traMADol 50 MG TABLET PO PRN ×6 (00:12→21:04)
[2018-08-17] MEDS ORDERED: 0.9 % Sodium Chloride 1,000 ML IVC SCH (04:45)
[2018-08-17 04:52] LABS: Eosinophils % 2.1 %
[2018-08-17 04:54] LABS: Basophils # 0.1 K/mcL (0.0-0.2); Basophils % 0.3 %; Eosinophils # 0.4 K/mcL (0.0-0.6); Hematocrit 27.4 % (35.3-44.9); Hemoglobin 7.4 g/dL (11.5-15.4); Immature Granulocytes % 2.8 % (0-4); Lymphocytes # 1.6 K/mcL (0.6-4.6); Lymphocytes % 8.6 %; Mean Corpuscular Volume 70.4 fL (83.0-100.0); Mean Platelet Volume 10.4 fL (9.4-12.4); Monocytes # 1.1 K/mcL (0.0-1.3); Monocytes % 5.7 %; Platelet Count 305 K/mcL (140-400); Red Blood Count 3.89 M/mcL (3.82-4.97); Red Cell Distribution Width 27.3 % (11.5-14.5); Segmented Neutrophils % 80.5 %
[2018-08-17 04:56] LABS: Neutrophils # 14.9 K/mcL (1.6-8.9)
[2018-08-17 05:13] LABS: BUN/Creatinine Ratio 14 (6-26); Blood Urea Nitrogen 13 mg/dL (6-20); Calcium 8.5 mg/dL (8.6-10.3); Carbon Dioxide 29 mEq/L (23-29); Chloride 99 mEq/L (98-107); Glucose 102 mg/dL (70-105); Osmolality,Calculated 278 (280-300); Potassium 3.9 mEq/L (3.5-5.1); Sodium 134 mEq/L (136-145); eGFR For Non-African Americans > 60 (> 60)
[2018-08-17 05:31] LABS: Ferritin 126 ng/mL (10-120)
[2018-08-17 05:34] LABS: Anisocytosis 1+ (Not Present); Hypochromasia Present (Not Present); Microcytosis Present (Not Present); Stomatocytes 1+ (Not Present)
[2018-08-17 05:35] LABS: Macrocytosis Present (Not Present); Platelet Estimate Normal (Normal); Polychromasia 1+ (Not Present)
[2018-08-17] MEDS: Cefepime HCl 2,000 MG in 0.9 % Sodium Chloride Mini Bag 100 ML IVPB SCH ×2 (06:01→17:29)
--- NOTE | 2018-08-17 08:10 | Internal Med Progress Note ---
<Fahad Young - Last Filed: 08/17/18 17:09> Hospitalist Progress Note - Encounter Date of Encounter: 08/17/18 Time of Encounter: 08:30 - Subjective Interval History: 08/17 Patient down a liver ultrasound around 0900; revisited after she had returned. She says that she has had less pain in her right leg than previous days while recumbent, she denies paresthesias of the leg, she says they feel warm, she says her pain worsens when she stands. She denies fevers chills malaise chest discomfort or shortness of breath abdominal pain. 08/16 Patient seen and evaluated in chair next to bed. She is awaiting picc line prior to transfusion. She says her leg is continuing to weep, she is s/p wound culture yesterday. Today she denies fever, dizziness, shortness of breath. Denies bleed when urinating/defecating/has history of irregular menses but not currently having menses. - Exam Vitals: Temp Pulse Resp BP Pulse Ox 97.6 F 92 20 152/78 90 08/17/18 07:40 08/17/18 07:40 08/17/18 07:40 08/17/18 07:40 08/17/18 07:40 Exam: gen- awake, alert, appears stated age, comfortable appearing, central obesity eyes- pupils equal round , no conjunctival pallor cv- reg rate and rhythm, normal s1,s2, no murmurs appreciated, dependent le e grace, non pitting lungs- ctabl, no wheezing, rhonchi or crackles, normal resp effort on ra abd- soft, non tender, non distended, + bs, cannot appreciate HSM given body habitus skin- 5x5cm area of erythema over RLE, bluish tattoo is noted (old) in vicinity no change + warmth, no wound, weeping from mid [place] persists given her body habitus no lymph node palpation can be obtained in the neck, axilla or groin - Assessment and Plan (1) Severe sepsis Current Visit: Yes Status: Acute Assessment and Plan: Severe sepsis due to cellulitis RLE Sepsis resolved Cellulitis has been persistent without significant change despite abx treatment, including broadening of treatment -no dvts on le us, gas or fluid collections on initial 08/08 cT leg or repeats 08/11 -id has been following closely and i personally discussed with dr Thomas 08/12: this is beginning to now seem to not be bacterial in nature and given her other systemic findings there is a possibly this could be related to a rheum etiology, perhaps vasculitis localized to this leg, fungal infection, or with ct a/p findings perhaps obstructive in nature -attending discussion with derm, consulted -Rheum consulted, they assess possible lymphedema versus venous stasis, ANCA has been ordered and is pending -lengthy discussion 08/14 and she is NOT agreeable to transfer due to family/social barriers and wants to stay here and await thursday evals by rheum, derm and gi -cont current iv abx, clinda dc by ID to avoid c diff given no improvement with it - No growth from culture. -we have discussed among all teams today and are currently awaiting further oncology recs (2) Cellulitis of right lower extremity Current Visit: Yes Status: Inactive Assessment and Plan: Please see above (3) Acute kidney injury (nontraumatic) Current Visit: No Status: Inactive Assessment and Plan: HAZEL suspected to be prerenal 2/2 sepsis, resolved- nephro followed, diuresis as per nephro PO -renal us without hydronephrosis (4) Anemia Current Visit: No Status: Inactive Assessment and Plan: Mixed acute anemia with iron, folate and B12 deficiency and work up to ruled out hemolytic anemia -heme/onc following , hgb cont to slowly downtrend -addl testing ordered by heme and pending -cT with splenomegaly -IV venofer, IM B12,folate as per heme -Hemoglobin at 7.4 and adynamic for 2 days (5) Morbid obesity with BMI of 60.0-69.9, adult Current Visit: Yes Status: Chronic Assessment and Plan: - Patient has a BMI of 62.5. - Counselled on better dietary choices. (6) Iron deficiency anemia Current Visit: Yes Status: Suspected Assessment and Plan: - Patient was admitted with iron less than 10. Transferring 258, Normal Ferritin - treatment as above fobt neg (7) Acute respiratory failure with hypoxemia Current Visit: Yes Status: Resolved Assessment and Plan: Acute hypercarbic and hypoxic resp failure most likely due to pulmonary edema - resolved CXR with pulm vasc congestion, no identifiable infectious cause, no dvts in bl le on admission, no pe on cta -cont oral diuresis -echo 08/11 mild to mod pulm htn, normal ef -needs outpt pfts and sleep study as well, suspect gretchen, and will need o2 home eval prior to dc (8) Folate deficiency Current Visit: Yes Status: Chronic Assessment and Plan: - folic acid supplements for her folate deficiency (9) HTN (hypertension) Current Visit: Yes Status: Acute Assessment and Plan: HTN improved with labetalol dose adjustment, cont current dose, aware this is not first line htn treatment but given her current comorbidities BB was found to be least offensive and she is tolerating it well will require outpt fu (10) Lung nodule Current Visit: Yes Status: Acute Assessment and Plan: Incidental nodule on CTA- Benign-appearing nodule in the subpleural left lower lobe, possibly a solitary fibrous tumor of the pleura or healing granuloma or less likely a pulmonary hamartoma. follow-up CT in 3-6 months. 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 -GI consulted will see patient with liver ultrasound and liver workup -Liver ultrasound shows same hepatic steatosis, pending rest of liver workup (12) Retroperitoneal lymphadenopathy Current Visit: Yes Status: Acute Assessment and Plan: LAD on cT a/p- ordered by oncology , initially our team received a call from rads noting significant right sided inguinal lad that may be obstructing flow, later read was not nearly as significant, reviewed by various team, dr Sales believes more likely reactive and no need to bx DVT Prophylaxis: hep sq given hgb, hold further doses today, scd to left leg/foot - Time Spent with Patient Total time spent is greater than 50% in coordination of care (as documented) at patient's floor/unit and/or counseling patient: Internal Medicine: Result - Labs CBC & Chem 7: 08/17/18 04:25 08/17/18 04:25 Labs: Short CBC 08/16/18 08/17/18 Range/Units 15:40 04:25 WBC 18.5 H (4.3-11.1) K/mcL Hgb 7.4 L 7.4 L (11.5-15.4) g/dL Hct 27.4 L 27.4 L (35.3-44.9) % Plt Count 305 (140-400) K/mcL Neutrophils # 14.9 H (1.6-8.9) K/mcL BMP 08/17/18 04:25 Sodium 134 L Potassium 3.9 Chloride 99 Carbon Dioxide 29 BUN 13 Creatinine 0.93 Glucose 102 Calcium 8.5 L Cardiac Enzymes 08/17/18 Range/Units 04:25 Troponin I 0.11 H* (< 0.04) ng/mL - ABG Interpretation ABG results: ABG ABG pH 7.24 pH Units (7.32-7.45) L 08/09/18 08:48 ABG pCO2 68 mmHg (35-45) H 08/09/18 08:48 ABG pO2 58 mmHg (85-104) L D 08/09/18 08:48 ABG O2 Saturation 84 % (95-98) L 08/09/18 08:48 PT/INR, D-dimer PT 15.4 Seconds (9.4-12.1) H 08/15/18 06:36 Consult Discharge Plan - Plan Referrals: Nena Cody [facility] [Advanced Practice Nurse] - 08/30/18 10:00 am <Darin Santos - Last Filed: 08/17/18 19:29> Hospitalist Progress Note - Encounter Date of Encounter: 08/17/18 - Exam Vitals: Temp Pulse Resp BP Pulse Ox 98.2 F 89 18 127/55 92 08/17/18 15:50 08/17/18 15:50 08/17/18 15:50 08/17/18 15:50 08/17/18 15:50 - Assessment and Plan (1) Cellulitis of right lower extremity Current Visit: Yes Status: Acute (2) Acute kidney injury (nontraumatic) Current Visit: No Status: Resolved (3) Anemia Current Visit: No Status: Acute (4) Severe sepsis with acute organ dysfunction due to group A Streptococcus Current Visit: Yes Status: Suspected (5) Morbid obesity with BMI of 60.0-69.9, adult Current Visit: Yes Status: Chronic (6) Iron deficiency anemia Current Visit: Yes Status: Suspected (7) Acute respiratory failure with hypoxemia Current Visit: Yes Status: Resolved (8) Folate deficiency Current Visit: Yes Status: Chronic (9) HTN (hypertension) Current Visit: Yes Status: Chronic (10) Lung nodule Current Visit: Yes Status: Acute (11) Hepatosplenomegaly Current Visit: Yes Status: Acute (12) Retroperitoneal lymphadenopathy Current Visit: Yes Status: Acute - Time Spent with Patient Total time spent is greater than 50% in coordination of care (as documented) at patient's floor/unit and/or counseling patient: Internal Medicine: Result - Labs CBC & Chem 7: 08/17/18 04:25 08/17/18 04:25 Labs: Short CBC 08/17/18 Range/Units 04:25 WBC 18.5 H (4.3-11.1) K/mcL Hgb 7.4 L (11.5-15.4) g/dL Hct 27.4 L (35.3-44.9) % Plt Count 305 (140-400) K/mcL Neutrophils # 14.9 H (1.6-8.9) K/mcL BMP 08/17/18 04:25 Sodium 134 L Potassium 3.9 Chloride 99 Carbon Dioxide 29 BUN 13 Creatinine 0.93 Glucose 102 Calcium 8.5 L Cardiac Enzymes 08/17/18 Range/Units 04:25 Troponin I 0.11 H* (< 0.04) ng/mL - ABG Interpretation ABG results: ABG ABG pH 7.24 pH Units (7.32-7.45) L 08/09/18 08:48 ABG pCO2 68 mmHg (35-45) H 08/09/18 08:48 ABG pO2 58 mmHg (85-104) L D 08/09/18 08:48 ABG O2 Saturation 84 % (95-98) L 08/09/18 08:48 PT/INR, D-dimer PT 15.4 Seconds (9.4-12.1) H 08/15/18 06:36 - Impressions Impressions Liver Ultrasound 08/17/18 09:00 IMPRESSION: 1. Technically limited by body habitus. 2. Hepatic steatosis. D/ / 08/17/2018 13:10:18 Molly Bobby MD / michael Interpreting Provider: Molly Bobby MD - Attending Attestation I examined this patient and my medical decision-making was reviewed with the Resident Physician on 08/17/18. I agree with the documented findings, disposition and treatment plan as described except to the extent set forth below. Ms Del Castillo is currently admitted for cellulitis, anemia and resp failure which has improved. She remains moderate to high risk due to potential for worsening clinical status. Ms Del Castillo had ultrasound today. No fever or chills. Continues to have same issues with leg. To have endoscopy tomorrow. Exam alert Comfortable Mucus membranes moist Heart not tachy No wheeze abd soft RLE still edematous and red I/P 1. Cellulitis - continues to be issue. On IV abx 2. Lymphedema 3. Anemia - to have endoscopy tomorrow. Further diagnoses and plan as above. <Darin Santos - Last Filed: 08/17/18 19:29> (3) Anemia Qualifiers: Anemia type: iron deficiency Iron deficiency anemia type: chronic blood loss Qualified Code(s): D50.0 - Iron deficiency anemia secondary to blood loss (chronic) (6) Iron deficiency anemia Qualifiers: Iron deficiency anemia type: chronic blood loss Qualified Code(s): D50.0 - Iron deficiency anemia secondary to blood loss (chronic) (9) HTN (hypertension) Qualifiers: Hypertension type: essential hypertension Qualified Code(s): I10 - Essential (primary) hypertension
[2018-08-17] MEDS: Folic Acid 1 MG TABLET PO SCH (08:22)
[2018-08-17] MEDS: Furosemide 40 MG TABLET PO SCH ×2 (08:22→17:28)
[2018-08-17] MEDS: MOM Conc 10 ML UD.LIQ PO SCH (08:22)
[2018-08-17] MEDS: Nystatin POWDER 30 GM BOTTLE TP SCH ×2 (08:24→21:07)
--- NOTE | 2018-08-17 09:05 | General Surgery Progress Note ---
Date of Encounter: 08/17/18 Time of Encounter: 09:00 - Assessment and Plan (1) Rash Current Visit: Yes Status: Acute Erythema of right lower extremity May be 2/2 venous stasis vs lymphedema CT showed superficial soft-tissue edema, no fluid collection or abscess, no osseous abnormality ESR >130 Will order ANCA Dermatology also consulted (2) Cellulitis of right lower extremity Current Visit: Yes Status: Acute Patient presented with RLE erythema, pain, warmth, and fevers Positive anti-streptolysin O Ab On IV Vancomycin and Zosyn WBC 19.5, down from 42.5 on admission (3) Anemia Current Visit: Yes Status: Acute Hgb of 6.7, down from 7.5 on admission Microcytic anemia Appear to have iron deficiency Received 1 unit of PRBCs with another unit ordered Qualifiers: Anemia type: other cause Other causes of anemia: chronic disease, other Qualified Code(s): D63.8 - Anemia in other chronic diseases classified elsewhere (4) Leukocytosis Current Visit: Yes Status: Acute WBC 19.5, down from 42.5 on admission May be 2/2 right leg infection vs reactive Followed by oncology and infectious disease On IV Vancomycin and Cefepime Qualifiers: Leukocytosis type: unspecified Qualified Code(s): D72.829 - Elevated white blood cell count, unspecified Subjective Narrative: Patient doing well this morning. She is sitting up in bed. She still complains of right ankle pain and swelling, but it is improved today. She denies BARROW, CP, SOB, abdominal pain, fevers/chills, numbness/tingling. Objective Vital Signs - Last 8 Hours Temp Pulse Resp BP Pulse Ox 08/17/18 07:40 97.6 F 92 20 152/78 90 08/17/18 04:09 94 20 133/83 90 Intake and Output 08/16/18 08/17/18 08/17/18 23:59 07:59 15:59 Intake Total 100 / 100 550 / 550 Output Total 400 / 400 500 / 500 Balance -300 / -300 50 / 50 Intake: IV Fluids 100 / 100 350 / 350 Maxipime 2,000 MG In 0.9 % 100 / 100 100 / 100 Sodium Chloride (Mini-Bag +) 100 ML @ 200 mls/hr IVPB Q12HR [facility] Rx#:[id number] Vancocin 1,500 MG In 0.9 % 250 / 250 Sodium Chloride 250 ML @ 166.67 mls/hr IVPB Q12H [facility] Rx#: [id number] Oral 0 / 0 200 / 200 Output: Urine 400 / 400 500 / 500 Other: Stool Size Small Stool Consistency soft formed Stool Color Brown Weight 203 kg Patient Weight 08/17/18 23:59 Weight 203 kg - Labs 08/17/18 04:25 08/17/18 04:25 Diabetes panel 08/17/18 Range/Units 04:25 Sodium 134 L (136-145) mEq/L Potassium 3.9 (3.5-5.1) mEq/L Chloride 99 (98-107) mEq/L Carbon Dioxide 29 (23-29) mEq/L BUN 13 (6-20) mg/dL Creatinine 0.93 (0.60-1.20) mg/dL Glucose 102 (70-105) mg/dL Calcium 8.5 L (8.6-10.3) mg/dL Calcium panel 08/17/18 Range/Units 04:25 Calcium 8.5 L (8.6-10.3) mg/dL Pituitary panel 08/17/18 Range/Units 04:25 Sodium 134 L (136-145) mEq/L Potassium 3.9 (3.5-5.1) mEq/L Chloride 99 (98-107) mEq/L Carbon Dioxide 29 (23-29) mEq/L BUN 13 (6-20) mg/dL Creatinine 0.93 (0.60-1.20) mg/dL Glucose 102 (70-105) mg/dL Calcium 8.5 L (8.6-10.3) mg/dL Adrenal panel 08/17/18 Range/Units 04:25 Sodium 134 L (136-145) mEq/L Potassium 3.9 (3.5-5.1) mEq/L Chloride 99 (98-107) mEq/L Carbon Dioxide 29 (23-29) mEq/L BUN 13 (6-20) mg/dL Creatinine 0.93 (0.60-1.20) mg/dL Glucose 102 (70-105) mg/dL Calcium 8.5 L (8.6-10.3) mg/dL Consult Discharge Plan - Plan Referrals: Nena Cody CNP [Advanced Practice Nurse] - 08/30/18 10:00 am
--- NOTE | 2018-08-17 09:08 | Rheumatology Progress Note ---
<Arthur Stapleton S - Last Filed: 08/17/18 14:17> Date of Encounter: 08/17/18 Time of Encounter: 09:00 Rheumatology Assess and Plan (1) Rash Current Visit: Yes Status: Acute Erythema of right lower extremity May be 2/2 venous stasis vs lymphedema CT showed superficial soft-tissue edema, no fluid collection or abscess, no osseous abnormality ESR >130 Ordered ANCA for possibility of vasculitis etiology, will follow the results Rheumatology will sign off at this time, thank you for the consult (2) Cellulitis of right lower extremity Current Visit: Yes Status: Acute Patient presented with RLE erythema, pain, warmth, and fevers Positive anti-streptolysin O Ab ID following On IV Vancomycin and Cefepime WBC 19.5 > 18.5 today, down from 42.5 on admission (3) Anemia Current Visit: Yes Status: Acute Hgb 7.4 today, 7.5 on admission Microcytic anemia with iron deficiency, on vitamin supplementation Received 2 units of PRBCs since admission Qualifiers: Anemia type: other cause Other causes of anemia: chronic disease, other Qualified Code(s): D63.8 - Anemia in other chronic diseases classified elsewhere (4) Leukocytosis Current Visit: Yes Status: Acute WBC 19.5 > 18.5 today, down from 42.5 on admission May be 2/2 right leg infection vs reactive Followed by oncology and infectious disease On IV Vancomycin and Cefepime Qualifiers: Leukocytosis type: unspecified Qualified Code(s): D72.829 - Elevated white blood cell count, unspecified (5) Hepatosplenomegaly Current Visit: Yes Status: Acute CT abdomen/pelvis showed moderate hepatosplenomegaly GI following Ordered US of liver and r-6-swoempsnsui, AFP, mitochondrial Ab, ceruloplasmin, F-actin IgG - Subjective Interval history: Patient doing well this morning. She is sitting on edge of bed. She still complains of right leg pain and swelling this morning. She denies BARROW, CP, SOB, abdominal pain, nausea, vomiting, changes in bowel/bladder habits, fevers/chills, numbness/tingling. Exam Vital Signs, Last 4 Hours Temp Pulse Resp BP Pulse Ox 08/17/18 07:40 97.6 F 92 20 152/78 90 Exam: Constitutional: afebrile, heart rate 92, BP 152/78, O2 sat 90% on RA, morbidly obese, no acute distress Eyes: no scleral injection, PERRLA Cardiovascular: RRR, no murmurs, diminished due to body habitus, pedal pulses difficult to palpate due to body habitus Respiratory: clear to auscultation bilaterally, no wheezes noted, diminished due to body habitus, no accessory muscle use Abdomen: unable to palpate liver or spleen due to body habitus, non-tender Musculoskeletal: right lower extremity 3+ pitting edema to knee, right ankle tender to palpation, right leg warm to palpation, joints of hands bilaterally are non-tender without joint effusion Skin: right leg erythema 2/3 up leg with seeping areas in mid-leg, left leg is non-erythematous, tightening of right ankle joint Neurologic: sensation intact in lower extremities bilaterally, cranial nerves grossly intact with no focal deficits Psychiatric: normal mood, normal affect, A&O x3 Objective Data 08/17/18 04:25 08/17/18 04:25 Immunology IgG 1330 mg/dL (768-1632) 08/13/18 04:21 IgA 316 mg/dL (68-408) 08/13/18 04:21 IgM 94 mg/dL (35-263) 08/13/18 04:21 Rheumatoid Factor 13 IU/mL (Less than 14) 08/12/18 13:07 CHERIE Screen NONE DETECTED (None Detected) 08/09/18 04:35 Tiss Transglutamin IgA 1 U/mL (0-3) 08/10/18 05:01 Parietal Cell IgG Ab 2.2 Units (0.0-24.9) 08/10/18 05:01 Intrins Factor Block Ab NEGATIVE (Negative) 08/10/18 05:01 Complement C3 150 mg/dL (88-201) 08/09/18 04:35 Complement C4 26 mg/dL (10-40) 08/09/18 04:35 All other labs normal. Consult Discharge Plan - Plan Referrals: Nena Cody CNP [Advanced Practice Nurse] - 08/30/18 10:00 am <Terry Daniel - Last Filed: 08/17/18 17:10> Date of Encounter: 08/17/18 Exam Vital Signs, Last 4 Hours Temp Pulse Resp BP Pulse Ox 08/17/18 15:50 98.2 F 89 18 127/55 92 Objective Data 08/17/18 04:25 08/17/18 04:25 Immunology IgG TNP 08/13/18 04:21 IgA TNP 08/13/18 04:21 IgM TNP 08/13/18 04:21 Rheumatoid Factor 13 IU/mL (Less than 14) 08/12/18 13:07 CHERIE Screen NONE DETECTED (None Detected) 08/09/18 04:35 Tiss Transglutamin IgA 1 U/mL (0-3) 08/10/18 05:01 Parietal Cell IgG Ab 2.2 Units (0.0-24.9) 08/10/18 05:01 Intrins Factor Block Ab NEGATIVE (Negative) 08/10/18 05:01 Complement C3 150 mg/dL (88-201) 08/09/18 04:35 Complement C4 26 mg/dL (10-40) 08/09/18 04:35 Free [place] LC, Quant 6.97 mg/dL (0.33-1.94) H 08/13/18 04:21 Free Lambda LC, Quant 5.86 mg/dL (0.57-2.63) H 08/13/18 04:21 Free [place]/Lambda Ratio 1.19 (0.26-1.65) 08/13/18 04:21 All other labs normal. - Attending Attestation I examined this patient and my medical decision making was reviewed with the resident physician. I agree with the documented findings, disposition and treatment as described with these exceptions. Overall stable, no fevers, WBC mildly improving US Abd - Hepatic steatosis Rash/Erythema - Appears stable and mildly improved. Rash - At this time, suspicion for systemic autoimmune disease/vasculitis is low. Given some of the findings, will follow-up on the ANCA levels. She is having workup now for hematologic abnormalities, GI abnormalities. Spoke to ID regarding care. I will sign off for now as I will be out of the hospital until next Thursday. If patient is still here and my services are requested, I can reevaluate the patient.
[2018-08-17 10:17] LABS: IFE Reflexed NOT DONE
[2018-08-17] MEDS: *HR* Heparin 5,000 UNIT/ML VIAL SQ SCH ×2 (14:36→21:08)
--- NOTE | 2018-08-17 15:44 | Infectious Disease Progress No ---
Date of Encounter: 08/17/18 Time of Encounter: 15:42 - Assessment and Plan (1) Severe sepsis Current Visit: Yes Status: Acute The patient had 3 sepsis criteria with lactic acidosis, acute kidney injury, and altered mental status. Likely secondary to cellulitis of the right lower extremity. White blood cell count remains elevated. Afebrile. Tachycardia has resolved. Blood cultures drawn 08/07/18 are no growth to date 2 sets. Repeat blood cultures drawn 08/08/18 are negative 2 sets. Recommendations: - Await blood cultures to finalize. - Continue to trend WBC. - Consider dermatology consult to evaluate for possible biopsy. - Consider rheumatology consult given leg pain and elevated inflammatory markers. - Continue Vancomycin IV. - Continue cefepime 2 grams IV Q12H. - Continue Lamisil topical to the bilateral feet BID x 1 week. - Duration of treatment depends on the clinical picture. - Monitor renal function and for drug toxicity and dose-adjust antibiotics. - Consider GI to evaluate for hyperbilirubinemia. - Discussed with Dr. Hicks from rheumatology. I also called heme/on current last night and discussed the case with them and told them the findings that we - saw on the CT scan and what the radiologist concerns were. - Patient is going for EGD colonoscopy tomorrow - We will continue to follow (2) Leukocytosis Current Visit: Yes Status: Acute Etiology unclear. ESR and CRP elevated. Qualifiers: Leukocytosis type: unspecified Qualified Code(s): D72.829 - Elevated white blood cell count, unspecified (3) Cellulitis of right lower extremity Current Visit: Yes Status: Acute Location: Right lower extremity. Causative organisms: Unclear. Etiology: Unclear. Tinea pedis vs. other. CT of the right lower extreme he shows diffuse subcutaneous edema consistent with cellulitis versus lymphedema, but no gas, abscess, or osteomyelitis was noted. DVT study was negative. Repeat CT scan was negative for new findings. Remains erythematous, tender, and swollen. (4) Acute respiratory failure with hypoxemia Current Visit: Yes Status: Resolved Etiology: Unclear. Chest x-ray shows probable early CHF with mild perihilar edema. ABG indicative of respiratory acidosis. D-dimer is elevated. CT chest negative for PE. Management per the primary team. (5) Anemia Current Visit: No Status: Acute Etiology: Unclear. No acute bleeding noted on exam. Heme/Onc consult to assist with management and workup. Qualifiers: Anemia type: iron deficiency Iron deficiency anemia type: chronic blood loss Qualified Code(s): D50.0 - Iron deficiency anemia secondary to blood loss (chronic) (6) Hyperbilirubinemia Current Visit: Yes Status: Acute Etiology: Unclear. AST, ALP, and alkaline phosphatase all are normal. Secondary to sepsis? Continue to trend. Resolved. GI consult. (7) Tinea pedis Current Visit: Yes Status: Acute Lamisil as above. Qualifiers: Laterality: bilateral Qualified Code(s): B35.3 - Tinea pedis (8) Morbid obesity with BMI of 60.0-69.9, adult Current Visit: Yes Status: Chronic - Subjective Interval history: Patient seen and examined. Appears comfortable clinically. Denies any complaint. Laying in bed. at bedside. Had a bowel movement one hour ago and no diarrhea. Breathing okay. Good oral intake. Foot appears to be doing better clinically. Vital signs noted: Afebrile mildly tachycardic Labs reviewed: WBC 18.5 with 81% neutrophils. Normal kidney function Liver ultrasound reviewed Infect Dis PN-Objective Data - Labs CBC & Chem 7: 08/17/18 04:25 08/17/18 04:25 Labs: Laboratory Results - last 24 hr 08/13/18 08/13/18 08/13/18 04:21 04:21 04:21 WBC RBC Hgb Hct MCV MCH MCHC RDW Plt Count MPV Immature Gran % Seg Neutrophils % Lymphocytes % Monocytes % Eosinophils % Basophils % Neutrophils # Lymphocytes # Monocytes # Eosinophils # Basophils # Platelet Estimate Polychromasia Hypochromasia Anisocytosis Microcytosis Macrocytosis Stomatocytes Factor VII Sodium Potassium Chloride Carbon Dioxide BUN Creatinine Est GFR ( Amer) Est GFR (Non-Af Amer) BUN/Creatinine Ratio Glucose Calculated Osmolality Calcium Ferritin Troponin I Prot Electrophor EER SEE NOTE Total Protein (PEP) 6.90 Albumin (PEP) 2.79 L Hbgin-0-Pdvjfiflj 0.66 H Luwjx-5-Nyymgghcv 1.09 H Beta Globulins 0.86 Gamma Globulins 1.50 PEP Interpretation SEE NOTE Serum Immunofix Reflex NOT DONE Vancomycin Trough IgG TNP IgA TNP IgM TNP Free Jovista LC, Quant 6.97 H Free Lambda LC, Quant 5.86 H Free Jovista/Lambda Ratio 1.19 JAK2 V617F Mutation NOT DETECTED 08/13/18 08/16/18 08/17/18 04:21 15:40 04:25 WBC RBC Hgb 7.4 L Hct 27.4 L MCV MCH MCHC RDW Plt Count MPV Immature Gran % Seg Neutrophils % Lymphocytes % Monocytes % Eosinophils % Basophils % Neutrophils # Lymphocytes # Monocytes # Eosinophils # Basophils # Platelet Estimate Polychromasia Hypochromasia Anisocytosis Microcytosis Macrocytosis Stomatocytes Factor VII 76 L Sodium Potassium Chloride Carbon Dioxide BUN Creatinine Est GFR ( Amer) Est GFR (Non-Af Amer) BUN/Creatinine Ratio Glucose Calculated Osmolality Calcium Ferritin Troponin I 0.11 H* Prot Electrophor EER Total Protein (PEP) Albumin (PEP) Livsr-9-Reblypjsv Bcwfx-0-Vupkujujm Beta Globulins Gamma Globulins PEP Interpretation Serum Immunofix Reflex Vancomycin Trough IgG IgA IgM Free Jovista LC, Quant Free Lambda LC, Quant Free Jovista/Lambda Ratio JAK2 V617F Mutation 08/17/18 08/17/18 08/17/18 04:25 04:25 04:25 WBC 18.5 H RBC 3.89 Hgb 7.4 L Hct 27.4 L MCV 70.4 L MCH 19.0 L MCHC 27.0 L RDW 27.3 H Plt Count 305 MPV 10.4 Immature Gran % 2.8 Seg Neutrophils % 80.5 Lymphocytes % 8.6 Monocytes % 5.7 Eosinophils % 2.1 Basophils % 0.3 Neutrophils # 14.9 H Lymphocytes # 1.6 Monocytes # 1.1 Eosinophils # 0.4 Basophils # 0.1 Platelet Estimate Normal Polychromasia 1+ A Hypochromasia Present A Anisocytosis 1+ A Microcytosis Present A Macrocytosis Present A Stomatocytes 1+ A Factor VII Sodium 134 L Potassium 3.9 Chloride 99 Carbon Dioxide 29 BUN 13 Creatinine 0.93 Est GFR ( Amer) > 60 Est GFR (Non-Af Amer) > 60 BUN/Creatinine Ratio 14 Glucose 102 Calculated Osmolality 278 L Calcium 8.5 L Ferritin 126 H Troponin I Prot Electrophor EER Total Protein (PEP) Albumin (PEP) Bplfj-0-Aiylhygmh Lfsvh-7-Sdsnytnzp Beta Globulins Gamma Globulins PEP Interpretation Serum Immunofix Reflex Vancomycin Trough 25 H IgG IgA IgM Free Jovista LC, Quant Free Lambda LC, Quant Free Jovista/Lambda Ratio JAK2 V617F Mutation Cultures: Cultures 08/15/18 09:14 Wound Culture - Final Left Leg No growth. 08/12/18 09:54 Blood Culture - Final Peripheral Venipuncture No growth. Final report. 08/12/18 10:36 Blood Culture - Final Peripheral Venipuncture No growth. Final report. 08/08/18 13:07 Blood Culture - Final Peripheral Venipuncture No growth. Final report. 08/08/18 13:07 Blood Culture - Final Peripheral Venipuncture No growth. Final report. 08/08/18 12:45 Urine Culture - Final Urine,Catheterized No growth. Serology 08/14/18 08/09/18 08/09/18 Range/Units 04:53 18:03 09:35 Urine Color (Yellow) Urine Clarity (Clear) Urine pH (5.0-8.0) pH Units Ur Specific Jackson (1.010-1.025) Urine Protein (Neg-Trace) mg/dL Urine Glucose (UA) (Normal) mg/dL Urine Ketones (Negative) mg/dL Urine Blood (Negative) Urine Nitrite (Negative) Urine Bilirubin (Negative) Urine Urobilinogen (Normal) mg/dL Ur Leukocyte Esterase (Negative) Urine Microscopic RBC (0-3) per hpf Urine Microscopic WBC (0-3) per hpf Ur Eosinophil Smear 0 (None Seen) % Ur Squamous Epith Cells (None-Few) per lpf Urine Bacteria (None-Few) per hpf Urine Osmolality (300-1090) mOsm/kg Urine Creatinine mg/dL Protein/Creatinin Ratio (0.00-0.20) mg/mg Urine Sodium mEq/L Urine Total Protein (1-14) mg/dL Stool Occult Blood Negative (Negative) Hepatitis A IgM Ab Nonreactive (Nonreactive) Hep Bs Antigen Nonreactive (Nonreactive) Hep B Core IgM Ab Nonreactive (Nonreactive) Hepatitis C Ab Screen Nonreactive (Nonreactive) Anti-Streptolysin O Ab (0-330) IU/mL 08/09/18 08/09/18 08/08/18 Range/Units 09:21 09:21 12:45 Urine Color [place] A (Yellow) Urine Clarity Turbid A (Clear) Urine pH 5.0 (5.0-8.0) pH Units Ur Specific Jackson 1.024 (1.010-1.025) Urine Protein 100 H (Neg-Trace) mg/dL Urine Glucose (UA) Normal (Normal) mg/dL Urine Ketones Trace H (Negative) mg/dL Urine Blood Negative (Negative) Urine Nitrite Positive A (Negative) Urine Bilirubin Small H (Negative) Urine Urobilinogen Normal (Normal) mg/dL Ur Leukocyte Esterase Trace H (Negative) Urine Microscopic RBC 0-3 (0-3) per hpf Urine Microscopic WBC 15-30 H (0-3) per hpf Ur Eosinophil Smear (None Seen) % Ur Squamous Epith Cells Many H (None-Few) per lpf Urine Bacteria None Seen (None-Few) per hpf Urine Osmolality 303 (300-1090) mOsm/kg Urine Creatinine 33 mg/dL Protein/Creatinin Ratio 0.91 H (0.00-0.20) mg/mg Urine Sodium mEq/L Urine Total Protein 30 H (1-14) mg/dL Stool Occult Blood (Negative) Hepatitis A IgM Ab (Nonreactive) Hep Bs Antigen (Nonreactive) Hep B Core IgM Ab (Nonreactive) Hepatitis C Ab Screen (Nonreactive) Anti-Streptolysin O Ab (0-330) IU/mL 08/08/18 08/07/18 Range/Units 12:45 18:01 Urine Color (Yellow) Urine Clarity (Clear) Urine pH (5.0-8.0) pH Units Ur Specific Jackson (1.010-1.025) Urine Protein (Neg-Trace) mg/dL Urine Glucose (UA) (Normal) mg/dL Urine Ketones (Negative) mg/dL Urine Blood (Negative) Urine Nitrite (Negative) Urine Bilirubin (Negative) Urine Urobilinogen (Normal) mg/dL Ur Leukocyte Esterase (Negative) Urine Microscopic RBC (0-3) per hpf Urine Microscopic WBC (0-3) per hpf Ur Eosinophil Smear (None Seen) % Ur Squamous Epith Cells (None-Few) per lpf Urine Bacteria (None-Few) per hpf Urine Osmolality (300-1090) mOsm/kg Urine Creatinine mg/dL Protein/Creatinin Ratio (0.00-0.20) mg/mg Urine Sodium 23.4 mEq/L Urine Total Protein (1-14) mg/dL Stool Occult Blood (Negative) Hepatitis A IgM Ab (Nonreactive) Hep Bs Antigen (Nonreactive) Hep B Core IgM Ab (Nonreactive) Hepatitis C Ab Screen (Nonreactive) Anti-Streptolysin O Ab 412 H (0-330) IU/mL - Impressions Impressions Liver Ultrasound 08/17/18 09:00 IMPRESSION: 1. Technically limited by body habitus. 2. Hepatic steatosis. D/ : / 08/17/2018 13:10:18 Molly Bobby MD / michael Interpreting Provider: Molly Bobby MD Exam - Constitutional Vitals: Temp Pulse Resp BP Pulse Ox 97.8 F 82 18 159/80 93 08/17/18 12:13 08/17/18 12:13 08/17/18 12:13 08/17/18 12:13 08/17/18 12:13 General appearance: no acute distress, no febrile - Head Head exam: Present: atraumatic, normocephalic - Respiratory Respiratory exam: Present: CTAB. Absent: rales, wheezes - Cardiovascular Cardiovascular exam: Present: RRR, +S1, +S2 - GI/Abdominal GI/Abdominal exam: Present: normal bowel sounds, soft. Absent: tenderness - Extremities Exam Additional comments: Erythema and tenderness bilateral lower extremities noted mildly worse on the right. But significantly improved from previously. Consult Discharge Plan - Plan Referrals: Nena Cody ARMATURE REWINDER [Advanced Practice Nurse] - 08/30/18 10:00 am
[2018-08-17] MEDS ORDERED: SODIUM CHLORIDE/NAHCO3/KCL/PEG 4,000 ML SOLN.RECON PO ONE (17:00)
--- NOTE | 2018-08-17 18:07 | Oncology Inp Progress Note ---
Date of Encounter: 08/17/18 Time of Encounter: 17:00 (1) Anemia Current Visit: No Status: Acute Assessment and plan: Presented with anemia w/ MCV of 66.4 Pt does have iron, B12 and folate deficiencies. Ferritin 61, Vit B12 283, folate 4.3 Work up has not yet revealed potential cause for malabsorption (Intrinsic factor Ab negative, parietal cell IgG Atb WNL, TTG IgA normal) She has had hgb <7 requiring PRBC transfusions x2 since admission, FOBT negative LDH 209, haptoglobin 186. Fibrinogen 663. INR 1.4, aPTT 32.3, RONN 1+ Peripheral smear revealing hypochromic microcytic anemia with ovalocytes and stomatocytes identified, no immature forms Hgb evaluation-negative for thalassemia SPEP-negative, no monoclonal proteins No phenotypic evidence of PNH Slightly decreased Factor VII activity-discussed with Dr. Sales-not a significant depressed level, severe deficiency levels observed at <10% Plan: Etiology may be multifactorial in setting of inflammatory/infectious process and multiple nutritional deficiencies as above GI now following-planning for EGD/Colonoscopy S/P venofer, continue folate dialy, s/p B12 IM x5 doses, follow up with weekly doses x4 then monthly Qualifiers: Anemia type: iron deficiency Iron deficiency anemia type: chronic blood loss Qualified Code(s): D50.0 - Iron deficiency anemia secondary to blood loss (chronic) (2) B12 deficiency Current Visit: Yes Status: Chronic Assessment and plan: Refer to anemia (3) Cellulitis of right lower extremity Current Visit: Yes Status: Acute (4) Folate deficiency Current Visit: Yes Status: Chronic Assessment and plan: Refer to anemia (5) Hepatosplenomegaly Current Visit: Yes Status: Acute Assessment and plan: CT abdomen/pelvis showed moderate hepatosplenomegaly Liver US reveals hepatic steatosis-hepatitis profile negative Given splenomegaly and leukocytosis will assess for PV although patient does not have erythrocytosis/increased hgb/hct (Could be masked by other process? no other prior labs to compare to) JAK2 [id number] EPO ordered for completeness GI following, appreciate recommendations (6) Iron deficiency anemia Current Visit: Yes Status: Suspected Assessment and plan: Refer to anemia Qualifiers: Iron deficiency anemia type: chronic blood loss Qualified Code(s): D50.0 - Iron deficiency anemia secondary to blood loss (chronic) (7) Leukocytosis Current Visit: Yes Status: Acute Assessment and plan: In presence of severe sepsis on presentation likely secondary to LE cellulitis Presented with neutrophil predominant leukocytosis, WBC count peaked at 42 on 08/08, down trending but labile and remains elevated Elevated ESR/CRP Leukocyte Alkaline Phosphatase is elevated indicating leukocytosis is more likely secondary to leukemoid reaction versus CML Appreciate management per ID Qualifiers: Leukocytosis type: unspecified Qualified Code(s): D72.829 - Elevated white blood cell count, unspecified (8) Retroperitoneal lymphadenopathy Current Visit: Yes Status: Acute Assessment and plan: Imaging reveals few nonspecific mildly prominent retroperitoneal lymph nodes, hepatosplenomegaly as above and benign-appearing nodule in the subpleural left lower lobe, possibly a solitary fibrous tumor of the pleura or healing granuloma or less likely a pulmonary hamartoma. This could be secondary to reactive versus malignant process Consider LN biopsy/BMB versus re-imaging in future once infectious issues im proved Lymphadenopathy does not appear to be amendable to biopsy given only mild enlargement at this time, mildly prominent adenopathy would not likely account for her LE edema Oncology will plan to continue to follow at a distance, please feel free to contact with any questions or concerns should clinical status change, will otherwise likely plan to follow up as an outpatient Oncology: Subj Interval history: Ms. Del Castillo is sitting on side of bed. No acute events overnight. Her family is at bedside. She is soon to begin prep for colonoscopy tomorrow. She denies fever/chill, pain, SOB, bowel changes, urinary complaint or any s/s bleeding. She reports symptomatic improvement in pain and reduction in erythema to RLE - Constitutional Vitals: Vital Signs Temp Pulse Resp BP Pulse Ox 08/17/18 15:50 98.2 F 89 18 127/55 92 08/17/18 12:13 97.8 F 82 18 159/80 93 08/17/18 07:40 97.6 F 92 20 152/78 90 08/17/18 04:09 94 20 133/83 90 08/17/18 00:06 97.9 F 87 19 131/59 88 08/16/18 22:00 98.7 F 92 17 156/78 90 Intake and Output 08/17/18 08/17/18 08/17/18 07:59 15:59 23:59 Intake Total 550 / 550 400 / 400 Output Total 500 / 500 300 / 300 Balance 50 / 50 100 / 100 Intake: IV Fluids 350 / 350 Maxipime 2,000 MG In 0.9 % 100 / 100 Sodium Chloride (Mini-Bag +) 100 ML @ 200 mls/hr IVPB Q12HR ROHINI Rx#:[id number] Vancocin 1,500 MG In 0.9 % 250 / 250 Sodium Chloride 250 ML @ 166.67 mls/hr IVPB Q12H ROHINI Rx#: [id number] Oral 200 / 200 400 / 400 Output: Urine 500 / 500 300 / 300 Other: Meal Lunch Percent of Meal Consumed 100% Stool Size Small Small Stool Consistency soft loose formed liquid Stool Color Brown # Bowel Movements 1 Weight 203 kg Patient Weight 08/17/18 23:59 Weight 203 kg General appearance: cooperative, morbidly obese, no acute distress, no febrile - Head Head exam: Present: atraumatic - ENT ENT exam: Present: mucous membranes moist - Respiratory Respiratory exam: Present: decreased breath sounds, CTAB. Absent: respiratory distress - GI/Abdominal GI/Abdominal exam: Present: normal bowel sounds, soft. Absent: tenderness - Extremities Exam Extremities exam: Present: tenderness Additional comments: see skin assessment - Neurological Exam Neurological exam: Present: alert, oriented X3, no focal deficits, strengths equal and symetr throughout - Psychiatric Psychiatric exam: Present: flat affect - Skin Skin exam: Present: dry, warm Additional comments: BLE edema with erythema R>L Oncology: Obj Data - Labs CBC & Chem 7: 08/18/18 04:35 08/18/18 04:35 - Impressions Impressions Liver Ultrasound 08/17/18 09:00 IMPRESSION: 1. Technically limited by body habitus. 2. Hepatic steatosis. D/ 08/17/2018 13:10:18 Molly Bobby MD / michael Interpreting Provider: Molly Bobby MD - ABG Interpretation ABG results: ABG ABG pH 7.24 pH Units (7.32-7.45) L 08/09/18 08:48 ABG pCO2 68 mmHg (35-45) H 08/09/18 08:48 ABG pO2 58 mmHg (85-104) L D 08/09/18 08:48 ABG O2 Saturation 84 % (95-98) L 08/09/18 08:48 PT/INR, D-dimer PT 15.4 Seconds (9.4-12.1) H 08/15/18 06:36 Consult Discharge Plan - Plan Referrals: Nena Cody CNP [Advanced Practice Nurse] - 08/30/18 10:00 am Inpatient Charges Provider: Ivana Lazaro CNP Follow up - Inpatient: [id number]
--- NOTE | 2018-08-17 21:26 | Anesthesia Evaluation PreOp ---
Date of Encounter: 08/17/18 Time of Encounter: 21:24 - Past History Planned Operation: EGD and colonoscopy Cardiac History: HTN Pulmonary History: Snore (likely has undiagnosed RASHAUN), Other (acute resp failure, lung nodule) LEGAL FINANCIAL SPECIALIST History: Denies Any Significant HX Other Medical History: Other (sever sepsis, cellulitis of LE, anemia, BMI 66) Anesthesia History: No Prior Anesthetic Complications, Past Anesthesia (D&C) Alcohol Use: none Drug use: none Medications and Allergies No Known Home Drugs 08/07/18 [History] Allergy/AdvReac Type Severity Reaction Status Date / Time No Known Allergies Allergy Verified 08/07/18 12:21 - Meds/Allergy Pre-op Review Medications Reviewed: Yes Allergies Reviewed: Yes Beta Blockers on Current Med List: No Anesthesia Results - Labs 08/17/18 04:25 08/17/18 04:25 - Imaging Additional studies: 08/10/18 ECHO: EV/EV echocardiogram w enhance Impressions: LVEF 65-70%. Normal LV chamber size, wall thickness and function. Mildly dilated right ventricle with normal function. Mildly dilated right atrium. No significant valvular dysfunction. Mild to moderate pulmonary hypertension. Anesthesia Exam Vital Signs/O2 Sat, Most Current Temp Pulse Resp BP Pulse Ox 97.8 F 90 19 172/89 92 08/17/18 20:10 08/17/18 20:10 08/17/18 20:10 08/17/18 20:10 08/17/18 20:10 NPO (# of Hours): MN - HEENT Pupil (Motor): Pupils equal, EOMI Mallampati: III Teeth: Missing (several upper), Poor dentition Oral Opening: Greater than 3 - LEGAL FINANCIAL SPECIALIST LOC: Oriented LEGAL FINANCIAL SPECIALIST Motor: Normal RUE, Normal LUE, Normal RLE, Normal LLE, Normal Face LEGAL FINANCIAL SPECIALIST Sensory: Normal: RUE, LUE, RLE, LLE, Face - Cardiac Rhythm: Regular - Pulmonary Breath Sounds: bilateral Clear Respiratory Effort: Symmetrical Anesthesia Assess/Plan ASA Score: 3 Level of consciousness: Cooperative, Oriented Anesthetic Plan: General, MAC Monitoring Plan: Standard Monitors Recovery Plan: PACU
[2018-08-17] MEDS: FluocinoNIDE 0.05% CRM 15 GM TUBE TP SCH (21:37)
[2018-08-17] MEDS ORDERED: Aminoglycoside Consult 1 EACH MC ONE (23:07)
[2018-08-18] MEDS: traMADol 50 MG TABLET PO PRN ×5 (01:12→19:20)
[2018-08-18] MEDS ORDERED: methylPREDNISolone 125 MG/2 ML VIAL IVP ONE (03:22)
--- NOTE | 2018-08-18 04:40 | Event Note ---
Date of Encounter: 08/17/18 Time of Encounter: 19:54 Alerted by pts. nurse SUE [place] the patient appeared to have very fine rash over her body that appeared in the afternoon after patient had begun her ordered Go- Lytely bowel prep for EGD/Colonoscopy in the a.m. Nurse stated that the rash appeared to be contact dermatitis d/t rash under telemetry leads. Pt. stated that the rash did not hurt, burn, or itch. 50 mg PO Benadryl Q8HR ordered. Go- Lytely was DCd and changed to Miralax bowel prep. Fluocinonide cream ordered for rash as well. Notified by pts. nurse at 03:12 that rash was worsening and appeared like a very bad sunburn in some areas. Nurse reported fluocinonide cream nor Benadryl has helped. Patient continued to report that rash did not hurt, burn, or itch. Discussed patient with Dr. Galo w/recommendation to stop current IVPB vancomycin (started on 08/14) and cefepime (started on 08/09) and order 125 mg IVP Solu-medrol. Went to see pt. who was resting. Rash was spotty in areas of body while covering other areas completely such as her back and legs. No rash present on bilateral arms. Discussed plan of care w/pt. and her mother who stated that the pt. could not have steroids d/t current other problems. Solu-medrol DCd through Pharmacy and was not administered. Will let ID determine course of action in a.m. regarding abx and assess pts. rash. Pt. to be monitored closely overnight. Will continue PO Benadryl.
[2018-08-18] MEDS: *HR* Heparin 5,000 UNIT/ML VIAL SQ SCH ×3 (05:06→21:25)
[2018-08-18 05:12] LABS: Basophils % 0.2 %; Hemoglobin 7.5 g/dL (11.5-15.4); Immature Granulocytes % 1.2 % (0-4); Lymphocytes % 8.3 %; Red Blood Count 3.94 M/mcL (3.82-4.97); Segmented Neutrophils % 81.9 %
[2018-08-18 05:13] LABS: Eosinophils # 0.4 K/mcL (0.0-0.6); Eosinophils % 2.2 %; Hematocrit 28.3 % (35.3-44.9); Lymphocytes # 1.4 K/mcL (0.6-4.6); Mean Corpuscular HGB Conc 26.5 g/dL (31.6-35.5); Mean Corpuscular Volume 71.8 fL (83.0-100.0); Mean Platelet Volume 9.9 fL (9.4-12.4); Monocytes % 6.2 %; Neutrophils # 13.5 K/mcL (1.6-8.9); Platelet Count 270 K/mcL (140-400); Red Cell Distribution Width 27.6 % (11.5-14.5)
[2018-08-18 05:31] LABS: BUN/Creatinine Ratio 13 (6-26); Blood Urea Nitrogen 11 mg/dL (6-20); Calcium 8.3 mg/dL (8.6-10.3); Carbon Dioxide 30 mEq/L (23-29); Chloride 98 mEq/L (98-107); Glucose 94 mg/dL (70-105); Osmolality,Calculated 275 (280-300); Potassium 3.9 mEq/L (3.5-5.1); Sodium 133 mEq/L (136-145); eGFR For Non-African Americans > 60 (> 60)
[2018-08-18 05:50] LABS: Hypochromasia Present (Not Present); Polychromasia 1+ (Not Present)
[2018-08-18 05:51] LABS: Anisocytosis 3+ (Not Present); Platelet Estimate Normal (Normal)
[2018-08-18] MEDS: Folic Acid 1 MG TABLET PO SCH (08:28)
[2018-08-18] MEDS: Furosemide 40 MG TABLET PO SCH ×2 (08:28→17:39)
[2018-08-18] MEDS: MOM Conc 10 ML UD.LIQ PO SCH (08:28)
[2018-08-18] MEDS: Nystatin POWDER 30 GM BOTTLE TP SCH ×3 (08:29→23:00)
[2018-08-18] MEDS: FluocinoNIDE 0.05% CRM 15 GM TUBE TP SCH ×3 (08:34→22:59)
[2018-08-18] MEDS ORDERED: Propofol 500 MG/50 ML INFUS..BTL ONE (13:18)
[2018-08-18] MEDS ORDERED: Lidocaine -MPF 2% 2 ML VIAL ONE (13:18)
[2018-08-18] MEDS ORDERED: *HR* Propofol 200 MG/20 ML VIAL IVP ONE (13:35)
--- NOTE | 2018-08-18 13:49 | Infectious Disease Progress No ---
Date of Encounter: 08/18/18 Time of Encounter: 09:30 - Assessment and Plan (1) Severe sepsis Status: Acute The patient had 3 sepsis criteria with lactic acidosis, acute kidney injury, and altered mental status. Likely secondary to cellulitis of the right lower extremity. White blood cell count remains elevated, but trending down. Afebrile. Tachycardia has resolved. Blood cultures drawn 08/07/18 are negative 2 sets. Repeat blood cultures drawn 08/08/18 are negative 2 sets. Recommendations: - Continue to trend WBC. - IV antibiotics discontinued by the primary team in light of onset of new rash. Completed 10 days of Vanc and Cefepime/Zosyn. - Start Bactrim DS 1 tab PO BID. - Duration of treatment depends on the clinical picture, but likely a total of 14 days. - Monitor renal function and and dose-adjust antibiotics. - EGD/C-scope later today per the GI team. (2) Leukocytosis Status: Acute Etiology unclear. ESR and CRP elevated. Improved. Continue to trend. Qualifiers: Leukocytosis type: unspecified Qualified Code(s): D72.829 - Elevated white blood cell count, unspecified (3) Cellulitis of right lower extremity Status: Acute Location: Right lower extremity. Causative organisms: Unclear. Etiology: Unclear. Tinea pedis vs. other. CT of the right lower extreme he shows diffuse subcutaneous edema consistent with cellulitis versus lymphedema, but no gas, abscess, or osteomyelitis was noted. DVT study was negative. Repeat CT scan was negative for new findings. Remains erythematous, tender, and swollen. At this point, not sure that her symptoms are truly from cellulitis given its lack of response to antibiotic ther apy. Completed 10 days of IV antibiotics which were discontinued by the primary team in light of new rash. Antibiotic recommendations as above. (4) Acute respiratory failure with hypoxemia Status: Resolved Etiology: Unclear. Chest x-ray shows probable early CHF with mild perihilar edema. ABG indicative of respiratory acidosis. D-dimer is elevated. CT chest negative for PE. Management per the primary team. (5) Lactic acidosis Status: Resolved Likely secondary to right lower extremity cellulitis and sepsis. Resolved. (6) Acute kidney injury (nontraumatic) Status: Resolved Etiology: Unclear. Likely secondary to sepsis plus vancomycin toxicity plus possible underlying CKD. Nephrology consult to assist with management. Resolved. Continue to trend. Dose adjust antibiotics and avoid nephrotoxins as able. (7) Anemia Status: Acute Etiology: Unclear. No acute bleeding noted on exam. Heme/Onc consult to assist with management and workup. GI consulted and performing EGD/C-scope later today. Qualifiers: Anemia type: iron deficiency Iron deficiency anemia type: chronic blood loss Qualified Code(s): D50.0 - Iron deficiency anemia secondary to blood loss (chronic) (8) Hyperbilirubinemia Status: Acute Etiology: Unclear. AST, ALP, and alkaline phosphatase all are normal. Secondary to sepsis? Continue to trend. Resolved. GI consult. (9) Tinea pedis Status: Acute Completed 7 day course of Lamisil. Qualifiers: Laterality: bilateral Qualified Code(s): B35.3 - Tinea pedis (10) Morbid obesity with BMI of 60.0-69.9, adult Status: Chronic (11) Hepatosplenomegaly Status: Acute Etiology unclear. (12) Retroperitoneal lymphadenopathy Status: Acute CT scans reviewed with radiology by Dr. Thomas and discussed with the hem/onc team. (13) Rash Status: Acute Etiology unclear. Clinically, looks like it could be a drug rash, but non-pruritic which makes me think maybe it's something else. IV antibiotics discontinued by the primary team. Supportive care. - Subjective Interval history: Patient seen and examined sitting up in bed. Patient developed diffuse, erythematous macular rash to the anterior and posterior torso and legs. Patient reports persistent RLE pain, redness and swelling. Denies fevers, chills, or rigors. Denies chest pain, shortness of breath, or cough. Denies nausea, vomiting, or diarrhea. Reports last BM was this morning and was diarrhea from the bowel prep for her colonoscopy today. Denies any urinary complaints. She states the all-over swelling is better. She denies any oral thrush. Infect Dis PN-Objective Data - Labs CBC & Chem 7: 08/18/18 04:35 08/18/18 04:35 Labs: Laboratory Results - last 24 hr 08/18/18 08/18/18 08/18/18 04:35 04:35 04:35 WBC 16.5 H RBC 3.94 Hgb 7.5 L Hct 28.3 L MCV 71.8 L MCH 19.0 L MCHC 26.5 L RDW 27.6 H Plt Count 270 MPV 9.9 Immature Gran % 1.2 Seg Neutrophils % 81.9 Lymphocytes % 8.3 Monocytes % 6.2 Eosinophils % 2.2 Basophils % 0.2 Neutrophils # 13.5 H Lymphocytes # 1.4 Monocytes # 1.0 Eosinophils # 0.4 Basophils # 0.0 Platelet Estimate Normal Polychromasia 1+ A Hypochromasia Present A Anisocytosis 3+ A Sodium 133 L Potassium 3.9 Chloride 98 Carbon Dioxide 30 H BUN 11 Creatinine 0.88 Est GFR ( Amer) > 60 Est GFR (Non-Af Amer) > 60 BUN/Creatinine Ratio 13 Glucose 94 Calculated Osmolality 275 L Calcium 8.3 L Serum , Qual Negative Cultures: Cultures 08/17/18 12:41 Wound Culture - Preliminary Right Leg No growth. 08/15/18 09:14 Wound Culture - Final Left Leg No growth. 08/12/18 09:54 Blood Culture - Final Peripheral Venipuncture No growth. Final report. 08/12/18 10:36 Blood Culture - Final Peripheral Venipuncture No growth. Final report. 08/08/18 13:07 Blood Culture - Final Peripheral Venipuncture No growth. Final report. 08/08/18 13:07 Blood Culture - Final Peripheral Venipuncture No growth. Final report. 08/08/18 12:45 Urine Culture - Final Urine,Catheterized No growth. Serology 08/14/18 08/09/18 08/09/18 Range/Units 04:53 18:03 09:35 Urine Color (Yellow) Urine Clarity (Clear) Urine pH (5.0-8.0) pH Units Ur Specific [place] (1.010-1.025) Urine Protein (Neg-Trace) mg/dL Urine Glucose (UA) (Normal) mg/dL Urine Ketones (Negative) mg/dL Urine Blood (Negative) Urine Nitrite (Negative) Urine Bilirubin (Negative) Urine Urobilinogen (Normal) mg/dL Ur Leukocyte Esterase (Negative) Urine Microscopic RBC (0-3) per hpf Urine Microscopic WBC (0-3) per hpf Ur Eosinophil Smear 0 (None Seen) % Ur Squamous Epith Cells (None-Few) per lpf Urine Bacteria (None-Few) per hpf Urine Osmolality (300-1090) mOsm/kg Urine Creatinine mg/dL Protein/Creatinin Ratio (0.00-0.20) mg/mg Urine Sodium mEq/L Urine Total Protein (1-14) mg/dL Stool Occult Blood Negative (Negative) Hepatitis A IgM Ab Nonreactive (Nonreactive) Hep Bs Antigen Nonreactive (Nonreactive) Hep B Core IgM Ab Nonreactive (Nonreactive) Hepatitis C Ab Screen Nonreactive (Nonreactive) Anti-Streptolysin O Ab (0-330) IU/mL 08/09/18 08/09/18 08/08/18 Range/Units 09:21 09:21 12:45 Urine Color [place] A (Yellow) Urine Clarity Turbid A (Clear) Urine pH 5.0 (5.0-8.0) pH Units Ur Specific [place] 1.024 (1.010-1.025) Urine Protein 100 H (Neg-Trace) mg/dL Urine Glucose (UA) Normal (Normal) mg/dL Urine Ketones Trace H (Negative) mg/dL Urine Blood Negative (Negative) Urine Nitrite Positive A (Negative) Urine Bilirubin Small H (Negative) Urine Urobilinogen Normal (Normal) mg/dL Ur Leukocyte Esterase Trace H (Negative) Urine Microscopic RBC 0-3 (0-3) per hpf Urine Microscopic WBC 15-30 H (0-3) per hpf Ur Eosinophil Smear (None Seen) % Ur Squamous Epith Cells Many H (None-Few) per lpf Urine Bacteria None Seen (None-Few) per hpf Urine Osmolality 303 (300-1090) mOsm/kg Urine Creatinine 33 mg/dL Protein/Creatinin Ratio 0.91 H (0.00-0.20) mg/mg Urine Sodium mEq/L Urine Total Protein 30 H (1-14) mg/dL Stool Occult Blood (Negative) Hepatitis A IgM Ab (Nonreactive) Hep Bs Antigen (Nonreactive) Hep B Core IgM Ab (Nonreactive) Hepatitis C Ab Screen (Nonreactive) Anti-Streptolysin O Ab (0-330) IU/mL 08/08/18 08/07/18 Range/Units 12:45 18:01 Urine Color (Yellow) Urine Clarity (Clear) Urine pH (5.0-8.0) pH Units Ur Specific [place] (1.010-1.025) Urine Protein (Neg-Trace) mg/dL Urine Glucose (UA) (Normal) mg/dL Urine Ketones (Negative) mg/dL Urine Blood (Negative) Urine Nitrite (Negative) Urine Bilirubin (Negative) Urine Urobilinogen (Normal) mg/dL Ur Leukocyte Esterase (Negative) Urine Microscopic RBC (0-3) per hpf Urine Microscopic WBC (0-3) per hpf Ur Eosinophil Smear (None Seen) % Ur Squamous Epith Cells (None-Few) per lpf Urine Bacteria (None-Few) per hpf Urine Osmolality (300-1090) mOsm/kg Urine Creatinine mg/dL Protein/Creatinin Ratio (0.00-0.20) mg/mg Urine Sodium 23.4 mEq/L Urine Total Protein (1-14) mg/dL Stool Occult Blood (Negative) Hepatitis A IgM Ab (Nonreactive) Hep Bs Antigen (Nonreactive) Hep B Core IgM Ab (Nonreactive) Hepatitis C Ab Screen (Nonreactive) Anti-Streptolysin O Ab 412 H (0-330) IU/mL - Impressions Impressions Liver Ultrasound 08/17/18 09:00 IMPRESSION: 1. Technically limited by body habitus. 2. Hepatic steatosis. D/ / 08/17/2018 13:10:18 Molly Bobby MD / michael Interpreting Provider: Molly Bobby MD Exam - Constitutional Vitals: Temp Pulse Resp BP Pulse Ox 97.8 F 82 18 150/68 92 08/18/18 11:34 08/18/18 13:26 08/18/18 13:26 08/18/18 13:26 08/18/18 13:26 General appearance: cooperative, morbidly obese, no acute distress - Head Head exam: Present: atraumatic, normal inspection, normocephalic - Eye Eye exam: Present: EOMI, normal appearance, PERRL Pupils: Present: normal accommodation - ENT ENT exam: Present: mucous membranes moist - Neck Neck exam: Present: normal inspection - Respiratory Respiratory exam: Present: CTAB. Absent: rales, respiratory distress, rhonchi, wheezes - Cardiovascular Cardiovascular exam: Present: RRR, +S1, +S2 - GI/Abdominal GI/Abdominal exam: Present: distended (obese), normal bowel sounds, soft. Absent: tenderness - Extremities Exam Extremities exam: Absent: normal inspection (Marked erythema noted to the RLE with serous fluid-filled blisters noted to the anterior aspect of the right castellon. The leg is warm to touch, swollen and tender, but the top of the foot is spared.) - Neurological Exam Neurological exam: Present: alert, oriented X3, no focal deficits - Psychiatric Psychiatric exam: Present: normal affect, normal mood - Skin Skin exam: Present: dry, intact, normal color, rash (Erythematous, macular rash noted to the anterior and posterior torso and lower extremities.), warm Consult Discharge Plan - Plan Referrals: Nena Cody [facility] [Advanced Practice Nurse] - 08/30/18 10:00 am - Attending Attestation I examined this patient and my medical decision-making was reviewed with the Resident Physician. I agree with the documented findings, disposition and treatment plan as described except to the extent set forth below. Patient now has a rash that is nonpruritic. Not sure what is causing the rash. I discussed discussed with Dr. Santos the hospitalist and see if the patient can be transferred to [facility] for a second opinion.
--- NOTE | 2018-08-18 19:23 | Discharge Summary ---
- NOTES TO OUTPATIENT PROVIDER Notes to Outpatient Provider: Pt admitted with cellulitis RLE. She has not improved and has had other issues detailed below. Orders not resulted at time of discharge: Pending orders 08/16/18 12:22 AFP Tumor Marker Non- Routine CHERIE IgG AZEEM rflx IFA Routine Aovch-[id number] Routine Ceruloplasmin Routine F-Actin IgG Reflex Sm Muscle Routine 08/16/18 19:00 Anti-Neutrophil Cyto Ab, IgG Routine Culture,Anaerobic [RM] Routine MPO/PR3 (ANCA) Antibodies Routine Mitochondrial M2 Antibody, IgG Routine 08/17/18 12:41 Culture,Wound [RM] Routine 08/18/18 11:05 EV venous image w reflux LE BI Routine 08/19/18 04:00 Erythropoietin AM 0400 Date of Encounter: 08/18/18 Time of Encounter: 18:30 - Discharge Diagnosis (1) Cellulitis of right lower extremity Priority: Primary Status: Acute (2) Acute kidney injury (nontraumatic) Priority: Secondary Status: Resolved (3) Anemia Priority: Secondary Status: Acute Qualifiers: Anemia type: iron deficiency Iron deficiency anemia type: chronic blood loss Qualified Code(s): D50.0 - Iron deficiency anemia secondary to blood loss (chronic) (4) Severe sepsis with acute organ dysfunction due to group A Streptococcus Priority: Secondary Status: Suspected (5) Morbid obesity with BMI of 60.0-69.9, adult Priority: Secondary Status: Chronic (6) Iron deficiency anemia Priority: Secondary Status: Suspected Qualifiers: Iron deficiency anemia type: chronic blood loss Qualified Code(s): D50.0 - Iron deficiency anemia secondary to blood loss (chronic) (7) Acute respiratory failure with hypoxemia Priority: Secondary Status: Resolved (8) Folate deficiency Priority: Secondary Status: Chronic (9) HTN (hypertension) Priority: Secondary Status: Chronic Qualifiers: Hypertension type: essential hypertension Qualified Code(s): I10 - Essential (primary) hypertension (10) Lung nodule Priority: Secondary Status: Acute (11) Hepatosplenomegaly Priority: Secondary Status: Acute (12) Retroperitoneal lymphadenopathy Priority: Secondary Status: Acute (13) Hyperbilirubinemia Priority: Secondary Status: Acute (14) B12 deficiency Priority: Secondary Status: Chronic Hospital course: Ms. Del Castillo is a 38 year old female with past hx of polycystic ovarian disease transferred from [place] for presumed cellulitis. Ms Magdalene is morbidly obese female that noted swelling and erythema of her RLE. She was seen in ED at [facility] and was diagnosed with cellulitis. She was given a dose of Clindamycin and transferred. Upon arrival to [facility] she was noted to be somnolent (had been given meds at [facility]). Her WBC on admission was 37K. She was treated as sepsis and given IV fluids and IV abx. CT of leg was negative for abscess or air in tissue. She was also noted to be anemic and have elevated INR with normal liver function and platelets. She had HAZEL on admission. Venous duplex was negative for DVT. The second day she was evaluated by nephrology and hematology. Ultimately over time her renal function improved. She was found to have B12, folate and iron deficiencies and further work up for malabsorption was negative. On 08/09 she was seen by ID and abx switched to Cefipime (from Zosyn) and IV Vanc was continued. She developed acute respiratory acidosis from volume overload and improved with diuresis. WBC was 42K on the second day. She had continued work up of anemia and coagulopathy. On 08/[address] of leg which still showed edema but no abscess. CT of chest showed benign appearing subpleural nodule LLL. She had fatty liver and splenomegaly. LDH and haptoglobin normal. She received IV Venofer, folate and B12. JAK2 ordered and negative. CT of abdomen and pelvis showed splenomegaly (21cm in length). There were "mildly prominent" retroperitoneal lymph nodes. Tinea pedis was treated. Despite extensive work up her leg appears no better - in fact she has had significant oozing and crusting. ID did discuss CT results with radiology and there was some concern about the adenopathy. She was reevaluated by [facility] who felt the nodes were reactive. Today she has developed a rash and IV abx were stopped. She had EGD/colonoscopy which showed angiodysplasia in stomach not bleeding. She was evaluated today as well by vascular surgery who did not feel this was venous stasis. Due to persistent symptoms despite extensive work up it was decided she should be evaluated at a higher level of care. She has been accepted at [facility] per patient's wish. Discharge discussed with: patient, family, nurse - Time Spent with Patient Total time spent providing and/or coordinating discharge services: 75min - Discharge Medications Home Medications: No Known Home Drugs 08/07/18 [History] Allergies/Adverse Reactions: Allergy/AdvReac Type Severity Reaction Status Date / Time No Known Allergies Allergy Verified 08/07/18 12:21 Date of admission: 08/07/18 16:52 Primary care physician: PCP NONE Consults: 08/08/18 08:11 Consult to Oncology Hematology [CONS] Routine Consulting Provider: [facility] Reason for Consult: abnormal labs Call Completed: Yes 08/08/18 10:52 Consult to Nephrology [CONS] Routine Consulting Provider: Kidney Faye/BARRETT/DIANA/RAHAT Reason for Consult: Hazel on CKD Call Completed: No 08/09/18 08:42 Consult to Infectious Diseases [CONS] Routine Consulting Provider: Infectious Disease [place] Reason for Consult: cellulitis Call Completed: Yes 08/12/18 20:45 Consult to Dermatology [CONS] Routine Consulting Provider: Dermatology Faye Reason for Consult: skin lesion Call Completed: Yes 08/14/18 14:52 Consult to Invasive Line Access Team [CONS] Routine Reason for Consult: no iv access Line Type: EPIV PICC line indications: Limited vascular access Call Completed: No 08/16/18 08:20 Consult to Dermatology [CONS] Routine Consulting Provider: Dermatology [facility] Reason for Consult: rle cellulitis refractory to iv abx treatment, ID rec for derm eval. previously cancelled consult from Thursday, now requesting she be seen. Paging center contacting office, awaiting call back Call Completed: Yes 08/16/18 09:27 Consult to Gastroenterology [CONS] Routine Consulting Provider: Gastroenterology [place] Reason for Consult: hepatic steatosis, hepatosplenomegaly, tbili elevation and INR elevation both now downtrended Time Notified: 09:20 Call Completed: Yes 08/16/18 09:54 Consult to Rheumatology [CONS] Routine Consulting Provider: Terry Daniel Reason for Consult: R LE cellulitis refractory to abx, poor wound healing, no significant PMH (has PCOS, no [place] autoimmune dx), CT LE shows soft tissue edema without intramusc fluid/osseous abnormality, nml rheum factor, primary team and ID con sidering possible inflammatory/systemic component/vasculitis? thank you Time Notified: 09:50 Call Completed: Yes Discharging clinician: Darin Santos Anticipated date of discharge: 08/18/18 - Constitutional Vitals: Temp Pulse Resp BP Pulse Ox 97.7 F 76 16 131/58 99 08/18/18 15:54 08/18/18 15:54 08/18/18 15:54 08/18/18 15:54 08/18/18 15:54 General appearance: Present: A&O X 3, answers questions appropriately Exam: See below - Head Head exam: Present: normocephalic - Eye Eye exam: Present: EOMI, conjuntiva pink - ENT ENT exam: Present: mucous membranes moist - Respiratory Respiratory exam: Present: decreased breath sounds. Absent: rales, rhonchi, wheezes - Cardiovascular Cardiovascular exam: Present: RRR. Absent: tachycardia - GI/Abdominal GI/Abdominal exam: Present: soft. Absent: tenderness - Extremities Exam Extremities exam: Present: warm Additional comments: Continued erythema and drainage of R leg - Neurological Exam Neurological exam: Present: alert, oriented X3, no focal deficits - Skin Skin exam: Present: dry, warm Additional comments: Faint macular rash diffusely. - Patient Status Disposition: Transfer Short-Term Hosp Condition: Fair Functional capacity at discharge: independent ambulation Overall status at discharge: patient is progressing back to baseline - Discharge Instructions Follow Up With: Nena Cody CNP [Advanced Practice Nurse] - 08/30/18 10:00 am
[2018-08-18] MEDS ORDERED: Sulfamethoxazole/Trimeth DS 1 EACH TABLET PO SCH (21:00)
[2018-08-18 21:23] VITALS: BP 146/65
[2018-08-18] MEDS: Acetaminophen 325 MG TABLET PO PRN (21:25)
[2018-08-19 07:58] LABS: AFP Tumor Marker Non-Pregnant 1 ng/mL (0-9)
[2018-08-19 08:07] LABS: ANA IgG by ELISA NONE DETECTED (None Detected); F-Actin (sm muscle) Ab IgG 14 Units (0-19)
== END 2018-08-18 23:08 | disposition short-term general hospital (02) | DRG 871 ==
LOC: 2NENU → SUATTDRO 15:39
PROVIDERS: ADMIT Internal Medicine; ATTEND Internal Medicine

== ENCOUNTER 2020-05-06 14:41 | Inpatient (IN) ==
[2020-05-06] MEDS ORDERED: Naloxone 0.4 MG/ML INJ IVP PRN (17:59)
[2020-05-06] MEDS: Ipratropium 1 PUFF INHALER IH SCH ×2 (20:29→23:59)
[2020-05-07] MEDS: Ipratropium 1 PUFF INHALER IH SCH ×6 (03:36→23:19)
[2020-05-07] MEDS ORDERED: *HR* Enoxaparin 40 MG/0.4 ML SYRINGE SQ SCH (06:00)
[2020-05-07 06:29] LABS: Hematocrit 47.8 % (35.3-44.9); Hemoglobin 14.6 g/dL (11.5-15.4); Mean Corpuscular HGB Conc 30.5 g/dL (31.6-35.5); Mean Corpuscular Hemoglobin 28.6 pg (28.0-33.3); Mean Corpuscular Volume 93.5 fL (83.0-100.0); Mean Platelet Volume 11.5 fL (9.4-12.4); Platelet Count 168 K/mcL (140-400); Red Blood Count 5.11 M/mcL (3.82-4.97); Red Cell Distribution Width 16.8 % (11.5-14.5); White Blood Count 4.7 K/mcL (4.3-11.1)
[2020-05-07 06:33] LABS: INR 1.1; Prothrombin Time 12.8 Seconds (9.4-12.1)
[2020-05-07] MEDS ORDERED: Dexamethasone 10 MG/ML VIAL IVP SCH (09:00)
[2020-05-07] MEDS: Furosemide 20 MG/2 ML VIAL IVP SCH (10:04)
[2020-05-07] MEDS: Azithromycin 500 MG in 0.9 % Sodium Chloride 250 ML IVPB SCH (10:05)
[2020-05-07] MEDS: cefTRIAXone 2,000 MG in Water for inj. (sterile) 20 ML IVP SCH (10:05)
[2020-05-07 10:25] LABS: BUN/Creatinine Ratio 19 (6-26); Blood Urea Nitrogen 14 mg/dL (6-20); Calcium 9.4 mg/dL (8.6-10.3); Carbon Dioxide 30 mEq/L (23-29); Chloride 102 mEq/L (98-107); Glucose 185 mg/dL (70-105); Osmolality,Calculated 287 (280-300); Potassium 4.9 mEq/L (3.5-5.1); Sodium 136 mEq/L (136-145); eGFR For African Americans > 60 (> 60); eGFR For Non-African Americans > 60 (> 60)
[2020-05-07] MEDS: Dexamethasone 4 MG/ML VIAL IVP SCH (12:38)
[2020-05-07] MEDS: *HR* Enoxaparin 40 MG/0.4 ML SYRINGE SQ SCH (17:09)
[2020-05-08 02:19] LABS: Hematocrit 47.7 % (35.3-44.9); Hemoglobin 14.6 g/dL (11.5-15.4); INR 1.1; Mean Corpuscular HGB Conc 30.6 g/dL (31.6-35.5); Mean Corpuscular Hemoglobin 28.9 pg (28.0-33.3); Mean Corpuscular Volume 94.3 fL (83.0-100.0); Mean Platelet Volume 11.8 fL (9.4-12.4); Platelet Count 204 K/mcL (140-400); Prothrombin Time 12.1 Seconds (9.4-12.1); Red Blood Count 5.06 M/mcL (3.82-4.97); White Blood Count 4.7 K/mcL (4.3-11.1)
[2020-05-08 02:32] LABS: BUN/Creatinine Ratio 21 (6-26); Blood Urea Nitrogen 15 mg/dL (6-20); Calcium 9.3 mg/dL (8.6-10.3); Carbon Dioxide 29 mEq/L (23-29); Chloride 102 mEq/L (98-107); Glucose 162 mg/dL (70-105); Osmolality,Calculated 288 (280-300); Potassium 5.1 mEq/L (3.5-5.1); Sodium 137 mEq/L (136-145); eGFR For African Americans > 60 (> 60); eGFR For Non-African Americans > 60 (> 60)
[2020-05-08] MEDS: Ipratropium 1 PUFF INHALER IH SCH ×6 (03:19→23:57)
[2020-05-08] MEDS: *HR* Enoxaparin 40 MG/0.4 ML SYRINGE SQ SCH ×2 (04:58→19:15)
[2020-05-08] MEDS: Furosemide 20 MG/2 ML VIAL IVP SCH (10:04)
[2020-05-08] MEDS: Dexamethasone 4 MG/ML VIAL IVP SCH (10:04)
[2020-05-08] MEDS: cefTRIAXone 2,000 MG in Water for inj. (sterile) 20 ML IVP SCH (10:05)
[2020-05-08] MEDS: Azithromycin 500 MG in 0.9 % Sodium Chloride 250 ML IVPB SCH (10:05)
[2020-05-08 11:30] LABS: Alanine Aminotransferase 64 Units/L (7-52); Albumin 3.7 g/dL (3.5-5.7); Albumin/Globulin Ratio 0.9 (1.1-2.2); Alkaline Phosphatase 97 Units/L (34-104); Aspartate Amino Transferase 81 Units/L (13-39); Bilirubin,Direct 0.4 mg/dL (0.0-0.2); Bilirubin,Indirect 0.5 mg/dL (0.0-1.0); Bilirubin,Total 0.9 mg/dL (0.3-1.0); Globulin 4.1 g/dL (2.4-3.5); Total Protein 7.8 g/dL (6.4-8.9)
[2020-05-08] MEDS: Benzonatate 100 MG CAPSULE PO SCH ×2 (13:57→20:36)
[2020-05-08] MEDS ORDERED: 0.9 % Sodium Chloride 250 ML ONE (18:21)
[2020-05-08] MEDS: Melatonin 3 MG TABLET PO SCH (20:36)
[2020-05-09] MEDS: Ipratropium 1 PUFF INHALER IH SCH ×6 (03:50→23:05)
[2020-05-09] MEDS: *HR* Enoxaparin 40 MG/0.4 ML SYRINGE SQ SCH ×2 (05:19→17:14)
[2020-05-09 05:52] LABS: Hemoglobin 14.2 g/dL (11.5-15.4); Mean Corpuscular HGB Conc 29.6 g/dL (31.6-35.5); Mean Corpuscular Hemoglobin 27.8 pg (28.0-33.3); Mean Corpuscular Volume 94.1 fL (83.0-100.0); Mean Platelet Volume 11.1 fL (9.4-12.4); Platelet Count 220 K/mcL (140-400); Red Cell Distribution Width 16.9 % (11.5-14.5); White Blood Count 6.1 K/mcL (4.3-11.1)
[2020-05-09 05:54] LABS: Prothrombin Time 11.9 Seconds (9.4-12.1)
[2020-05-09 06:07] LABS: BUN/Creatinine Ratio 31 (6-26); Blood Urea Nitrogen 19 mg/dL (6-20); Calcium 9.3 mg/dL (8.6-10.3); Carbon Dioxide 34 mEq/L (23-29); Chloride 101 mEq/L (98-107); Glucose 130 mg/dL (70-105); Osmolality,Calculated 292 (280-300); Potassium 5.1 mEq/L (3.5-5.1); Sodium 139 mEq/L (136-145); eGFR For African Americans > 60 (> 60); eGFR For Non-African Americans > 60 (> 60)
[2020-05-09] MEDS: Benzonatate 100 MG CAPSULE PO SCH ×3 (09:52→20:00)
[2020-05-09] MEDS: Azithromycin 500 MG in 0.9 % Sodium Chloride 250 ML IVPB SCH (12:22)
[2020-05-09] MEDS: cefTRIAXone 2,000 MG in Water for inj. (sterile) 20 ML IVP SCH (12:23)
[2020-05-09] MEDS: Dexamethasone 4 MG/ML VIAL IVP SCH (12:23)
[2020-05-09] MEDS: Furosemide 20 MG/2 ML VIAL IVP SCH (12:23)
[2020-05-09] MEDS: Melatonin 3 MG TABLET PO SCH (20:00)
[2020-05-10 02:43] LABS: Basophils % 0.6 %; Hematocrit 47.4 % (35.3-44.9); Hemoglobin 14.1 g/dL (11.5-15.4); Immature Granulocytes % 0.9 % (0-4); Lymphocytes # 1.1 K/mcL (0.6-4.6); Lymphocytes % 17.3 %; Mean Corpuscular HGB Conc 29.7 g/dL (31.6-35.5); Mean Corpuscular Volume 94.2 fL (83.0-100.0); Monocytes # 0.5 K/mcL (0.0-1.3); Monocytes % 7.4 %; Neutrophils # 4.7 K/mcL (1.6-8.9); Platelet Count 238 K/mcL (140-400); Red Blood Count 5.03 M/mcL (3.82-4.97); Red Cell Distribution Width 16.6 % (11.5-14.5); Segmented Neutrophils % 73.8 %; White Blood Count 6.4 K/mcL (4.3-11.1)
[2020-05-10 02:58] LABS: BUN/Creatinine Ratio 32 (6-26); Blood Urea Nitrogen 19 mg/dL (6-20); Carbon Dioxide 36 mEq/L (23-29); Chloride 98 mEq/L (98-107); Glucose 143 mg/dL (70-105); Osmolality,Calculated 293 (280-300); Potassium 4.7 mEq/L (3.5-5.1); Sodium 139 mEq/L (136-145); eGFR For African Americans > 60 (> 60); eGFR For Non-African Americans > 60 (> 60)
[2020-05-10 03:03] LABS: Platelet Estimate Normal (Normal)
[2020-05-10] MEDS: Ipratropium 1 PUFF INHALER IH SCH ×6 (03:50→23:00)
[2020-05-10] MEDS: *HR* Enoxaparin 40 MG/0.4 ML SYRINGE SQ SCH ×2 (05:38→18:20)
[2020-05-10] MEDS: Dexamethasone 4 MG/ML VIAL IVP SCH (08:37)
[2020-05-10] MEDS: Benzonatate 100 MG CAPSULE PO SCH ×3 (08:38→19:37)
[2020-05-10] MEDS: Furosemide 20 MG/2 ML VIAL IVP SCH (08:38)
[2020-05-10] MEDS: cefTRIAXone 2,000 MG in Water for inj. (sterile) 20 ML IVP SCH (08:42)
[2020-05-10] MEDS: Azithromycin 500 MG in 0.9 % Sodium Chloride 250 ML IVPB SCH (08:43)
[2020-05-10 17:27] LABS: ABG Base Excess 10 mEq/L (-2 to 3); ABG HCO3 41 mEq/L (21-27); ABG Oxygen Saturation 97 % (95-98); ABG PCO2 81 mmHg (35-45); ABG PH 7.32 pH Units (7.32-7.45); ABG PO2 103 mmHg (85-104); ABG TCO2 44 mEq/L (20-26); Blood Gas Modality AVAPS; Blood Gas VT 450 cc
[2020-05-10] MEDS ORDERED: Furosemide 40 MG/4 ML VIAL IVP STA (17:48)
[2020-05-10] MEDS ORDERED: Isovue-370 500 ML BOTTLE IVP ONE (17:50)
[2020-05-11] MEDS: Melatonin 3 MG TABLET PO SCH ×2 (00:24→19:51)
[2020-05-11 03:41] LABS: Basophils % 0.3 %; Eosinophils % 0.1 %; Hematocrit 48.4 % (35.3-44.9); Hemoglobin 14.6 g/dL (11.5-15.4); Immature Granulocytes % 0.9 % (0-4); Lymphocytes # 1.6 K/mcL (0.6-4.6); Lymphocytes % 18.9 %; Mean Corpuscular HGB Conc 30.2 g/dL (31.6-35.5); Mean Corpuscular Hemoglobin 28.7 pg (28.0-33.3); Mean Corpuscular Volume 95.3 fL (83.0-100.0); Monocytes # 0.7 K/mcL (0.0-1.3); Monocytes % 8.5 %; Neutrophils # 6.2 K/mcL (1.6-8.9); Platelet Count 243 K/mcL (140-400); Red Blood Count 5.08 M/mcL (3.82-4.97); Segmented Neutrophils % 71.3 %; White Blood Count 8.7 K/mcL (4.3-11.1)
[2020-05-11] MEDS: Ipratropium 1 PUFF INHALER IH SCH ×5 (03:41→20:02)
[2020-05-11 04:03] LABS: Alanine Aminotransferase 162 Units/L (7-52); Albumin 3.7 g/dL (3.5-5.7); Albumin/Globulin Ratio 0.9 (1.1-2.2); Alkaline Phosphatase 68 Units/L (34-104); Aspartate Amino Transferase 123 Units/L (13-39); Bilirubin,Direct 0.3 mg/dL (0.0-0.2); Bilirubin,Indirect 0.8 mg/dL (0.0-1.0); Bilirubin,Total 1.1 mg/dL (0.3-1.0); C-Reactive Protein < 5 mg/L (Less than 10); Globulin 3.9 g/dL (2.4-3.5); Total Protein 7.6 g/dL (6.4-8.9)
[2020-05-11 04:06] LABS: Platelet Estimate Normal (Normal); Reactive Lymphocytes Present (Not Present)
[2020-05-11 04:08] LABS: BUN/Creatinine Ratio 33 (6-26); Blood Urea Nitrogen 24 mg/dL (6-20); Calcium 9.6 mg/dL (8.6-10.3); Carbon Dioxide 42 mEq/L (23-29); Chloride 94 mEq/L (98-107); Glucose 110 mg/dL (70-105); Osmolality,Calculated 295 (280-300); Potassium 4.3 mEq/L (3.5-5.1); Sodium 140 mEq/L (136-145); eGFR For African Americans > 60 (> 60); eGFR For Non-African Americans > 60 (> 60)
[2020-05-11 04:21] LABS: Ferritin 259 ng/mL (10-120)
[2020-05-11] MEDS: *HR* Enoxaparin 40 MG/0.4 ML SYRINGE SQ SCH ×2 (04:41→16:22)
[2020-05-11] MEDS: Benzonatate 100 MG CAPSULE PO SCH ×3 (08:20→19:51)
[2020-05-11] MEDS: Dexamethasone 4 MG/ML VIAL IVP SCH (08:22)
[2020-05-11] MEDS: Furosemide 20 MG/2 ML VIAL IVP SCH (08:23)
[2020-05-11] MEDS: cefTRIAXone 2,000 MG in Water for inj. (sterile) 20 ML IVP SCH (08:23)
[2020-05-11] MEDS: Azithromycin 500 MG in 0.9 % Sodium Chloride 250 ML IVPB SCH (08:23)
[2020-05-11] MEDS ORDERED: Ipratropium/Albuterol Neb 3 ML IH PRN (09:21)
[2020-05-11] MEDS ORDERED: Furosemide 20 MG/2 ML VIAL IVP ONE (09:22)
[2020-05-11 11:56] LABS: ABG Base Excess 14 mEq/L (-2 to 3); ABG HCO3 43 mEq/L (21-27); ABG Oxygen Saturation 99 % (95-98); ABG PCO2 67 mmHg (35-45); ABG PH 7.42 pH Units (7.32-7.45); ABG PO2 138 mmHg (85-104); ABG TCO2 45 mEq/L (20-26); Blood Gas Modality AVAPS; Blood Gas VT 500 cc
[2020-05-11] MEDS: Furosemide 40 MG/4 ML VIAL IVP SCH (20:34)
[2020-05-12] MEDS: Ipratropium 1 PUFF INHALER IH SCH ×7 (00:03→23:58)
[2020-05-12] MEDS: *HR* Enoxaparin 40 MG/0.4 ML SYRINGE SQ SCH ×2 (04:48→16:17)
[2020-05-12] MEDS: Dexamethasone 4 MG/ML VIAL IVP SCH (08:02)
[2020-05-12] MEDS: Furosemide 40 MG/4 ML VIAL IVP SCH ×2 (08:02→20:25)
[2020-05-12] MEDS: Azithromycin 500 MG in 0.9 % Sodium Chloride 250 ML IVPB SCH (08:03)
[2020-05-12] MEDS: Benzonatate 100 MG CAPSULE PO SCH ×3 (08:03→20:25)
[2020-05-12 10:25] LABS: Basophils % 0.3 %; Eosinophils # 0.1 K/mcL (0.0-0.6); Eosinophils % 0.9 %; Hematocrit 48.9 % (35.3-44.9); Hemoglobin 15.2 g/dL (11.5-15.4); Immature Granulocytes % 1.9 % (0-4); Lymphocytes # 1.2 K/mcL (0.6-4.6); Lymphocytes % 11.5 %; Mean Corpuscular HGB Conc 31.1 g/dL (31.6-35.5); Mean Corpuscular Hemoglobin 28.3 pg (28.0-33.3); Mean Corpuscular Volume 91.1 fL (83.0-100.0); Mean Platelet Volume 10.8 fL (9.4-12.4); Monocytes # 0.7 K/mcL (0.0-1.3); Monocytes % 6.3 %; Neutrophils # 8.5 K/mcL (1.6-8.9); Platelet Count 267 K/mcL (140-400); Red Blood Count 5.37 M/mcL (3.82-4.97); Red Cell Distribution Width 15.9 % (11.5-14.5); Segmented Neutrophils % 79.1 %; White Blood Count 10.8 K/mcL (4.3-11.1)
[2020-05-12 10:37] LABS: BUN/Creatinine Ratio 43 (6-26); Blood Urea Nitrogen 30 mg/dL (6-20); Calcium 9.5 mg/dL (8.6-10.3); Carbon Dioxide 39 mEq/L (23-29); Chloride 92 mEq/L (98-107); Glucose 137 mg/dL (70-105); Osmolality,Calculated 298 (280-300); Potassium 4.6 mEq/L (3.5-5.1); Sodium 140 mEq/L (136-145); eGFR For African Americans > 60 (> 60); eGFR For Non-African Americans > 60 (> 60)
[2020-05-12] MEDS: Melatonin 3 MG TABLET PO SCH (20:25)
[2020-05-13] MEDS: Ipratropium 1 PUFF INHALER IH SCH ×6 (03:34→23:33)
[2020-05-13] MEDS: *HR* Enoxaparin 40 MG/0.4 ML SYRINGE SQ SCH (06:41)
[2020-05-13 07:05] LABS: Basophils % 0.2 %; Eosinophils # 0.2 K/mcL (0.0-0.6); Eosinophils % 1.7 %; Hematocrit 48.6 % (35.3-44.9); Hemoglobin 14.7 g/dL (11.5-15.4); Immature Granulocytes % 0.6 % (0-4); Lymphocytes # 2.1 K/mcL (0.6-4.6); Lymphocytes % 19.1 %; Mean Corpuscular HGB Conc 30.2 g/dL (31.6-35.5); Mean Corpuscular Hemoglobin 28.2 pg (28.0-33.3); Mean Corpuscular Volume 93.3 fL (83.0-100.0); Monocytes % 9.6 %; Neutrophils # 7.4 K/mcL (1.6-8.9); Platelet Count 274 K/mcL (140-400); Red Blood Count 5.21 M/mcL (3.82-4.97); Red Cell Distribution Width 15.8 % (11.5-14.5); Segmented Neutrophils % 68.8 %; White Blood Count 10.8 K/mcL (4.3-11.1)
[2020-05-13 07:29] LABS: BUN/Creatinine Ratio 39 (6-26); Blood Urea Nitrogen 30 mg/dL (6-20); Calcium 9.6 mg/dL (8.6-10.3); Carbon Dioxide 43 mEq/L (23-29); Chloride 92 mEq/L (98-107); Glucose 105 mg/dL (70-105); Osmolality,Calculated 295 (280-300); Potassium 3.9 mEq/L (3.5-5.1); Sodium 139 mEq/L (136-145); eGFR For African Americans > 60 (> 60); eGFR For Non-African Americans > 60 (> 60)
[2020-05-13] MEDS: Benzonatate 100 MG CAPSULE PO SCH ×3 (09:48→21:32)
[2020-05-13] MEDS: Dexamethasone 4 MG/ML VIAL IVP SCH (09:48)
[2020-05-13] MEDS: Furosemide 40 MG/4 ML VIAL IVP SCH (09:49)
[2020-05-13] MEDS: Azithromycin 500 MG in 0.9 % Sodium Chloride 250 ML IVPB SCH (09:49)
[2020-05-13] MEDS: Melatonin 3 MG TABLET PO SCH (21:32)
[2020-05-14] MEDS: Ipratropium 1 PUFF INHALER IH SCH ×6 (03:34→23:43)
[2020-05-14] MEDS ORDERED: *HR* Enoxaparin 40 MG/0.4 ML SYRINGE SQ SCH (06:00)
[2020-05-14 06:39] LABS: Basophils % 0.3 %; Eosinophils # 0.2 K/mcL (0.0-0.6); Eosinophils % 1.7 %; Hematocrit 46.5 % (35.3-44.9); Hemoglobin 14.4 g/dL (11.5-15.4); Immature Granulocytes % 0.8 % (0-4); Lymphocytes # 2.2 K/mcL (0.6-4.6); Lymphocytes % 18.6 %; Mean Corpuscular Hemoglobin 28.1 pg (28.0-33.3); Mean Corpuscular Volume 90.8 fL (83.0-100.0); Mean Platelet Volume 11.6 fL (9.4-12.4); Monocytes # 1.2 K/mcL (0.0-1.3); Monocytes % 9.8 %; Neutrophils # 8.2 K/mcL (1.6-8.9); Platelet Count 252 K/mcL (140-400); Red Blood Count 5.12 M/mcL (3.82-4.97); Red Cell Distribution Width 15.7 % (11.5-14.5); Segmented Neutrophils % 68.8 %; White Blood Count 11.8 K/mcL (4.3-11.1)
[2020-05-14] MEDS: Azithromycin 500 MG in 0.9 % Sodium Chloride 250 ML IVPB SCH (08:53)
[2020-05-14] MEDS: Benzonatate 100 MG CAPSULE PO SCH ×3 (08:53→19:18)
[2020-05-14 11:14] LABS: BUN/Creatinine Ratio 34 (6-26); Blood Urea Nitrogen 26 mg/dL (6-20); Calcium 9.6 mg/dL (8.6-10.3); Carbon Dioxide 37 mEq/L (23-29); Chloride 95 mEq/L (98-107); Glucose 110 mg/dL (70-105); Osmolality,Calculated 291 (280-300); Potassium 3.9 mEq/L (3.5-5.1); Sodium 138 mEq/L (136-145); eGFR For African Americans > 60 (> 60); eGFR For Non-African Americans > 60 (> 60)
[2020-05-14] MEDS: Dexamethasone 4 MG/ML VIAL IVP SCH (12:55)
[2020-05-14] MEDS ORDERED: Furosemide 20 MG/2 ML VIAL IVP SCH (17:00)
[2020-05-14] MEDS: Melatonin 3 MG TABLET PO SCH (19:18)
[2020-05-15 00:59] LABS: Basophils % 0.2 %; Eosinophils # 0.1 K/mcL (0.0-0.6); Eosinophils % 0.6 %; Hematocrit 47.3 % (35.3-44.9); Immature Granulocytes % 0.5 % (0-4); Lymphocytes # 1.3 K/mcL (0.6-4.6); Lymphocytes % 10.1 %; Mean Corpuscular HGB Conc 31.7 g/dL (31.6-35.5); Mean Corpuscular Hemoglobin 29.2 pg (28.0-33.3); Mean Platelet Volume 11.3 fL (9.4-12.4); Monocytes % 7.8 %; Neutrophils # 10.5 K/mcL (1.6-8.9); Platelet Count 283 K/mcL (140-400); Red Blood Count 5.14 M/mcL (3.82-4.97); Red Cell Distribution Width 15.6 % (11.5-14.5); Segmented Neutrophils % 80.8 %
[2020-05-15 01:16] LABS: BUN/Creatinine Ratio 37 (6-26); Blood Urea Nitrogen 29 mg/dL (6-20); Calcium 9.7 mg/dL (8.6-10.3); Carbon Dioxide 32 mEq/L (23-29); Chloride 94 mEq/L (98-107); Glucose 150 mg/dL (70-105); Osmolality,Calculated 289 (280-300); Potassium 4.7 mEq/L (3.5-5.1); Sodium 135 mEq/L (136-145); eGFR For African Americans > 60 (> 60); eGFR For Non-African Americans > 60 (> 60)
[2020-05-15] MEDS: Ipratropium 1 PUFF INHALER IH SCH ×5 (04:16→20:17)
[2020-05-15 04:31] LABS: ABG Base Excess 8 mEq/L (-2 to 3); ABG HCO3 36 mEq/L (21-27); ABG Oxygen Saturation 93 % (95-98); ABG PCO2 57 mmHg (35-45); ABG PH 7.41 pH Units (7.32-7.45); ABG PO2 70 mmHg (85-104); ABG TCO2 37 mEq/L (20-26)
[2020-05-15] MEDS: Dexamethasone 4 MG/ML VIAL IVP SCH (09:21)
[2020-05-15] MEDS: Benzonatate 100 MG CAPSULE PO SCH ×3 (09:23→20:32)
[2020-05-15] MEDS ORDERED: Bisacodyl 10 MG RECTAL SUPPOSITORY RC PRN (20:20)
[2020-05-15] MEDS: Melatonin 3 MG TABLET PO SCH (20:32)
[2020-05-16] MEDS: Ipratropium 1 PUFF INHALER IH SCH ×5 (00:39→15:21)
[2020-05-16 03:12] LABS: Basophils % 0.1 %; Eosinophils # 0.2 K/mcL (0.0-0.6); Eosinophils % 1.8 %; Hematocrit 45.7 % (35.3-44.9); Hemoglobin 14.3 g/dL (11.5-15.4); Immature Granulocytes % 0.2 % (0-4); Lymphocytes # 2.3 K/mcL (0.6-4.6); Lymphocytes % 17.3 %; Mean Corpuscular HGB Conc 31.3 g/dL (31.6-35.5); Mean Corpuscular Hemoglobin 29.1 pg (28.0-33.3); Mean Corpuscular Volume 92.9 fL (83.0-100.0); Mean Platelet Volume 11.7 fL (9.4-12.4); Monocytes # 1.1 K/mcL (0.0-1.3); Monocytes % 8.2 %; Neutrophils # 9.7 K/mcL (1.6-8.9); Platelet Count 226 K/mcL (140-400); Red Blood Count 4.92 M/mcL (3.82-4.97); Red Cell Distribution Width 15.8 % (11.5-14.5); Segmented Neutrophils % 72.4 %; White Blood Count 13.4 K/mcL (4.3-11.1)
[2020-05-16 03:40] LABS: BUN/Creatinine Ratio 34 (6-26); Blood Urea Nitrogen 25 mg/dL (6-20); Calcium 9.5 mg/dL (8.6-10.3); Carbon Dioxide 29 mEq/L (23-29); Chloride 98 mEq/L (98-107); Glucose 150 mg/dL (70-105); Osmolality,Calculated 285 (280-300); Potassium 4.3 mEq/L (3.5-5.1); Sodium 134 mEq/L (136-145); eGFR For African Americans > 60 (> 60); eGFR For Non-African Americans > 60 (> 60)
[2020-05-16 04:29] VITALS: BP 145/89
[2020-05-16] MEDS: Dexamethasone 4 MG/ML VIAL IVP SCH (09:28)
[2020-05-16] MEDS: Benzonatate 100 MG CAPSULE PO SCH (09:29)
== END 2020-05-16 16:05 | disposition home or self-care (01) | DRG 177 ==
LOC: 2NENU → OBSVTOIN 17:11 → SUATTDRO 17:11 → 2NENU 05-10 21:25
PROVIDERS: ADMIT Internal Medicine; ATTEND Student in an Organized Health Care Education/Training Program

== ENCOUNTER 2021-07-02 18:19 | Inpatient (IN) ==
[2021-07-02 20:01] LABS: Basophils % 0.3 %; Eosinophils # 0.3 K/mcL (0.0-0.6); Eosinophils % 2.9 %; Hematocrit 46.7 % (35.3-44.9); Hemoglobin 15.1 g/dL (11.5-15.4); Immature Granulocytes % 0.3 % (0-4); Lymphocytes % 19.3 %; Mean Corpuscular HGB Conc 32.3 g/dL (31.6-35.5); Mean Corpuscular Hemoglobin 30.2 pg (28.0-33.3); Mean Corpuscular Volume 93.4 fL (83.0-100.0); Mean Platelet Volume 11.6 fL (9.4-12.4); Monocytes # 0.6 K/mcL (0.0-1.3); Monocytes % 5.2 %; Neutrophils # 7.6 K/mcL (1.6-8.9); Platelet Count 244 K/mcL (140-400); Red Cell Distribution Width 14.2 % (11.5-14.5); White Blood Count 10.5 K/mcL (4.3-11.1)
[2021-07-02 20:17] LABS: BUN/Creatinine Ratio 14 (6-26); Blood Urea Nitrogen 11 mg/dL (6-20); Calcium 9.6 mg/dL (8.6-10.3); Carbon Dioxide 31 mEq/L (23-29); Chloride 104 mEq/L (98-107); Glucose 142 mg/dL (70-105); Osmolality,Calculated 294 (280-300); Potassium 3.9 mEq/L (3.5-5.1); Sodium 141 mEq/L (136-145); eGFR For African Americans > 60 (> 60); eGFR For Non-African Americans > 60 (> 60)
[2021-07-02] MEDS ORDERED: Isovue-370 500 ML BOTTLE IVP ONE (21:25)
[2021-07-02] MEDS ORDERED: Naloxone 0.4 MG/ML INJ IVP PRN (22:16)
[2021-07-02] MEDS: Ibuprofen 400 MG TABLET PO PRN (22:38)
[2021-07-02] MEDS: cloNIDine HCL 0.1 MG TABLET PO SCH (22:39)
[2021-07-02] MEDS: Gabapentin 300 MG CAPSULE PO SCH (22:39)
[2021-07-02] MEDS: Piperacillin/Tazobactam 3.375 GM in 0.9 % Sodium Chloride Mini Bag 100 ML IVPB SCH (23:06)
[2021-07-03] MEDS: Vancomycin 2,000 MG/520 ML IV.SOLN IVPB SCH ×2 (00:11→12:01)
[2021-07-03 03:22] LABS: Hematocrit 43.2 % (35.3-44.9); Hemoglobin 13.9 g/dL (11.5-15.4); Mean Corpuscular HGB Conc 32.2 g/dL (31.6-35.5); Mean Corpuscular Hemoglobin 29.9 pg (28.0-33.3); Mean Corpuscular Volume 92.9 fL (83.0-100.0); Platelet Count 219 K/mcL (140-400); Red Blood Count 4.65 M/mcL (3.82-4.97); Red Cell Distribution Width 14.4 % (11.5-14.5); White Blood Count 9.1 K/mcL (4.3-11.1)
[2021-07-03 03:36] LABS: BUN/Creatinine Ratio 18 (6-26); Blood Urea Nitrogen 12 mg/dL (6-20); Calcium 9.1 mg/dL (8.6-10.3); Carbon Dioxide 25 mEq/L (23-29); Chloride 107 mEq/L (98-107); Glucose 140 mg/dL (70-105); Osmolality,Calculated 290 (280-300); Potassium 3.8 mEq/L (3.5-5.1); Sodium 139 mEq/L (136-145); eGFR For African Americans > 60 (> 60); eGFR For Non-African Americans > 60 (> 60)
[2021-07-03] MEDS: Ibuprofen 400 MG TABLET PO PRN (08:08)
[2021-07-03] MEDS: Gabapentin 300 MG CAPSULE PO SCH ×3 (08:08→20:13)
[2021-07-03] MEDS: cloNIDine HCL 0.1 MG TABLET PO SCH ×3 (08:08→20:13)
[2021-07-03] MEDS: Piperacillin/Tazobactam 3.375 GM in 0.9 % Sodium Chloride Mini Bag 100 ML IVPB SCH ×2 (08:08→17:53)
[2021-07-03] MEDS: Furosemide 20 MG TABLET PO SCH (17:53)
[2021-07-03] MEDS: amLODIPine 5 MG TABLET PO SCH (20:13)
[2021-07-03] MEDS ORDERED: MEGESTROL ACETATE 20 MG PO SCH (21:00)
[2021-07-04] MEDS: Vancomycin 2,000 MG/520 ML IV.SOLN IVPB SCH ×3 (00:05→23:07)
[2021-07-04] MEDS: Piperacillin/Tazobactam 3.375 GM in 0.9 % Sodium Chloride Mini Bag 100 ML IVPB SCH ×4 (00:06→23:07)
[2021-07-04] MEDS ORDERED: Megestrol Acetate 400 MG/10 ML UDC PO SCH (09:00)
[2021-07-04] MEDS: Folic Acid 1 MG TABLET PO SCH (09:37)
[2021-07-04] MEDS: Valsartan 160 MG TABLET PO SCH (09:38)
[2021-07-04] MEDS: Cyanocobalamin (B-12) 1,000 MCG TABLET PO SCH (09:38)
[2021-07-04] MEDS: cloNIDine HCL 0.1 MG TABLET PO SCH ×3 (09:38→20:06)
[2021-07-04] MEDS: Gabapentin 300 MG CAPSULE PO SCH ×3 (09:38→20:07)
[2021-07-04] MEDS: Furosemide 20 MG TABLET PO SCH ×2 (09:39→17:12)
[2021-07-04] MEDS: Multivit/Ca/Min/Fe/FA 1 TAB TABLET PO SCH (09:39)
[2021-07-04] MEDS: Spironolactone 25 MG TABLET PO SCH (09:39)
[2021-07-04] MEDS: amLODIPine 5 MG TABLET PO SCH ×2 (09:39→20:06)
[2021-07-04] MEDS: *HR* Enoxaparin 40 MG/0.4 ML SYRINGE SQ SCH (17:11)
[2021-07-04] MEDS: Megestrol Acetate 400 MG/10 ML UDC PO SCH (20:06)
[2021-07-04] MEDS: Ibuprofen 400 MG TABLET PO PRN (20:12)
[2021-07-05] MEDS: Piperacillin/Tazobactam 3.375 GM in 0.9 % Sodium Chloride Mini Bag 100 ML IVPB SCH (07:38)
[2021-07-05] MEDS: Furosemide 20 MG TABLET PO SCH ×2 (07:38→16:29)
[2021-07-05] MEDS: *HR* Enoxaparin 40 MG/0.4 ML SYRINGE SQ SCH (08:37)
[2021-07-05] MEDS: Megestrol Acetate 400 MG/10 ML UDC PO SCH ×2 (08:37→20:34)
[2021-07-05] MEDS: Valsartan 160 MG TABLET PO SCH (08:38)
[2021-07-05] MEDS: amLODIPine 5 MG TABLET PO SCH ×2 (08:39→20:34)
[2021-07-05] MEDS: Spironolactone 25 MG TABLET PO SCH (08:39)
[2021-07-05] MEDS: Multivit/Ca/Min/Fe/FA 1 TAB TABLET PO SCH (08:39)
[2021-07-05] MEDS: Cyanocobalamin (B-12) 1,000 MCG TABLET PO SCH (08:39)
[2021-07-05] MEDS: Folic Acid 1 MG TABLET PO SCH (08:40)
[2021-07-05] MEDS: Gabapentin 300 MG CAPSULE PO SCH ×3 (08:40→20:34)
[2021-07-05] MEDS: cloNIDine HCL 0.1 MG TABLET PO SCH ×3 (08:40→20:34)
[2021-07-05] MEDS ORDERED: Lidocaine Jelly 11 ml Syringe TP ONE (12:34)
[2021-07-05] MEDS ORDERED: *HR* HYDROmorphone (PF) 1 MG/ML SYRINGE IVP STA (12:35)
[2021-07-05] MEDS ORDERED: diazePAM 10 MG/2 ML SYRINGE IVP STA (12:38)
[2021-07-05] MEDS: Vancomycin 2,000 MG/520 ML IV.SOLN IVPB SCH (12:47)
[2021-07-05] MEDS ORDERED: Lidocaine/EPI 1:100k 1% 50 ML VIAL INFILT STA (14:48)
[2021-07-05] MEDS: Ibuprofen 400 MG TABLET PO PRN (16:32)
[2021-07-05] MEDS: Sulfamethoxazole/Trimeth DS 1 EACH TABLET PO SCH (20:33)
[2021-07-06 07:45] VITALS: BP 133/83; PULSE 88; TEMP 98.5; O2SAT 99
[2021-07-06] MEDS: Valsartan 160 MG TABLET PO SCH (08:58)
[2021-07-06] MEDS: Megestrol Acetate 400 MG/10 ML UDC PO SCH (08:58)
[2021-07-06] MEDS: Spironolactone 25 MG TABLET PO SCH (08:59)
[2021-07-06] MEDS: Sulfamethoxazole/Trimeth DS 1 EACH TABLET PO SCH (08:59)
[2021-07-06] MEDS: Multivit/Ca/Min/Fe/FA 1 TAB TABLET PO SCH (08:59)
[2021-07-06] MEDS: Folic Acid 1 MG TABLET PO SCH (09:00)
[2021-07-06] MEDS: amLODIPine 5 MG TABLET PO SCH (09:01)
[2021-07-06] MEDS: Gabapentin 300 MG CAPSULE PO SCH (09:01)
[2021-07-06] MEDS: cloNIDine HCL 0.1 MG TABLET PO SCH (09:01)
[2021-07-06] MEDS: Furosemide 20 MG TABLET PO SCH (09:01)
[2021-07-06] MEDS: *HR* Enoxaparin 40 MG/0.4 ML SYRINGE SQ SCH (09:02)
[2021-07-06] MEDS: Cyanocobalamin (B-12) 1,000 MCG TABLET PO SCH (09:02)
== END 2021-07-06 14:51 | disposition home or self-care (01) | DRG 571 ==
LOC: EMEROOARM 18:19 → 3ANU 18:19 → SUATTDRO 20:30 → 3ANU 21:15
PROVIDERS: ADMIT Internal Medicine; ATTEND Hospitalist